=== PATIENT | male | born 1960 | race Caucasian/White ===

== ENCOUNTER 2018-06-14 18:04 | Inpatient (IN) | payer OTHER ==
[2018-06-14] MEDS ORDERED: SODIUM CHLORIDE 0.9% 1,000 ML IV STA ×2 (20:15→22:18)
[2018-06-14] MEDS ORDERED: VANCOMYCIN IV PER PHARMACY 1 EACH MISC MISCELLANE PRN (20:21)
[2018-06-14] MEDS ORDERED: VANCOMYCIN 2,500 MG in SODIUM CHLORIDE 0.9% 500 ML 500 ML IVPB STA (20:32)
--- NOTE | 2018-06-14 21:02 | XR ---
EXAMINATION TYPE: XR femur RT DATE OF EXAM: 06/14/2018 COMPARISON: NONE HISTORY: Neuropathy and pain TECHNIQUE: 4 views FINDINGS: I see no fracture nor dislocation. Hip joint and knee joint are intact. There is some calci fication of the lateral meniscus of the knee. There is spurring of the acetabulum. IMPRESSION: There are some degenerative changes. No fracture seen.
--- NOTE | 2018-06-14 21:04 | ED ---
General Adult HPI - General Source: patient, RN notes reviewed, old records reviewed Mode of arrival: wheelchair Limitations: no limitations <Hector Kc - Last Filed: 06/14/18 23:09> <Brynn Robles - Last Filed: 06/15/18 00:33> - General Chief complaint: Skin/Abscess/Foreign Body Stated complaint: Infection in foot - History of Present Illness Initial comments: 50-year-old male patient past medical history of diabetes presents to ED with diabetic foot infection. Patient states that he checks his feet daily, punching. Today he noticed that he had a significant ulceration at the distal lateral aspect of his right foot. Patient states that he has pain with ambulation his right foot. Patient has been ambulatory with antalgic gait. Patient was seen by his primary care physician Dr. Leung in the office today, had ulceration debrided, had drain placed, was sent to ER for IV antibiotics and admission. Patient denies any other signs or symptoms. Patient denies fever /chills, nausea vomiting diarrhea, chest pain, shortness breath, abdominal pain. Systemic: Pt denies fatigue, myalgia, fever/chills, rash. Pt denies weakness, night sweats, weight loss. Neuro: Pt denies headache, visual disturbances, syncope or pre-syncope. HEENT: Pt denies ocular discharge or irritation, otalgia, rhinorrhea, pharyngitis or notable lymphadenopathy. Cardiopulmonary: Pt denies chest pain, SOB, heart palpitations, dyspnea on exertion. Abdominal/GI: Pt denies abdominal pain, n/v/d. : Pt denies dysuria, burning w/ urination, frequency/urgency. Denies new onset urinary or bowel incontinence. MSK: Pt denies myalgia, loss of strength or function in extremities. Neuro: Pt denies new onset weakness, paresthesias. (Hector Kc) - Related Data Home Medications Medication Instructions Recorded Confirmed Chlorthalidone 25 mg PO DAILY 06/14/18 06/14/18 Ergocalciferol (Vitamin D2) 50,000 unit PO HUGGINS 06/14/18 06/14/18 [Vitamin D2] Gabapentin 800 mg PO QID 06/14/18 06/14/18 Insulin Glargine,Hum.rec.anlog 36 unit SQ HS 06/14/18 06/14/18 [Basaglar Kwikpen U-100] Insulin Glargine,Hum.rec.anlog 40 units SQ QAM 06/14/18 06/14/18 [Basaglar Kwikpen U-100] Losartan Potassium 100 mg PO DAILY 06/14/18 06/14/18 Magnesium(Unknown Dose) 1 tab PO BID 06/14/18 06/14/18 Mesalamine [Pentasa] 1,000 mg PO QID 06/14/18 06/14/18 Pioglitazone [Actos] 45 mg PO HS 06/14/18 06/14/18 Pramipexole [Mirapex] 0.5 - 1 mg PO HS 06/14/18 06/14/18 Pyridoxine HCl (Vitamin B6) 100 mg PO DAILY 06/14/18 06/14/18 [Vitamin B-6] amLODIPine [Norvasc] 5 mg PO BID 06/14/18 06/14/18 metFORMIN HCL 1,000 mg PO BID 06/14/18 06/14/18 Allergies Allergy/AdvReac Type Severity Reaction Status Date / Time codeine Allergy Swelling Verified 06/14/18 20:19 Review of Systems ROS Other: All systems not noted in ROS Statement are negative. <Hector Kc - Last Filed: 06/14/18 23:09> ROS Other: All systems not noted in ROS Statement are negative. <Brynn Robles P - Last Filed: 06/15/18 00:33> ROS Statement: Those systems with pertinent positive or pertinent negative responses have been documented in the HPI. Past Medical History Past Medical History: Diabetes Mellitus, Hypertension Additional Past Medical History / Comment(s): neuropathy, crohns Past Surgical History: Bowel Resection, Tonsillectomy Past Psychological History: No Psychological Hx Reported Smoking Status: Former smoker Past Alcohol Use History: None Reported Past Drug Use History: None Reported <Hector Kc - Last Filed: 06/14/18 23:09> General Exam Limitations: no limitations <Hector Kc - Last Filed: 06/14/18 23:09> <Brynn Robles P - Last Filed: 06/15/18 00:33> - General Exam Comments Initial Comments: Constitutional: NAD, AOX3, Pt has pleasant affect. HEENT: NC/AT, trachea midline, neck supple, no lymphadenopathy. Posterior pharynx non erythematous, without exudates. External ears appear normal, without discharge. Mucous membranes moist. Eyes PERRLA, EOM intact. There is no scleral icterus. No pallor noted. Cardiopulmonary: RRR, no murmurs, rubs or gallops, no JVD noted. Lungs CTAB in anterior and posterior lee. No peripheral edema. Abdominal exam: Abdomen soft and non-distended. Abdomen non-tender to palpation in all 4 quadrants. Bowel sounds active in LLQ. No hepatosplenomegaly. No ecchymosis Neuro: CN II-XII grossly intact. No nuchal rigidity. MSK: Debrided ulceration with intact drain noted on lateral aspect of distal R foot. No active draining. Neurovascularly intact, posterior tibialis and dorsalis pedis pulse +2 bilaterally. Pt has pain with palpation of R posterior calf. Homans sign negative bilaterally. No pain with palpation of L posterior calf. Full active ROM in upper and lower extremities, 5/5 stregnth. (Hector Kc) Vital Signs 06/14/18 06/14/18 06/14/18 18:11 20:06 23:00 Temperature 98.4 F 98.4 F 98.9 F Pulse Rate 81 76 86 Respiratory 20 18 20 Rate Blood Pressure 165/78 171/77 175/89 O2 Sat by Pulse 96 96 98 Oximetry 06/15/18 00:12 Temperature 98.8 F Pulse Rate 18 L Respiratory 86 H Rate Blood Pressure 165/80 O2 Sat by Pulse 98 Oximetry Medical Decision Making - Lab Data Result diagrams: 06/14/18 21:30 06/14/18 21:30 <Hector Kc - Last Filed: 06/14/18 23:09> - Lab Data Result diagrams: 06/14/18 21:30 06/14/18 21:30 <Brynn Robles - Last Filed: 06/15/18 00:33> - Medical Decision Making 50-year-old male patient with past medical history of diabetes sent to ER by primary care provider for diabetic foot infection. Physical exam revealed a diabetic foot infection and the lateral aspect of his distal right foot. Patient neurovascularly intact. Patient had some right posterior calf tenderness, venous duplex was negative. CBC was non-impressive. CMP showed an elevated glucose, elevated creatinine. Patient given insulin for hyperglycemia. Patient started on vancomycin and Zosyn. Patient admitted for further evaluation and treatment. Case discussed with Dr. Robles. (Hector Kc) I personally saw and examined the patient. I reviewed and agree with the mid- level provider findings including all diagnostic interpretations and treatment plans as written. I discussed patient care with Dr. Aburto who agrees with plan for admission for IV antibiotics (Brynn Robles) - Lab Data Lab Results 06/14/18 06/14/18 06/14/18 Range/Units 21:00 21:30 21:30 WBC 10.0 (3.8-10.6) k/uL RBC 4.45 (4.30-5.90) m/uL Hgb 13.6 (13.0-17.5) gm/dL Hct 40.8 (39.0-53.0) % MCV 91.8 (80.0-100.0) fL MCH 30.5 (25.0-35.0) pg MCHC 33.2 (31.0-37.0) g/dL RDW 13.5 (11.5-15.5) % Plt Count 261 (150-450) k/uL Neutrophils % 75 % Lymphocytes % 15 % Monocytes % 6 % Eosinophils % 2 % Basophils % 0 % Neutrophils # 7.5 (1.3-7.7) k/uL Lymphocytes # 1.5 (1.0-4.8) k/uL Monocytes # 0.6 (0-1.0) k/uL Eosinophils # 0.2 (0-0.7) k/uL Basophils # 0.0 (0-0.2) k/uL Sodium 140 (137-145) mmol/L Potassium 4.6 (3.5-5.1) mmol/L Chloride 102 (98-107) mmol/L Carbon Dioxide 29 (22-30) mmol/L Anion Gap 9 mmol/L BUN 26 H (9-20) mg/dL Creatinine 1.45 H (0.66-1.25) mg/dL Est GFR (CKD-EPI)AfAm 61 (>60 ml/min/1.73 sqM) Est GFR (CKD-EPI)NonAf 53 (>60 ml/min/1.73 sqM) Glucose 435 H (74-99) mg/dL Plasma Lactic Acid Jay (0.7-2.0) mmol/L Calcium 9.4 (8.4-10.2) mg/dL Total Bilirubin 1.2 (0.2-1.3) mg/dL AST 24 (17-59) U/L ALT 43 (21-72) U/L Alkaline Phosphatase 144 H (38-126) U/L Total Protein 7.1 (6.3-8.2) g/dL Albumin 3.8 (3.5-5.0) g/dL Urine Color Light Yellow Urine Appearance Clear (Clear) Urine pH 5.5 (5.0-8.0) Ur Specific [place] 1.023 (1.001-1.035) Urine Protein Negative (Negative) Urine Glucose (UA) 4+ H (Negative) Urine Ketones Negative (Negative) Urine Blood Negative (Negative) Urine Nitrite Negative (Negative) Urine Bilirubin Negative (Negative) Urine Urobilinogen <2.0 (<2.0) mg/dL Ur Leukocyte Esterase Negative (Negative) 06/14/18 Range/Units 21:30 WBC (3.8-10.6) k/uL RBC (4.30-5.90) m/uL Hgb (13.0-17.5) gm/dL Hct (39.0-53.0) % MCV (80.0-100.0) fL MCH (25.0-35.0) pg MCHC (31.0-37.0) g/dL RDW (11.5-15.5) % Plt Count (150-450) k/uL Neutrophils % % Lymphocytes % % Monocytes % % Eosinophils % % Basophils % % Neutrophils # (1.3-7.7) k/uL Lymphocytes # (1.0-4.8) k/uL Monocytes # (0-1.0) k/uL Eosinophils # (0-0.7) k/uL Basophils # (0-0.2) k/uL Sodium (137-145) mmol/L Potassium (3.5-5.1) mmol/L Chloride (98-107) mmol/L Carbon Dioxide (22-30) mmol/L Anion Gap mmol/L BUN (9-20) mg/dL Creatinine (0.66-1.25) mg/dL Est GFR (CKD-EPI)AfAm (>60 ml/min/1.73 sqM) Est GFR (CKD-EPI)NonAf (>60 ml/min/1.73 sqM) Glucose (74-99) mg/dL Plasma Lactic Acid Jay 1.8 (0.7-2.0) mmol/L Calcium (8.4-10.2) mg/dL Total Bilirubin (0.2-1.3) mg/dL AST (17-59) U/L ALT (21-72) U/L Alkaline Phosphatase (38-126) U/L Total Protein (6.3-8.2) g/dL Albumin (3.5-5.0) g/dL Urine Color Urine Appearance (Clear) Urine pH (5.0-8.0) Ur Specific [place] (1.001-1.035) Urine Protein (Negative) Urine Glucose (UA) (Negative) Urine Ketones (Negative) Urine Blood (Negative) Urine Nitrite (Negative) Urine Bilirubin (Negative) Urine Urobilinogen (<2.0) mg/dL Ur Leukocyte Esterase (Negative) Disposition Is patient prescribed a controlled substance at d/c from ED?: No Decision Time: 23:08 <Hector Kc - Last Filed: 06/14/18 23:09> <Brynn Robles - Last Filed: 06/15/18 00:33> Clinical Impression: Diabetic foot infection Disposition: ADMITTED IP TO THIS HOSP
--- NOTE | 2018-06-14 21:05 | XR ---
EXAMINATION TYPE: XR foot complete RT DATE OF EXAM: 06/14/2018 COMPARISON: NONE HISTORY: Neuropathy and pain TECHNIQUE: 3 views FINDINGS: There is a 1.5 x 0.5 cm elongated density projected over the mid foot on the lateral view o n the plantar aspect consistent with a foreign body. There is a pin in the proximal phalanx of the se cond toe. There is probably previous surgery on the head of the proximal phalanx of the little 12. Me tatarsals are intact. There is an Achilles calcaneal spur. There is plantar calcaneal spurring. IMPRESSION: Foreign body projected in the plantar soft tissues. Degenerative hypertrophic changes. No acute bony abnormality seen.
--- NOTE | 2018-06-14 21:08 | XR ---
EXAMINATION TYPE: XR tibia fibula RT DATE OF EXAM: 06/14/2018 COMPARISON: NONE HISTORY: Neuropathy and pain TECHNIQUE: 4 views FINDINGS: There is mild subcutaneous edema around the lower leg. I see no fracture nor dislocation. A nkle mortise is anatomic. Knee joint appears intact. IMPRESSION: Subcutaneous edema. No fracture seen. No sign of osteomyelitis. Moderate plantar and Achi lles calcaneal spurring and calcification noted.
--- NOTE | 2018-06-14 21:18 | XR ---
EXAMINATION TYPE: XR chest 2V DATE OF EXAM: 06/14/2018 COMPARISON: NONE HISTORY: Diabetes and neuropathy. Chest pain TECHNIQUE: Frontal and lateral views of the chest are obtained. FINDINGS: Heart and mediastinum are normal. Lungs are clear. Diaphragm is normal. There is mild spur ring in the thoracic spine. IMPRESSION: No active cardiopulmonary disease. Normal heart.
[2018-06-14 21:55] LABS: Basophils % (A) 0 %; Eosinophils # (A) 0.2 k/uL (0-0.7); Eosinophils % (A) 2 %; HCT 40.8 % (39.0-53.0); HGB 13.6 gm/dL (13.0-17.5); Lymphocytes # (A) 1.5 k/uL (1.0-4.8); Lymphocytes % (A) 15 %; MCH 30.5 pg (25.0-35.0); MCHC 33.2 g/dL (31.0-37.0); MCV 91.8 fL (80.0-100.0); Mean Platelet Volume 7.6; Monocytes # (A) 0.6 k/uL (0-1.0); Monocytes % (A) 6 %; Neutrophils # (A) 7.5 k/uL (1.3-7.7); Neutrophils % (A) 75 %; Platelet Count 261 k/uL (150-450); RBC 4.45 m/uL (4.30-5.90); RDW 13.5 % (11.5-15.5)
[2018-06-14 22:06] LABS: Albumin 3.8 g/dL (3.5-5.0); Calcium 9.4 mg/dL (8.4-10.2); Potassium 4.6 mmol/L (3.5-5.1); Total Bilirubin 1.2 mg/dL (0.2-1.3); Total Protein 7.1 g/dL (6.3-8.2)
[2018-06-14] MEDS ORDERED: INSULIN REGULAR 100 UNIT/ML VIAL IV ONE (22:17)
[2018-06-14 22:31] LABS: Appearance,Urine Clear (Clear); Bilirubin,Urine Negative (Negative); Blood,Urine Negative (Negative); Color,Urine Light Yellow; Glucose,Urine (UA) 4+ (Negative); Ketones,Urine Negative (Negative); Leukocyte Esterase,Urine Negative (Negative); Nitrite,Urine Negative (Negative); PH, Urine 5.5 (5.0-8.0); Protein,Urine Negative (Negative); Specific Gravity,Urine 1.023 (1.001-1.035); Urobilinogen,Urine <2.0 mg/dL (<2.0)
--- NOTE | 2018-06-14 22:41 | US ---
EXAMINATION TYPE: US venous doppler duplex LE BI DATE OF EXAM: 06/14/2018 10:35 PM COMPARISON: NONE CLINICAL HISTORY: Pain. SIDE PERFORMED: TECHNIQUE: The lower extremity deep venous system is examined utilizing real time linear array sonog ash with graded compression, doppler sonography and color-flow sonography. VESSELS IMAGED: External Iliac Vein (EIV) Common Femoral Vein Deep Femoral Vein Greater Saphenous Vein * Femoral Vein Popliteal Vein Small Saphenous Vein * Proximal Calf Veins (* superficial vessels) Right Leg: Left Leg: IMPRESSION: Normal bilateral leg duplex venous sonogram. No evidence of deep venous thrombosis.
[2018-06-14] MEDS ORDERED: NALOXONE 0.4 MG/ML 1 ML VIAL IV PRN (22:52)
[2018-06-15] MEDS ORDERED: ACETAMINOPHEN TAB 325 MG TAB PO PRN (01:27)
[2018-06-15] MEDS ORDERED: NALOXONE 0.4 MG/ML 1 ML VIAL IV PRN (01:27)
[2018-06-15] MEDS: PIPERACILLIN-TAZOBACTAM 3.375 GM in SODIUM CHLORIDE 0.9% 100 ML IVPB SCH ×3 (01:28→15:15)
--- NOTE | 2018-06-15 01:37 | P.HPIM ---
History of Present Illness H&P Date: 06/15/18 Chief Complaint: Diabetic foot ulcer 58-year-old male with history of diabetes hypertension and peripheral neuropathy Patient doesn't have any sensation in his feet and he walks around using a cane. He does check his feet every day and today he noticed a swollen area over the lateral aspect of his right foot so he went to see Dr. Leung arm wound debridement in the office and recommended that he goes to the hospital for IV antibiotics patient otherwise denies any chills or fever denies any abdominal pain chest pain or trouble breathing denies any nausea or vomiting. Review of Systems Pertinent positives as noted in HPI. All other systems were reviewed and are negative Past Medical History Past Medical History: Diabetes Mellitus, Hypertension Additional Past Medical History / Comment(s): neuropathy, crohns Past Surgical History: Bowel Resection, Tonsillectomy Past Psychological History: No Psychological Hx Reported Smoking Status: Former smoker Past Alcohol Use History: None Reported Past Drug Use History: None Reported Medications and Allergies Home Medications Medication Instructions Recorded Confirmed Type Chlorthalidone 25 mg PO DAILY 06/14/18 06/14/18 History Ergocalciferol (Vitamin D2) 50,000 unit PO HUGGINS 06/14/18 06/14/18 History [Vitamin D2] Gabapentin 800 mg PO QID 06/14/18 06/14/18 History Insulin Glargine,Hum.rec.anlog 36 unit SQ HS 06/14/18 06/14/18 History [Basaglar Kwikpen U-100] Insulin Glargine,Hum.rec.anlog 40 units SQ QAM 06/14/18 06/14/18 History [Basaglar Kwikpen U-100] Losartan Potassium 100 mg PO DAILY 06/14/18 06/14/18 History Magnesium(Unknown Dose) 1 tab PO BID 06/14/18 06/14/18 History Mesalamine [Pentasa] 1,000 mg PO QID 06/14/18 06/14/18 History Pioglitazone [Actos] 45 mg PO HS 06/14/18 06/14/18 History Pramipexole [Mirapex] 0.5 - 1 mg PO HS 06/14/18 06/14/18 History Pyridoxine HCl (Vitamin B6) 100 mg PO DAILY 06/14/18 06/14/18 History [Vitamin B-6] amLODIPine [Norvasc] 5 mg PO BID 06/14/18 06/14/18 History metFORMIN HCL 1,000 mg PO BID 06/14/18 06/14/18 History Allergies Allergy/AdvReac Type Severity Reaction Status Date / Time codeine Allergy Swelling Verified 06/14/18 20:19 Physical Exam Vitals: Vital Signs Temp Pulse Pulse Resp BP BP Pulse Ox 06/15/18 01:23 98.5 F 76 18 164/79 97 06/15/18 00:12 98.8 F 18 L 86 H 165/80 98 06/14/18 23:00 98.9 F 86 20 175/89 98 06/14/18 20:06 98.4 F 76 18 171/77 96 06/14/18 18:11 98.4 F 81 20 165/78 96 Intake and Output 06/14/18 06/14/18 06/15/18 14:59 22:59 06:59 Other: Weight 131.542 kg Constitutional: No acute distress, conversant, pleasant Eyes: Anicteric sclerae, moist conjunctiva, no lid-lag Pupils equal round reactive to light ENMT: NC/AT Oropharynx clear, no erythema, exudates Neck: Supple, FROM, no masses, or JVD No carotid bruits No thyromegaly Lungs: Clear to auscultation Clear to percussion Normal respiratory effort, no accessory muscle use Cardiovascular: Heart regular in rate and rhythm, No murmurs, gallops, or rubs No peripheral edema Abdominal: Soft Nontender, no guarding, rebound or rigidity Abdomen moving with respiration Normoactive bowel sounds No hepatomegaly, No splenomegaly No palpable mass No abdominal wall hernia noted Skin: Diabetic foot ulcer seen over the lateral aspect of the right foot no significant surrounding induration no tenderness to palpation no drainage patient is status post wound debridement in the outpatient office Normal temperature, tone, texture, turgor No induration No subcutaneous nodules No rash, lesions No ulcers Extremities: No digital cyanosis No clubbing Pedal pulses intact and symmetrical Radial pulses intact and symmetrical No calf tenderness Psychiatric: Alert and oriented to person, place and time Appropriate affect fair judgment Neuro Muscles Strength 5/5 in all 4 extremities Sensation to light touch grossly present throughout Cranial nerves II-XII grossly intact Decreased sensation over bilateral lower extremities from mid thigh and below Lymphatics: no palpable cervical or supraclavicular , or inguinal lymph nodes Results CBC & Chem 7: 06/14/18 21:30 06/14/18 21:30 Labs: Abnormal Lab Results - Last 24 Hours (Table) 06/14/18 06/14/18 Range/Units 21:00 21:30 BUN 26 H (9-20) mg/dL Creatinine 1.45 H (0.66-1.25) mg/dL Glucose 435 H (74-99) mg/dL Alkaline Phosphatase 144 H (38-126) U/L Urine Glucose (UA) 4+ H (Negative) Assessment and Plan Assessment: 58-year-old male with history of diabetes and hypertension. Admitted as an inpatient with the hospital stay more than 48 hours due to diabetic foot ulcer per recommendation of formed clinic to receive IV antibiotics. Patient was also found to have acute kidney injury.unknown baseline of creatinine. Plan: Diabetic foot ulcer Status post debridement outpatient IV antibiotics for wound clinic recommendations ID consult Local wound care Pain control Check cultures Check ESR CRP X-rays reviewed no acute abnormalities no evidence suggestive of osteo this far Acute kidney injury unknown baseline of creatinine Hold diuretics Hold losartan IV fluid hydration Monitor urine output and renal function Diabetes mellitus Insulin sliding scale Hold oral hypoglycemic agent Continue with long-acting insulin Hypertension Continue amlodipine DVT prophylaxis heparin subcutaneous 3 times a day Surrogate decision-maker: CODE STATUS: Full code Discussed with: Patient, ER, RN Anticipated discharge: 48-[address]: Home A total of 60 minutes was spent on the care of this complex patient more than 50 % of the time was spent in counseling and care coordination.
[2018-06-15 02:26] VITALS: BMI 36.2
[2018-06-15 07:29] LABS: Glucose,Whole Blood 209 mg/dL (75-99)
[2018-06-15] MEDS: HEPARIN SODIUM,PORCINE 5,000 UNIT/ML 1 ML VIAL SQ SCH ×3 (07:35→22:10)
[2018-06-15] MEDS: amLODIPine 5 MG TAB PO SCH ×2 (07:36→22:10)
[2018-06-15] MEDS: GABAPENTIN 400 MG CAP PO SCH ×4 (07:36→22:09)
[2018-06-15] MEDS: INSULIN ASPART 100 UNIT/ML 1 ML 10 ML VIAL SQ SCH ×4 (07:36→22:10)
[2018-06-15] MEDS ORDERED: BALSALAZIDE DISODIUM 750 MG CAPSULE PO SCH (09:00)
[2018-06-15] MEDS: PENTASA 500 MG PO SCH ×4 (09:25→22:15)
[2018-06-15] MEDS: INSULIN DETEMIR 100 UNIT/ML 10 ML VIAL SQ SCH (09:34)
[2018-06-15] MEDS ORDERED: DIPH,PERTUS(ACELL)TETVAC-LF 0.5 ML VIAL IM ONE (09:52)
--- NOTE | 2018-06-15 09:55 | P.CONS ---
History of Present Illness - Reason for Consult Consult date: 06/15/18 Diabetic foot infection - History of Present Illness This is a 58-year-old male patient with past history significant for diabetes mellitus type 2 insulin requiring. He gives history that he follows with Dr. Leung for long-term every month regarding a left foot wound that is almost completely healed. He states that he has diabetic neuropathy and does not have any feeling in his feet. His son checks his feet every morning and his checks them every evening for him. Yesterday morning, his son noticed a large blood blister on his right foot. Patient does not recall any injury. He saw Dr. Leung yesterday and this was to bright red and a drain was placed and he was then sent to the emergency center for admission and IV antibiotics. Patient has had previous surgeries for hammertoes on this foot. He states he has fever chills and rigors the night before. Patient presented afebrile, white count of 10, creatinine 1.45. Baseline creatinine is not known. Blood sugar was 435. Patient states that his blood sugar has been running 150-200 at home and he does not know his hemoglobin A1c. C-reactive protein was 54 and sed rate 31. Urinalysis was 4+ glucose, lactic acid 1.8. Venous Doppler was negative for DVT on both legs. Foot x-ray reveals foreign body projecting in the plantar soft tissues. Degenerative hypertrophic changes. No acute bony abnormality seen. Right femur x-ray showed degenerative changes. No acute fracture. Right tib-fib x-ray shows subcutaneous edema. No fracture. No sign of osteomyelitis. Moderate plantar and Achilles calcaneal spurring and calcification noted. Chest x-ray shows no active cardio pulmonary disease. Normal heart. Hemoglobin A1c is pending. Patient states that chills have resolved. Review of Systems All systems: negative Constitutional: Denies anorexia, Denies chills, Denies fatigue, Denies fever, Denies lethargy, Denies malaise, Denies poor appetite, Denies weakness, Denies weight loss Eyes: denies blurred vision, denies pain Ears, nose, mouth and throat: Denies dental pain, Denies dysphagia, Denies headache, Denies mouth pain, Denies sore throat, Denies vertigo Cardiovascular: Reports leg edema, Denies chest pain, Denies decreased exercise tolerance, Denies dyspnea on exertion, Denies edema, Denies shortness of breath , Denies syncope Respiratory: Denies cough, Denies cough with sputum, Denies dyspnea, Denies excessive sputum, Denies hemoptysis, Denies home oxygen, Denies wheezing Gastrointestinal: Denies abdominal pain, Denies diarrhea, Denies loss of appetite, Denies melena, Denies nausea, Denies vomiting Genitourinary: Denies dysuria, Denies urinary frequency, Denies urinary hesitancy, Denies urinary retention Musculoskeletal: Denies frequent falls, Denies muscle weakness, Denies myalgias Integumentary: Reports foot/leg ulcers, Reports wounds, Denies pruritus, Denies rash Neurological: Denies aphasia, Denies change in mentation, Denies confusion, Denies numbness, Denies seizures, Denies syncope, Denies weakness Psychiatric: Denies anxiety, Denies depression Endocrine: Denies fatigue, Denies weight change Past Medical History Past Medical History: Diabetes Mellitus, Hypertension Additional Past Medical History / Comment(s): Diabetic neuropathy, crohns History of Any Multi-Drug Resistant Organisms: None Reported Past Surgical History: Bowel Resection, Tonsillectomy Past Psychological History: No Psychological Hx Reported Smoking Status: Former smoker Past Alcohol Use History: None Reported Additional Past Alcohol Use History / Comment(s): Patient was a smoker of 2 and half to 3 packs per day for 12-13 years and quit 25 years ago. He denies any marijuana, street drug or alcohol use. He currently lives at home with his and son. 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 There are 3 dogs and 2 cats in the home. 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 He has difficulty ambulating due to neuropathy. Past Drug Use History: None Reported Medications and Allergies Home Medications Medication Instructions Recorded Confirmed Type Chlorthalidone 25 mg PO DAILY 06/14/18 06/14/18 History Ergocalciferol (Vitamin D2) 50,000 unit PO HUGGINS 06/14/18 06/14/18 History [Vitamin D2] Gabapentin 800 mg PO QID 06/14/18 06/14/18 History Insulin Glargine,Hum.rec.anlog 36 unit SQ HS 06/14/18 06/14/18 History [Basaglar Kwikpen U-100] Insulin Glargine,Hum.rec.anlog 40 units SQ QAM 06/14/18 06/14/18 History [Basaglar Kwikpen U-100] Losartan Potassium 100 mg PO DAILY 06/14/18 06/14/18 History Magnesium(Unknown Dose) 1 tab PO BID 06/14/18 06/14/18 History Mesalamine [Pentasa] 1,000 mg PO QID 06/14/18 06/14/18 History Pioglitazone [Actos] 45 mg PO HS 06/14/18 06/14/18 History Pramipexole [Mirapex] 0.5 - 1 mg PO HS 06/14/18 06/14/18 History Pyridoxine HCl (Vitamin B6) 100 mg PO DAILY 06/14/18 06/14/18 History [Vitamin B-6] amLODIPine [Norvasc] 5 mg PO BID 06/14/18 06/14/18 History metFORMIN HCL 1,000 mg PO BID 06/14/18 06/14/18 History Allergies Allergy/AdvReac Type Severity Reaction Status Date / Time codeine Allergy Swelling Verified 06/14/18 20:19 Physical Exam Vitals: Vital Signs Temp Pulse Pulse Resp BP BP Pulse Ox 06/15/18 07:11 98.6 F 77 18 148/71 96 06/15/18 01:23 98.5 F 76 18 164/79 97 06/15/18 00:12 98.8 F 18 L 86 H 165/80 98 06/14/18 23:00 98.9 F 86 20 175/89 98 06/14/18 20:06 98.4 F 76 18 171/77 96 06/14/18 18:11 98.4 F 81 20 165/78 96 Intake and Output 06/14/18 06/15/18 06/15/18 22:59 06:59 14:59 Other: # Voids 1 Weight 131.542 kg 131.54 kg Gen: This is a obese 58-year-old male. He is in bed and appears to be comfortable. HEENT: Head is atraumatic, normocephalic. Pupils equal, round. Sclerae is anicteric. Conjunctiva pink. Mucous members of the mouth are moist. Dentition is in fair order for age. No thrush noted. NECK: Supple. No JVD. No lymphadenopathy. No thyromegaly. LUNGS: Clear to auscultation. No wheezes or rhonchi. No intercostal retractions. HEART: Regular rate and rhythm. No murmur. ABDOMEN: Soft. Bowel sounds are present. No masses. No tenderness. EXTREMITIES: 1+ pedal edema to the right foot. On the lateral proximal fifth metatarsal there is an open ulcer. Minimal surrounding erythema. Drain is in place. No foul odor. Scant amount of drainage. On the plantar surface of the left foot there is a healing wound. No drainage, erythema, edema. Dorsalis pedis is +2 bilaterally. NEUROLOGICAL: Patient is awake, alert and oriented x3. Cranial nerves 2 through 12 are grossly intact. Results Results: Laboratory Results WBC 10.0 k/uL (3.8-10.6) 06/14/18 21:30 RBC 4.45 m/uL (4.30-5.90) 06/14/18 21:30 Hgb 13.6 gm/dL (13.0-17.5) 06/14/18 21:30 Hct 40.8 % (39.0-53.0) 06/14/18 21:30 MCV 91.8 fL (80.0-100.0) 06/14/18 21:30 MCH 30.5 pg (25.0-35.0) 06/14/18 21: MCHC 33.2 g/dL (31.0-37.0) 06/14/18 21:30 RDW 13.5 % (11.5-15.5) 06/14/18 21:30 Plt Count 261 k/uL (150-450) 06/14/18 21:30 Neutrophils % 75 % 06/14/18 21:30 Lymphocytes % 15 % 06/14/18 21:30 Monocytes % 6 % 06/14/18 21:30 Eosinophils % 2 % 06/14/18 21:30 Basophils % 0 % 06/14/18 21:30 Neutrophils # 7.5 k/uL (1.3-7.7) 06/14/18 21:30 Lymphocytes # 1.5 k/uL (1.0-4.8) 06/14/18 21:30 Monocytes # 0.6 k/uL (0-1.0) 06/14/18 21:30 Eosinophils # 0.2 k/uL (0-0.7) 06/14/18 21:30 Basophils # 0.0 k/uL (0-0.2) 06/14/18 21:30 ESR 31 mm/hr (0-15) H 06/14/18 21:30 Sodium 140 mmol/L (137-145) 06/14/18 21:30 Potassium 4.6 mmol/L (3.5-5.1) 06/14/18 21:30 Chloride 102 mmol/L (98-107) 06/14/18 21:30 Carbon Dioxide 29 mmol/L (22-30) 06/14/18 21:30 Anion Gap 9 mmol/L 06/14/18 21:30 BUN 26 mg/dL (9-20) H 06/14/18 21:30 Creatinine 1.45 mg/dL (0.66-1.25) H 06/14/18 21:30 Est GFR (CKD-EPI)AfAm 61 (>60 ml/min/1.73 sqM) 06/14/18 21:30 Est GFR (CKD-EPI)NonAf 53 (>60 ml/min/1.73 sqM) 06/14/18 21:30 Glucose 435 mg/dL (74-99) H 06/14/18 21:30 POC Glucose (mg/dL) 209 mg/dL (75-99) H 06/15/18 07:13 POC Glu Behavior Clinician Mreary Rodriguez 06/15/18 07:13 Plasma Lactic Acid Jay 1.8 mmol/L (0.7-2.0) 06/14/18 21:30 Calcium 9.4 mg/dL (8.4-10.2) 06/14/18 21:30 Total Bilirubin 1.2 mg/dL (0.2-1.3) 06/14/18 21:30 AST 24 U/L (17-59) 06/14/18 21:30 ALT 43 U/L (21-72) 06/14/18 21:30 Alkaline Phosphatase 144 U/L (38-126) H 06/14/18 21:30 C-Reactive Protein 54.0 mg/L (<10.0) H 06/14/18 21:30 Total Protein 7.1 g/dL (6.3-8.2) 06/14/18 21:30 Albumin 3.8 g/dL (3.5-5.0) 06/14/18 21:30 Urine Color Light Yellow 06/14/18 21:00 Urine Appearance Clear (Clear) 06/14/18 21:00 Urine pH 5.5 (5.0-8.0) 06/14/18 21:00 Ur Specific [place] 1.023 (1.001-1.035) 06/14/18 21:00 Urine Protein Negative (Negative) 06/14/18 21:00 Urine Glucose (UA) 4+ (Negative) H 06/14/18 21:00 Urine Ketones Negative (Negative) 06/14/18 21:00 Urine Blood Negative (Negative) 06/14/18 21:00 Urine Nitrite Negative (Negative) 06/14/18 21:00 Urine Bilirubin Negative (Negative) 06/14/18 21:00 Urine Urobilinogen <2.0 mg/dL (<2.0) 06/14/18 21:00 Ur Leukocyte Esterase Negative (Negative) 06/14/18 21:00 CBC & Chem 7: 06/14/18 21:30 06/14/18 21:30 Labs: Abnormal Lab Results - Last 24 Hours (Table) 06/14/18 06/14/18 06/14/18 Range/Units 21:00 21:30 21:30 ESR 31 H (0-15) mm/hr BUN 26 H (9-20) mg/dL Creatinine 1.45 H (0.66-1.25) mg/dL Glucose 435 H (74-99) mg/dL POC Glucose (mg/dL) (75-99) mg/dL Alkaline Phosphatase 144 H (38-126) U/L C-Reactive Protein (<10.0) mg/L Urine Glucose (UA) 4+ H (Negative) 06/14/18 06/15/18 Range/Units 21:30 07:13 ESR (0-15) mm/hr BUN (9-20) mg/dL Creatinine (0.66-1.25) mg/dL Glucose (74-99) mg/dL POC Glucose (mg/dL) 209 H (75-99) mg/dL Alkaline Phosphatase (38-126) U/L C-Reactive Protein 54.0 H (<10.0) mg/L Urine Glucose (UA) (Negative) Assessment and Plan Plan: This is a 58-year-old male presented to the hospital with diabetic ulcer to the right foot status post I&D done at Dr. Leung's office. Patient is currently on vancomycin and Zosyn which will be continued. Patient is diabetic and will require tight glucose control. Hemoglobin A1c is pending. Local wound care will be addressed. Wound culture has been ordered and tetanus status will be updated. Continues supportive care. Further recommendations as patient progresses. The above dictated assessment and findings were discussed with Dr. Flores. The impression and plan of care have been directed as dictated. Vanessa Pichardo nurse practitioner acting as scribe for Dr. Flores.
[2018-06-15 12:25] LABS: Glucose,Whole Blood 188 mg/dL (75-99)
[2018-06-15 15:41] LABS: Hemoglobin A1C 9.1 % (4.0-6.0)
[2018-06-15 17:31] LABS: Glucose,Whole Blood 211 mg/dL (75-99)
[2018-06-15] MEDS ORDERED: INSULIN DETEMIR 100 UNIT/ML 10 ML VIAL SQ SCH (21:00)
[2018-06-15] MEDS: PRAMIPEXOLE 1 MG TAB PO SCH (22:09)
[2018-06-15] MEDS: VANCOMYCIN 2,500 MG in SODIUM CHLORIDE 0.9% 500 ML 500 ML IVPB SCH (22:26)
--- NOTE | 2018-06-15 23:39 | P.CON ---
Consult Note - . Consult date: 06/15/18 Assessment/Plan:: This is a 58-year-old male patient with past history significant for diabetes mellitus type 2 insulin requiring. He gives history that he follows with Dr. Leung for long-term every month regarding a left foot wound that is almost completely healed. He states that he has diabetic neuropathy and does not have any feeling in his feet. His son checks his feet every morning and his checks them every evening for him. Yesterday morning, his son noticed a large blood blister on his right foot. Patient does not recall any injury. He saw Dr. Leung yesterday and this was to bright red and a drain was placed and he was then sent to the emergency center for admission and IV antibiotics. Patient has had previous surgeries for hammertoes on this foot. He states he has fever chills and rigors the night before. Patient presented afebrile, white count of 10, creatinine 1.45. Baseline creatinine is not known. Blood sugar was 435. Patient states that his blood sugar has been running 150-200 at home and he does not know his hemoglobin A1c. C-reactive protein was 54 and sed rate 31. Urinalysis was 4+ glucose, lactic acid 1.8. Venous Doppler was negative for DVT on both legs. Foot x-ray reveals foreign body projecting in the plantar soft tissues. Degenerative hypertrophic changes. No acute bony abnormality seen. Right femur x-ray showed degenerative changes. No acute fracture. Right tib-fib x-ray shows subcutaneous edema. No fracture. No sign of osteomyelitis. Moderate plantar and Achilles calcaneal spurring and calcification noted. Chest x-ray shows no active cardio pulmonary disease. Normal heart. Hemoglobin A1c is pending. Patient states that chills have resolved.Please see the consult note as dictated by nurse practitioner Wanda Vanessa Pichardo. 58-year-old male presents to Hospital the sudden onset of blistering to the plantar surface of his right foot. He relates that he wear shoes or sandals at all times. He walks briefly through the house without shoes on. Never goes barefoot outside. Really does not have on some type of foot gear while he is within the home. He does put his insulin syringes into container such as an old detergent bottle for disposal to the trash. He does not recall stepping on anything. This is of importance because of the findings of the x-ray of the foreign body into the foot possibly in conjunction with the current injury and ulceration. Please note on admission there is evidence for diabetic foot ulceration, measuring approximately 3.1 x 2.1 with 2.1 cm depth, minimal drainage, full-thickness which is present on admission.currently receiving antibiotic theraat this time. Offloading is important. Local wound care with therahoney gel as been requested to be applied daily for now. We'll requested his mechanical engineering lecturer Dr. Leung comes on consult to evaluate the ulceration for debridement and removal of the foreign body if possible. Further imaging study with a bone scan is requested to evaluate the extent of the infection given the probed depth. We'll ensure that he is up-to-date with his tetanus, multivitamin will be utilized and he is instructed in importance of offloading at this time.
[2018-06-16] MEDS: PIPERACILLIN-TAZOBACTAM 3.375 GM in SODIUM CHLORIDE 0.9% 100 ML IVPB SCH ×3 (01:59→16:48)
[2018-06-16 02:16] LABS: Glucose,Whole Blood 153 mg/dL (75-99)
[2018-06-16 07:19] LABS: Glucose,Whole Blood 110 mg/dL (75-99)
[2018-06-16] MEDS: INSULIN ASPART 100 UNIT/ML 1 ML 10 ML VIAL SQ SCH ×4 (08:33→21:37)
[2018-06-16] MEDS: PENTASA 500 MG PO SCH ×4 (08:53→21:37)
[2018-06-16] MEDS: GABAPENTIN 400 MG CAP PO SCH ×4 (08:54→21:37)
[2018-06-16] MEDS: HEPARIN SODIUM,PORCINE 5,000 UNIT/ML 1 ML VIAL SQ SCH ×2 (08:54→16:48)
[2018-06-16] MEDS: MULTIVITAMINS, THERA 1 EACH TAB PO SCH (08:54)
[2018-06-16] MEDS: amLODIPine 5 MG TAB PO SCH ×2 (08:55→21:37)
--- NOTE | 2018-06-16 09:33 | P.GSHP ---
History of Present Illness H&P Date: 06/16/18 Chief Complaint: Diabetic foot abscess with ascending cellulitis right Patient is a 58-year-old white male seen in my office on Tuesday with a acute ascending cellulitis of the right foot. Apparently the patient stepped on a sharp object when penetrated tissue and entered the plantar lateral aspect of the foot. He notices foot getting red and swollen Tuesday morning and was progressively degrading over the day. He presented my office on Tuesday when we I&D the area and gave patient orders to present to the hospital for treatment of the cellulitis and abscess. In the office we packed the wound with iodoform after copiously lavaging with sterile saline. Patient is now on Zosyn and vancomycin. Patient states he's feeling somewhat better. Past Medical History Past Medical History: Diabetes Mellitus, Hypertension Additional Past Medical History / Comment(s): Diabetic neuropathy, crohns History of Any Multi-Drug Resistant Organisms: None Reported Past Surgical History: Bowel Resection, Tonsillectomy Past Psychological History: No Psychological Hx Reported Smoking Status: Former smoker Past Alcohol Use History: None Reported Additional Past Alcohol Use History / Comment(s): Patient was a smoker of 2 and half to 3 packs per day for 12-13 years and quit 25 years ago. He denies any marijuana, street drug or alcohol use. He currently lives at home with his and son. 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 There are 3 dogs and 2 cats in the home. 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 He has difficulty ambulating due to neuropathy. Past Drug Use History: None Reported Medications and Allergies Home Medications Medication Instructions Recorded Confirmed Type Chlorthalidone 25 mg PO DAILY 06/14/18 06/14/18 History Ergocalciferol (Vitamin D2) 50,000 unit PO HUGGINS 06/14/18 06/14/18 History [Vitamin D2] Gabapentin 800 mg PO QID 06/14/18 06/14/18 History Insulin Glargine,Hum.rec.anlog 36 unit SQ HS 06/14/18 06/14/18 History [Basaglar Kwikpen U-100] Insulin Glargine,Hum.rec.anlog 40 units SQ QAM 06/14/18 06/14/18 History [Basaglar Kwikpen U-100] Losartan Potassium 100 mg PO DAILY 06/14/18 06/14/18 History Magnesium(Unknown Dose) 1 tab PO BID 06/14/18 06/14/18 History Mesalamine [Pentasa] 1,000 mg PO QID 06/14/18 06/14/18 History Pioglitazone [Actos] 45 mg PO HS 06/14/18 06/14/18 History Pramipexole [Mirapex] 0.5 - 1 mg PO HS 06/14/18 06/14/18 History Pyridoxine HCl (Vitamin B6) 100 mg PO DAILY 06/14/18 06/14/18 History [Vitamin B-6] amLODIPine [Norvasc] 5 mg PO BID 06/14/18 06/14/18 History metFORMIN HCL 1,000 mg PO BID 06/14/18 06/14/18 History Allergies Allergy/AdvReac Type Severity Reaction Status Date / Time codeine Allergy Swelling Verified 06/14/18 20:19 Surgical - Exam Vital Signs Temp Pulse Resp BP Pulse Ox 98.4 F 81 20 165/78 96 06/14/18 18:11 06/14/18 18:11 06/14/18 18:11 06/14/18 18:11 06/14/18 18:11 - Cardiovascular Patient pedal pulses are diminished bilateral. There is no digital hair bilateral. There is increased temperature to the right lower extremity consistent with the acute cellulitic infection. - Integumentary Patient has a full-thickness ulceration with abscess on the plantar lateral aspect of the right foot in the area of the base of the fifth metatarsal. The packing has been removed. There is intense erythema and edema extending from this area to the ankle joint with increased temperature. There is no purulence. The extent of the narcotic tissue is localized centrally within the wound and measures approximately a centimeter by a centimeter. The wound extends dorsally a proximally 5 cm and the width of the entire wound is approximately 3 cm. There are no other acute dermatologic lesions - Neurologic Patient has loss of protective sensation up to including the lower leg lateral as well as decreased fiber Tory 2 point tactile at the medial malleolus bilateral. - Musculoskeletal All inverters everters plantar flexors dorsiflexors grossly intact and symmetrical bilateral range of motion ankle joint decreased bilateral range of motion of the remaining pedal joints are essentially normal bilateral. Review of radiographs show the retention of the iodoform packing of the right foot. This was read by the radiologist as a foreign body which is correct however this is iatrogenic. Results - Labs 06/14/18 21:30 06/14/18 21:30 Abnormal Lab Results - Last 24 Hours (Table) 06/14/18 06/15/18 06/15/18 Range/Units 21:30 12:06 17:14 POC Glucose (mg/dL) 188 H 211 H (75-99) mg/dL Hemoglobin A1c 9.1 H (4.0-6.0) % 06/15/18 06/16/18 Range/Units 20:42 07:18 POC Glucose (mg/dL) 153 H 110 H (75-99) mg/dL Hemoglobin A1c (4.0-6.0) % Microbiology - Last 24 Hours (Table) 06/15/18 13:20 Gram Stain - Preliminary Foot - Right Wound Culture - Preliminary 06/14/18 21:30 Blood Culture - Preliminary Blood No Growth after 24 hours 06/15/18 13:20 Anaerobic Culture - Preliminary Foot - Right Diabetes panel 06/14/18 Range/Units 21:30 Hemoglobin A1c 9.1 H (4.0-6.0) % Assessment and Plan Assessment: Abscess right foot with extending acute cellulitis Insulin-dependent diabetes mellitus Other systemic issues as per H&P Plan: Exam. Review of patient's chart including history and physical labs radiographs etc. Discussed with patient findings and treatment plan. We'll continue with the iodoform packing for the next day or 2 in order to alleviate the need for surgical I&D. He has after which will changed to a Silver rope Santyl or medical Honey whatever is appropriate the time. We'll continue to offload the area. Once this cellulitis is controlled patient should be of discharge and will follow at the office. She for this consult
[2018-06-16] MEDS: INSULIN DETEMIR 100 UNIT/ML 10 ML VIAL SQ SCH ×2 (09:38→22:05)
[2018-06-16 12:01] LABS: Glucose,Whole Blood 226 mg/dL (75-99)
--- NOTE | 2018-06-16 12:19 | P.PN ---
Subjective Progress Note Date: 06/16/18 Principal diagnosis: Cellulitis right lower extremity with Farias grade 2 diabetic ulcer abscess Patient seen at bedside resting comfortably. Patient voices no complaints states he thinks are some improvement Objective - Vital Signs Vital signs: Vital Signs Temp 97.7 F 06/16/18 06:28 Pulse 57 L 06/16/18 06:28 Resp 18 06/16/18 06:28 BP 161/71 06/16/18 06:28 Pulse Ox 93 L 06/16/18 06:28 Intake & Output 06/15/18 06/16/18 06/16/18 18:59 06:59 18:59 Intake Total 1440 Balance 1440 Weight 131.54 kg Intake: Oral 1440 Other: # Voids 2 1 # Bowel Movements 0 - Integumentary Integumentary Comment(s): There is no change in the erythema and edema to the right lower extremity the abscessed ulcer appears unchanged - Labs CBC & Chem 7: 06/14/18 21:30 06/14/18 21:30 Labs: Abnormal Lab Results - Last 24 Hours (Table) 06/14/18 06/15/18 06/15/18 Range/Units 21:30 12:06 17:14 POC Glucose (mg/dL) 188 H 211 H (75-99) mg/dL Hemoglobin A1c 9.1 H (4.0-6.0) % 06/15/18 06/16/18 06/16/18 Range/Units 20:42 07:18 11:59 POC Glucose (mg/dL) 153 H 110 H 226 H (75-99) mg/dL Hemoglobin A1c (4.0-6.0) % Microbiology - Last 24 Hours (Table) 06/15/18 13:20 Gram Stain - Preliminary Foot - Right Wound Culture - Preliminary Strep agalactiae - (group b) 06/14/18 21:30 Blood Culture - Preliminary Blood No Growth after 24 hours 06/15/18 13:20 Anaerobic Culture - Preliminary Foot - Right Assessment and Plan Assessment: Abscess right foot with extending acute cellulitis Insulin-dependent diabetes mellitus Other systemic issues as per H&P Plan: Exam. Today we reapplied the dressing after examination. When the patient have an Carmelo wrap applied to the lower extremity to help promote reduced edema as well as keep the foot and leg elevated. If patient continues to have little response to the IV antibiotics consider open I&D of the area in the next 24-48 hours.
[2018-06-16] MEDS: SODIUM CHLORIDE 0.9% 1,000 ML IV SCH (14:09)
--- NOTE | 2018-06-16 14:13 | P.PN ---
Subjective Progress Note Date: 06/16/18 Patient is doing fairly well today. No acute events overnight reported by nursing staff. Patient denies any pain. No fever or chills. Objective - Vital Signs Vital signs: Vital Signs Temp 97.7 F 06/16/18 06:28 Pulse 57 L 06/16/18 06:28 Resp 18 06/16/18 06:28 BP 161/71 06/16/18 06:28 Pulse Ox 93 L 06/16/18 06:28 Intake & Output 06/15/18 06/16/18 06/16/18 18:59 06:59 18:59 Intake Total 1440 Balance 1440 Weight 131.54 kg Intake: Oral 1440 Other: # Voids 2 1 # Bowel Movements 0 - Exam General: The patient is awake and alert, in no distress Eye: there is normal conjunctiva bilaterally. Cardiovascular: Normal S1-S2, no S3-S4, no murmurs. Respiratory: Lungs clear to auscultation bilaterally Gastrointestinal: Abdomen is soft, nontender Musculoskeletal: There is +1 pedal edema worse on the right. The right foot wrapped with clean/dry dressing Neurological:. Speech is normal. Skin: Skin is warm and dry - Labs CBC & Chem 7: 06/14/18 21:30 06/14/18 21:30 Labs: Abnormal Lab Results - Last 24 Hours (Table) 06/14/18 06/15/18 06/15/18 Range/Units 21:30 17:14 20:42 POC Glucose (mg/dL) 211 H 153 H (75-99) mg/dL Hemoglobin A1c 9.1 H (4.0-6.0) % 06/16/18 06/16/18 Range/Units 07:18 11:59 POC Glucose (mg/dL) 110 H 226 H (75-99) mg/dL Hemoglobin A1c (4.0-6.0) % Microbiology - Last 24 Hours (Table) 06/15/18 13:20 Gram Stain - Preliminary Foot - Right Wound Culture - Preliminary Strep agalactiae - (group b) 06/14/18 21:30 Blood Culture - Preliminary Blood No Growth after 24 hours 06/15/18 13:20 Anaerobic Culture - Preliminary Foot - Right Assessment and Plan Assessment: 1. Diabetic foot ulcer involving the right foot, status post debridement by podiatry in the office. Packing and wound care as directed by podiatry. Continue broad spectrum antibiotic. Infectious disease following. 2. Right foot swelling, secondary to cellulitis and infection. Ultrasound was negative for DVT. Continue leg elevation. 3. Type 2 diabetes mellitus, not well controlled. A1c 9.1, continue current insulin regimen and monitor blood glucose closely 4. Acute kidney injury, awaiting repeat lab work from today. We will continue gentle IV fluid hydration. 5. Essential hypertension, blood pressure on the higher side. Losartan has been on hold since admission secondary to a KI. Will resume tomorrow. 6. DVT prophylaxis with subcu heparin Today, I reviewed his medication list and lab work results. Continue current regimen. Appreciate business management consultant's recommendations. Repeat lab work in the morning.
[2018-06-16 15:03] LABS: Basophils % (A) 0 %; Eosinophils # (A) 0.1 k/uL (0-0.7); Eosinophils % (A) 2 %; HCT 37.5 % (39.0-53.0); HGB 12.2 gm/dL (13.0-17.5); Lymphocytes # (A) 1.2 k/uL (1.0-4.8); Lymphocytes % (A) 17 %; MCH 29.7 pg (25.0-35.0); MCHC 32.4 g/dL (31.0-37.0); MCV 91.8 fL (80.0-100.0); Mean Platelet Volume 7.7; Monocytes # (A) 0.4 k/uL (0-1.0); Monocytes % (A) 6 %; Neutrophils # (A) 5.2 k/uL (1.3-7.7); Neutrophils % (A) 73 %; Platelet Count 250 k/uL (150-450); RBC 4.09 m/uL (4.30-5.90); RDW 13.2 % (11.5-15.5); WBC 7.2 k/uL (3.8-10.6)
[2018-06-16 16:55] LABS: Glucose,Whole Blood 148 mg/dL (75-99)
[2018-06-16 20:30] LABS: Albumin 2.9 g/dL (3.5-5.0); Calcium 8.7 mg/dL (8.4-10.2); Potassium 4.1 mmol/L (3.5-5.1); Total Bilirubin 1.1 mg/dL (0.2-1.3); Total Protein 6.1 g/dL (6.3-8.2)
[2018-06-16 21:25] LABS: Glucose,Whole Blood 238 mg/dL (75-99)
[2018-06-16] MEDS: PRAMIPEXOLE 1 MG TAB PO SCH (21:37)
[2018-06-16] MEDS: VANCOMYCIN 2,500 MG in SODIUM CHLORIDE 0.9% 500 ML 500 ML IVPB SCH (21:38)
[2018-06-17] MEDS: HEPARIN SODIUM,PORCINE 5,000 UNIT/ML 1 ML VIAL SQ SCH ×3 (00:10→15:35)
--- NOTE | 2018-06-17 00:42 | P.PN ---
Subjective Progress Note Date: 06/16/18 This is a 58-year-old male patient with past history significant for diabetes mellitus type 2 insulin requiring. He gives history that he follows with Dr. Leung for long-term every month regarding a left foot wound that is almost completely healed. He states that he has diabetic neuropathy and does not have any feeling in his feet. His son checks his feet every morning and his checks them every evening for him. Yesterday morning, his son noticed a large blood blister on his right foot. Patient does not recall any injury. He saw Dr. Leung yesterday and this was to bright red and a drain was placed and he was then sent to the emergency center for admission and IV antibiotics. Patient has had previous surgeries for hammertoes on this foot. He states he has fever chills and rigors the night before. Patient presented afebrile, white count of 10, creatinine 1.45. Baseline creatinine is not known. Blood sugar was 435. Patient states that his blood sugar has been running 150-200 at home and he does not know his hemoglobin A1c. C-reactive protein was 54 and sed rate 31. Urinalysis was 4+ glucose, lactic acid 1.8. Venous Doppler was negative for DVT on both legs. Foot x-ray reveals foreign body projecting in the plantar soft tissues. Degenerative hypertrophic changes. No acute bony abnormality seen. Right femur x-ray showed degenerative changes. No acute fracture. Right tib-fib x-ray shows subcutaneous edema. No fracture. No sign of osteomyelitis. Moderate plantar and Achilles calcaneal spurring and calcification noted. Chest x-ray shows no active cardio pulmonary disease. Normal heart. Hemoglobin A1c is pending. Patient states that chills have resolved. 06/16/2018 patient is starting to feel somewhat better. Continues to have swelling especially the right foot and leg area. Having no difficulties with antibiotic therapy. His been seen by the bight maker and potentially will have a surgical intervention soon. Objective - Vital Signs Vital signs: Vital Signs Temp 98.9 F 06/16/18 14:45 Pulse 63 06/16/18 14:45 Resp 16 06/16/18 14:45 BP 162/71 06/16/18 14:45 Pulse Ox 96 06/16/18 14:45 Intake & Output 06/16/18 06/16/18 06/17/18 06:59 18:59 06:59 Other: # Voids 1 3 # Bowel Movements 0 - Exam Gen: This is a obese 58-year-old male. He is in bed and appears to be comfortable. HEENT: Head is atraumatic, normocephalic. Pupils equal, round. Sclerae is anicteric. Conjunctiva pink. Mucous members of the mouth are moist. Dentition is in fair order for age. No thrush noted. NECK: Supple. No JVD. No lymphadenopathy. No thyromegaly. LUNGS: Clear to auscultation. No wheezes or rhonchi. No intercostal retractions. HEART: Regular rate and rhythm. No murmur. ABDOMEN: Soft. Bowel sounds are present. No masses. No tenderness. EXTREMITIES: 1+ pedal edema to the right foot. On the lateral proximal fifth metatarsal there is an open ulcer. Minimal surrounding erythema. Drain is in place. No foul odor. Scant amount of drainage. On the plantar surface of the left foot there is a healing wound. No drainage, erythema, edema. Dorsalis pedis is +2 bilaterally. NEUROLOGICAL: Patient is awake, alert and oriented x3. Cranial nerves 2 through 12 are grossly intact. - Labs CBC & Chem 7: 06/16/18 10:11 06/16/18 10:00 Labs: Abnormal Lab Results - Last 24 Hours (Table) 06/15/18 06/16/18 06/16/18 Range/Units 20:42 07:18 10:00 RBC (4.30-5.90) m/uL Hgb (13.0-17.5) gm/dL Hct (39.0-53.0) % Carbon Dioxide 31 H (22-30) mmol/L Glucose 232 H (74-99) mg/dL POC Glucose (mg/dL) 153 H 110 H (75-99) mg/dL Total Protein 6.1 L (6.3-8.2) g/dL Albumin 2.9 L (3.5-5.0) g/dL 06/16/18 06/16/18 06/16/18 Range/Units 10:11 11:59 16:50 RBC 4.09 L (4.30-5.90) m/uL Hgb 12.2 L (13.0-17.5) gm/dL Hct 37.5 L (39.0-53.0) % Carbon Dioxide (22-30) mmol/L Glucose (74-99) mg/dL POC Glucose (mg/dL) 226 H 148 H (75-99) mg/dL Total Protein (6.3-8.2) g/dL Albumin (3.5-5.0) g/dL 06/16/18 Range/Units 21:18 RBC (4.30-5.90) m/uL Hgb (13.0-17.5) gm/dL Hct (39.0-53.0) % Carbon Dioxide (22-30) mmol/L Glucose (74-99) mg/dL POC Glucose (mg/dL) 238 H (75-99) mg/dL Total Protein (6.3-8.2) g/dL Albumin (3.5-5.0) g/dL Microbiology - Last 24 Hours (Table) 06/14/18 21:30 Blood Culture - Preliminary Blood No Growth after 48 hours 06/15/18 13:20 Gram Stain - Preliminary Foot - Right Wound Culture - Preliminary Strep agalactiae - (group b) Laboratory Results WBC 7.2 k/uL (3.8-10.6) 06/16/18 10:11 RBC 4.09 m/uL (4.30-5.90) L 06/16/18 10:11 Hgb 12.2 gm/dL (13.0-17.5) L 06/16/18 10:11 Hct 37.5 % (39.0-53.0) L 06/16/18 10:11 MCV 91.8 fL (80.0-100.0) 06/16/18 10:11 MCH 29.7 pg (25.0-35.0) 06/16/18 10:11 MCHC 32.4 g/dL (31.0-37.0) 06/16/18 10:11 RDW 13.2 % (11.5-15.5) 06/16/18 10:11 Plt Count 250 k/uL (150-450) 06/16/18 10:11 Neutrophils % 73 % 06/16/18 10:11 Lymphocytes % 17 % 06/16/18 10:11 Monocytes % 6 % 06/16/18 10:11 Eosinophils % 2 % 06/16/18 10:11 Basophils % 0 % 06/16/18 10:11 Neutrophils # 5.2 k/uL (1.3-7.7) 06/16/18 10:11 Lymphocytes # 1.2 k/uL (1.0-4.8) 06/16/18 10:11 Monocytes # 0.4 k/uL (0-1.0) 06/16/18 10:11 Eosinophils # 0.1 k/uL (0-0.7) 06/16/18 10:11 Basophils # 0.0 k/uL (0-0.2) 06/16/18 10:11 ESR 31 mm/hr (0-15) H 06/14/18 21:30 Sodium 138 mmol/L (137-145) 06/16/18 10:00 Potassium 4.1 mmol/L (3.5-5.1) 06/16/18 10:00 Chloride 103 mmol/L (98-107) 06/16/18 10:00 Carbon Dioxide 31 mmol/L (22-30) H 06/16/18 10:00 Anion Gap 4 mmol/L 06/16/18 10:00 BUN 20 mg/dL (9-20) 06/16/18 10:00 Creatinine 1.17 mg/dL (0.66-1.25) 06/16/18 10:00 Est GFR (CKD-EPI)AfAm 79 (>60 ml/min/1.73 sqM) 06/16/18 10:00 Est GFR (CKD-EPI)NonAf 68 (>60 ml/min/1.73 sqM) 06/16/18 10:00 Glucose 232 mg/dL (74-99) H 06/16/18 10:00 POC Glucose (mg/dL) 238 mg/dL (75-99) H 06/16/18 21:18 POC Glu Drugless Doctor ID Rasheeda Ulloa 06/16/18 21:[address] Glu mg/dL 214 06/14/18 21:30 Hemoglobin A1c 9.1 % (4.0-6.0) H 06/14/18 21:30 Plasma Lactic Acid Jay 1.8 mmol/L (0.7-2.0) 06/14/18 21:30 Calcium 8.7 mg/dL (8.4-10.2) 06/16/18 10:00 Total Bilirubin 1.1 mg/dL (0.2-1.3) 06/16/18 10:00 AST 20 U/L (17-59) 06/16/18 10:00 ALT 36 U/L (21-72) 06/16/18 10:00 Alkaline Phosphatase 78 U/L (38-126) 06/16/18 10:00 C-Reactive Protein 54.0 mg/L (<10.0) H 06/14/18 21:30 Total Protein 6.1 g/dL (6.3-8.2) L 06/16/18 10:00 Albumin 2.9 g/dL (3.5-5.0) L 06/16/18 10:00 Urine Color Light Yellow 06/14/18 21:00 Urine Appearance Clear (Clear) 06/14/18 21:00 Urine pH 5.5 (5.0-8.0) 06/14/18 21:00 Ur Specific Leoma 1.023 (1.001-1.035) 06/14/18 21:00 Urine Protein Negative (Negative) 06/14/18 21:00 Urine Glucose (UA) 4+ (Negative) H 06/14/18 21:00 Urine Ketones Negative (Negative) 06/14/18 21:00 Urine Blood Negative (Negative) 06/14/18 21:00 Urine Nitrite Negative (Negative) 06/14/18 21:00 Urine Bilirubin Negative (Negative) 06/14/18 21:00 Urine Urobilinogen <2.0 mg/dL (<2.0) 06/14/18 21:00 Ur Leukocyte Esterase Negative (Negative) 06/14/18 21:00 Microbiology 06/14/18 21:30 Blood Blood Culture - Preliminary No Growth after 48 hours 06/15/18 13:20 Foot - Right Gram Stain - Preliminary 06/15/18 13:20 Foot - Right Wound Culture - Preliminary Strep agalactiae - (group b) 06/15/18 13:20 Foot - Right Anaerobic Culture - Preliminary Assessment and Plan (1) Diabetic foot infection Narrative/Plan: 58-year-old male presents to Hospital the sudden onset of blistering to the plantar surface of his right foot. He relates that he wear shoes or sandals at all times. He walks briefly through the house without shoes on. Never goes barefoot outside. Really does not have on some type of foot gear while he is within the home. He does put his insulin syringes into container such as an old detergent bottle for disposal to the trash. He does not recall stepping on anything. This is of importance because of the findings of the x-ray of the foreign body into the foot possibly in conjunction with the current injury and ulceration. Please note on admission there is evidence for diabetic foot ulceration, measuring approximately 3.1 x 2.1 with 2.1 cm depth, minimal drainage, full-thickness which is present on admission.currently receiving antibiotic theraat this time. Offloading is important. Local wound care with therahoney gel as been requested to be applied daily for now. We'll requested his bight maker Dr. Leung comes on consult to evaluate the ulceration for debridement and removal of the foreign body if possible. Further imaging study with a bone scan is requested to evaluate the extent of the infection given the probed depth. We'll ensure that he is up-to-date with his tetanus, multivitamin will be utilized and he is instructed in importance of offloading at this time. 06/16/2018 patient feeling slowly better Aird still having significant swelling to the plantar surface of the foot. 7 packed by the bight maker. If not improved a surgical incision and drainage is scheduled. Continue current antibiotic therapy will cultures are in process. Pain is well-controlled due to his significant and extensive neuropathy. Current Visit: Yes Status: Acute Code(s): E11.628 - TYPE 2 DIABETES MELLITUS WITH OTHER SKIN COMPLICATIONS; L08.9 - LOCAL INFECTION OF THE SKIN AND SUBCUTANEOUS TISSUE, UNSP SNOMED Code(s): 951878349
[2018-06-17] MEDS: PIPERACILLIN-TAZOBACTAM 3.375 GM in SODIUM CHLORIDE 0.9% 100 ML IVPB SCH ×4 (01:36→23:58)
[2018-06-17 07:31] LABS: Glucose,Whole Blood 121 mg/dL (75-99)
[2018-06-17] MEDS: PENTASA 500 MG PO SCH ×4 (08:02→20:50)
[2018-06-17] MEDS: INSULIN ASPART 100 UNIT/ML 1 ML 10 ML VIAL SQ SCH ×4 (08:03→20:50)
[2018-06-17] MEDS: INSULIN DETEMIR 100 UNIT/ML 10 ML VIAL SQ SCH ×2 (08:17→20:50)
[2018-06-17] MEDS: amLODIPine 5 MG TAB PO SCH ×2 (08:17→20:50)
[2018-06-17] MEDS: GABAPENTIN 400 MG CAP PO SCH ×4 (08:17→20:50)
[2018-06-17] MEDS: MULTIVITAMINS, THERA 1 EACH TAB PO SCH (08:17)
[2018-06-17] MEDS: SODIUM CHLORIDE 0.9% 1,000 ML IV SCH (08:17)
[2018-06-17 08:35] LABS: Basophils % (A) 0 %; Eosinophils # (A) 0.1 k/uL (0-0.7); Eosinophils % (A) 1 %; HCT 38.4 % (39.0-53.0); HGB 12.9 gm/dL (13.0-17.5); Lymphocytes # (A) 1.4 k/uL (1.0-4.8); Lymphocytes % (A) 20 %; MCH 30.6 pg (25.0-35.0); MCHC 33.7 g/dL (31.0-37.0); MCV 90.9 fL (80.0-100.0); Mean Platelet Volume 7.6; Monocytes # (A) 0.4 k/uL (0-1.0); Monocytes % (A) 5 %; Neutrophils # (A) 5.1 k/uL (1.3-7.7); Neutrophils % (A) 72 %; Platelet Count 275 k/uL (150-450); RBC 4.22 m/uL (4.30-5.90); RDW 13.2 % (11.5-15.5); WBC 7.1 k/uL (3.8-10.6)
[2018-06-17 08:48] LABS: Calcium 8.6 mg/dL (8.4-10.2); Potassium 4.3 mmol/L (3.5-5.1); Total Bilirubin 0.8 mg/dL (0.2-1.3); Total Protein 6.2 g/dL (6.3-8.2)
[2018-06-17 11:54] LABS: Glucose,Whole Blood 199 mg/dL (75-99)
--- NOTE | 2018-06-17 12:14 | P.PN ---
Subjective Progress Note Date: 06/17/18 Patient is doing fairly well today. No acute events overnight reported by nursing staff. Patient denies any pain. No fever or chills. Objective - Vital Signs Vital signs: Vital Signs Temp 97.6 F 06/17/18 07:00 Pulse 59 L 06/17/18 07:00 Resp 18 06/17/18 07:00 BP 155/55 06/17/18 07:00 Pulse Ox 93 L 06/17/18 07:00 Intake & Output 06/16/18 06/17/18 06/17/18 18:59 06:59 18:59 Intake Total 750 320 Balance 750 320 Intake: Oral 750 320 Other: # Voids 3 1 - Exam General: The patient is awake and alert, in no distress Eye: there is normal conjunctiva bilaterally. Cardiovascular: Normal S1-S2, no S3-S4, no murmurs. Respiratory: Lungs clear to auscultation bilaterally Gastrointestinal: Abdomen is soft, nontender Musculoskeletal: There is +1 pedal edema worse on the right. The right foot wrapped with clean/dry dressing Neurological:. Speech is normal. Skin: Skin is warm and dry - Labs CBC & Chem 7: 06/17/18 08:04 06/17/18 08:04 Labs: Abnormal Lab Results - Last 24 Hours (Table) 06/16/18 06/16/18 06/16/18 Range/Units 10:00 10:11 16:50 RBC 4.09 L (4.30-5.90) m/uL Hgb 12.2 L (13.0-17.5) gm/dL Hct 37.5 L (39.0-53.0) % Carbon Dioxide 31 H (22-30) mmol/L Glucose 232 H (74-99) mg/dL POC Glucose (mg/dL) 148 H (75-99) mg/dL Total Protein 6.1 L (6.3-8.2) g/dL Albumin 2.9 L (3.5-5.0) g/dL 06/16/18 06/17/18 06/17/18 Range/Units 21:18 07:18 08:04 RBC 4.22 L (4.30-5.90) m/uL Hgb 12.9 L (13.0-17.5) gm/dL Hct 38.4 L (39.0-53.0) % Carbon Dioxide (22-30) mmol/L Glucose (74-99) mg/dL POC Glucose (mg/dL) 238 H 121 H (75-99) mg/dL Total Protein (6.3-8.2) g/dL Albumin (3.5-5.0) g/dL 06/17/18 06/17/18 Range/Units 08:04 11:48 RBC (4.30-5.90) m/uL Hgb (13.0-17.5) gm/dL Hct (39.0-53.0) % Carbon Dioxide (22-30) mmol/L Glucose 103 H (74-99) mg/dL POC Glucose (mg/dL) 199 H (75-99) mg/dL Total Protein 6.2 L (6.3-8.2) g/dL Albumin 3.0 L (3.5-5.0) g/dL Microbiology - Last 24 Hours (Table) 06/14/18 21:30 Blood Culture - Preliminary Blood No Growth after 48 hours 06/15/18 13:20 Gram Stain - Preliminary Foot - Right Wound Culture - Preliminary Strep agalactiae - (group b) Assessment and Plan Assessment: 1. Diabetic foot ulcer involving the right foot, status post debridement by podiatry in the office. Packing and wound care as directed by podiatry. Continue broad spectrum antibiotic. Infectious disease following. Cultures are pending 2. Right foot swelling, improving significantly. secondary to cellulitis and infection. Ultrasound was negative for DVT. Continue leg elevation. 3. Type 2 diabetes mellitus, not well controlled. A1c 9.1, continue current insulin regimen and monitor blood glucose closely 4. Acute kidney injury, awaiting repeat lab work from today. We will continue gentle IV fluid hydration. 5. Essential hypertension, blood pressure on the higher side. Losartan has been on hold since admission secondary to a KI. Will resume tomorrow. 6. DVT prophylaxis with subcu heparin Today, I reviewed his medication list and lab work results. Continue current regimen. Appreciate application security consultant's recommendations. Repeat lab work in the morning. Awaiting further recommendations from podiatry
[2018-06-17 17:27] LABS: Glucose,Whole Blood 243 mg/dL (75-99)
[2018-06-17] MEDS: VANCOMYCIN 2,500 MG in SODIUM CHLORIDE 0.9% 500 ML 500 ML IVPB SCH (20:50)
[2018-06-17] MEDS: PRAMIPEXOLE 1 MG TAB PO SCH (20:50)
[2018-06-17 21:00] LABS: Glucose,Whole Blood 189 mg/dL (75-99)
[2018-06-18] MEDS: SODIUM CHLORIDE 0.9% 1,000 ML IV SCH (06:04)
[2018-06-18 07:29] LABS: Glucose,Whole Blood 80 mg/dL (75-99)
[2018-06-18] MEDS: INSULIN ASPART 100 UNIT/ML 1 ML 10 ML VIAL SQ SCH ×4 (08:24→22:11)
[2018-06-18] MEDS: HEPARIN SODIUM,PORCINE 5,000 UNIT/ML 1 ML VIAL SQ SCH ×3 (08:24→15:29)
[2018-06-18] MEDS: amLODIPine 5 MG TAB PO SCH ×2 (08:24→22:11)
[2018-06-18] MEDS: GABAPENTIN 400 MG CAP PO SCH ×4 (08:24→22:12)
[2018-06-18] MEDS: PENTASA 500 MG PO SCH ×4 (08:25→22:12)
[2018-06-18] MEDS: INSULIN DETEMIR 100 UNIT/ML 10 ML VIAL SQ SCH ×2 (08:29→22:11)
[2018-06-18] MEDS: PIPERACILLIN-TAZOBACTAM 3.375 GM in SODIUM CHLORIDE 0.9% 100 ML IVPB SCH ×2 (08:29→15:31)
--- NOTE | 2018-06-18 09:17 | P.PN ---
Subjective Progress Note Date: 06/18/18 Principal diagnosis: Cellulitis right lower extremity with Farias grade 2 diabetic ulcer abscess Patient seen at bedside resting comfortably. Patient voices no complaints states he thinks are some improvement patient does have the Carmelo wrap applied to the lower extremity. Overall the patient states she's doing better than when he was seen on Tuesday a.m. Objective - Vital Signs Vital signs: Vital Signs Temp 97.9 F 06/18/18 07:00 Pulse 49 L 06/18/18 07:00 Resp 20 06/18/18 07:00 BP 150/66 06/18/18 07:00 Pulse Ox 95 06/18/18 07:00 Intake & Output 06/17/18 06/18/18 06/18/18 18:59 06:59 18:59 Intake Total 520 Balance 520 Intake: Oral 520 Other: # Voids 2 2 - Exam The erythema and edema has decreased significantly sense Tuesday a.m. or over the last 48 hours. Patient continues to have edema of the lower extremity however the erythema is now confined and reduced to approximately a 2 cm area surrounding the puncture wound and necrotic area that was debrided. We removed the iodoform gauze and there was no purulent discharge or cellular debris in the wound or on the drain that was visible. Pressure was applied to the wound and there was very little to no drainage. Any drainage seen was serosanguineous in nature. There is no odor and there is no increased temperature to the right lower extremity. Neurovascular status is unchanged. Due to patient's progression will discontinue the iodoform gauze at this time. We'll start applying medical Honey and toe patient is in the wound care center where more advanced tissue applications can be utilized. We will wait until this infectious disease determines proper antibiotic administration and possible discharge. At this time from a podiatric standpoint patient can be discharged with instructions to follow up in the wound care center. Thank you for this consult - Labs CBC & Chem 7: 06/17/18 08:04 06/17/18 08:04 Labs: Abnormal Lab Results - Last 24 Hours (Table) 06/17/18 06/17/18 06/17/18 Range/Units 11:48 17:12 20:28 POC Glucose (mg/dL) 199 H 243 H 189 H (75-99) mg/dL Microbiology - Last 24 Hours (Table) 06/14/18 21:30 Blood Culture - Preliminary Blood No Growth after 72 hours 06/15/18 13:20 Anaerobic Culture - Preliminary Foot - Right Assessment and Plan Assessment: Abscess right foot with extending acute cellulitis Insulin-dependent diabetes mellitus Other systemic issues as per H&P Plan: . Due to patient's progression will discontinue the iodoform gauze . We'll start applying medical Honey until the patient is admitted to the wound care center where more advanced tissue applications can be utilized. We will wait until this infectious disease determines proper antibiotic administration and possible discharge. At this time from a podiatric standpoint patient can be discharged with instructions to follow up in the wound care center. Thank you for this consult
[2018-06-18 10:09] LABS: Calcium 8.4 mg/dL (8.4-10.2); Potassium 4.4 mmol/L (3.5-5.1); Total Bilirubin 0.6 mg/dL (0.2-1.3); Total Protein 6.1 g/dL (6.3-8.2)
[2018-06-18] MEDS: MULTIVITAMINS, THERA 1 EACH TAB PO SCH (11:08)
[2018-06-18 13:18] LABS: Glucose,Whole Blood 131 mg/dL (75-99)
--- NOTE | 2018-06-18 15:05 | P.PN ---
Subjective Progress Note Date: 06/18/18 Patient is doing fairly well today. No acute events overnight reported by nursing staff. Patient denies any pain. No fever or chills. Objective - Vital Signs Vital signs: Vital Signs Temp 97.9 F 06/18/18 07:00 Pulse 49 L 06/18/18 08:00 Resp 20 06/18/18 08:00 BP 150/66 06/18/18 07:00 Pulse Ox 95 06/18/18 07:00 Intake & Output 06/17/18 06/18/18 06/18/18 18:59 06:59 18:59 Intake Total 520 Balance 520 Intake: Oral 520 Other: # Voids 2 2 2 - Exam General: The patient is awake and alert, in no distress Eye: there is normal conjunctiva bilaterally. Cardiovascular: Normal S1-S2, no S3-S4, no murmurs. Respiratory: Lungs clear to auscultation bilaterally Gastrointestinal: Abdomen is soft, nontender Musculoskeletal: There is +1 pedal edema worse on the right. The right foot wrapped with clean/dry dressing Neurological:. Speech is normal. Skin: Skin is warm and dry - Labs CBC & Chem 7: 06/17/18 08:04 06/18/18 09:37 Labs: Abnormal Lab Results - Last 24 Hours (Table) 06/17/18 06/17/18 06/18/18 Range/Units 17:12 20:28 09:37 Glucose 173 H (74-99) mg/dL POC Glucose (mg/dL) 243 H 189 H (75-99) mg/dL Total Protein 6.1 L (6.3-8.2) g/dL Albumin 3.0 L (3.5-5.0) g/dL 06/18/18 Range/Units 12:05 Glucose (74-99) mg/dL POC Glucose (mg/dL) 131 H (75-99) mg/dL Total Protein (6.3-8.2) g/dL Albumin (3.5-5.0) g/dL Microbiology - Last 24 Hours (Table) 06/15/18 13:20 Gram Stain - Final Foot - Right Wound Culture - Final Strep agalactiae - (group b) 06/14/18 21:30 Blood Culture - Preliminary Blood No Growth after 72 hours 06/15/18 13:20 Anaerobic Culture - Preliminary Foot - Right Assessment and Plan Assessment: 1. Diabetic foot ulcer involving the right foot, status post debridement by podiatry in the office. Improved significantly. Packing and wound care as directed by podiatry. Continue broad spectrum antibiotic. Infectious disease following. Cultures are pending. Awaiting final recommendations from infectious disease for antibiotic course 2. Right foot swelling, improving significantly. secondary to cellulitis and infection. Ultrasound was negative for DVT. Continue leg elevation. 3. Type 2 diabetes mellitus, not well controlled. A1c 9.1, continue current insulin regimen and monitor blood glucose closely 4. Acute kidney injury, resolved with IV fluid hydration 5. Essential hypertension, we will resume home dose of losartan and chlorthalidone. Continue amlodipine. Monitor blood pressure closely. 6. DVT prophylaxis with subcu heparin Today, I reviewed his medication list and lab work results. Continue current regimen. Appreciate universal branch consultant's recommendations. Awaiting recommendations from infectious disease whether patient will need a PICC line tomorrow or can be discharged on oral antibiotic
[2018-06-18] MEDS: LOSARTAN 50 MG TAB PO SCH (15:29)
[2018-06-18 17:29] LABS: Glucose,Whole Blood 143 mg/dL (75-99)
[2018-06-18] MEDS ORDERED: VANCOMYCIN TROUGH DUE 1 EACH MISC MISCELLANE ONE (21:00)
[2018-06-18 21:08] LABS: Glucose,Whole Blood 180 mg/dL (75-99)
[2018-06-18] MEDS: PRAMIPEXOLE 1 MG TAB PO SCH (22:12)
[2018-06-18] MEDS: VANCOMYCIN 2,500 MG in SODIUM CHLORIDE 0.9% 500 ML 500 ML IVPB SCH (22:13)
[2018-06-19] MEDS: HEPARIN SODIUM,PORCINE 5,000 UNIT/ML 1 ML VIAL SQ SCH ×3 (00:35→17:04)
[2018-06-19] MEDS: SODIUM CHLORIDE 0.9% 1,000 ML IV SCH (02:11)
[2018-06-19] MEDS: PIPERACILLIN-TAZOBACTAM 3.375 GM in SODIUM CHLORIDE 0.9% 100 ML IVPB SCH ×3 (02:11→17:04)
[2018-06-19 07:24] LABS: Glucose,Whole Blood 68 mg/dL (75-99)
[2018-06-19 07:46] LABS: Glucose,Whole Blood 90 mg/dL (75-99)
[2018-06-19] MEDS: PENTASA 500 MG PO SCH ×2 (08:29→13:08)
[2018-06-19] MEDS: LOSARTAN 50 MG TAB PO SCH (08:29)
[2018-06-19] MEDS: INSULIN DETEMIR 100 UNIT/ML 10 ML VIAL SQ SCH (08:29)
[2018-06-19] MEDS: amLODIPine 5 MG TAB PO SCH (08:29)
[2018-06-19] MEDS: GABAPENTIN 400 MG CAP PO SCH ×2 (08:29→13:08)
[2018-06-19] MEDS: INSULIN ASPART 100 UNIT/ML 1 ML 10 ML VIAL SQ SCH ×3 (08:30→17:22)
[2018-06-19] MEDS ORDERED: CHLORTHALIDONE 25 MG TAB PO SCH (09:00)
[2018-06-19 11:06] LABS: Albumin 3.1 g/dL (3.5-5.0); Calcium 8.4 mg/dL (8.4-10.2); Potassium 4.7 mmol/L (3.5-5.1); Total Bilirubin 0.6 mg/dL (0.2-1.3); Total Protein 6.2 g/dL (6.3-8.2)
[2018-06-19] MEDS: MULTIVITAMINS, THERA 1 EACH TAB PO SCH (11:31)
[2018-06-19 12:20] LABS: Glucose,Whole Blood 212 mg/dL (75-99)
[2018-06-19] MEDS ORDERED: VANCOMYCIN 2,500 MG in SODIUM CHLORIDE 0.9% 500 ML 500 ML IVPB SCH (14:00)
[2018-06-19 15:18] VITALS: BP 153/77; PULSE 64; RESP 16; TEMP 97
--- NOTE | 2018-06-19 15:46 | P.DS ---
Providers Date of admission: 06/14/18 23:08 Expected date of discharge: 06/19/18 Attending physician: Estevan Gambino MD Consults: 06/14/18 22:51 Consult Physician Stat Consulting Provider: Duoglas Flores Consult Reason/Comments: diabetic foot infection, request per PCP Do you want consulting provider notified?: Yes 06/15/18 17:07 Consult Physician Routine Consulting Provider: Zach Leung Consult Reason/Comments: foot wound Do you want consulting provider notified?: Already Contacted Primary care physician: Sammy Barth Hospital Course: Discharge Diagnosis: 1. Infected Farias grade 2 diabetic ulcer with abscess and surrounding cellulitis right lower extremity 2. Diabetes mellitus with suboptimal control-A1c 9.1 however insulin regimen not adjusted as patient had episodes of hypoglycemia during hospitalization 3. Obesity with BMI 36.2 4. Acute kidney injury 5. Essential hypertension Hospital Course: Patient is a 58-year-old male with a past medical history of diabetes mellitus type 2, chronic right lower extremity diabetic wound, and hypertension who presented to the hospital at the direction of Dr. Leung for possible infection. In the ER he underwent an extensive evaluation. His vital signs were within normal limits. He was afebrile and did not have a white blood cell count. He was found have slight acute kidney injury with elevated Bun of 26 and creatinine of 1.45 with baseline creatinine 1.17. Dr. Leung saw the patient and recommended iodoform packing dressing. Infectious disease was consulted and agreed with vancomycin and Zosyn. The wound began to heal nicely with this and use of vancomycin and Zosyn. Culture grew out strep agalactiae. Infectious disease determined he could complete a course of oral Levaquin. He was determined stable for discharge home. He will have begin home care set up and will follow-up at the wound clinic closely. His A1c was noted to be 9.1 during hospitalization, however his home insulin regimen was not adjusted as he had both hyper and hypoglycemia during hospitalization. Patient seen and examined at bedside. Denies any chest pain, shortness of breath, nausea, vomiting, diarrhea, constipation. No pain in his foot secondary to neuropathy. Excited to go home. Vital signs reviewed and stable. General: non toxic, no distress, appears at stated age Derm: Approximately 3 cm wound to dorsum of right foot with good pink granulation tissue, no drainage, no malodor,. Skin surrounding this does not demonstrate any erythema or warmth., dry Head: atraumatic, normocephalic, symmetric Eyes: EOMI, no lid lag, anicteric sclera Mouth: no lip lesion, mucus membranes moist Cardiovascular: S1S2 reg, no murmur, positive posterior tibial pulse bilateral, Lungs: CTA bilateral, no rhonchi, no rales , no accessory muscle use Abdominal: soft, nontender to palpation, no guarding, no appreciable organomegaly Ext: no gross muscle atrophy, no edema, no contractures Neuro: CN II-XI grossly intact, no focal neuro deficits Psych: Alert, oriented, appropriate affect A total of 40 minutes of time were spent preparing this complex discharge summary . Pertinent Studies: Doppler: normal bilateral leg duplex ultrasound Procedures: None Patient Condition at Discharge: Fair Plan - Discharge Summary New Discharge Prescriptions: New Levofloxacin [Levaquin] 500 mg PO DAILY #21 tab Continue amLODIPine [Norvasc] 5 mg PO BID Chlorthalidone 25 mg PO DAILY Ergocalciferol (Vitamin D2) [Vitamin D2] 50,000 unit PO HUGGINS Gabapentin 800 mg PO QID Insulin Glargine,Hum.rec.anlog [Basaglar Kwikpen U-100] 40 units SQ QAM Insulin Glargine,Hum.rec.anlog [Basaglar Kwikpen U-100] 36 unit SQ HS Losartan Potassium 100 mg PO DAILY Magnesium(Unknown Dose) 1 tab PO BID Mesalamine [Pentasa] 1,000 mg PO QID metFORMIN HCL 1,000 mg PO BID Pioglitazone [Actos] 45 mg PO HS Pramipexole [Mirapex] 0.5 - 1 mg PO HS Pyridoxine HCl (Vitamin B6) [Vitamin B-6] 100 mg PO DAILY Discharge Medication List Chlorthalidone 25 mg PO DAILY 06/14/18 [History] Ergocalciferol (Vitamin D2) [Vitamin D2] 50,000 unit PO HUGGINS 06/14/18 [History] Gabapentin 800 mg PO QID 06/14/18 [History] Insulin Glargine,Hum.rec.anlog [Basaglar Kwikpen U-100] 36 unit SQ HS 06/14/18 [ History] Insulin Glargine,Hum.rec.anlog [Basaglar Kwikpen U-100] 40 units SQ QAM [History] Losartan Potassium 100 mg PO DAILY 06/14/18 [History] Magnesium(Unknown Dose) 1 tab PO BID 06/14/18 [History] Mesalamine [Pentasa] 1,000 mg PO QID 06/14/18 [History] Pioglitazone [Actos] 45 mg PO HS 06/14/18 [History] Pramipexole [Mirapex] 0.5 - 1 mg PO HS 06/14/18 [History] Pyridoxine HCl (Vitamin B6) [Vitamin B-6] 100 mg PO DAILY 06/14/18 [History] amLODIPine [Norvasc] 5 mg PO BID 06/14/18 [History] metFORMIN HCL 1,000 mg PO BID 06/14/18 [History] Levofloxacin [Levaquin] 500 mg PO DAILY #21 tab 06/19/18 [Rx] Follow up Appointment(s)/Referral(s): [facility], [NON-STAFF] - Sammy Barth DO [Primary Care Provider] - [facility] [[facility] - 06/30/18 (with Dr Leung PLEASE CALL FOR APPOINTMENT.) Patient Instructions/Handouts: Type 2 Diabetes in Adults: New Diagnosis (DC)
[2018-06-19 17:02] LABS: Glucose,Whole Blood 178 mg/dL (75-99)
== END 2018-06-19 18:22 | disposition home health service (06) | DRG 638 ==
LOC: EC 18:04 → 4MS4W 23:08
PROVIDERS: ADMIT Internal Medicine; ATTEND Internal Medicine
PROC: 3E0234Z Introduction of Serum, Toxoid and Vaccine into Muscle, Percutaneous Approach (ICD-10-PCS; principal; 2018-06-15)
DX: E11.628 Type 2 diabetes mellitus with other skin complications (principal); L03.115 Cellulitis of right lower limb; L97.419 Non-pressure chronic ulcer of right heel and midfoot with unspecified severity; L02.611 Cutaneous abscess of right foot; K50.90 Crohn's disease, unspecified, without complications; N17.9 Acute kidney failure, unspecified; E11.42 Type 2 diabetes mellitus with diabetic polyneuropathy; E11.621 Type 2 diabetes mellitus with foot ulcer; E11.65 Type 2 diabetes mellitus with hyperglycemia; M77.30 Calcaneal spur, unspecified foot; I10 Essential (primary) hypertension; Z23 Encounter for immunization; E66.9 Obesity, unspecified; Z68.36 Body mass index [BMI] 36.0-36.9, adult; Z79.4 Long term (current) use of insulin; Z79.899 Other long term (current) drug therapy; Z88.5 Allergy status to narcotic agent; Z87.891 Personal history of nicotine dependence
CPT/HCPCS: 36415; 71046; 80053; 80202; 81003; 83036; 83605; 85025; 85652; 86140; 87040; 87070; 87075; 87205; 90715; 93970; 96365; 96366; 99285

== ENCOUNTER 2018-07-05 16:36 | Emergency (ER) | payer OTHER ==
--- NOTE | 2018-07-05 20:40 | XR ---
EXAMINATION TYPE: XR foot complete RT DATE OF EXAM: 07/05/2018 COMPARISON: NONE HISTORY: 06/14/2018 TECHNIQUE: Infection FINDINGS: There is a pin fixing an old fracture of the proximal phalanx of the second toe. There is d eformity of the proximal phalanx of the big toe consistent with an old fracture. There is old surgery at the PIP joint of the third toe. I see no acute fracture nor dislocation. Metatarsals are intact. There is a large plantar calcaneal spur. There is Achilles tendon calcification. There is soft tissue swelling in the forefoot. IMPRESSION: Previous surgery. Soft tissue swelling. No acute bony abnormality. There is clearing of t he linear foreign body at the midfoot compared to old exam.
[2018-07-05 21:18] LABS: Basophils % (A) 0 %; Eosinophils # (A) 0.2 k/uL (0-0.7); Eosinophils % (A) 2 %; HCT 41.4 % (39.0-53.0); HGB 13.5 gm/dL (13.0-17.5); Lymphocytes # (A) 1.6 k/uL (1.0-4.8); Lymphocytes % (A) 20 %; MCH 29.3 pg (25.0-35.0); MCHC 32.6 g/dL (31.0-37.0); MCV 89.8 fL (80.0-100.0); Mean Platelet Volume 6.6; Monocytes # (A) 0.4 k/uL (0-1.0); Monocytes % (A) 6 %; Neutrophils # (A) 5.5 k/uL (1.3-7.7); Neutrophils % (A) 69 %; Platelet Count 365 k/uL (150-450); RBC 4.61 m/uL (4.30-5.90); RDW 13.5 % (11.5-15.5); WBC 7.9 k/uL (3.8-10.6)
[2018-07-05 21:34] LABS: Albumin 3.9 g/dL (3.5-5.0); C Reactive Protein 5.2 mg/L (<10.0); Calcium 9.7 mg/dL (8.4-10.2); Potassium 4.9 mmol/L (3.5-5.1); Total Bilirubin 0.6 mg/dL (0.2-1.3); Total Protein 7.2 g/dL (6.3-8.2)
--- NOTE | 2018-07-05 21:47 | ED ---
Skin/Abscess/FB HPI - General Source: patient Mode of arrival: ambulatory Limitations: no limitations <Janet Hauser - Last Filed: 07/05/18 22:08> <Brynn Robles - Last Filed: 07/07/18 21:19> - General Chief complaint: Skin/Abscess/Foreign Body Stated complaint: Infected wound Time Seen by Provider: 07/05/18 20:00 - History of Present Illness Initial comments: 58yo male with DM, HTN and Chrons presenting today for cc of increased pinkness and odors of diabetic ulcer of the right foot. Pt states he had a foreign body in right foot 06/14/18. He since has had chronic wound and been followed by stand up comedian Dr. Leung. He states he is seen at the wound center 1x weekly as well as has 2x a week home wound nurse evaluations for bandage changes. pt states his changes his bandages and checks wound daily as well. He states his noticed increased pinkness surrounding would as well as an increase in ordor. They called their wound care nurse who suggested coming in for evaluation. Pt denies fever, chills, nightsweats, general malaise, increasing pain. Pt states he is on current abx of keflex 500mg QID Remainder of ROS (-), patient denies any recent shortness of breath, chest pain, back pain, abdominal pain, nausea or vomiting, dysuria or hematuria, constipation or diarrhea, headaches or visual changes, or any other complaints. Upon arrival pt is well appearing, nontoxic. Bandage in place of right foot which was removed for evaluation. (Janet Hauser) - Related Data Home Medications Medication Instructions Recorded Confirmed Chlorthalidone 25 mg PO DAILY 06/14/18 07/07/18 Ergocalciferol (Vitamin D2) 50,000 unit PO HUGGINS 06/14/18 07/07/18 [Vitamin D2] Gabapentin 800 mg PO QID 06/14/18 07/07/18 Insulin Glargine,Hum.rec.anlog 38 unit SQ HS 06/14/18 07/07/18 [Basaglar Kwikpen U-100] Insulin Glargine,Hum.rec.anlog 42 units SQ QAM 06/14/18 07/07/18 [Basaglar Kwikpen U-100] Losartan Potassium 100 mg PO DAILY 06/14/18 07/07/18 Magnesium(Unknown Dose) 1 tab PO BID 06/14/18 07/07/18 Mesalamine [Pentasa] 1,000 mg PO QID 06/14/18 07/07/18 Pioglitazone [Actos] 45 mg PO HS 06/14/18 07/07/18 Pramipexole [Mirapex] 0.5 - 1 mg PO HS 06/14/18 07/07/18 Pyridoxine HCl (Vitamin B6) 100 mg PO DAILY 06/14/18 07/07/18 [Vitamin B-6] amLODIPine [Norvasc] 10 mg PO BID 06/14/18 07/07/18 metFORMIN HCL 1,000 mg PO BID 06/14/18 07/07/18 Allergies Allergy/AdvReac Type Severity Reaction Status Date / Time codeine Allergy Swelling Verified 07/07/18 09:28 Review of Systems ROS Other: All systems not noted in ROS Statement are negative. <Janet Hauser - Last Filed: 07/05/18 22:08> ROS Other: All systems not noted in ROS Statement are negative. <Brynn Robles P - Last Filed: 07/07/18 21:19> ROS Statement: Those systems with pertinent positive or pertinent negative responses have been documented in the HPI. Past Medical History Past Medical History: Diabetes Mellitus, Hypertension Additional Past Medical History / Comment(s): Diabetic neuropathy, crohns History of Any Multi-Drug Resistant Organisms: None Reported Past Surgical History: Bowel Resection, Tonsillectomy Past Psychological History: No Psychological Hx Reported Smoking Status: Former smoker Past Alcohol Use History: None Reported Past Drug Use History: None Reported <Janet Hauser L - Last Filed: 07/05/18 22:08> General Exam Limitations: no limitations <Janet Hauser - Last Filed: 07/05/18 22:08> <Brynn Robles P - Last Filed: 07/07/18 21:19> - General Exam Comments Initial Comments: General: The patient is awake and alert, in no distress, and does not appear acutely ill. Eye: Pupils are equal, round and reactive to light, extra-ocular movements are intact. No nystagmus. There is normal conjunctiva bilaterally. No signs of icterus. Cardiovascular: There is a regular rate and rhythm. No murmur, rub or gallop is appreciated. Respiratory: Lungs are clear to auscultation, respirations are non-labored, breath sounds are equal. No wheezes, stridor, rales, or rhonchi. Musculoskeletal: Normal ROM, no tenderness. Strength 5/5. Sensation intact. Radial and DP pulses equal bilaterally 2+. Neurological: A&O x 3. CN II-XII intact, There are no obvious motor or sensory deficits. Coordination appears grossly intact. Speech is normal. Skin: Skin is warm and dry and no rashes. Ulcerating wound of the right LE at the base of the first digit near lateral MTP joint. No evidence of surrounding erythema. No significant warmth to palpation. +2 DP pulses. No evidence of necrosis or crepitus to palpation. No malodorous scent noted. Psychiatric: Cooperative, appropriate mood & affect, normal judgment. (Janet Hauser) Vital Signs 07/05/18 07/06/18 19:56 00:04 Temperature 98 F 97.6 F Pulse Rate 72 68 Respiratory 20 18 Rate Blood Pressure 179/81 167/69 O2 Sat by Pulse 95 98 Oximetry Medical Decision Making - Lab Data Result diagrams: 07/05/18 20:58 07/05/18 20:58 <Janet Hauser - Last Filed: 07/05/18 22:08> - Lab Data Result diagrams: 07/05/18 20:58 07/05/18 20:58 <Brynn Robles - Last Filed: 07/07/18 21:19> - Medical Decision Making Upon examination there appears to be a chronic ulcerating diabetic wound. There is no evidence concerning for acute infection. Very mild weakness. The wound edges consistent with healing. No evidence of surrounding soft tissue erythema. granulation tissue noted. Pt denied tenderness to palpation. No malodorous scent noted. WBC WNL. CRP WNL. XR no evidence of osteomyelitis or free air in the soft tissues. Did contact on-call fellow for stand up comedian Dr. Zach Leung, Dr. Hernández. Who states patient is stable for discharge given laboratory studies are within acceptable limits and pt afebrile appearing well. Pt remains afebrile. Wound re dressed. Pt has wounds on her appointment on Tuesday. He states he is also able to get an appointment with Dr. Serrano tomorrow in office. At this time given patient has availability of close follow-up, no overt signs concerning for an acute infection. Laboratory findings unremarkable and patient is afebrile. I think the patient is stable for discharge with close outpatient follow-up. I discussed the case with Dr. Robles who agrees with impression and plan. Patient discharged in stable condition. Pt is currently taking keflex 500mg QID, pt instructed to continue prescription as previously prescribed. (Janet Hauser) I was available for consultation in the emergency department. The history and physical exam were done by the midlevel provider. I was consulted for this patient's care. I reviewed the case with the midlevel provider and based on their presentation of the patient, I agree with the assessment, medical decision making and plan of care as documented. (Brynn Robles) - Lab Data Lab Results 07/05/18 07/05/18 Range/Units 20:58 20:58 WBC 7.9 (3.8-10.6) k/uL RBC 4.61 (4.30-5.90) m/uL Hgb 13.5 (13.0-17.5) gm/dL Hct 41.4 (39.0-53.0) % MCV 89.8 (80.0-100.0) fL MCH 29.3 (25.0-35.0) pg MCHC 32.6 (31.0-37.0) g/dL RDW 13.5 (11.5-15.5) % Plt Count 365 (150-450) k/uL Neutrophils % 69 % Lymphocytes % 20 % Monocytes % 6 % Eosinophils % 2 % Basophils % 0 % Neutrophils # 5.5 (1.3-7.7) k/uL Lymphocytes # 1.6 (1.0-4.8) k/uL Monocytes # 0.4 (0-1.0) k/uL Eosinophils # 0.2 (0-0.7) k/uL Basophils # 0.0 (0-0.2) k/uL Sodium 140 (137-145) mmol/L Potassium 4.9 (3.5-5.1) mmol/L Chloride 105 (98-107) mmol/L Carbon Dioxide 27 (22-30) mmol/L Anion Gap 8 mmol/L BUN 30 H (9-20) mg/dL Creatinine 1.30 H (0.66-1.25) mg/dL Est GFR (CKD-EPI)AfAm 70 (>60 ml/min/1.73 sqM) Est GFR (CKD-EPI)NonAf 60 (>60 ml/min/1.73 sqM) Glucose 231 H (74-99) mg/dL Calcium 9.7 (8.4-10.2) mg/dL Total Bilirubin 0.6 (0.2-1.3) mg/dL AST 28 (17-59) U/L ALT 36 (21-72) U/L Alkaline Phosphatase 138 H (38-126) U/L C-Reactive Protein 5.2 (<10.0) mg/L Total Protein 7.2 (6.3-8.2) g/dL Albumin 3.9 (3.5-5.0) g/dL Disposition Is patient prescribed a controlled substance at d/c from ED?: No Time of Disposition: 21:47 <Janet Hauser L - Last Filed: 07/05/18 22:08> <Brynn Robles P - Last Filed: 07/07/18 21:19> Clinical Impression: Chronic diabetic ulcer of right foot determined by examination Disposition: HOME SELF-CARE Condition: Good Instructions: Diabetic Foot Ulcers (ED) Additional Instructions: Please use previously prescribed antibiotic as discussed. Please follow-up with Dr. Leung tomorrow. Please attend your wound clinic appointment Tuesday. Please return to emergency room if the symptoms increase or worsen or for any other concerns, including fever/chills, general ill feeling, increased redness of area as discussed. Referrals: Sammy Barth DO [Primary Care Provider] - 1-2 days Zach Leung DPM [STAFF PHYSICIAN] - 1-2 days
[2018-07-06 00:05] VITALS: BP 167/69; PULSE 68; RESP 18; TEMP 97.6
== END 2018-07-05 22:00 | disposition home or self-care (01) ==
LOC: EC 16:36
DX: E11.621 Type 2 diabetes mellitus with foot ulcer (principal); R53.1 Weakness; E11.40 Type 2 diabetes mellitus with diabetic neuropathy, unspecified; I10 Essential (primary) hypertension; Z87.891 Personal history of nicotine dependence; Z79.4 Long term (current) use of insulin; Z79.899 Other long term (current) drug therapy; Z88.5 Allergy status to narcotic agent
CPT/HCPCS: 36415; 80053; 85025; 86140; 87040; 99283

== ENCOUNTER 2018-07-23 13:50 | Inpatient (IN) | payer OTHER ==
[2018-07-23] MEDS ORDERED: SODIUM CHLORIDE 0.9% 1,000 ML IV STA (14:25)
--- NOTE | 2018-07-23 14:31 | ED ---
General Adult HPI - General Chief complaint: Wound/Laceration Stated complaint: Foot ulcer Source: patient, RN notes reviewed, old records reviewed Mode of arrival: wheelchair Limitations: no limitations - History of Present Illness Initial comments: 58-year-old male patient past medical history of type 2 diabetes, hypertension presents to ED with diabetic foot infection of his right foot. This problem first began for patient on approximately 06/14 when he presented to ED for a diabetic foot infection. Patient was admitted at that time, was discharged with outpatient follow-up. Patient has been seeing Dr. Leung separator operator and the wound clinic regularly since discharge. Patient recently traveled to [place]. While in [place] patient noticed increased drainage in foot and redness , On 07/20 he presented to the ER in [place] where he was admitted and started on IV abx. Shared decision making was conducted with pt and medical staff at hospital in [place] and patient flew back to [place] today under premise that he would present to ED for continued treatment upon his arival. Pt complaint is diabetic foot infection. Patient denies all other complaints. Patient denies fever/chills, nausea vomiting diarrhea, chest pain, shortness of breath, abdominal pain. Systemic: Pt denies fatigue, myalgia, fever/chills. Pt denies weakness, night sweats, weight loss. Neuro: Pt denies headache, visual disturbances, syncope or pre-syncope. HEENT: Pt denies ocular discharge or irritation, otalgia, rhinorrhea, pharyngitis or notable lymphadenopathy. Cardiopulmonary: Pt denies chest pain, SOB, heart palpitations, dyspnea on exertion. Abdominal/GI: Pt denies abdominal pain, n/v/d. : Pt denies dysuria, burning w/ urination, frequency/urgency. Denies new onset urinary or bowel incontinence. MSK: Pt denies myalgia, loss of strength or function in extremities. Neuro: Pt denies new onset weakness, paresthesias. - Related Data Home Medications Medication Instructions Recorded Confirmed Chlorthalidone 25 mg PO DAILY 06/14/18 07/23/18 Ergocalciferol (Vitamin D2) 50,000 unit PO HUGGINS 06/14/18 07/23/18 [Vitamin D2] Gabapentin 800 mg PO QID 06/14/18 07/23/18 Insulin Glargine,Hum.rec.anlog 38 unit SQ HS 06/14/18 07/23/18 [Basaglar Kwikpen U-100] Insulin Glargine,Hum.rec.anlog 44 units SQ QAM 06/14/18 07/23/18 [Basaglar Kwikpen U-100] Losartan Potassium 100 mg PO DAILY 06/14/18 07/23/18 Mesalamine [Pentasa] 1,000 mg PO QID 06/14/18 07/23/18 Pioglitazone [Actos] 45 mg PO HS 06/14/18 07/23/18 Pramipexole [Mirapex] 1 mg PO HS 06/14/18 07/23/18 Pyridoxine HCl (Vitamin B6) 50 mg PO DAILY 06/14/18 07/23/18 [Vitamin B-6] amLODIPine [Norvasc] 5 mg PO HS 06/14/18 07/23/18 metFORMIN HCL 1,000 mg PO BID 06/14/18 07/23/18 Clindamycin HCl [Cleocin] 300 mg PO Q8H 07/14/18 07/23/18 Levofloxacin [Levaquin] 500 mg PO DAILY 07/23/18 07/23/18 Magnesium Oxide [Higgins] 500 mg PO BID 07/23/18 07/23/18 amLODIPine [Norvasc] 10 mg PO DAILY 07/23/18 07/23/18 Allergies Allergy/AdvReac Type Severity Reaction Status Date / Time codeine Allergy Swelling Verified 07/23/18 14:23 Review of Systems ROS Statement: Those systems with pertinent positive or pertinent negative responses have been documented in the HPI. ROS Other: All systems not noted in ROS Statement are negative. Past Medical History Past Medical History: Diabetes Mellitus, Hypertension Additional Past Medical History / Comment(s): Diabetic neuropathy, crohns History of Any Multi-Drug Resistant Organisms: None Reported Past Surgical History: Bowel Resection, Orthopedic Surgery, Tonsillectomy Past Anesthesia/Blood Transfusion Reactions: No Reported Reaction Past Psychological History: No Psychological Hx Reported Smoking Status: Former smoker Past Alcohol Use History: None Reported Past Drug Use History: None Reported - Past Family History Father Family Medical History: Musculoskeletal Disorder Mother Family Medical History: COPD, Diabetes Mellitus General Exam - General Exam Comments Initial Comments: Constitutional: NAD, AOX3, Pt has pleasant affect. HEENT: NC/AT, trachea midline, neck supple, no lymphadenopathy. Posterior pharynx non erythematous, without exudates. External ears appear normal, without discharge. Mucous membranes moist. Eyes PERRLA, EOM intact. There is no scleral icterus. No pallor noted. Cardiopulmonary: RRR, no murmurs, rubs or gallops, no JVD noted. Lungs CTAB in anterior and posterior lee. No peripheral edema. Abdominal exam: Abdomen soft and non-distended. Abdomen non-tender to palpation in all 4 quadrants. Bowel sounds active in LLQ. No hepatosplenomegaly. No ecchymosis Neuro: CN II-XII grossly intact. No nuchal rigidity. MSK: Erythematous ulceration on lateral heel of R foot, clear drainge noted, full size approximately 4x2 inches. No posterior calf tenderness bilaterally, homans sign negative bilaterally. Posterior tibialis and radial pulse +2 bilaterally. Sensation intact in upper and lower extremities. Full active ROM in upper and lower extremities, 5/5 stregnth. Limitations: no limitations Course Vital Signs 07/23/18 07/23/18 07/23/18 13:59 16:01 17:45 Temperature 97.5 F L 97.6 F 98.0 F Pulse Rate 82 68 74 Respiratory 16 18 18 Rate Blood Pressure 147/80 152/80 167/85 O2 Sat by Pulse 98 95 97 Oximetry Medical Decision Making - Medical Decision Making 58-year-old male patient past medical history of type 2 diabetes, hypertension presents to ED with diabetic foot infection of his right foot. This problem first began for patient on approximately 06/14 when he presented to ED for a diabetic foot infection. Patient was admitted at that time, was discharged with outpatient follow-up. PT traveled to [place] last week and was [facility] [place] today under premise that he would present to ED for continued treatment upon his arival. Pt did take PO levofloxacin and clindamycin today. Patient denies all other complaints. Pt VSS , afebrile. Physical exam revealed: Erythematous ulceration on lateral heel of R foot, clear drainge noted, full size approximately 4x2 inches. Laboratory investigations revealed mild leukocytosis of 12.3, Cr. of 1.35 and glucose of 352, pt is a type 2 diabetic. Plain film of foot displayed soft tissue swelling and her bowels consistent with cellulitis. No specific sign of osteomyelitis. Pt to be admitted for IV abx and futher evaluation. Pt started on vancomycin and zosyn. Cultures obtained. Case discussed and pt seen by Dr. Martínez. - Lab Data Result diagrams: 07/23/18 15:20 07/23/18 15:20 Lab Results 07/23/18 07/23/18 07/23/18 Range/Units 15:20 15:20 15:20 WBC 12.3 H (3.8-10.6) k/uL RBC 4.15 L (4.30-5.90) m/uL Hgb 12.3 L (13.0-17.5) gm/dL Hct 37.3 L (39.0-53.0) % MCV 89.8 (80.0-100.0) fL MCH 29.5 (25.0-35.0) pg MCHC 32.9 (31.0-37.0) g/dL RDW 13.4 (11.5-15.5) % Plt Count 417 (150-450) k/uL Neutrophils % 80 % Lymphocytes % 11 % Monocytes % 5 % Eosinophils % 2 % Basophils % 1 % Neutrophils # 9.9 H (1.3-7.7) k/uL Lymphocytes # 1.3 (1.0-4.8) k/uL Monocytes # 0.6 (0-1.0) k/uL Eosinophils # 0.3 (0-0.7) k/uL Basophils # 0.1 (0-0.2) k/uL Sodium 138 (137-145) mmol/L Potassium 4.7 (3.5-5.1) mmol/L Chloride 102 (98-107) mmol/L Carbon Dioxide 27 (22-30) mmol/L Anion Gap 9 mmol/L BUN 19 (9-20) mg/dL Creatinine 1.35 H (0.66-1.25) mg/dL Est GFR (CKD-EPI)AfAm 66 (>60 ml/min/1.73 sqM) Est GFR (CKD-EPI)NonAf 57 (>60 ml/min/1.73 sqM) Glucose 352 H (74-99) mg/dL Plasma Lactic Acid Jay 2.0 (0.7-2.0) mmol/L Calcium 9.1 (8.4-10.2) mg/dL Total Bilirubin 0.7 (0.2-1.3) mg/dL AST 23 (17-59) U/L ALT 37 (21-72) U/L Alkaline Phosphatase 134 H (38-126) U/L Total Protein 6.9 (6.3-8.2) g/dL Albumin 3.3 L (3.5-5.0) g/dL Disposition Clinical Impression: Diabetic foot infection Disposition: ADMITTED IP TO THIS HOSP Condition: Serious
--- NOTE | 2018-07-23 15:18 | XR ---
EXAMINATION TYPE: XR foot complete RT DATE OF EXAM: 07/23/2018 COMPARISON: July 05, 2018 HISTORY: Foot ulceration TECHNIQUE: 3 views FINDINGS: There is soft tissue swelling in the soft tissue air at the plantar aspect of the midfoot. There is a large plantar calcaneal spur. There is Achilles calcaneal spurring and tendon calcificatio n. The metatarsals are intact. There is old fracture or osteotomy of the proximal phalanx of the big toe. There is previous surgery on the second and third toes. IMPRESSION: Soft tissue swelling and air bubbles consistent with cellulitis. This appears new compare d to last foot x-ray exam. No specific sign of osteomyelitis.
[2018-07-23 15:35] LABS: Basophils # (A) 0.1 k/uL (0-0.2); Basophils % (A) 1 %; Eosinophils # (A) 0.3 k/uL (0-0.7); Eosinophils % (A) 2 %; HCT 37.3 % (39.0-53.0); HGB 12.3 gm/dL (13.0-17.5); Lymphocytes # (A) 1.3 k/uL (1.0-4.8); Lymphocytes % (A) 11 %; MCH 29.5 pg (25.0-35.0); MCHC 32.9 g/dL (31.0-37.0); MCV 89.8 fL (80.0-100.0); Mean Platelet Volume 7.5; Monocytes # (A) 0.6 k/uL (0-1.0); Monocytes % (A) 5 %; Neutrophils # (A) 9.9 k/uL (1.3-7.7); Neutrophils % (A) 80 %; Platelet Count 417 k/uL (150-450); RBC 4.15 m/uL (4.30-5.90); RDW 13.4 % (11.5-15.5); WBC 12.3 k/uL (3.8-10.6)
[2018-07-23 15:52] LABS: Albumin 3.3 g/dL (3.5-5.0); Calcium 9.1 mg/dL (8.4-10.2); Potassium 4.7 mmol/L (3.5-5.1); Total Bilirubin 0.7 mg/dL (0.2-1.3); Total Protein 6.9 g/dL (6.3-8.2)
[2018-07-23] MEDS ORDERED: VANCOMYCIN IV PER PHARMACY 1 EACH MISC MISCELLANE PRN (16:41)
[2018-07-23] MEDS ORDERED: NALOXONE 0.4 MG/ML 1 ML VIAL IV PRN (16:45)
[2018-07-23] MEDS ORDERED: IBUPROFEN 400 MG TAB PO PRN (16:45)
[2018-07-23] MEDS ORDERED: ACETAMINOPHEN TAB 325 MG TAB PO PRN (16:45)
[2018-07-23] MEDS ORDERED: PIPERACILLIN-TAZOBACTAM 3.375 GM in SODIUM CHLORIDE 0.9% 100 ML IVPB ONE (17:00)
[2018-07-23] MEDS ORDERED: VANCOMYCIN 2,500 MG in SODIUM CHLORIDE 0.9% 500 ML 500 ML IVPB ONE (17:00)
--- NOTE | 2018-07-23 17:50 | P.HPIM ---
History of Present Illness H&P Date: 07/23/18 Chief Complaint: Cellulitis 50-year-old male with PMH of diabetes mellitus, hypertension, restless leg syndrome, Crohn's disease with bilateral lower extremity neuropathy presents to the ED for right foot swelling, increased redness and infected foot ulcer. Patient initially presented to [facility] on June 15 for this foot ulcer. Since his admission, he has been seeing Dr. Leung who is a help desk technician at the wound clinic. Patient had advised Dr. Leung that he would be traveling to [place] on vacation. He was started on clindamycin and levofloxacin by mouth at that time. Patient noted purulent discharge from the ulcer and wound while he was in [place]. He also noticed increased redness and swelling of his right lower extremity, prompting him to visit the ER in [place]. He was started on IV antibiotics at that hospital and MRI of the foot was ordered. As per patient, MRI foot was negative for osteomyelitis. He was discharged from the hospital and advised to go to his local ED upon landing in [place]. Patient otherwise has no complaints. Patient denies any pain at the foot. He denies any headache, nausea, vomiting, fever, cough, chest pain, shortness of breath, palpitations, changes in urination or bowel habits. No changes in appetite or weight. In the ED, patient was noted to have a leukocytosis of 12.3. His hemoglobin was 12.3. CMP was unremarkable except for a creatinine of 1.35 and glucose of 352. Foot x-ray showed soft tissue swelling with air bubbles consistent with cellulitis. Patient is admitted for treatment of right lower extremity cellulitis, infectious diseases on consult. Review of Systems All systems: negative Past Medical History Past Medical History: Diabetes Mellitus, Hypertension Additional Past Medical History / Comment(s): Diabetic neuropathy, crohns History of Any Multi-Drug Resistant Organisms: None Reported Past Surgical History: Bowel Resection, Orthopedic Surgery, Tonsillectomy Past Anesthesia/Blood Transfusion Reactions: No Reported Reaction Past Psychological History: No Psychological Hx Reported Smoking Status: Former smoker Past Alcohol Use History: None Reported Past Drug Use History: None Reported - Past Family History Father Family Medical History: Musculoskeletal Disorder Mother Family Medical History: COPD, Diabetes Mellitus Medications and Allergies Home Medications Medication Instructions Recorded Confirmed Type Chlorthalidone 25 mg PO DAILY 06/14/18 07/23/18 History Ergocalciferol (Vitamin D2) 50,000 unit PO HUGGINS 06/14/18 07/23/18 History [Vitamin D2] Gabapentin 800 mg PO QID 06/14/18 07/23/18 History Insulin Glargine,Hum.rec.anlog 38 unit SQ HS 06/14/18 07/23/18 History [Basaglar Kwikpen U-100] Insulin Glargine,Hum.rec.anlog 44 units SQ QAM 06/14/18 07/23/18 History [Basaglar Kwikpen U-100] Losartan Potassium 100 mg PO DAILY 06/14/18 07/23/18 History Mesalamine [Pentasa] 1,000 mg PO QID 06/14/18 07/23/18 History Pioglitazone [Actos] 45 mg PO HS 06/14/18 07/23/18 History Pramipexole [Mirapex] 1 mg PO HS 06/14/18 07/23/18 History Pyridoxine HCl (Vitamin B6) 50 mg PO DAILY 06/14/18 07/23/18 History [Vitamin B-6] amLODIPine [Norvasc] 5 mg PO HS 06/14/18 07/23/18 History metFORMIN HCL 1,000 mg PO BID 06/14/18 07/23/18 History Clindamycin HCl [Cleocin] 300 mg PO Q8H 07/14/18 07/23/18 History Levofloxacin [Levaquin] 500 mg PO DAILY 07/23/18 07/23/18 History Magnesium Oxide [Higgins] 500 mg PO BID 07/23/18 07/23/18 History amLODIPine [Norvasc] 10 mg PO DAILY 07/23/18 07/23/18 History Allergies Allergy/AdvReac Type Severity Reaction Status Date / Time codeine Allergy Swelling Verified 07/23/18 14:23 Physical Exam Vitals: Vital Signs Temp Pulse Resp BP Pulse Ox 07/23/18 16:01 97.6 F 68 18 152/80 95 07/23/18 13:59 97.5 F L 82 16 147/80 98 Intake and Output 07/23/18 07/23/18 07/23/18 06:59 14:59 22:59 Other: Weight 131.542 kg General: [non toxic], [no distress], [appears at stated age] Derm: [warm], [dry] Head: [atraumatic], [normocephalic], [symmetric] Eyes: [EOMI], [no lid lag], [anicteric sclera] Mouth: [no lip lesion], [mucus membranes moist] Cardiovascular: [S1S2 reg], [no murmur] Lungs: [CTA bilateral], [no rhonchi, no rales] , [no accessory muscle use] Abdominal: [soft], [ nontender to palpation], [no guarding], [no appreciable organomegaly] Ext: [no gross muscle atrophy], [3+ edema RLE], [no contractures], [2 ulcers on the lateral aspect of the right foot. Erythema extending up to the right ankle. Purulent discharge] Neuro: [ CN II-XI grossly intact], [no focal neuro deficits] Psych: [Alert], [oriented], [appropriate affect] Results CBC & Chem 7: 07/23/18 15:20 07/23/18 15:20 Labs: Abnormal Lab Results - Last 24 Hours (Table) 07/23/18 07/23/18 Range/Units 15:20 15:20 WBC 12.3 H (3.8-10.6) k/uL RBC 4.15 L (4.30-5.90) m/uL Hgb 12.3 L (13.0-17.5) gm/dL Hct 37.3 L (39.0-53.0) % Neutrophils # 9.9 H (1.3-7.7) k/uL Creatinine 1.35 H (0.66-1.25) mg/dL Glucose 352 H (74-99) mg/dL Alkaline Phosphatase 134 H (38-126) U/L Albumin 3.3 L (3.5-5.0) g/dL Thrombosis Risk Factor Assmnt - Choose All That Apply Any of the Below Risk Factors Present?: Yes Each Factor Represents 1 point: Age 41-60 years Other Risk Factors: No Other congenital or acquired thrombophilia - If yes, enter type in comment: No Thrombosis Risk Factor Assessment Total Risk Factor Score: 1 Thrombosis Risk Factor Assessment Level: Low Risk Assessment and Plan Assessment: Assessment and Plan 1. Right lower extremity cellulitis secondary to diabetic foot ulcer 2. Diabetes mellitus 3. Acute kidney injury 4. Crohn's disease 5. Hypertension 6. Bilateral lower extremity neuropathy 7. Restless leg syndrome 8. DVT prophylaxis 1. Patient is afebrile with a mild leukocytosis of 12.3. Foot x-ray shows soft tissue swelling with air bubbles consistent with cellulitis, no specific signs of osteomyelitis. Per patient, MRI from outside hospital in [place] shows no osteomyelitis. We will start vancomycin 2500 mg IV as per levels, piperacillin and tazobactam 3.375 g IV 3 times a day. Tylenol as needed for fever or mild pain. Local wound care. Follow blood and wound culture. Follow infectious disease consult. Will attempt to obtain records from [facility]. 2. A1c 9.1 on 06/14/2018, POC glucose 352 today. Resume home medication of glargine 38 units daily at bedtime and 44 units every morning. Start insulin sliding scale. Hypoglycemic precautions. Regular Accu-Cheks. 3. Creatinine is 1.35. Likely secondary to dehydration. Gentle hydration with normal saline at 80 mL per hour. Avoid nephrotoxins. Daily BMP. 4. Stable. Continue mesalamine at 1000 milligrams by mouth 4 times a day. 5. BP 152/80. Continue amlodipine 10 mg by mouth daily, 5 mg by mouth at bedtime. Continue chlorthalidone 25 mg by mouth daily. Continue losartan 100 mg by mouth daily. Monitor vitals, adjust medications as necessary. 6. Continue gabapentin 800 mg by mouth 4 times a day. 7. Continue pramipexole 1 mg by mouth at bedtime. 8. SCD boots only. Patient is being treated for right lower extremity diabetic foot ulcer and cellulitis. IV antibiotics started. Infectious disease on consult. Patient would name his indicates that he is not able to make decisions for himself. Patient states that he prefers FULL CODE.
[2018-07-23] MEDS: GABAPENTIN 400 MG CAP PO SCH ×2 (18:29→21:33)
[2018-07-23] MEDS: SODIUM CHLORIDE 0.9% 1,000 ML IV SCH (18:30)
[2018-07-23] MEDS: INSULIN DETEMIR 100 UNIT/ML 10 ML VIAL SQ SCH (21:29)
[2018-07-23] MEDS: PRAMIPEXOLE 1 MG TAB PO SCH (21:33)
[2018-07-23] MEDS: amLODIPine 5 MG TAB PO SCH (21:33)
[2018-07-23 21:40] LABS: Glucose,Whole Blood 320 mg/dL (75-99)
[2018-07-23] MEDS: MESALAMINE 500 MG PO SCH (21:59)
[2018-07-23] MEDS ORDERED: BALSALAZIDE DISODIUM 750 MG CAPSULE PO SCH (22:00)
[2018-07-24] MEDS: PIPERACILLIN-TAZOBACTAM 3.375 GM in SODIUM CHLORIDE 0.9% 100 ML IVPB SCH ×3 (03:44→20:10)
[2018-07-24 07:54] LABS: Glucose,Whole Blood 126 mg/dL (75-99)
[2018-07-24] MEDS: INSULIN ASPART 100 UNIT/ML 1 ML 10 ML VIAL SQ SCH ×3 (07:57→17:53)
[2018-07-24] MEDS: GABAPENTIN 400 MG CAP PO SCH ×4 (08:25→20:10)
[2018-07-24] MEDS: MESALAMINE 500 MG PO SCH ×4 (08:25→20:10)
[2018-07-24] MEDS: LOSARTAN 50 MG TAB PO SCH (08:25)
[2018-07-24] MEDS: amLODIPine 10 MG TAB PO SCH (08:25)
[2018-07-24] MEDS: INSULIN DETEMIR 100 UNIT/ML 10 ML VIAL SQ SCH ×2 (08:25→21:18)
[2018-07-24] MEDS: CHLORTHALIDONE 25 MG TAB PO SCH (08:26)
[2018-07-24] MEDS: PYRIDOXINE 50 MG TAB PO SCH (08:26)
[2018-07-24] MEDS: VANCOMYCIN 2,250 MG in SODIUM CHLORIDE 0.9% 500 ML 500 ML IVPB SCH (09:08)
[2018-07-24 09:51] LABS: Basophils # (A) 0.1 k/uL (0-0.2); Basophils % (A) 1 %; Eosinophils # (A) 0.3 k/uL (0-0.7); Eosinophils % (A) 3 %; HCT 34.6 % (39.0-53.0); HGB 11.2 gm/dL (13.0-17.5); Lymphocytes # (A) 1.7 k/uL (1.0-4.8); Lymphocytes % (A) 16 %; MCH 29.2 pg (25.0-35.0); MCHC 32.4 g/dL (31.0-37.0); Mean Platelet Volume 7.3; Monocytes # (A) 0.5 k/uL (0-1.0); Monocytes % (A) 5 %; Neutrophils # (A) 7.6 k/uL (1.3-7.7); Neutrophils % (A) 73 %; Platelet Count 429 k/uL (150-450); RBC 3.84 m/uL (4.30-5.90); RDW 13.4 % (11.5-15.5); WBC 10.4 k/uL (3.8-10.6)
[2018-07-24 09:59] LABS: Calcium 8.9 mg/dL (8.4-10.2); Potassium 4.5 mmol/L (3.5-5.1)
--- NOTE | 2018-07-24 11:33 | P.CONS ---
History of Present Illness - Reason for Consult Consult date: 07/24/18 Cellulitis, foot ulcer, diabetes - History of Present Illness This is a 58-year-old male patient known to ID service as he was recently hospitalized in June 2018 for infected diabetic ulcer to the right foot with past history significant for diabetes mellitus type 2 insulin requiring. His hemoglobin A1c and Tera was 9.9. Patient has been following with Dr. Leung He gives history that he follows with Dr. Leung in July and his last one was on July 14 at which time and he was instructed to take Levaquin and clindamycin and silver rope for wound care. Patient underwent a debridement at that time. Patient states that last week he was in [place] on vacation but did minimal walking as he was using a scooter most the time. He states on he started having oozing and pus from the wound. He went to emergency center in [place] and was found have an elevated white count and underwent MRI that patient reports is no bone infection. He received IV Zosyn and vancomycin while in the ER and was discharged on Levaquin and clindamycin. Patient flew home on Tuesday evening and came into the hospital on Tuesday morning and was subsequently admitted. He was found to be afebrile, initial white count 12.3 with repeat 10.4, BUN 17 and creatinine 1.39, blood sugar 352. Lactic acid 2, alkaline phosphatase 134, albumin 3.3. Wound culture was obtained and blood cultures status received. Patient also verbalizes that he has had problems with his Crohn's since he started antibiotics. He is not on any DMARD's. He denies having any fever or chills. Appetite has been okay. No pain to his foot but patient does not have any feeling. He does not recall any injury to his foot, no new shoes and socks. Foot x-ray shows soft tissue swelling and air bubbles consistent with cellulitis. This appears new compared to last foot exam. No specific sign of osteomyelitis. We have requested that MRI report be obtained from the [facility]. Patient is currently on vancomycin and Zosyn. Previous wound cultures have been strep echo lactic had group B and anaerobic gram-positive cocci in anaerobic gram-negative bacilli. Review of Systems All systems: negative Constitutional: Denies anorexia, Denies chills, Denies fatigue, Denies fever, Denies lethargy, Denies malaise, Denies poor appetite, Denies weakness Eyes: denies blurred vision, denies pain Ears, nose, mouth and throat: Denies dental pain, Denies dysphagia, Denies headache, Denies mouth pain, Denies sore throat, Denies vertigo Cardiovascular: Reports leg edema, Denies chest pain, Denies decreased exercise tolerance, Denies dyspnea on exertion, Denies edema, Denies palpitations, Denies shortness of breath, Denies syncope Respiratory: Denies cough, Denies cough with sputum, Denies dyspnea, Denies excessive sputum, Denies hemoptysis, Denies home oxygen, Denies wheezing Gastrointestinal: Denies abdominal pain, Denies diarrhea, Denies loss of appetite, Denies melena, Denies nausea, Denies vomiting Genitourinary: Denies dysuria, Denies urinary frequency, Denies urinary hesitancy, Denies urinary retention Musculoskeletal: Denies myalgias Integumentary: Reports color changes, Reports darkening of skin, Reports wounds , Denies pruritus, Denies rash Neurological: Denies aphasia, Denies change in mentation, Denies change in speech, Denies confusion, Denies headaches, Denies numbness, Denies seizures, Denies weakness Psychiatric: Denies anxiety, Denies depression Endocrine: Denies fatigue, Denies weight change Past Medical History Past Medical History: Diabetes Mellitus, Hypertension Additional Past Medical History / Comment(s): Diabetic neuropathy, crohns History of Any Multi-Drug Resistant Organisms: None Reported Past Surgical History: Bowel Resection, Orthopedic Surgery, Tonsillectomy Past Anesthesia/Blood Transfusion Reactions: No Reported Reaction Past Psychological History: No Psychological Hx Reported Smoking Status: Former smoker Past Alcohol Use History: None Reported Additional Past Alcohol Use History / Comment(s): Patient was a smoker of 2 and half to 3 packs per day for 12-13 years and quit 25 years ago. He denies any marijuana, street drug or alcohol use. He currently lives at home with his and son. 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 There are 3 dogs and 2 cats in the home. 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 He has difficulty ambulating due to neuropathy. Past Drug Use History: None Reported - Past Family History Father Family Medical History: Musculoskeletal Disorder Mother Family Medical History: COPD, Diabetes Mellitus Medications and Allergies Home Medications Medication Instructions Recorded Confirmed Type Chlorthalidone 25 mg PO DAILY 06/14/18 07/23/18 History Ergocalciferol (Vitamin D2) 50,000 unit PO HUGGINS 06/14/18 07/23/18 History [Vitamin D2] Gabapentin 800 mg PO QID 06/14/18 07/23/18 History Insulin Glargine,Hum.rec.anlog 38 unit SQ HS 06/14/18 07/23/18 History [Basaglar Kwikpen U-100] Insulin Glargine,Hum.rec.anlog 44 units SQ QAM 06/14/18 07/23/18 History [Basaglar Kwikpen U-100] Losartan Potassium 100 mg PO DAILY 06/14/18 07/23/18 History Mesalamine [Pentasa] 1,000 mg PO QID 06/14/18 07/23/18 History Pioglitazone [Actos] 45 mg PO HS 06/14/18 07/23/18 History Pramipexole [Mirapex] 1 mg PO HS 06/14/18 07/23/18 History Pyridoxine HCl (Vitamin B6) 50 mg PO DAILY 06/14/18 07/23/18 History [Vitamin B-6] amLODIPine [Norvasc] 5 mg PO HS 06/14/18 07/23/18 History metFORMIN HCL 1,000 mg PO BID 06/14/18 07/23/18 History Clindamycin HCl [Cleocin] 300 mg PO Q8H 07/14/18 07/23/18 History Levofloxacin [Levaquin] 500 mg PO DAILY 07/23/18 07/23/18 History Magnesium Oxide [Higgins] 500 mg PO BID 07/23/18 07/23/18 History amLODIPine [Norvasc] 10 mg PO DAILY 07/23/18 07/23/18 History Allergies Allergy/AdvReac Type Severity Reaction Status Date / Time codeine Allergy Swelling Verified 07/23/18 14:23 Physical Exam Vitals: Vital Signs Temp Pulse Pulse Resp BP BP Pulse Ox 07/24/18 07:52 99.0 F 63 16 153/85 95 07/23/18 23:00 98.3 F 64 18 175/79 95 07/23/18 18:05 97.6 F 78 16 182/85 96 07/23/18 17:45 98.0 F 74 18 167/85 97 07/23/18 16:01 97.6 F 68 18 152/80 95 07/23/18 13:59 97.5 F L 82 16 147/80 98 Intake and Output 07/23/18 07/24/18 07/24/18 22:59 06:59 14:59 Intake Total 550 300 Balance 550 300 Intake: Oral 550 300 Other: # Voids 1 1 Weight 131.542 kg Gen: This is an obese 58-year-old male. He is in bed and appears to be comfortable. HEENT: Head is atraumatic, normocephalic. Pupils equal, round. Sclerae is anicteric. Conjunctiva pink. Mucous members of the mouth are moist. Dentition is in fair order for age. No thrush noted. NECK: Supple. No JVD. No lymphadenopathy. No thyromegaly. LUNGS: Clear to auscultation. No wheezes or rhonchi. No intercostal retractions. HEART: Regular rate and rhythm. No murmur. ABDOMEN: Soft. Bowel sounds are present. No masses. No tenderness. EXTREMITIES: Dressing in place to the right foot was not removed for examination. Dorsalis pedis is +2 bilaterally. NEUROLOGICAL: Patient is awake, alert and oriented x3. Cranial nerves 2 through 12 are grossly intact. Results Results: Laboratory Results WBC 10.4 k/uL (3.8-10.6) 07/24/18 09:32 RBC 3.84 m/uL (4.30-5.90) L 07/24/18 09:32 Hgb 11.2 gm/dL (13.0-17.5) L 07/24/18 09:32 Hct 34.6 % (39.0-53.0) L 07/24/18 09:32 MCV 90.0 fL (80.0-100.0) 07/24/18 09:32 MCH 29.2 pg (25.0-35.0) 07/24/18 09:32 MCHC 32.4 g/dL (31.0-37.0) 07/24/18 09:32 RDW 13.4 % (11.5-15.5) 07/24/18 09:32 Plt Count 429 k/uL (150-450) 07/24/18 09:32 Neutrophils % 73 % 07/24/18 09:32 Lymphocytes % 16 % 07/24/18 09:32 Monocytes % 5 % 07/24/18 09:32 Eosinophils % 3 % 07/24/18 09:32 Basophils % 1 % 07/24/18 09:32 Neutrophils # 7.6 k/uL (1.3-7.7) 07/24/18 09:32 Lymphocytes # 1.7 k/uL (1.0-4.8) 07/24/18 09:32 Monocytes # 0.5 k/uL (0-1.0) 07/24/18 09:32 Eosinophils # 0.3 k/uL (0-0.7) 07/24/18 09:32 Basophils # 0.1 k/uL (0-0.2) 07/24/18 09:32 Sodium 139 mmol/L (137-145) 07/24/18 09:32 Potassium 4.5 mmol/L (3.5-5.1) 07/24/18 09:32 Chloride 105 mmol/L (98-107) 07/24/18 09:32 Carbon Dioxide 26 mmol/L (22-30) 07/24/18 09:32 Anion Gap 8 mmol/L 07/24/18 09:32 BUN 17 mg/dL (9-20) 07/24/18 09:32 Creatinine 1.39 mg/dL (0.66-1.25) H 07/24/18 09:32 Est GFR (CKD-EPI)AfAm 64 (>60 ml/min/1.73 sqM) 07/24/18 09:32 Est GFR (CKD-EPI)NonAf 56 (>60 ml/min/1.73 sqM) 07/24/18 09:32 Glucose 182 mg/dL (74-99) H 07/24/18 09:32 POC Glucose (mg/dL) 126 mg/dL (75-99) H 07/24/18 07:46 POC Glu Auto Painter Helper ID Isha Vanegas 07/24/18 07:46 Plasma Lactic Acid Jay 2.0 mmol/L (0.7-2.0) 07/23/18 15:20 Calcium 8.9 mg/dL (8.4-10.2) 07/24/18 09:32 Total Bilirubin 0.7 mg/dL (0.2-1.3) 07/23/18 15:20 AST 23 U/L (17-59) 07/23/18 15:20 ALT 37 U/L (21-72) 07/23/18 15:20 Alkaline Phosphatase 134 U/L (38-126) H 07/23/18 15:20 Total Protein 6.9 g/dL (6.3-8.2) 07/23/18 15:20 Albumin 3.3 g/dL (3.5-5.0) L 07/23/18 15:20 CBC & Chem 7: 07/24/18 09:32 07/24/18 09:32 Labs: Abnormal Lab Results - Last 24 Hours (Table) 07/23/18 07/23/18 07/23/18 Range/Units 15:20 15:20 21:28 WBC 12.3 H (3.8-10.6) k/uL RBC 4.15 L (4.30-5.90) m/uL Hgb 12.3 L (13.0-17.5) gm/dL Hct 37.3 L (39.0-53.0) % Neutrophils # 9.9 H (1.3-7.7) k/uL Creatinine 1.35 H (0.66-1.25) mg/dL Glucose 352 H (74-99) mg/dL POC Glucose (mg/dL) 320 H (75-99) mg/dL Alkaline Phosphatase 134 H (38-126) U/L Albumin 3.3 L (3.5-5.0) g/dL 07/24/18 07/24/18 07/24/18 Range/Units 07:46 09:32 09:32 WBC (3.8-10.6) k/uL RBC 3.84 L (4.30-5.90) m/uL Hgb 11.2 L (13.0-17.5) gm/dL Hct 34.6 L (39.0-53.0) % Neutrophils # (1.3-7.7) k/uL Creatinine 1.39 H (0.66-1.25) mg/dL Glucose 182 H (74-99) mg/dL POC Glucose (mg/dL) 126 H (75-99) mg/dL Alkaline Phosphatase (38-126) U/L Albumin (3.5-5.0) g/dL Microbiology - Last 24 Hours (Table) 07/23/18 16:15 Gram Stain - Preliminary Foot - Right Wound Culture - Preliminary Assessment and Plan Plan: This is a 58-year-old male presented to the hospital with infected diabetic ulcer to the right foot currently under the care of Dr. Leung at the wound healing Center. Patient is on vancomycin and Zosyn which will be continued. Patient is diabetic and will require tight glucose control. Hemoglobin A1c in June was 9.9. Local wound care will be addressed. Wound culture and blood culture in progress. Tetanus status was updated in June. Continue supportive care. Further recommendations as patient progresses. The above dictated assessment and findings were discussed with Dr. Flores. The impression and plan of care have been directed as dictated. Vanessa Pichardo nurse practitioner acting as scribe for Dr. Flores.
[2018-07-24 11:47] VITALS: BMI 36.2
[2018-07-24 13:04] LABS: Glucose,Whole Blood 110 mg/dL (75-99)
[2018-07-24] MEDS: LACTOBACILLUS ACIDOPH & BULGAR 1 EACH PACKET PO SCH ×2 (13:16→20:10)
--- NOTE | 2018-07-24 13:44 | P.PN ---
Subjective Progress Note Date: 07/24/18 Principal diagnosis: Right foot wound Patient was seen and examined. No acute events overnight. Patient complains watery diarrhea, associated with his Crohn's disease due to the IV antibiotics. He denies any fever or chills. No nausea or vomiting. No chest pain, shortness of breath or palpitations. Objective - Vital Signs Vital signs: Vital Signs Temp 99.0 F 07/24/18 07:52 Pulse 63 07/24/18 07:52 Resp 16 07/24/18 07:52 BP 153/85 07/24/18 07:52 Pulse Ox 95 07/24/18 07:52 Intake & Output 07/23/18 07/24/18 07/24/18 18:59 06:59 18:59 Intake Total 550 300 Balance 550 300 Weight 131.542 kg 131.542 kg Intake: Oral 550 300 Other: # Voids 1 - Exam General: [non toxic], [no distress], [appears at stated age] Derm: [warm], [dry] Head: [atraumatic], [normocephalic], [symmetric] Eyes: [EOMI], [no lid lag], [anicteric sclera] Mouth: [no lip lesion], [mucus membranes moist] Cardiovascular: [S1S2 reg], [no murmur] Lungs: [CTA bilateral], [no rhonchi, no rales] , [no accessory muscle use] Abdominal: [soft], [ nontender to palpation], [no guarding], [no appreciable organomegaly] Ext: [no gross muscle atrophy], [3+ edema RLE], [no contractures], [2 ulcers on the lateral aspect of the right foot. Erythema extending up to the right ankle. Purulent discharge] Neuro: [ CN II-XI grossly intact], [no focal neuro deficits] Psych: [Alert], [oriented], [appropriate affect] - Labs CBC & Chem 7: 07/24/18 09:32 07/24/18 09:32 Labs: Abnormal Lab Results - Last 24 Hours (Table) 07/23/18 07/23/18 07/23/18 Range/Units 15:20 15:20 21:28 WBC 12.3 H (3.8-10.6) k/uL RBC 4.15 L (4.30-5.90) m/uL Hgb 12.3 L (13.0-17.5) gm/dL Hct 37.3 L (39.0-53.0) % Neutrophils # 9.9 H (1.3-7.7) k/uL Creatinine 1.35 H (0.66-1.25) mg/dL Glucose 352 H (74-99) mg/dL POC Glucose (mg/dL) 320 H (75-99) mg/dL Alkaline Phosphatase 134 H (38-126) U/L Albumin 3.3 L (3.5-5.0) g/dL 07/24/18 07/24/18 07/24/18 Range/Units 07:46 09:32 09:32 WBC (3.8-10.6) k/uL RBC 3.84 L (4.30-5.90) m/uL Hgb 11.2 L (13.0-17.5) gm/dL Hct 34.6 L (39.0-53.0) % Neutrophils # (1.3-7.7) k/uL Creatinine 1.39 H (0.66-1.25) mg/dL Glucose 182 H (74-99) mg/dL POC Glucose (mg/dL) 126 H (75-99) mg/dL Alkaline Phosphatase (38-126) U/L Albumin (3.5-5.0) g/dL 07/24/18 Range/Units 13:03 WBC (3.8-10.6) k/uL RBC (4.30-5.90) m/uL Hgb (13.0-17.5) gm/dL Hct (39.0-53.0) % Neutrophils # (1.3-7.7) k/uL Creatinine (0.66-1.25) mg/dL Glucose (74-99) mg/dL POC Glucose (mg/dL) 110 H (75-99) mg/dL Alkaline Phosphatase (38-126) U/L Albumin (3.5-5.0) g/dL Microbiology - Last 24 Hours (Table) 07/23/18 16:15 Gram Stain - Preliminary Foot - Right Wound Culture - Preliminary Assessment and Plan Assessment: Assessment and Plan 1. Right lower extremity cellulitis secondary to diabetic foot ulcer 2. Diarrhea 3. Diabetes mellitus 4. Acute kidney injury 5. Crohn's disease 6. Hypertension 7. Bilateral lower extremity neuropathy 8. Restless leg syndrome 9. DVT prophylaxis 1. Patient is afebrile with a mild leukocytosis of 12.3 (resolved this morning) . Foot x-ray shows soft tissue swelling with air bubbles consistent with cellulitis, no specific signs of osteomyelitis. Per patient, MRI from outside hospital in [place] shows no osteomyelitis. We will start vancomycin 2500 mg IV as per levels, piperacillin and tazobactam 3.375 g IV 3 times a day. Tylenol as needed for fever or mild pain. Local wound care. Follow blood and wound culture. Follow infectious disease consult. Will attempt to obtain records from [facility]. 2. Related to Crohn's and antibiotics received. Follow C. difficile. Start Lactobacillus 1 tab PO BID. 3. A1c 9.1 on 06/14/2018, POC glucose 110 today. Resume home medication of glargine 38 units daily at bedtime and 44 units every morning. Start insulin sliding scale. Hypoglycemic precautions. Regular Accu-Cheks. 4. Creatinine is 1.35 to 1.39. Likely secondary to dehydration, IV antibiotics. Gentle hydration with normal saline at 80 mL per hour. Avoid nephrotoxins. Daily BMP. 5. Stable. Continue mesalamine at 1000 milligrams by mouth 4 times a day. 6. BP 153/85. Continue amlodipine 10 mg by mouth daily, 5 mg by mouth at bedtime. Continue chlorthalidone 25 mg by mouth daily. Continue losartan 100 mg by mouth daily. Monitor vitals, adjust medications as necessary. 7. Continue gabapentin 800 mg by mouth 4 times a day. 8. Continue pramipexole 1 mg by mouth at bedtime. 9. SCD boots only. Patient is being treated for right lower extremity diabetic foot ulcer and cellulitis. IV antibiotics started. Infectious disease on consult. Will follow cultures. Diarrhea likely related to IV antibiotics Crohn's disease. Start Lactobacillus , follow C. diff results. Patient would name his indicates that he is not able to make decisions for himself. Patient states that he prefers FULL CODE.
[2018-07-24] MEDS: SODIUM CHLORIDE 0.9% 1,000 ML IV SCH (14:58)
[2018-07-24 17:17] LABS: Glucose,Whole Blood 194 mg/dL (75-99)
[2018-07-24] MEDS: amLODIPine 5 MG TAB PO SCH (20:10)
[2018-07-24] MEDS: PRAMIPEXOLE 1 MG TAB PO SCH (20:10)
[2018-07-24 21:10] LABS: Glucose,Whole Blood 193 mg/dL (75-99)
--- NOTE | 2018-07-24 23:28 | P.CON ---
Consult Note - . Consult date: 07/24/18 Assessment/Plan:: This is a 58-year-old male patient known to ID service as he was recently hospitalized in June 2018 for infected diabetic ulcer to the right foot with past history significant for diabetes mellitus type 2 insulin requiring. His hemoglobin A1c and Tera was 9.9. Patient has been following with Dr. Leung He gives history that he follows with Dr. Leung in July and his last one was on July 14 at which time and he was instructed to take Levaquin and clindamycin and silver rope for wound care. Patient underwent a debridement at that time. Patient states that last week he was in [place] on vacation but did minimal walking as he was using a scooter most the time. He states on he started having oozing and pus from the wound. He went to emergency center in [place] and was found have an elevated white count and underwent MRI that patient reports is no bone infection. He received IV Zosyn and vancomycin while in the ER and was discharged on Levaquin and clindamycin. Patient flew home on Tuesday evening and came into the hospital on Tuesday morning and was subsequently admitted. He was found to be afebrile, initial white count 12.3 with repeat 10.4, BUN 17 and creatinine 1.39, blood sugar 352. Lactic acid 2, alkaline phosphatase 134, albumin 3.3. Wound culture was obtained and blood cultures status received. Patient also verbalizes that he has had problems with his Crohn's since he started antibiotics. He is not on any DMARD's. He denies having any fever or chills. Appetite has been okay. No pain to his foot but patient does not have any feeling. He does not recall any injury to his foot, no new shoes and socks. Foot x-ray shows soft tissue swelling and air bubbles consistent with cellulitis. This appears new compared to last foot exam. No specific sign of osteomyelitis. We have requested that MRI report be obtained from the [facility]. Patient is currently on vancomycin and Zosyn. Previous wound cultures have been strep echo lactic had group B and anaerobic gram-positive cocci in anaerobic gram-negative bacilli.Please see the consult note is dictated by nurse practitioner Mrs. Vanessa Pichardo. Patient has had a marked worsening of the wounds and infection to his right foot. Antibiotic therapy is enhanced with vancomycin as well as Zosyn pending culture results. Surgical evaluation and debridement will be needed. Awaiting the outside MRI to characterize the depth of the underlying infection, patient recalls that there was no evidence of osteomyelitis. Certainly the report is required to have these assessments. Local wound care with a positive dressing is being requested they can be changed daily given the amount of drainage that he has. Offloading of the site. Baseline laboratories and will direct care further. For his diarrhea. She does well with the addition of probiotic with acidophilus and this is added to his regimen. I agree with evaluation, assessment and plan as dictated by nurse practitioner Mrs. Vanessa Pichardo.
[2018-07-25] MEDS: VANCOMYCIN 2,250 MG in SODIUM CHLORIDE 0.9% 500 ML 500 ML IVPB SCH ×2 (01:31→19:18)
[2018-07-25] MEDS: PIPERACILLIN-TAZOBACTAM 3.375 GM in SODIUM CHLORIDE 0.9% 100 ML IVPB SCH ×3 (04:47→20:20)
[2018-07-25 07:30] LABS: Glucose,Whole Blood 80 mg/dL (75-99)
[2018-07-25 08:19] LABS: HCT 35.6 % (39.0-53.0); HGB 11.7 gm/dL (13.0-17.5); MCH 29.4 pg (25.0-35.0); MCHC 32.9 g/dL (31.0-37.0); MCV 89.5 fL (80.0-100.0); Mean Platelet Volume 7.2; Platelet Count 473 k/uL (150-450); RBC 3.98 m/uL (4.30-5.90); RDW 13.6 % (11.5-15.5); WBC 12.9 k/uL (3.8-10.6)
[2018-07-25 08:35] LABS: Calcium 8.7 mg/dL (8.4-10.2); Potassium 4.2 mmol/L (3.5-5.1)
[2018-07-25] MEDS: INSULIN ASPART 100 UNIT/ML 1 ML 10 ML VIAL SQ SCH ×3 (09:23→19:19)
[2018-07-25 09:25] LABS: Erythrocyte Sedimentation Rate 107 mm/hr (0-15)
[2018-07-25] MEDS: PYRIDOXINE 50 MG TAB PO SCH (09:26)
[2018-07-25] MEDS: LOSARTAN 50 MG TAB PO SCH (09:26)
[2018-07-25] MEDS: CHLORTHALIDONE 25 MG TAB PO SCH (09:26)
[2018-07-25] MEDS: amLODIPine 10 MG TAB PO SCH (09:26)
[2018-07-25] MEDS: LACTOBACILLUS ACIDOPH & BULGAR 1 EACH PACKET PO SCH ×2 (09:26→20:18)
[2018-07-25] MEDS: MESALAMINE 500 MG PO SCH ×4 (09:26→20:18)
[2018-07-25] MEDS: INSULIN DETEMIR 100 UNIT/ML 10 ML VIAL SQ SCH ×2 (09:27→22:13)
[2018-07-25] MEDS: GABAPENTIN 400 MG CAP PO SCH ×4 (09:32→20:11)
[2018-07-25 09:40] LABS: C Reactive Protein 43.9 mg/L (<10.0)
--- NOTE | 2018-07-25 12:19 | P.PN ---
Subjective Progress Note Date: 07/25/18 Principal diagnosis: right wound infection Patient is a 58-year-old male past medical history of diabetes with neuropathy, Crohn's disease, hypertension, and restless leg syndrome who presented to the ER for right foot swelling, increased redness, and infected foot ulcer. He already been admitted as inpatient on 06/15/18 for this. He was discharged home on oral antibiotics. He was following with Dr. Leung in the wound clinic. He has since been completed a course of Keflex and then Levaquin and clindamycin. He then went to [place] and was admitted to the hospital there where he was placed on IV antibiotics and underwent an MRI of the foot. MRI was reviewed did not show any signs of osteomyelitis. In the ER here he was noted to have a leukocytosis with a white blood cell count 12.3, hemoglobin 12.3, creatinine 1.35, an elevated glucose of 352. X-ray of the foot showed soft tissue swelling and air bubbles consistent with cellulitis. He was admitted for further treatment. He is in place on daptomycin and Zosyn. Infectious disease was consulted and agreed with current antibiotics. Culture currently pending. Patient seen and examined at bedside. He complains of some pain in his right foot today. He continues to have diarrhea but no abdominal pain or cramping. No nausea or vomiting. No chest pain or shortness of breath. Objective - Vital Signs Vital signs: Vital Signs Temp 97.9 F 07/25/18 07:11 Pulse 64 07/25/18 07:11 Resp 18 07/25/18 07:11 BP 149/69 07/25/18 07:11 Pulse Ox 94 L 07/25/18 07:11 Intake & Output 07/24/18 07/25/18 07/25/18 18:59 06:59 18:59 Intake Total 540 300 437 Balance 540 300 437 Weight 131.542 kg 131.542 kg 131.542 kg Intake: Oral 540 300 437 Other: Voiding Method Toilet # Voids 2 1 - Exam General: non toxic, no distress, appears at stated age, obese Derm: Right foot with dime size area of redness and sharp, sloughing of multiple layers of skin, redness around right ankle warm, dry Head: atraumatic, normocephalic, symmetric Eyes: EOMI, no lid lag, anicteric sclera Mouth: no lip lesion, mucus membranes moist Cardiovascular: S1S2 reg, no murmur, positive posterior tibial pulse bilateral, Lungs: CTA bilateral, no rhonchi, no rales , no accessory muscle use Abdominal: soft, nontender to palpation, no guarding, no appreciable organomegaly Ext: no gross muscle atrophy, no edema, no contractures Neuro: CN II-XI grossly intact, no focal neuro deficits Psych: Alert, oriented, appropriate affect - Labs CBC & Chem 7: 07/25/18 08:03 07/25/18 08:03 Labs: Abnormal Lab Results - Last 24 Hours (Table) 07/24/18 07/24/18 07/24/18 Range/Units 13:03 17:12 21:07 WBC (3.8-10.6) k/uL RBC (4.30-5.90) m/uL Hgb (13.0-17.5) gm/dL Hct (39.0-53.0) % Plt Count (150-450) k/uL ESR (0-15) mm/hr Chloride (98-107) mmol/L Creatinine (0.66-1.25) mg/dL POC Glucose (mg/dL) 110 H 194 H 193 H (75-99) mg/dL C-Reactive Protein (<10.0) mg/L 07/25/18 07/25/18 Range/Units 08:03 08:03 WBC 12.9 H (3.8-10.6) k/uL RBC 3.98 L (4.30-5.90) m/uL Hgb 11.7 L (13.0-17.5) gm/dL Hct 35.6 L (39.0-53.0) % Plt Count 473 H (150-450) k/uL ESR 107 H (0-15) mm/hr Chloride 109 H (98-107) mmol/L Creatinine 1.34 H (0.66-1.25) mg/dL POC Glucose (mg/dL) (75-99) mg/dL C-Reactive Protein 43.9 H (<10.0) mg/L Microbiology - Last 24 Hours (Table) 07/23/18 17:13 Blood Culture - Preliminary Blood No Growth after 24 hours 07/23/18 16:15 Gram Stain - Preliminary Foot - Right Wound Culture - Preliminary Assessment and Plan Assessment: Infected right diabetic foot ulcer with surrounding cellulitis -ID recommendations appreciated continue with Vanco and Zosyn, await cultures- no growth at 24 hours. -Podiatry consult -Offload foot -Dressings per ID recommendations Diabetes mellitus type 2 with suboptimal control and neuropathy - hyperglycemia, improved -Continue to hold oral medications - last A1C in Jun 9.1 - Continue with levemir and SSI - neurontin Crohn's disease - mesalamine - lactobacillus HTN, controlled - Norvasc, chlorthalidone, cozaar CKD 2/3 - baseline Cr 1.2 - follow Cr, avoid additional nephrotoxic agents. Morbid obesity - BMI 36.2 - structured outpatient weight loss. DVT prophylaxis: heparin Discussed with: patient, nursing Anticipated discharge: 2-[address]: home with home health A total of 35 minutes was spent on the care of this complex patient more than 50 % of the time was spent in counseling and care coordination.
[2018-07-25 12:52] LABS: Glucose,Whole Blood 154 mg/dL (75-99)
--- NOTE | 2018-07-25 15:33 | P.GSHP ---
History of Present Illness H&P Date: 07/25/18 Chief Complaint: Infected right footwith abscess Farias grade 3 58-year-old white male admitted the hospital during t afterhaving a recurrence of infection of the right foot. She states this was fine until the end of his vacation emergency room and was admitted for IV antibiotics he traveled homend was placed in the emergency room of this hospital for marcy and IV antibiotic. Patient is being Consulted by me for treatment of the infected soft tissue. Past Medical History Past Medical History: Diabetes Mellitus, Hypertension Additional Past Medical History / Comment(s): Diabetic neuropathy, crohns History of Any Multi-Drug Resistant Organisms: None Reported Past Surgical History: Bowel Resection, Orthopedic Surgery, Tonsillectomy Past Anesthesia/Blood Transfusion Reactions: No Reported Reaction Past Psychological History: No Psychological Hx Reported Smoking Status: Former smoker Past Alcohol Use History: None Reported Additional Past Alcohol Use History / Comment(s): Patient was a smoker of 2 and half to 3 packs per day for 12-13 years and quit 25 years ago. He denies any marijuana, street drug or alcohol use. He currently lives at home with his and son. 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 There are 3 dogs and 2 cats in the home. 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 He has difficulty ambulating due to neuropathy. Past Drug Use History: None Reported - Past Family History Father Family Medical History: Musculoskeletal Disorder Mother Family Medical History: COPD, Diabetes Mellitus Medications and Allergies Home Medications Medication Instructions Recorded Confirmed Type Chlorthalidone 25 mg PO DAILY 06/14/18 07/23/18 History Ergocalciferol (Vitamin D2) 50,000 unit PO HUGGINS 06/14/18 07/23/18 History [Vitamin D2] Gabapentin 800 mg PO QID 06/14/18 07/23/18 History Insulin Glargine,Hum.rec.anlog 38 unit SQ HS 06/14/18 07/23/18 History [Basaglar Kwikpen U-100] Insulin Glargine,Hum.rec.anlog 44 units SQ QAM 06/14/18 07/23/18 History [Basaglar Kwikpen U-100] Losartan Potassium 100 mg PO DAILY 06/14/18 07/23/18 History Mesalamine [Pentasa] 1,000 mg PO QID 06/14/18 07/23/18 History Pioglitazone [Actos] 45 mg PO HS 06/14/18 07/23/18 History Pramipexole [Mirapex] 1 mg PO HS 06/14/18 07/23/18 History Pyridoxine HCl (Vitamin B6) 50 mg PO DAILY 06/14/18 07/23/18 History [Vitamin B-6] amLODIPine [Norvasc] 5 mg PO HS 06/14/18 07/23/18 History metFORMIN HCL 1,000 mg PO BID 06/14/18 07/23/18 History Clindamycin HCl [Cleocin] 300 mg PO Q8H 07/14/18 07/23/18 History Levofloxacin [Levaquin] 500 mg PO DAILY 07/23/18 07/23/18 History Magnesium Oxide [Higgins] 500 mg PO BID 07/23/18 07/23/18 History amLODIPine [Norvasc] 10 mg PO DAILY 07/23/18 07/23/18 History Allergies Allergy/AdvReac Type Severity Reaction Status Date / Time codeine Allergy Swelling Verified 07/23/18 14:23 Surgical - Exam Vital Signs Temp Pulse Resp BP Pulse Ox 97.5 F L 82 16 147/80 98 07/23/18 13:59 07/23/18 13:59 07/23/18 13:59 07/23/18 13:59 07/23/18 13:59 - Cardiovascular pedal pulses are diminishesent bilateral No digital hair extity is warm bilateral. - Integumentary Extensive necrotic tissue along the lateral aspect of the foot extending along the fifth metatarsal to the plalaterally it's from the mid calcaneus to mid aspect of the fifth met and the course ofoot. There is extensive necrotic tissue as well as the absces 2. There is no odor. There is serosanguineining from this. There is localized eryth edema of the foot to the ank - Neurologic Patient has decreased epicritic and pallestatic sensations. He is unable to appreciatepain at this point. - Musculoskeletal Range of motionle joint subtalar joint and midtarsal joint grossly normal and symmetrical bilater all inverters and everters plantar flexors grossly n Results - Labs 07/25/18 08:03 07/25/18 08:03 Abnormal Lab Results - Last 24 Hours (Table) 07/24/18 07/24/18 07/25/18 Range/Units 17:12 21:07 08:03 WBC 12.9 H (3.8-10.6) k/uL RBC 3.98 L (4.30-5.90) m/uL Hgb 11.7 L (13.0-17.5) gm/dL Hct 35.6 L (39.0-53.0) % Plt Count 473 H (150-450) k/uL ESR 107 H (0-15) mm/hr Chloride (98-107) mmol/L Creatinine (0.66-1.25) mg/dL POC Glucose (mg/dL) 194 H 193 H (75-99) mg/dL C-Reactive Protein (<10.0) mg/L 07/25/18 07/25/18 Range/Units 08:03 12:36 WBC (3.8-10.6) k/uL RBC (4.30-5.90) m/uL Hgb (13.0-17.5) gm/dL Hct (39.0-53.0) % Plt Count (150-450) k/uL ESR (0-15) mm/hr Chloride 109 H (98-107) mmol/L Creatinine 1.34 H (0.66-1.25) mg/dL POC Glucose (mg/dL) 154 H (75-99) mg/dL C-Reactive Protein 43.9 H (<10.0) mg/L Microbiology - Last 24 Hours (Table) 07/23/18 17:13 Blood Culture - Preliminary Blood No Growth after 24 hours 07/23/18 16:15 Gram Stain - Preliminary Foot - Right Wound Culture - Preliminary Diabetes panel 07/25/18 Range/Units 08:03 Sodium 142 (137-145) mmol/L Potassium 4.2 (3.5-5.1) mmol/L Chloride 109 H (98-107) mmol/L Carbon Dioxide 26 (22-30) mmol/L BUN 14 (9-20) mg/dL Creatinine 1.34 H (0.66-1.25) mg/dL Glucose 87 (74-99) mg/dL Calcium 8.7 (8.4-10.2) mg/dL Calcium panel 07/25/18 Range/Units 08:03 Calcium 8.7 (8.4-10.2) mg/dL Pituitary panel 07/25/18 Range/Units 08:03 Sodium 142 (137-145) mmol/L Potassium 4.2 (3.5-5.1) mmol/L Chloride 109 H (98-107) mmol/L Carbon Dioxide 26 (22-30) mmol/L BUN 14 (9-20) mg/dL Creatinine 1.34 H (0.66-1.25) mg/dL Glucose 87 (74-99) mg/dL Calcium 8.7 (8.4-10.2) mg/dL Adrenal panel 07/25/18 Range/Units 08:03 Sodium 142 (137-145) mmol/L Potassium 4.2 (3.5-5.1) mmol/L Chloride 109 H (98-107) mmol/L Carbon Dioxide 26 (22-30) mmol/L BUN 14 (9-20) mg/dL Creatinine 1.34 H (0.66-1.25) mg/dL Glucose 87 (74-99) mg/dL Calcium 8.7 (8.4-10.2) mg/dL Assessment and Plan Assessment: Infected tissue with abscess ulcer Farias grade 3right foot Plan: Exam. discussed with patient findings As well as treatment plan.Discussed with patient the need fordebridement and removal of the infected tissueas well as removal throuinage and opening of the abscess ulcer. Discussed with that this will help hasten and helpresolve the i Infection. Discussed with patient complications prognosis risk expectations. We'll proceed with surgery when bordered.
[2018-07-25 16:56] LABS: Glucose,Whole Blood 208 mg/dL (75-99)
[2018-07-25] MEDS ORDERED: LACTATED RINGERS 1,000 ML IV ONE (17:23)
[2018-07-25] MEDS ORDERED: VANCOMYCIN 1,000 MG in SODIUM CHLORIDE 0.9% IRRIGATIO 1,000 ML IRRIGATION ONE (18:32)
--- NOTE | 2018-07-25 18:54 | P.PCN ---
Date of Procedure: 07/25/18 Preoperative Diagnosis: Infected abscess Farias grade 3 ulceration right foot with ascending cellulitis Postoperative Diagnosis: Same Procedure(s) Performed: Excision of infected tissue with incision and drainage of abscessed ulcer right foot Anesthesia: none Surgeon: Zach Leung Estimated Blood Loss (ml): 50 Pathology: none sent Condition: stable Disposition: floor Indications for Procedure: Infection right foot Operative Findings: Consistent with clinical findings Description of Procedure: Patient was brought to the OR and remained on the gurney in the supine position during the procedure. The patient has extensive neuropathy and no anesthesia was needed. The right foot was prepped and draped in the usual aseptic manner. Attention was directed to the infected aspect of the lateral portion of the right foot along the fifth metatarsal base and its articulation with the cuboid cuneiform. Using a sterile 15 blade curette and scissors all superficial necrotic tissue was removed from the foot. After removal superficial infected tissue it was noted that there was deep necrotic tissue proximal to the base of the fifth metatarsal extending along the lateral aspect of the shaft and then extending again dorsally midshaft the mid metatarsal area. Using a 15 blade necrotic tissue was removed. A curette was then used to remove the area that was abscessed. The abscess extended along the dorsal medial shaft of the fifth metatarsal. Using a 15 blade this abscess was opened revealing more necrotic tissue within the abscessed area. All necrotic tissue was then removed with 15 blade. The wound was then copiously lavaged with 3000 mL of normal saline with 1 g of vancomycin dissolved within this. After this was thoroughly lavaged the wound was inspected and all necrotic tissue was removed. Any superficial bleeders were cauterized and the wound was then packed with 1/2 inch iodoform gauze and dressed with a mild compressive dressing using 4 x 4's and ABDs pad and Kerlix. The dry sterile dressing was then secured with an Carmelo wrap. Patient tolerated procedure well. Monitored until stable and then returned to the floor for further in-house care. No complications were encountered during the procedure.
[2018-07-25] MEDS: SODIUM CHLORIDE 0.9% 1,000 ML IV SCH (19:18)
[2018-07-25] MEDS: amLODIPine 5 MG TAB PO SCH (20:18)
[2018-07-25] MEDS: PRAMIPEXOLE 1 MG TAB PO SCH (20:18)
[2018-07-25 21:49] LABS: Glucose,Whole Blood 169 mg/dL (75-99)
--- NOTE | 2018-07-25 23:22 | P.PN ---
Subjective Progress Note Date: 07/25/18 This is a 58-year-old male patient known to ID service as he was recently hospitalized in June 2018 for infected diabetic ulcer to the right foot with past history significant for diabetes mellitus type 2 insulin requiring. His hemoglobin A1c and Tera was 9.9. Patient has been following with Dr. Leung He gives history that he follows with Dr. Leung in July and his last one was on July 14 at which time and he was instructed to take Levaquin and clindamycin and silver rope for wound care. Patient underwent a debridement at that time. Patient states that last week he was in [place] on vacation but did minimal walking as he was using a scooter most the time. He states on he started having oozing and pus from the wound. He went to emergency center in [place] and was found have an elevated white count and underwent MRI that patient reports is no bone infection. He received IV Zosyn and vancomycin while in the ER and was discharged on Levaquin and clindamycin. Patient flew home on Tuesday evening and came into the hospital on Tuesday morning and was subsequently admitted. He was found to be afebrile, initial white count 12.3 with repeat 10.4, BUN 17 and creatinine 1.39, blood sugar 352. Lactic acid 2, alkaline phosphatase 134, albumin 3.3. Wound culture was obtained and blood cultures status received. Patient also verbalizes that he has had problems with his Crohn's since he started antibiotics. He is not on any DMARD's. He denies having any fever or chills. Appetite has been okay. No pain to his foot but patient does not have any feeling. He does not recall any injury to his foot, no new shoes and socks. Foot x-ray shows soft tissue swelling and air bubbles consistent with cellulitis. This appears new compared to last foot exam. No specific sign of osteomyelitis. We have requested that MRI report be obtained from the [facility]. Patient is currently on vancomycin and Zosyn. Previous wound cultures have been strep echo lactic had group B and anaerobic gram-positive cocci in anaerobic gram-negative bacilli. 07/25/2018 the patient is feeling well today. No new acute complaints. We will go to the operating room the next few minutes for the debridement of the significant diabetic foot ulcer. He's having no pain. Denies fevers or chills. Objective - Vital Signs Vital signs: Vital Signs Temp 98.4 F 07/25/18 16:54 Pulse 82 07/25/18 16:54 Resp 18 07/25/18 16:54 BP 183/83 07/25/18 16:54 Pulse Ox 97 07/25/18 16:54 Intake & Output 07/25/18 07/25/18 07/26/18 06:59 18:59 06:59 Intake Total 300 1118.5 Output Total 50 Balance 300 1068.5 Weight 131.542 kg 131.542 kg Intake: IV 201.5 Oral 300 917 Output: Estimated Blood Loss 50 Other: Voiding Method Toilet Toilet # Voids 1 3 - Exam Gen: This is an obese 58-year-old male. He is in bed and appears to be comfortable. HEENT: Head is atraumatic, normocephalic. Pupils equal, round. Sclerae is anicteric. Conjunctiva pink. Mucous members of the mouth are moist. Dentition is in fair order for age. No thrush noted. NECK: Supple. No JVD. No lymphadenopathy. No thyromegaly. LUNGS: Clear to auscultation. No wheezes or rhonchi. No intercostal retractions. HEART: Regular rate and rhythm. No murmur. ABDOMEN: Soft. Bowel sounds are present. No masses. No tenderness. EXTREMITIES: He has not of the right foot has evidence of the extensive ulceration to the lateral aspect of the foot which will require surgical debridement today. There is still some copious drainage surrounding erythema and mild ascending erythema. NEUROLOGICAL: Patient is awake, alert and oriented x3. Cranial nerves 2 through 12 are grossly intact. - Labs CBC & Chem 7: 07/25/18 08:03 07/25/18 08:03 Labs: Abnormal Lab Results - Last 24 Hours (Table) 07/25/18 07/25/18 07/25/18 Range/Units 08:03 08:03 12:36 WBC 12.9 H (3.8-10.6) k/uL RBC 3.98 L (4.30-5.90) m/uL Hgb 11.7 L (13.0-17.5) gm/dL Hct 35.6 L (39.0-53.0) % Plt Count 473 H (150-450) k/uL ESR 107 H (0-15) mm/hr Chloride 109 H (98-107) mmol/L Creatinine 1.34 H (0.66-1.25) mg/dL POC Glucose (mg/dL) 154 H (75-99) mg/dL C-Reactive Protein 43.9 H (<10.0) mg/L 07/25/18 07/25/18 Range/Units 16:49 21:46 WBC (3.8-10.6) k/uL RBC (4.30-5.90) m/uL Hgb (13.0-17.5) gm/dL Hct (39.0-53.0) % Plt Count (150-450) k/uL ESR (0-15) mm/hr Chloride (98-107) mmol/L Creatinine (0.66-1.25) mg/dL POC Glucose (mg/dL) 208 H 169 H (75-99) mg/dL C-Reactive Protein (<10.0) mg/L Microbiology - Last 24 Hours (Table) 07/23/18 17:13 Blood Culture - Preliminary Blood No Growth after 48 hours Assessment and Plan (1) Cellulitis of right lower extremity Current Visit: Yes Status: Acute Code(s): L03.115 - CELLULITIS OF RIGHT LOWER LIMB SNOMED Code(s): 989069635 (2) Diabetic foot ulcer associated with type 2 diabetes mellitus, with fat layer exposed Narrative/Plan: Patient has had a marked worsening of the wounds and infection to his right foot. Antibiotic therapy is enhanced with vancomycin as well as Zosyn pending culture results. Surgical evaluation and debridement will be needed. Awaiting the outside MRI to characterize the depth of the underlying infection, patient recalls that there was no evidence of osteomyelitis. Certainly the report is required to have these assessments. Local wound care with a positive dressing is being requested they can be changed daily given the amount of drainage that he has. Offloading of the site. Baseline laboratories and will direct care further. For his diarrhea. She does well with the addition of probiotic with acidophilus and this is added to his regimen. 07/25/2018 patient is heading off to the operative room for debridement of his foot ulceration. Diarrhea is under better control with the start of acidophilus. The overall plans will be determined by the findings at the time of surgery. That outpatient MRI was still pending, to further evaluate the depth of the infection. The infection seems to be quite extensive and likely will be receiving outpatient course of intravenous antibiotic therapy with ongoing local wound care through the wound healing Center. Current Visit: Yes Status: Acute Code(s): E11.621 - TYPE 2 DIABETES MELLITUS WITH FOOT ULCER; L97.502 - NON-PRS CHRONIC ULCER OTH PRT UNSP FOOT W FAT LAYER EXPOSED SNOMED Code(s): 7057859075034
[2018-07-26] MEDS: PIPERACILLIN-TAZOBACTAM 3.375 GM in SODIUM CHLORIDE 0.9% 100 ML IVPB SCH ×3 (03:59→21:22)
[2018-07-26 07:37] LABS: Glucose,Whole Blood 91 mg/dL (75-99)
[2018-07-26] MEDS: INSULIN ASPART 100 UNIT/ML 1 ML 10 ML VIAL SQ SCH ×3 (07:53→17:41)
[2018-07-26] MEDS: GABAPENTIN 400 MG CAP PO SCH ×4 (07:58→21:25)
[2018-07-26] MEDS: LOSARTAN 50 MG TAB PO SCH (07:58)
[2018-07-26] MEDS: PYRIDOXINE 50 MG TAB PO SCH (07:59)
[2018-07-26] MEDS: CHLORTHALIDONE 25 MG TAB PO SCH (07:59)
[2018-07-26] MEDS: amLODIPine 10 MG TAB PO SCH (07:59)
[2018-07-26] MEDS: MESALAMINE 500 MG PO SCH ×4 (07:59→21:25)
[2018-07-26] MEDS: LACTOBACILLUS ACIDOPH & BULGAR 1 EACH PACKET PO SCH ×2 (07:59→21:24)
[2018-07-26] MEDS: INSULIN DETEMIR 100 UNIT/ML 10 ML VIAL SQ SCH (07:59)
[2018-07-26] MEDS ORDERED: VANCOMYCIN TROUGH DUE 1 EACH MISC MISCELLANE ONE (09:00)
[2018-07-26] MEDS: VANCOMYCIN 2,250 MG in SODIUM CHLORIDE 0.9% 500 ML 500 ML IVPB SCH (09:46)
[2018-07-26 10:17] LABS: HCT 33.2 % (39.0-53.0); HGB 10.5 gm/dL (13.0-17.5); Hypochromasia Slight; MCH 28.4 pg (25.0-35.0); MCHC 31.6 g/dL (31.0-37.0); MCV 90.1 fL (80.0-100.0); Mean Platelet Volume 6.4; Platelet Count 479 k/uL (150-450); RBC 3.68 m/uL (4.30-5.90); RDW 13.4 % (11.5-15.5); WBC 11.3 k/uL (3.8-10.6)
[2018-07-26 10:18] LABS: Calcium 8.8 mg/dL (8.4-10.2); Potassium 4.3 mmol/L (3.5-5.1)
[2018-07-26] MEDS ORDERED: traMADol 50 MG TAB PO PRN (10:52)
--- NOTE | 2018-07-26 12:23 | P.PN ---
Subjective Progress Note Date: 07/26/18 Principal diagnosis: right foot wound infection Patient is a 58-year-old male with a past medical history of diabetes with neuropathy, Crohn's disease, hypertension, and restless leg syndrome who presented to the ER for right foot swelling, increased redness, and infected foot ulcer. He already been admitted as inpatient on 06/15/18 for this. He was discharged home on oral antibiotics. He was following with Dr. Leung in the wound clinic. He has since been completed a course of Keflex and then Levaquin and clindamycin. He then went to [place] and was admitted to the hospital there where he was placed on IV antibiotics and underwent an MRI of the foot. MRI was reviewed did not show any signs of osteomyelitis. In the ER here he was noted to have a leukocytosis with a white blood cell count 12.3, hemoglobin 12.3, creatinine 1.35, an elevated glucose of 352. X-ray of the foot showed soft tissue swelling and air bubbles consistent with cellulitis. He was admitted for further treatment. He was placed on daptomycin and Zosyn. Infectious disease was consulted and agreed with current antibiotics. Culture currently pending. On 07/25 he underwent debridement and drainage of abscess with Dr. Leung in the OR. Patient seen and examined at bedside. Diarrhea is improving, no chest pain or shortness of breath, no nausea, no vomiting. Having some pain in left heal and foot. Objective - Vital Signs Vital signs: Vital Signs Temp 97.9 F 07/26/18 07:24 Pulse 58 L 07/26/18 07:24 Resp 20 07/26/18 07:24 BP 147/73 07/26/18 07:24 Pulse Ox 94 L 07/26/18 07:24 Intake & Output 07/25/18 07/26/18 07/26/18 18:59 06:59 18:59 Intake Total 1118.5 900 Output Total 50 Balance 1068.5 900 Weight 131.542 kg Intake: IV 201.5 Oral 917 900 Output: Estimated Blood Loss 50 Other: Voiding Method Toilet Toilet Toilet # Voids 3 2 1 # Bowel Movements 1 1 - Exam General: non toxic, no distress, appears at stated age, obese Derm: maximiliano wrap in place right foot, dry Head: atraumatic, normocephalic, symmetric Eyes: EOMI, no lid lag, anicteric sclera Mouth: no lip lesion, mucus membranes moist Cardiovascular: S1S2 reg, no murmur, positive posterior tibial pulse bilateral, Lungs: CTA bilateral, no rhonchi, no rales , no accessory muscle use Abdominal: soft, nontender to palpation, no guarding, no appreciable organomegaly Ext: no gross muscle atrophy, no edema, no contractures Neuro: CN II-XI grossly intact, no focal neuro deficits Psych: Alert, oriented, appropriate affect - Labs CBC & Chem 7: 07/26/18 09:17 07/26/18 09:17 Labs: Abnormal Lab Results - Last 24 Hours (Table) 07/25/18 07/25/18 07/25/18 Range/Units 12:36 16:49 21:46 WBC (3.8-10.6) k/uL RBC (4.30-5.90) m/uL Hgb (13.0-17.5) gm/dL Hct (39.0-53.0) % Plt Count (150-450) k/uL Creatinine (0.66-1.25) mg/dL Glucose (74-99) mg/dL POC Glucose (mg/dL) 154 H 208 H 169 H (75-99) mg/dL 07/26/18 07/26/18 Range/Units 09:17 09:17 WBC 11.3 H (3.8-10.6) k/uL RBC 3.68 L (4.30-5.90) m/uL Hgb 10.5 L (13.0-17.5) gm/dL Hct 33.2 L (39.0-53.0) % Plt Count 479 H (150-450) k/uL Creatinine 1.35 H (0.66-1.25) mg/dL Glucose 206 H (74-99) mg/dL POC Glucose (mg/dL) (75-99) mg/dL Microbiology - Last 24 Hours (Table) 07/26/18 18:45 Anaerobic Culture - Preliminary Foot - Right 07/25/18 18:45 Wound Culture - Preliminary Foot - Right 07/23/18 17:13 Blood Culture - Preliminary Blood No Growth after 48 hours Assessment and Plan Assessment: Infected right diabetic foot ulcer with abscess with surrounding cellulitis -ID recommendations appreciated continue with Vanco and Zosyn, await cultures- no growth at 24 hours. -Podiatry recs appreciated -Offload foot -ID recommendations plan is for outpatient ertapenem with midline Diabetes mellitus type 2 with suboptimal control and neuropathy - hyperglycemia, resolved - Continue to hold oral medications - last A1C in Jun 9.1 - Continue with levemir and SSI - neurontin Crohn's disease - mesalamine - lactobacillus HTN, controlled - Norvasc, chlorthalidone, cozaar CKD 2/3 - baseline Cr 1.2 - follow Cr, avoid additional nephrotoxic agents. Morbid obesity - BMI 36.2 - structured outpatient weight loss. DVT prophylaxis: heparin Discussed with: patient, nursing Anticipated discharge: 2-[address]: home with home health A total of 35 minutes was spent on the care of this complex patient more than 50 % of the time was spent in counseling and care coordination.
[2018-07-26 12:49] LABS: Glucose,Whole Blood 151 mg/dL (75-99)
[2018-07-26] MEDS ORDERED: LIDOCAINE 1% INJ 10MG/ML (20 ML MDV) SQ ONE (15:13)
[2018-07-26] MEDS: SODIUM CHLORIDE 0.9% 1,000 ML IV SCH (15:37)
--- NOTE | 2018-07-26 16:14 | IR ---
EXAMINATION TYPE: IR cvc insert >=5 years DATE OF EXAM: 07/26/2018 COMPARISON: NONE CLINICAL HISTORY: Infection Needs long-term intravenous access for antibiotics. PROCEDURE: After informed consent, the skin overlying the left basilic vein was localized with ultrasound and no natalie to be compressible and patent. An ultrasound image was obtained and submitted on the patient's c cronin. The overlying skin was prepped and draped and Lidocaine was used for local anesthesia. A skin jagjit was made with a scalpel. Access was gained to the vein under ultrasound guidance with a 21 gau ge needle and a 0.018 inch wire was advanced. Access site was dilated with Peel-Away sheath and cath eter tailored to the appropriate length and advanced such that the distal tip is at the cavoatrial ju nction. Spot image was obtained verifying placement. Catheter was fixed to the skin and a sterile d ressing was placed following hemostasis. Catheter was aspirated and flushed with saline. Patient wa s discharged in stable condition without complication. Maximal barrier technique is utilized. Ultras ound image is documented on the chart. Ultrasound used with sterile technique. Fluoro time and fluoroscopic images submitted to document procedure: 0.9 minutes fluoroscopy time, 17 8 intraoperative C-arm images. IMPRESSION: STATUS POST ULTRASOUND AND FLUOROSCOPIC GUIDED PICC LINE PLACEMENT, READY FOR USE. THIS PROCEDURE WAS PERFORMED BY THE UNDERSIGNED.
[2018-07-26 18:07] LABS: Glucose,Whole Blood 99 mg/dL (75-99)
[2018-07-26 20:51] LABS: Glucose,Whole Blood 228 mg/dL (75-99)
[2018-07-26] MEDS ORDERED: INSULIN DETEMIR 100 UNIT/ML 10 ML VIAL SQ SCH (21:00)
[2018-07-26] MEDS: amLODIPine 5 MG TAB PO SCH (21:23)
[2018-07-26] MEDS: PRAMIPEXOLE 1 MG TAB PO SCH (21:24)
[2018-07-27] MEDS: VANCOMYCIN 2,250 MG in SODIUM CHLORIDE 0.9% 500 ML 500 ML IVPB SCH (02:52)
[2018-07-27] MEDS: PIPERACILLIN-TAZOBACTAM 3.375 GM in SODIUM CHLORIDE 0.9% 100 ML IVPB SCH ×2 (05:09→12:25)
[2018-07-27 07:54] LABS: Glucose,Whole Blood 187 mg/dL (75-99)
[2018-07-27] MEDS: MESALAMINE 500 MG PO SCH ×4 (08:03→22:45)
[2018-07-27] MEDS: GABAPENTIN 400 MG CAP PO SCH ×4 (08:04→22:45)
[2018-07-27] MEDS: CHLORTHALIDONE 25 MG TAB PO SCH (08:05)
[2018-07-27] MEDS: amLODIPine 10 MG TAB PO SCH (08:05)
[2018-07-27] MEDS: PYRIDOXINE 50 MG TAB PO SCH (08:05)
[2018-07-27] MEDS: INSULIN DETEMIR 100 UNIT/ML 10 ML VIAL SQ SCH ×2 (08:05→22:45)
[2018-07-27] MEDS: LOSARTAN 50 MG TAB PO SCH (08:05)
[2018-07-27] MEDS: LACTOBACILLUS ACIDOPH & BULGAR 1 EACH PACKET PO SCH ×2 (08:05→21:50)
[2018-07-27] MEDS: INSULIN ASPART 100 UNIT/ML 1 ML 10 ML VIAL SQ SCH ×3 (08:05→17:47)
[2018-07-27 09:33] LABS: HCT 33.7 % (39.0-53.0); MCH 29.4 pg (25.0-35.0); MCHC 32.8 g/dL (31.0-37.0); MCV 89.8 fL (80.0-100.0); Mean Platelet Volume 7.2; Platelet Count 500 k/uL (150-450); RBC 3.76 m/uL (4.30-5.90); RDW 13.7 % (11.5-15.5); WBC 10.9 k/uL (3.8-10.6)
[2018-07-27 10:04] LABS: Calcium 8.8 mg/dL (8.4-10.2); Potassium 4.4 mmol/L (3.5-5.1)
--- NOTE | 2018-07-27 12:06 | P.PN ---
Subjective Progress Note Date: 07/27/18 Principal diagnosis: Right foot infection with ulcerative Farias grade 3 wound Patient is being seen at bedside status post approximately 42 hours excision of infected tissue with incision and drainage of any abscess. Nursing reports significant drainage with reinforcement of the wound. Patient voices no complaints. Objective - Vital Signs Vital signs: Vital Signs Temp 98.0 F 07/27/18 07:00 Pulse 72 07/27/18 07:00 Resp 16 07/27/18 07:00 BP 154/79 07/27/18 07:00 Pulse Ox 94 L 07/27/18 07:00 Intake & Output 07/26/18 07/27/18 07/27/18 18:59 06:59 18:59 Other: Voiding Method Toilet # Voids 1 3 # Bowel Movements 1 - Exam The wound continues to develop necrotic tissue marginally and centrally secondary to the infection with sloughing. The surrounding erythema and edema of the foot has diminished significantly since surgical intervention. Neurovascular status is intact the margins of the wound as well as the base of the wound appears to have adequate vascular flow to the majority of the area. The WBCs appeared to be lowering as well as microbiology results so gram- negative bacilli. No sensitivity results are charted - Labs CBC & Chem 7: 07/27/18 08:52 07/27/18 08:52 Labs: Abnormal Lab Results - Last 24 Hours (Table) 07/26/18 07/26/18 07/27/18 Range/Units 12:32 20:49 07:52 WBC (3.8-10.6) k/uL RBC (4.30-5.90) m/uL Hgb (13.0-17.5) gm/dL Hct (39.0-53.0) % Plt Count (150-450) k/uL Chloride (98-107) mmol/L Creatinine (0.66-1.25) mg/dL Glucose (74-99) mg/dL POC Glucose (mg/dL) 151 H 228 H 187 H (75-99) mg/dL 07/27/18 07/27/18 Range/Units 08:52 08:52 WBC 10.9 H (3.8-10.6) k/uL RBC 3.76 L (4.30-5.90) m/uL Hgb 11.0 L (13.0-17.5) gm/dL Hct 33.7 L (39.0-53.0) % Plt Count 500 H (150-450) k/uL Chloride 109 H (98-107) mmol/L Creatinine 1.36 H (0.66-1.25) mg/dL Glucose 195 H (74-99) mg/dL POC Glucose (mg/dL) (75-99) mg/dL Microbiology - Last 24 Hours (Table) 07/25/18 18:45 Gram Stain - Preliminary Foot - Right Wound Culture - Preliminary Gram Neg Bacilli Group D Enterococcus 07/23/18 16:15 Gram Stain - Preliminary Foot - Right Wound Culture - Preliminary Group D Enterococcus 07/23/18 17:13 Blood Culture - Preliminary Blood No Growth after 72 hours 07/26/18 18:45 Anaerobic Culture - Preliminary Foot - Right Assessment and Plan Assessment: Infected tissue with abscess ulcer Farias grade 3right foot Plan: Exam today we flushed the wound copiously with approximately 150 mL of sterile saline. We then applied a wet-to-dry sterile dressing to the wound. Will order Santyl ointment to be applied to this wound as soon as available. We had on bedside debridement of necrotic tissue that is developing tomorrow a.m. At this point this foot still appears to be salvageable. Did discuss with patient that the limb is at risk due to the size area and volume of tissue loss. Patient understands we'll do our best to try to salvage the foot and leg. However he may wean prior BK amputation if this wound continues to degrade
[2018-07-27 12:15] LABS: Glucose,Whole Blood 200 mg/dL (75-99)
--- NOTE | 2018-07-27 15:09 | P.PN ---
Subjective Progress Note Date: 07/27/18 (Delayed cahrting seen at 0900) Principal diagnosis: right foot wound infection Patient is a 58-year-old male with a past medical history of diabetes with neuropathy, Crohn's disease, hypertension, and restless leg syndrome who presented to the ER for right foot swelling, increased redness, and infected foot ulcer. He already been admitted as inpatient on 06/15/18 for this. He was discharged home on oral antibiotics. He was following with Dr. Leung in the wound clinic. He has since been completed a course of Keflex and then Levaquin and clindamycin. He then went to [place] and was admitted to the hospital there where he was placed on IV antibiotics and underwent an MRI of the foot. MRI was reviewed did not show any signs of osteomyelitis. In the ER here he was noted to have a leukocytosis with a white blood cell count 12.3, hemoglobin 12.3, creatinine 1.35, an elevated glucose of 352. X-ray of the foot showed soft tissue swelling and air bubbles consistent with cellulitis. He was admitted for further treatment. He was placed on daptomycin and Zosyn. Infectious disease was consulted and agreed with current antibiotics. On 07/25 he underwent debridement and drainage of abscess with Dr. Leung in the OR. He tolerated procedure well. Has been progressing nicely. PICC line placed on . Patient seen and examined at bedside. Diarrhea almost completely resolved. Pain in foot in improved. No chest pain, SOB, nausea, or ABD cramping. D/W patient community resources and need to be non weight bearing. Objective - Vital Signs Vital signs: Vital Signs Temp 98.0 F 07/27/18 07:00 Pulse 72 07/27/18 07:00 Resp 16 07/27/18 07:00 BP 154/79 07/27/18 07:00 Pulse Ox 94 L 07/27/18 07:00 Intake & Output 07/26/18 07/27/18 07/27/18 18:59 06:59 18:59 Other: Voiding Method Toilet # Voids 1 3 # Bowel Movements 1 - Exam General: non toxic, no distress, appears at stated age, obese Derm: maximiliano wrap in place right foot, dry Head: atraumatic, normocephalic, symmetric Eyes: EOMI, no lid lag, anicteric sclera Mouth: no lip lesion, mucus membranes moist Cardiovascular: S1S2 reg, no murmur, faint posterior tibial pulse left Lungs: CTA bilateral, no rhonchi, no rales , no accessory muscle use Abdominal: soft, nontender to palpation, no guarding, no appreciable organomegaly Ext: no gross muscle atrophy, no edema, no contractures Neuro: CN II-XI grossly intact, no focal neuro deficits Psych: Alert, oriented, appropriate affect - Labs CBC & Chem 7: 07/27/18 08:52 07/27/18 08:52 Labs: Abnormal Lab Results - Last 24 Hours (Table) 07/26/18 07/27/18 07/27/18 Range/Units 20:49 07:52 08:52 WBC 10.9 H (3.8-10.6) k/uL RBC 3.76 L (4.30-5.90) m/uL Hgb 11.0 L (13.0-17.5) gm/dL Hct 33.7 L (39.0-53.0) % Plt Count 500 H (150-450) k/uL Chloride (98-107) mmol/L Creatinine (0.66-1.25) mg/dL Glucose (74-99) mg/dL POC Glucose (mg/dL) 228 H 187 H (75-99) mg/dL 07/27/18 07/27/18 Range/Units 08:52 12:09 WBC (3.8-10.6) k/uL RBC (4.30-5.90) m/uL Hgb (13.0-17.5) gm/dL Hct (39.0-53.0) % Plt Count (150-450) k/uL Chloride 109 H (98-107) mmol/L Creatinine 1.36 H (0.66-1.25) mg/dL Glucose 195 H (74-99) mg/dL POC Glucose (mg/dL) 200 H (75-99) mg/dL Microbiology - Last 24 Hours (Table) 07/25/18 18:45 Gram Stain - Preliminary Foot - Right Wound Culture - Preliminary Gram Neg Bacilli Group D Enterococcus 07/23/18 16:15 Gram Stain - Preliminary Foot - Right Wound Culture - Preliminary Group D Enterococcus 07/23/18 17:13 Blood Culture - Preliminary Blood No Growth after 72 hours 07/26/18 18:45 Anaerobic Culture - Preliminary Foot - Right Assessment and Plan Assessment: Infected right diabetic foot ulcer with abscess with surrounding cellulitis -ID recommendations: Ertapenem X 42 days, PICC placed 07/26 -Podiatry recs appreciated- santyl, wet to dry may need BKA-Offload foot 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 Morbid obesity - BMI 36.2 - structured outpatient weight loss. DVT prophylaxis: heparin Discussed with: patient, david upt[place] Anticipated discharge: 1-[address]: home with home health A total of 30 minutes was spent on the care of this complex patient more than 50 % of the time was spent in counseling and care coordination.
[2018-07-27] MEDS: ERTAPENEM 1 GM in SODIUM CHLORIDE 0.9% 50 ML IVPB SCH (15:37)
[2018-07-27 17:31] LABS: Glucose,Whole Blood 217 mg/dL (75-99)
[2018-07-27] MEDS: SODIUM CHLORIDE 0.9% 1,000 ML IV SCH (17:48)
[2018-07-27 21:08] LABS: Glucose,Whole Blood 141 mg/dL (75-99)
[2018-07-27] MEDS: PRAMIPEXOLE 1 MG TAB PO SCH (21:50)
[2018-07-27] MEDS: amLODIPine 5 MG TAB PO SCH (21:50)
[2018-07-28 07:15] LABS: Glucose,Whole Blood 88 mg/dL (75-99)
[2018-07-28] MEDS: INSULIN ASPART 100 UNIT/ML 1 ML 10 ML VIAL SQ SCH ×3 (07:50→17:42)
[2018-07-28] MEDS: LOSARTAN 50 MG TAB PO SCH (07:51)
[2018-07-28] MEDS: MESALAMINE 500 MG PO SCH ×4 (07:51→23:20)
[2018-07-28] MEDS: amLODIPine 10 MG TAB PO SCH (07:51)
[2018-07-28] MEDS: ERTAPENEM 1 GM in SODIUM CHLORIDE 0.9% 50 ML IVPB SCH (07:51)
[2018-07-28] MEDS: LACTOBACILLUS ACIDOPH & BULGAR 1 EACH PACKET PO SCH ×2 (07:51→21:44)
[2018-07-28] MEDS: GABAPENTIN 400 MG CAP PO SCH ×4 (07:51→23:04)
[2018-07-28] MEDS: CHLORTHALIDONE 25 MG TAB PO SCH (07:52)
[2018-07-28] MEDS: PYRIDOXINE 50 MG TAB PO SCH (07:52)
[2018-07-28] MEDS: COLLAGENASE 250 UNIT/GM OINTMENT 30 GM TUBE TOPICAL SCH (07:54)
[2018-07-28 08:18] LABS: HCT 33.5 % (39.0-53.0); HGB 11.4 gm/dL (13.0-17.5); MCH 30.7 pg (25.0-35.0); MCHC 34.1 g/dL (31.0-37.0); Mean Platelet Volume 7.1; Platelet Count 481 k/uL (150-450); RBC 3.72 m/uL (4.30-5.90); RDW 13.9 % (11.5-15.5); WBC 11.6 k/uL (3.8-10.6)
[2018-07-28 08:39] LABS: Calcium 9.1 mg/dL (8.4-10.2); Potassium 4.4 mmol/L (3.5-5.1)
[2018-07-28] MEDS: INSULIN DETEMIR 100 UNIT/ML 10 ML VIAL SQ SCH (08:58)
[2018-07-28 08:59] LABS: Glucose,Whole Blood 175 mg/dL (75-99)
--- NOTE | 2018-07-28 10:16 | P.PN ---
Subjective Progress Note Date: 07/28/18 Principal diagnosis: Right foot infection with ulcerative Farias grade 3 wound 58-year-old white male seen at bedside for follow-up of infected abscessed ulceration of the right foot. A she continues to have no complaints no pain denies fever chills. Objective - Vital Signs Vital signs: Vital Signs Temp 97.8 F 07/28/18 05:55 Pulse 71 07/28/18 05:55 Resp 18 07/28/18 05:55 BP 158/77 07/28/18 05:55 Pulse Ox 94 L 07/28/18 05:55 Intake & Output 07/27/18 07/28/18 07/28/18 18:59 06:59 18:59 Intake Total 222 Balance 222 Weight 131.542 kg Intake: Oral 222 Other: # Voids 3 2 - Exam Patient has necrotic infected tissue marginally and centrally within the wound. Upon debridement there was found to be some undermining and tunneling within the wound in 2 areas. There was undermining and tunneling on the lateral aspect of the wound approximated 2 cm. As well as the proximal lateral area another area of tunneling approximately 2 cm. After debridement there was good vascular flow to all the tissue. - Labs CBC & Chem 7: 07/28/18 07:54 07/28/18 07:54 Labs: Abnormal Lab Results - Last 24 Hours (Table) 07/27/18 07/27/18 07/27/18 Range/Units 12:09 17:30 21:06 WBC (3.8-10.6) k/uL RBC (4.30-5.90) m/uL Hgb (13.0-17.5) gm/dL Hct (39.0-53.0) % Plt Count (150-450) k/uL Chloride (98-107) mmol/L POC Glucose (mg/dL) 200 H 217 H 141 H (75-99) mg/dL 07/28/18 07/28/18 07/28/18 Range/Units 07:54 07:54 08:56 WBC 11.6 H (3.8-10.6) k/uL RBC 3.72 L (4.30-5.90) m/uL Hgb 11.4 L (13.0-17.5) gm/dL Hct 33.5 L (39.0-53.0) % Plt Count 481 H (150-450) k/uL Chloride 110 H (98-107) mmol/L POC Glucose (mg/dL) 175 H (75-99) mg/dL Microbiology - Last 24 Hours (Table) 07/23/18 16:15 Gram Stain - Final Foot - Right Wound Culture - Final Enterococcus faecalis 07/23/18 17:13 Blood Culture - Preliminary Blood No Growth after 96 hours 07/25/18 18:45 Gram Stain - Preliminary Foot - Right Wound Culture - Preliminary Gram Neg Bacilli Group D Enterococcus Assessment and Plan Assessment: Infected tissue with abscess ulcer Farias grade 3right foot Plan: Exam. Today we did a debridement of infected tissue at bedside. Once we performed this we flushed copiously with sterile saline solution will continue with the application the Santyl and a dry sterile dressing will reevaluate in 48 hours and see if there is any additional debridement that will be needed. Again we discussed with patient the extent of tissue loss as well as the infection. Discussed with patient that the wound may be salvageable however he is at risk of loss of the lower leg. We will continue to treat patient with periodic debridement as required. Continue with the Santyl.
--- NOTE | 2018-07-28 10:20 | P.PCN ---
Date of Procedure: 07/28/18 Preoperative Diagnosis: Infected abscessed ulcer right foot Farias grade 3 Postoperative Diagnosis: Same Procedure(s) Performed: Debridement of infected tissue right foot Anesthesia: none Surgeon: Zach Leung Estimated Blood Loss (ml): 20 Pathology: none sent Condition: stable Disposition: floor Indications for Procedure: Necrotic infected tissue throughout the wound purpose of procedure is to eliminate necrotic tissue in bioburden Operative Findings: Consistent with clinical observation necrotic tissue throughout the wound with abscessed areas tunneling 21 located laterally and proximally on the plantar surface of the foot and the other abscess located laterally and centrally within the wound. Description of Procedure: Patient was seen at bedside resting comfortably. No anesthesia necessary due to the patient's neuropathy. Using a sterile curette all necrotic tissue was removed marginally and centrally down to and including the deep fascia planes. There is no observed osseous or tendinous structures. Once the wound was fully debrided of any observable necrotic tissue the wound was flushed copiously with sterile saline with approximately 500 mL. Santyl ointment with a wet to dry dressing was applied. The compressive dressing was applied over this and we'll maintain the patient on this and continue with IV antibiotics as suggested by infectious disease. Will reevaluate in 48 hours.
[2018-07-28 12:17] LABS: Glucose,Whole Blood 189 mg/dL (75-99)
--- NOTE | 2018-07-28 12:48 | P.PN ---
Subjective Progress Note Date: 07/28/18 Principal diagnosis: right foot diabetic wound infection Patient is a 58-year-old male with a past medical history of diabetes with neuropathy, Crohn's disease, hypertension, and restless leg syndrome who presented to the ER for right foot swelling, increased redness, and infected foot ulcer. He already been admitted as inpatient on 06/15/18 for this. He was discharged home on oral antibiotics. He was following with Dr. Leung in the wound clinic. He has since been completed a course of Keflex and then Levaquin and clindamycin. He then went to [place] and was admitted to the hospital there where he was placed on IV antibiotics and underwent an MRI of the foot. MRI was reviewed did not show any signs of osteomyelitis. In the ER here he was noted to have a leukocytosis with a white blood cell count 12.3, hemoglobin 12.3, creatinine 1.35, an elevated glucose of 352. X-ray of the foot showed soft tissue swelling and air bubbles consistent with cellulitis. He was admitted for further treatment. He was placed on daptomycin and Zosyn. Infectious disease was consulted and agreed with current antibiotics. On 07/25 he underwent debridement and drainage of abscess with Dr. Leung in the OR. He tolerated procedure well. Has been progressing nicely. PICC line placed on . He continued to need bedside debridement on 07/27 and 07/[address] Leung. Patient seen and examined at bedside. No chest pain, SOB, nausea, or vomiting. No diarrhea. Does not want to loose his foot. Objective - Vital Signs Vital signs: Vital Signs Temp 97.8 F 07/28/18 05:55 Pulse 71 07/28/18 05:55 Resp 18 07/28/18 05:55 BP 158/77 07/28/18 05:55 Pulse Ox 94 L 07/28/18 05:55 Intake & Output 07/27/18 07/28/18 07/28/18 18:59 06:59 18:59 Intake Total 222 Balance 222 Weight 131.542 kg Intake: Oral 222 Other: # Voids 3 2 - Exam General: non toxic, no distress, , obese Derm: maximiliano wrap in place right foot, dry Head: atraumatic, normocephalic, symmetric Eyes: EOMI, no lid lag, anicteric sclera Cardiovascular: S1S2 reg, no murmur, faint posterior tibial pulse left Lungs: CTA bilateral, no rhonchi, no rales , no accessory muscle use Abdominal: soft, nontender to palpation, no guarding, no appreciable organomegaly Ext: no gross muscle atrophy, no edema, no contractures Neuro: CN II-XI grossly intact, no focal neuro deficits Psych: Alert, oriented, appropriate affect - Labs CBC & Chem 7: 07/28/18 07:54 07/28/18 07:54 Labs: Abnormal Lab Results - Last 24 Hours (Table) 07/27/18 07/27/18 07/28/18 Range/Units 17:30 21:06 07:54 WBC 11.6 H (3.8-10.6) k/uL RBC 3.72 L (4.30-5.90) m/uL Hgb 11.4 L (13.0-17.5) gm/dL Hct 33.5 L (39.0-53.0) % Plt Count 481 H (150-450) k/uL Chloride (98-107) mmol/L POC Glucose (mg/dL) 217 H 141 H (75-99) mg/dL 07/28/18 07/28/18 07/28/18 Range/Units 07:54 08:56 12:09 WBC (3.8-10.6) k/uL RBC (4.30-5.90) m/uL Hgb (13.0-17.5) gm/dL Hct (39.0-53.0) % Plt Count (150-450) k/uL Chloride 110 H (98-107) mmol/L POC Glucose (mg/dL) 175 H 189 H (75-99) mg/dL Microbiology - Last 24 Hours (Table) 07/23/18 16:15 Gram Stain - Final Foot - Right Wound Culture - Final Enterococcus faecalis 07/23/18 17:13 Blood Culture - Preliminary Blood No Growth after 96 hours 07/25/18 18:45 Gram Stain - Preliminary Foot - Right Wound Culture - Preliminary Gram Neg Bacilli Group D Enterococcus Assessment and Plan Assessment: Infected right diabetic foot ulcer with abscess with surrounding cellulitis -ID recommendations: Ertapenem X 42 days, PICC placed 07/26 -Podiatry recs appreciated- Re assess in 48 hours, santyl, wet to dry may need BKA -Offload foot - wound cultures pending, Entercoccus Faecalis 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 Morbid obesity - BMI 36.2 - structured outpatient weight loss. DVT prophylaxis: heparin Discussed with: patient, nursing Anticipated discharge: 2-[address]: home with home health A total of 30 minutes was spent on the care of this complex patient more than 50 % of the time was spent in counseling and care coordination.
[2018-07-28] MEDS: HEPARIN SODIUM,PORCINE 5,000 UNIT/ML 1 ML VIAL SQ SCH (15:09)
[2018-07-28] MEDS: SODIUM CHLORIDE 0.9% 1,000 ML IV SCH (15:10)
[2018-07-28 17:29] LABS: Glucose,Whole Blood 128 mg/dL (75-99)
[2018-07-28 20:43] LABS: Glucose,Whole Blood 161 mg/dL (75-99)
[2018-07-28] MEDS: amLODIPine 5 MG TAB PO SCH (21:44)
[2018-07-28] MEDS: PRAMIPEXOLE 1 MG TAB PO SCH (21:44)
--- NOTE | 2018-07-28 22:32 | P.PN ---
Subjective Progress Note Date: 07/27/18 This is a 58-year-old male patient known to ID service as he was recently hospitalized in June 2018 for infected diabetic ulcer to the right foot with past history significant for diabetes mellitus type 2 insulin requiring. His hemoglobin A1c and Tera was 9.9. Patient has been following with Dr. Leung He gives history that he follows with Dr. Leung in July and his last one was on July 14 at which time and he was instructed to take Levaquin and clindamycin and silver rope for wound care. Patient underwent a debridement at that time. Patient states that last week he was in [place] on vacation but did minimal walking as he was using a scooter most the time. He states on he started having oozing and pus from the wound. He went to emergency center in [place] and was found have an elevated white count and underwent MRI that patient reports is no bone infection. He received IV Zosyn and vancomycin while in the ER and was discharged on Levaquin and clindamycin. Patient flew home on Tuesday evening and came into the hospital on Tuesday morning and was subsequently admitted. He was found to be afebrile, initial white count 12.3 with repeat 10.4, BUN 17 and creatinine 1.39, blood sugar 352. Lactic acid 2, alkaline phosphatase 134, albumin 3.3. Wound culture was obtained and blood cultures status received. Patient also verbalizes that he has had problems with his Crohn's since he started antibiotics. He is not on any DMARD's. He denies having any fever or chills. Appetite has been okay. No pain to his foot but patient does not have any feeling. He does not recall any injury to his foot, no new shoes and socks. Foot x-ray shows soft tissue swelling and air bubbles consistent with cellulitis. This appears new compared to last foot exam. No specific sign of osteomyelitis. We have requested that MRI report be obtained from the [facility]. Patient is currently on vancomycin and Zosyn. Previous wound cultures have been strep echo lactic had group B and anaerobic gram-positive cocci in anaerobic gram-negative bacilli. 07/25/2018 the patient is feeling well today. No new acute complaints. We will go to the operating room the next few minutes for the debridement of the significant diabetic foot ulcer. He's having no pain. Denies fevers or chills. 07/27/2018 there is further improvement IV accessplaced this patient is being readie his outpatient intravenous antibiotic therapy Wound care will include wound VAC Objective - Vital Signs Vital signs: Vital Signs Temp 98.5 F 07/28/18 15:00 Pulse 60 07/28/18 17:30 Resp 16 07/28/18 17:30 BP 175/74 07/28/18 21:20 Pulse Ox 94 L 07/28/18 15:00 Intake & Output 07/28/18 07/28/18 07/29/18 06:59 18:59 06:59 Intake Total 222 Balance 222 Intake: Oral 222 Other: Voiding Method Toilet # Voids 2 4 - Exam Gen: This is an obese 58-year-old male. He is in bed and appears to be comfortable. HEENT: Head is atraumatic, normocephalic. Pupils equal, round. Sclerae is anicteric. Conjunctiva pink. Mucous members of the mouth are moist. Dentition is in fair order for age. No thrush noted. NECK: Supple. No JVD. No lymphadenopathy. No thyromegaly. LUNGS: Clear to auscultation. No wheezes or rhonchi. No intercostal retractions. HEART: Regular rate and rhythm. No murmur. ABDOMEN: Soft. Bowel sounds are present. No masses. No tenderness. EXTREMITIES: He has not of the right foot has evidence of the extensive ulceration to the lateral aspect of the foot which was surgically debrided There is still some copious drainage surrounding erythema and mild ascending erythema. NEUROLOGICAL: Patient is awake, alert and oriented x3. - Labs CBC & Chem 7: 07/28/18 07:54 07/28/18 07:54 Labs: Abnormal Lab Results - Last 24 Hours (Table) 07/28/18 07/28/18 07/28/18 Range/Units 07:54 07:54 08:56 WBC 11.6 H (3.8-10.6) k/uL RBC 3.72 L (4.30-5.90) m/uL Hgb 11.4 L (13.0-17.5) gm/dL Hct 33.5 L (39.0-53.0) % Plt Count 481 H (150-450) k/uL Chloride 110 H (98-107) mmol/L POC Glucose (mg/dL) 175 H (75-99) mg/dL 07/28/18 07/28/18 07/28/18 Range/Units 12:09 17:26 20:30 WBC (3.8-10.6) k/uL RBC (4.30-5.90) m/uL Hgb (13.0-17.5) gm/dL Hct (39.0-53.0) % Plt Count (150-450) k/uL Chloride (98-107) mmol/L POC Glucose (mg/dL) 189 H 128 H 161 H (75-99) mg/dL Microbiology - Last 24 Hours (Table) 07/23/18 17:13 Blood Culture - Preliminary Blood No Growth after 120 hours 07/25/18 18:45 Gram Stain - Final Foot - Right Wound Culture - Final Klebsiella pneumoniae Enterococcus faecalis 07/26/18 18:45 Anaerobic Culture - Preliminary Foot - Right 07/23/18 16:15 Gram Stain - Final Foot - Right Wound Culture - Final Enterococcus faecalis Microbiology 07/23/18 17:13 Blood Blood Culture - Preliminary No Growth after 120 hours 07/25/18 18:45 Foot - Right Gram Stain - Final 07/25/18 18:45 Foot - Right Wound Culture - Final Klebsiella pneumoniae Enterococcus faecalis 07/26/18 18:45 Foot - Right Anaerobic Culture - Preliminary 07/23/18 16:15 Foot - Right Gram Stain - Final 07/23/18 16:15 Foot - Right Wound Culture - Final Enterococcus faecalis Assessment and Plan (1) Cellulitis of right lower extremity Current Visit: Yes Status: Acute Code(s): L03.115 - CELLULITIS OF RIGHT LOWER LIMB SNOMED Code(s): 259355075 (2) Diabetic foot ulcer associated with type 2 diabetes mellitus, with fat layer exposed Narrative/Plan: Patient has had a marked worsening of the wounds and infection to his right foot. Antibiotic therapy is enhanced with vancomycin as well as Zosyn pending culture results. Surgical evaluation and debridement will be needed. Awaiting the outside MRI to characterize the depth of the underlying infection, patient recalls that there was no evidence of osteomyelitis. Certainly the report is required to have these assessments. Local wound care with a positive dressing is being requested they can be changed daily given the amount of drainage that he has. Offloading of the site. Baseline laboratories and will direct care further. For his diarrhea. She does well with the addition of probiotic with acidophilus and this is added to his regimen. 07/25/2018 patient is heading off to the operative room for debridement of his foot ulceration. Diarrhea is under better control with the start of acidophilus. The overall plans will be determined by the findings at the time of surgery. That outpatient MRI was still pending, to further evaluate the depth of the infection. The infection seems to be quite extensive and likely will be receiving outpatient course of intravenous antibiotic therapy with ongoing local wound care through the wound healing Center. 2018 the patient is doing relatively well status post the surgery. So has a good amount of drainage. We'll apply for the negative pressure therapy. Intravenous access the PICC line. He will continue outpatient intravenous antibiotic therapy with Invanz. Current Visit: Yes Status: Acute Code(s): E11.621 - TYPE 2 DIABETES MELLITUS WITH FOOT ULCER; L97.502 - NON-PRS CHRONIC ULCER OTH PRT UNSP FOOT W FAT LAYER EXPOSED SNOMED Code(s): 6935091771567
[2018-07-29] MEDS: HEPARIN SODIUM,PORCINE 5,000 UNIT/ML 1 ML VIAL SQ SCH ×4 (00:18→22:50)
[2018-07-29] MEDS: INSULIN DETEMIR 100 UNIT/ML 10 ML VIAL SQ SCH ×3 (00:18→22:48)
[2018-07-29 07:48] LABS: Glucose,Whole Blood 82 mg/dL (75-99)
[2018-07-29] MEDS: INSULIN ASPART 100 UNIT/ML 1 ML 10 ML VIAL SQ SCH ×3 (08:08→21:36)
[2018-07-29] MEDS: LACTOBACILLUS ACIDOPH & BULGAR 1 EACH PACKET PO SCH ×2 (08:54→21:29)
[2018-07-29] MEDS: COLLAGENASE 250 UNIT/GM OINTMENT 30 GM TUBE TOPICAL SCH (08:55)
[2018-07-29] MEDS: LOSARTAN 50 MG TAB PO SCH (08:55)
[2018-07-29] MEDS: amLODIPine 10 MG TAB PO SCH (08:55)
[2018-07-29] MEDS: MESALAMINE 500 MG PO SCH ×4 (08:56→21:40)
[2018-07-29] MEDS: PYRIDOXINE 50 MG TAB PO SCH (08:57)
[2018-07-29] MEDS: CHLORTHALIDONE 25 MG TAB PO SCH (08:57)
[2018-07-29] MEDS: ERTAPENEM 1 GM in SODIUM CHLORIDE 0.9% 50 ML IVPB SCH (09:03)
[2018-07-29] MEDS: GABAPENTIN 400 MG CAP PO SCH ×4 (09:03→21:36)
[2018-07-29 09:09] LABS: Glucose,Whole Blood 174 mg/dL (75-99)
--- NOTE | 2018-07-29 11:55 | P.PN ---
Subjective Progress Note Date: 07/29/18 Principal diagnosis: right foot diabetic wound infection Patient is a 58-year-old male with a past medical history of diabetes with neuropathy, Crohn's disease, hypertension, and restless leg syndrome who presented to the ER for right foot swelling, increased redness, and infected foot ulcer. He already been admitted as inpatient on 06/15/18 for this. He was discharged home on oral antibiotics. He was following with Dr. Leung in the wound clinic. He has since been completed a course of Keflex and then Levaquin and clindamycin. He then went to [place] and was admitted to the hospital there where he was placed on IV antibiotics and underwent an MRI of the foot. MRI was reviewed did not show any signs of osteomyelitis. In the ER here he was noted to have a leukocytosis with a white blood cell count 12.3, hemoglobin 12.3, creatinine 1.35, an elevated glucose of 352. X-ray of the foot showed soft tissue swelling and air bubbles consistent with cellulitis. He was admitted for further treatment. He was placed on daptomycin and Zosyn. Infectious disease was consulted and agreed with current antibiotics. On 07/25 he underwent debridement and drainage of abscess with Dr. Leung in the OR. He tolerated procedure well. Has been progressing nicely. PICC line placed on . He continued to need bedside debridement on 07/27 and 07/[address] Leung. Wound culture came back with ESBL klebsiella and enterococcus both of which are sensitive to ertapenem. Patient seen and examined at bedside. Doing okay, tired as he did not sleep. No chest pain, no shortness of breath, no nausea, no vomiting, diarrhea getting better everyday. Objective - Vital Signs Vital signs: Vital Signs Temp 98.6 F 07/29/18 05:55 Pulse 58 L 07/29/18 05:55 Resp 18 07/29/18 05:55 BP 163/62 07/29/18 05:55 Pulse Ox 94 L 07/29/18 05:55 Intake & Output 07/28/18 07/29/18 07/29/18 18:59 06:59 18:59 Intake Total 900 Balance 900 Intake: Oral 900 Other: Voiding Method Toilet Toilet # Voids 4 2 # Bowel Movements 0 - Exam General: non toxic, no distress, , obese Derm: maximiliano wrap in place right foot, dry Head: atraumatic, normocephalic, symmetric Eyes: EOMI, no lid lag, anicteric sclera Cardiovascular: S1S2 reg, no murmur, faint posterior tibial pulse left Lungs: CTA bilateral, no rhonchi, no rales , no accessory muscle use Abdominal: soft, nontender to palpation, no guarding, no appreciable organomegaly Ext: no gross muscle atrophy, no edema, no contractures Neuro: CN II-XI grossly intact, no focal neuro deficits Psych: Alert, oriented, appropriate affect - Labs CBC & Chem 7: 07/28/18 07:54 07/28/18 07:54 Labs: Abnormal Lab Results - Last 24 Hours (Table) 07/28/18 07/28/18 07/28/18 Range/Units 12:09 17:26 20:30 POC Glucose (mg/dL) 189 H 128 H 161 H (75-99) mg/dL 07/29/18 Range/Units 09:03 POC Glucose (mg/dL) 174 H (75-99) mg/dL Microbiology - Last 24 Hours (Table) 07/23/18 17:13 Blood Culture - Preliminary Blood No Growth after 120 hours 07/25/18 18:45 Gram Stain - Final Foot - Right Wound Culture - Final Klebsiella pneumoniae Enterococcus faecalis 07/26/18 18:45 Anaerobic Culture - Preliminary Foot - Right Assessment and Plan Assessment: Infected right diabetic foot ulcer with abscess with surrounding cellulitis -ID recommendations: Ertapenem X 42 days, PICC placed 07/26 -Podiatry recs appreciated- Re assess tomorrow, santyl, wet to dry may need BKA -Offload foot - wound cultures pending, Entercoccus Faecalis and Klebsiella. 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 Morbid obesity - BMI 36.2 - structured outpatient weight loss. DVT prophylaxis: heparin Discussed with: patient, nursing Anticipated discharge: undetermined patient still needing frequent debridement Anticipated discharge place: home with home health A total of 30 minutes was spent on the care of this complex patient more than 50 % of the time was spent in counseling and care coordination.
[2018-07-29] MEDS ORDERED: CHLORTHALIDONE 25 MG TAB PO ONE (12:15)
[2018-07-29 12:18] LABS: Glucose,Whole Blood 170 mg/dL (75-99)
[2018-07-29 18:47] LABS: Glucose,Whole Blood 132 mg/dL (75-99)
[2018-07-29 21:19] LABS: Glucose,Whole Blood 161 mg/dL (75-99)
[2018-07-29] MEDS: PRAMIPEXOLE 1 MG TAB PO SCH (21:28)
[2018-07-29] MEDS: amLODIPine 5 MG TAB PO SCH (21:28)
[2018-07-29] MEDS: SODIUM CHLORIDE 0.9% 1,000 ML IV SCH (21:37)
[2018-07-30 07:41] LABS: Glucose,Whole Blood 83 mg/dL (75-99)
[2018-07-30] MEDS: INSULIN ASPART 100 UNIT/ML 1 ML 10 ML VIAL SQ SCH ×3 (08:03→17:53)
[2018-07-30] MEDS: ERTAPENEM 1 GM in SODIUM CHLORIDE 0.9% 50 ML IVPB SCH (08:29)
[2018-07-30 08:30] LABS: HCT 34.3 % (39.0-53.0); MCH 29.2 pg (25.0-35.0); MCHC 32.2 g/dL (31.0-37.0); MCV 90.7 fL (80.0-100.0); Platelet Count 487 k/uL (150-450); RBC 3.78 m/uL (4.30-5.90); RDW 13.9 % (11.5-15.5); WBC 10.3 k/uL (3.8-10.6)
[2018-07-30] MEDS: PYRIDOXINE 50 MG TAB PO SCH (08:31)
[2018-07-30] MEDS: MESALAMINE 500 MG PO SCH ×4 (08:31→21:37)
[2018-07-30] MEDS: CHLORTHALIDONE 25 MG TAB PO SCH (08:32)
[2018-07-30] MEDS: GABAPENTIN 400 MG CAP PO SCH ×4 (08:32→21:37)
[2018-07-30] MEDS: LACTOBACILLUS ACIDOPH & BULGAR 1 EACH PACKET PO SCH ×2 (08:32→21:37)
[2018-07-30] MEDS: amLODIPine 10 MG TAB PO SCH (08:33)
[2018-07-30] MEDS: LOSARTAN 50 MG TAB PO SCH (08:33)
[2018-07-30] MEDS: HEPARIN SODIUM,PORCINE 5,000 UNIT/ML 1 ML VIAL SQ SCH ×2 (08:34→15:25)
[2018-07-30] MEDS: COLLAGENASE 250 UNIT/GM OINTMENT 30 GM TUBE TOPICAL SCH (08:35)
[2018-07-30 08:37] LABS: Glucose,Whole Blood 109 mg/dL (75-99)
[2018-07-30 08:41] LABS: Calcium 8.9 mg/dL (8.4-10.2); Potassium 4.1 mmol/L (3.5-5.1)
--- NOTE | 2018-07-30 10:58 | P.PCN ---
Date of Procedure: 07/14/18 Preoperative Diagnosis: Infected Farias grade 3 ulceration right foot with abscess Postoperative Diagnosis: Same Procedure(s) Performed: Debridement extensive of infected tissue superficial and deep Anesthesia: none Estimated Blood Loss (ml): 20 Pathology: none sent Condition: stable Disposition: no change Indications for Procedure: Infected tissue right foot Operative Findings: Consistent with clinical findings Description of Procedure: Patient was seen at bedside where a bedside debridement was performed using sterile techniques. Patient consent was signed and we proceeded with the debridement. Using a sterile curette necrotic infected tissue was removed marginally and centrally throughout the wound. Well providing this debridement a tunnel was found in the proximal portion of the wound tracking laterally approximately 2-3 cm. This was extensively debrided. A no other tunneling was noted on the lateral distal aspect of the wound which was also tunneling approximately 3 cm. Lastly there was a third toe found in the dorsal distal aspect of the wound over the fifth metatarsal which totaled approximately 1-2 cm. All these tunnels were extensively debrided using a sterile curette. The base and margins of the wound were also debrided aggressively removing all loose necrotic tissue throughout the wound. Once he wound was debrided there was noted to be avascular areas centrally on the dorsal margins of the wound. Using a sterile 15 blade this necrotic area was removed completely down to good bleeding tissue. The wound was inspected and all nonviable tissue was removed. The wound was then flushed as well as all tunnels using 300 mL of sterile saline. Wound was then packed with a Santyl collagenase dry sterile dressing. The patient tolerated procedure well.
--- NOTE | 2018-07-30 11:03 | P.PN ---
Subjective Progress Note Date: 07/30/18 Principal diagnosis: Right foot infection with ulcerative Farias grade 3 wound 58-year-old white male seen at bedside for follow-up of infected abscessed ulceration of the right foot. continues to have no complaints no pain denies fever chills. Objective - Vital Signs Vital signs: Vital Signs Temp 98.1 F 07/30/18 07:00 Pulse 61 07/30/18 07:00 Resp 20 07/30/18 07:00 BP 138/70 07/30/18 07:00 Pulse Ox 93 L 07/30/18 07:00 Intake & Output 07/29/18 07/30/18 07/30/18 18:59 06:59 18:59 Intake Total 1000 Balance 1000 Intake: Oral 1000 Other: Voiding Method Toilet # Voids 1 # Bowel Movements 0 - Exam Review of labs show patient has return to normal baseline of wbc's. Patient has a polymorphic infection Klebsiella as well as enteric coccus with return of necrotic tissue throughout the wound. The necrotic burden has decreased from previous debridements. Neurovascular status to the foot unchanged. - Labs CBC & Chem 7: 07/30/18 08:13 07/30/18 08:13 Labs: Abnormal Lab Results - Last 24 Hours (Table) 07/29/18 07/29/18 07/29/18 Range/Units 11:57 17:36 20:37 RBC (4.30-5.90) m/uL Hgb (13.0-17.5) gm/dL Hct (39.0-53.0) % Plt Count (150-450) k/uL Chloride (98-107) mmol/L Glucose (74-99) mg/dL POC Glucose (mg/dL) 170 H 132 H 161 H (75-99) mg/dL 07/30/18 07/30/18 07/30/18 Range/Units 08:13 08:13 08:16 RBC 3.78 L (4.30-5.90) m/uL Hgb 11.0 L (13.0-17.5) gm/dL Hct 34.3 L (39.0-53.0) % Plt Count 487 H (150-450) k/uL Chloride 109 H (98-107) mmol/L Glucose 108 H (74-99) mg/dL POC Glucose (mg/dL) 109 H (75-99) mg/dL Microbiology - Last 24 Hours (Table) 07/26/18 18:45 Anaerobic Culture - Final Foot - Right 07/23/18 17:13 Blood Culture - Final Blood No Growth after 144 hours Assessment and Plan Assessment: Infected tissue with abscess ulcer Farias grade 3right foot Enterococcal and Klebsiella polymorphic infection of the right foot Plan: Exam. Review of labs as well as microbiology. Today we debrided the wound of any necrotic tissue that has developed in the last 48 hours. Once debridement was completed it was noted to the wound to have no necrotic tissue observable with good vascular flow to all areas of the wound. We will continue with the Santyl dry sterile dressing ointment dressing. Patient should continue to progress in these debridements should hopefully become less periodic. Plan on observing the next 48 hours to determine if this necrotic process has slowed. If so patient should be able to have this debridement on an outpatient basis.
[2018-07-30 11:46] LABS: Glucose,Whole Blood 177 mg/dL (75-99)
[2018-07-30] MEDS: INSULIN DETEMIR 100 UNIT/ML 10 ML VIAL SQ SCH ×2 (12:09→21:37)
--- NOTE | 2018-07-30 12:34 | P.PN ---
Subjective Progress Note Date: 07/30/18 Principal diagnosis: right foot diabetic wound infection Patient is a 58-year-old male with a past medical history of diabetes with neuropathy, Crohn's disease, hypertension, and restless leg syndrome who presented to the ER for right foot swelling, increased redness, and infected foot ulcer. He already been admitted as inpatient on 06/15/18 for this. He was discharged home on oral antibiotics. He was following with Dr. Leung in the wound clinic. He has since been completed a course of Keflex and then Levaquin and clindamycin. He then went to [place] and was admitted to the hospital there where he was placed on IV antibiotics and underwent an MRI of the foot. MRI was reviewed did not show any signs of osteomyelitis. In the ER here he was noted to have a leukocytosis with a white blood cell count 12.3, hemoglobin 12.3, creatinine 1.35, an elevated glucose of 352. X-ray of the foot showed soft tissue swelling and air bubbles consistent with cellulitis. He was admitted for further treatment. He was placed on daptomycin and Zosyn. Infectious disease was consulted and agreed with current antibiotics. On 07/25 he underwent debridement and drainage of abscess with Dr. Leung in the OR. He tolerated procedure well. Has been progressing nicely. PICC line placed on . He continued to need bedside debridement on 07/27 and 07/[address] Leung. Wound culture came back with ESBL klebsiella and enterococcus both of which are sensitive to ertapenem. Had debridement again on 07/30. Patient seen and examined at bedside. Foot is having some pain today after debridement. No chest pain, SOB, nausea, diarrhea is still manageable. Objective - Vital Signs Vital signs: Vital Signs Temp 98.1 F 07/30/18 07:00 Pulse 61 07/30/18 07:00 Resp 20 07/30/18 07:00 BP 138/70 07/30/18 07:00 Pulse Ox 93 L 07/30/18 07:00 Intake & Output 07/29/18 07/30/18 07/30/18 18:59 06:59 18:59 Intake Total 1000 Balance 1000 Intake: Oral 1000 Other: Voiding Method Toilet # Voids 1 2 # Bowel Movements 0 - Exam General: non toxic, no distress, , obese Derm: maximiliano wrap in place right foot with soak through, dry Head: atraumatic, normocephalic, symmetric Eyes: EOMI, no lid lag, anicteric sclera Cardiovascular: S1S2 reg, no murmur, faint posterior tibial pulse left Lungs: CTA bilateral, no rhonchi, no rales , no accessory muscle use Abdominal: soft, nontender to palpation, no guarding, no appreciable organomegaly Ext: no gross muscle atrophy, trace edema, no contractures Neuro: CN II-XI grossly intact, no focal neuro deficits Psych: Alert, oriented, appropriate affect - Labs CBC & Chem 7: 07/30/18 08:13 07/30/18 08:13 Labs: Abnormal Lab Results - Last 24 Hours (Table) 07/29/18 07/29/18 07/29/18 Range/Units 11:57 17:36 20:37 RBC (4.30-5.90) m/uL Hgb (13.0-17.5) gm/dL Hct (39.0-53.0) % Plt Count (150-450) k/uL Chloride (98-107) mmol/L Glucose (74-99) mg/dL POC Glucose (mg/dL) 170 H 132 H 161 H (75-99) mg/dL 07/30/18 07/30/18 07/30/18 Range/Units 08:13 08:13 08:16 RBC 3.78 L (4.30-5.90) m/uL Hgb 11.0 L (13.0-17.5) gm/dL Hct 34.3 L (39.0-53.0) % Plt Count 487 H (150-450) k/uL Chloride 109 H (98-107) mmol/L Glucose 108 H (74-99) mg/dL POC Glucose (mg/dL) 109 H (75-99) mg/dL 07/30/18 Range/Units 11:44 RBC (4.30-5.90) m/uL Hgb (13.0-17.5) gm/dL Hct (39.0-53.0) % Plt Count (150-450) k/uL Chloride (98-107) mmol/L Glucose (74-99) mg/dL POC Glucose (mg/dL) 177 H (75-99) mg/dL Microbiology - Last 24 Hours (Table) 07/26/18 18:45 Anaerobic Culture - Final Foot - Right 07/23/18 17:13 Blood Culture - Final Blood No Growth after 144 hours Assessment and Plan Assessment: Infected right diabetic foot ulcer with abscess with surrounding cellulitis -ID recommendations: Ertapenem X 42 days, PICC placed 07/26 -Podiatry recs appreciated- Will reassess 08/01 if improved can likely be discharge with follow-up in the wound care center on Tuesday. Will need to be strict no weight bearing. -Offload foot - Entercoccus Faecalis and Klebsiella. Diabetes mellitus type 2 with suboptimal control and neuropathy - hyperglycemia, resolved - Continue to hold oral medications - last A1C in Jun 11.1, sugars have been improving at home 160s - Continue with levemir and SSI, will resume home basalglar, given info on admalog for PCP - diabetic education classes - neurontin Crohn's disease - mesalamine - lactobacillus HTN, controlled - Norvasc, chlorthalidone, cozaar CKD 2/3 - baseline Cr 1.2 - follow Cr, avoid additional nephrotoxic agents. Morbid obesity - BMI 36.2 - structured outpatient weight loss. DVT prophylaxis: heparin Discussed with: patient, nursing Anticipated discharge: Likely 08/[address] Leung Anticipated discharge place: home with home health A total of 30 minutes was spent on the care of this complex patient more than 50 % of the time was spent in counseling and care coordination.
[2018-07-30] MEDS: SODIUM CHLORIDE 0.9% 1,000 ML IV SCH (16:55)
[2018-07-30 17:53] LABS: Glucose,Whole Blood 130 mg/dL (75-99)
[2018-07-30 20:36] LABS: Glucose,Whole Blood 162 mg/dL (75-99)
[2018-07-30] MEDS: amLODIPine 5 MG TAB PO SCH (21:36)
[2018-07-30] MEDS: PRAMIPEXOLE 1 MG TAB PO SCH (21:37)
[2018-07-31] MEDS: HEPARIN SODIUM,PORCINE 5,000 UNIT/ML 1 ML VIAL SQ SCH ×3 (01:39→18:01)
[2018-07-31 07:40] LABS: Glucose,Whole Blood 80 mg/dL (75-99)
[2018-07-31] MEDS: amLODIPine 10 MG TAB PO SCH (08:19)
[2018-07-31] MEDS: LACTOBACILLUS ACIDOPH & BULGAR 1 EACH PACKET PO SCH ×2 (08:19→22:10)
[2018-07-31] MEDS: INSULIN ASPART 100 UNIT/ML 1 ML 10 ML VIAL SQ SCH ×3 (08:19→18:04)
[2018-07-31] MEDS: LOSARTAN 50 MG TAB PO SCH (08:19)
[2018-07-31] MEDS: GABAPENTIN 400 MG CAP PO SCH ×4 (08:19→22:09)
[2018-07-31] MEDS: CHLORTHALIDONE 25 MG TAB PO SCH (08:20)
[2018-07-31] MEDS: ERTAPENEM 1 GM in SODIUM CHLORIDE 0.9% 50 ML IVPB SCH (08:20)
[2018-07-31] MEDS: MESALAMINE 500 MG PO SCH ×4 (08:20→22:12)
[2018-07-31] MEDS: PYRIDOXINE 50 MG TAB PO SCH (08:21)
[2018-07-31 09:21] LABS: HCT 32.3 % (39.0-53.0); HGB 10.6 gm/dL (13.0-17.5); MCH 29.5 pg (25.0-35.0); MCHC 32.8 g/dL (31.0-37.0); MCV 90.1 fL (80.0-100.0); Platelet Count 480 k/uL (150-450); RBC 3.58 m/uL (4.30-5.90); RDW 14.1 % (11.5-15.5); WBC 11.6 k/uL (3.8-10.6)
[2018-07-31 09:44] LABS: Calcium 9.1 mg/dL (8.4-10.2); Potassium 4.1 mmol/L (3.5-5.1)
[2018-07-31] MEDS: INSULIN DETEMIR 100 UNIT/ML 10 ML VIAL SQ SCH ×2 (10:11→22:10)
[2018-07-31 12:20] LABS: Glucose,Whole Blood 142 mg/dL (75-99)
--- NOTE | 2018-07-31 13:55 | P.PN ---
Subjective Progress Note Date: 07/31/18 Principal diagnosis: Right foot infection Patient seen and examined. No acute events overnight. Patient complains of mild pain in the right foot. He denies any fever or chills. He denies chest pain, shortness of breath or palpitations. Objective - Vital Signs Vital signs: Vital Signs Temp 98.2 F 07/31/18 06:13 Pulse 60 07/31/18 06:13 Resp 18 07/31/18 06:13 BP 122/62 07/31/18 06:13 Pulse Ox 94 L 07/31/18 06:13 Intake & Output 07/30/18 07/31/18 07/31/18 18:59 06:59 18:59 Intake Total 320 50 Balance 320 50 Intake: Intake, IV Titration 50 Amount Ertapenem 1 gm In Sodium 50 Chloride 0.9% 50 ml @ 100 mls/hr IVPB DAILY [facility] Rx #:[id number] Lactated Ringers 1,000 ml 0 @ 0 mls/hr IV .STK-MED ONE Rx#:[id number] Oral 320 Other: # Voids 2 2 - Exam General: [non toxic], [no distress], [appears at stated age] Derm: [warm], [dry] Head: [atraumatic], [normocephalic], [symmetric] Eyes: [EOMI], [no lid lag], [anicteric sclera] Mouth: [no lip lesion], [mucus membranes moist] Cardiovascular: [S1S2 reg], [no murmur] Lungs: [CTA bilateral], [no rhonchi, no rales] , [no accessory muscle use] Abdominal: [soft], [ nontender to palpation], [no guarding], [no appreciable organomegaly] Ext: [no gross muscle atrophy], [right foot Carmelo wrapped. Dressing clean dry and intact without strike through] Neuro: [ CN II-XI grossly intact], [no focal neuro deficits] Psych: [Alert], [oriented], [appropriate affect] - Labs CBC & Chem 7: 07/31/18 08:23 07/31/18 08:23 Labs: Abnormal Lab Results - Last 24 Hours (Table) 07/30/18 07/30/18 07/31/18 Range/Units 17:33 20:34 08:23 WBC 11.6 H (3.8-10.6) k/uL RBC 3.58 L (4.30-5.90) m/uL Hgb 10.6 L (13.0-17.5) gm/dL Hct 32.3 L (39.0-53.0) % Plt Count 480 H (150-450) k/uL Creatinine (0.66-1.25) mg/dL Glucose (74-99) mg/dL POC Glucose (mg/dL) 130 H 162 H (75-99) mg/dL 07/31/18 07/31/18 Range/Units 08:23 12:02 WBC (3.8-10.6) k/uL RBC (4.30-5.90) m/uL Hgb (13.0-17.5) gm/dL Hct (39.0-53.0) % Plt Count (150-450) k/uL Creatinine 1.36 H (0.66-1.25) mg/dL Glucose 166 H (74-99) mg/dL POC Glucose (mg/dL) 142 H (75-99) mg/dL Microbiology - Last 24 Hours (Table) 07/26/18 18:45 Anaerobic Culture - Final Foot - Right Assessment and Plan Assessment: Assessment and Plan 1. Right lower extremity cellulitis secondary to diabetic foot ulcer 2. Diabetes mellitus 3. Acute kidney injury 4. Crohn's disease 5. Hypertension 6. Bilateral lower extremity neuropathy 7. Restless leg syndrome 8. DVT prophylaxis 1. Patient has been seen by infectious disease. They recommended ertapenem for 42 days, PICC line was placed 07/26/2018. Podiatry seeing the patient. Patient to be evaluated tomorrow on 08/01/2018 and can possibly be discharged with close follow-up with wound care. Wound cultures grown out Klebsiella and enterococcus. Tylenol for fever or mild pain. 2. A1c 9.1 on 06/14/2018, POC glucose 142 today. Resume home medication of glargine 38 units daily at bedtime and 44 units every morning. Start insulin sliding scale. Hypoglycemic precautions. Regular Accu-Cheks. 3. Creatinine is 1.36. Likely secondary to dehydration, IV antibiotics. Gentle hydration with normal saline at 80 mL per hour. Avoid nephrotoxins. Daily BMP. 4. Stable. Continue mesalamine at 1000 milligrams by mouth 4 times a day. 5. BP 122/62. Continue amlodipine 10 mg by mouth daily, 5 mg by mouth at bedtime. Continue chlorthalidone 25 mg by mouth daily. Continue losartan 100 mg by mouth daily. Monitor vitals, adjust medications as necessary. 6. Continue gabapentin 800 mg by mouth 4 times a day. 7. Continue pramipexole 1 mg by mouth at bedtime. 8. SCD boots only. Patient is being treated for right lower extremity diabetic foot ulcer and cellulitis. Cultures are sensitive to ertapenem and PICC line has been placed. He will be evaluated by podiatry tomorrow and hopefully discharged. He will require IV ertapenem per 42 days. This is being set up through home health. Infectious diseases and podiatry on board. Patient would name his indicates that he is not able to make decisions for himself. Patient states that he prefers FULL [facility].
[2018-07-31 17:01] LABS: Glucose,Whole Blood 159 mg/dL (75-99)
[2018-07-31] MEDS: SODIUM CHLORIDE 0.9% 1,000 ML IV SCH (18:05)
[2018-07-31] MEDS: COLLAGENASE 250 UNIT/GM OINTMENT 30 GM TUBE TOPICAL SCH (18:05)
[2018-07-31 21:08] LABS: Glucose,Whole Blood 207 mg/dL (75-99)
[2018-07-31] MEDS: amLODIPine 5 MG TAB PO SCH (22:10)
[2018-07-31] MEDS: PRAMIPEXOLE 1 MG TAB PO SCH (22:10)
[2018-08-01] MEDS: HEPARIN SODIUM,PORCINE 5,000 UNIT/ML 1 ML VIAL SQ SCH ×2 (00:01→08:17)
[2018-08-01 07:12] LABS: Glucose,Whole Blood 106 mg/dL (75-99)
[2018-08-01] MEDS: ERTAPENEM 1 GM in SODIUM CHLORIDE 0.9% 50 ML IVPB SCH (08:01)
[2018-08-01] MEDS: MESALAMINE 500 MG PO SCH ×2 (08:01→12:31)
[2018-08-01] MEDS: amLODIPine 10 MG TAB PO SCH (08:01)
[2018-08-01] MEDS: LOSARTAN 50 MG TAB PO SCH (08:01)
[2018-08-01] MEDS: LACTOBACILLUS ACIDOPH & BULGAR 1 EACH PACKET PO SCH (08:01)
[2018-08-01] MEDS: INSULIN DETEMIR 100 UNIT/ML 10 ML VIAL SQ SCH (08:02)
[2018-08-01] MEDS: CHLORTHALIDONE 25 MG TAB PO SCH (08:02)
[2018-08-01] MEDS: INSULIN ASPART 100 UNIT/ML 1 ML 10 ML VIAL SQ SCH ×2 (08:02→13:05)
[2018-08-01] MEDS: GABAPENTIN 400 MG CAP PO SCH ×2 (08:16→12:30)
[2018-08-01 08:18] VITALS: RESP 16
--- NOTE | 2018-08-01 09:55 | P.PN ---
Subjective Progress Note Date: 08/01/18 Principal diagnosis: Right foot infection with ulcerative Farias grade 3 wound 58-year-old white male seen at bedside for follow-up of infected abscessed ulceration of the right foot. continues to have no complaints no pain denies fever chills. Objective - Vital Signs Vital signs: Vital Signs Temp 98.1 F 08/01/18 07:12 Pulse 60 08/01/18 07:12 Resp 16 08/01/18 07:12 BP 117/67 08/01/18 07:12 Pulse Ox 95 08/01/18 07:12 Intake & Output 07/31/18 08/01/18 08/01/18 18:59 06:59 18:59 Intake Total 50 Balance 50 Intake: Intake, IV Titration 50 Amount Ertapenem 1 gm In Sodium 50 Chloride 0.9% 50 ml @ 100 mls/hr IVPB DAILY [facility] Rx #:[id number] Lactated Ringers 1,000 ml 0 @ 0 mls/hr IV .STK-MED ONE Rx#:[id number] Other: # Voids 2 - Exam There is decreased necrotic tissue within the wall of the right foot. Tenderness to be diminishing erythema edema no odor no increased temperature. There is necrotic tissues marginally and centrally review of labs show stable WBCs - Labs CBC & Chem 7: 07/31/18 08:23 07/31/18 08:23 Labs: Abnormal Lab Results - Last 24 Hours (Table) 07/31/18 07/31/18 07/31/18 Range/Units 12:02 16:47 21:06 POC Glucose (mg/dL) 142 H 159 H 207 H (75-99) mg/dL 08/01/18 Range/Units 07:10 POC Glucose (mg/dL) 106 H (75-99) mg/dL Assessment and Plan Assessment: Infected tissue with abscess ulcer Farias grade 3right foot Enterococcal and Klebsiella polymorphic infection of the right foot Plan: Exam. Today after clinical evaluation we debrided the wound of all superficial and deep necrotic infected tissue using a sterile curette was see procedure note. We'll maintain the patient on the Santyl ointment as well as dry sterile dressing and IV antibiotics. Patient can go home would like to keep the patient nonweightbearing on this foot with his neuropathy best to be on the rollabout or wheelchair. Patient is to reappoint in the wound care center this [facility] for reevaluation.
--- NOTE | 2018-08-01 09:59 | P.PCN ---
Date of Procedure: 08/01/18 Preoperative Diagnosis: Subjective tissue right foot Postoperative Diagnosis: Same Procedure(s) Performed: Debridement extensive infected tissue right foot Anesthesia: none Surgeon: Zach Leung Estimated Blood Loss (ml): 20 Pathology: none sent Condition: stable Disposition: floor Indications for Procedure: Affected digit right foot Operative Findings: Consistent with clinical findings Description of Procedure: Today we we debrided the wound using sterile curette of all necrotic tissue marginally and centrally removing infected tissue once this was debrided we flushed the wound copiously with 300 mL of sterile saline solution reapplied Santyl dry sterile dressing patient tolerated procedure well
[2018-08-01 11:50] LABS: Glucose,Whole Blood 163 mg/dL (75-99)
--- NOTE | 2018-08-01 11:59 | P.DS ---
Providers Date of admission: 07/23/18 16:31 Expected date of discharge: 08/01/18 Attending physician: So Light MD Consults: 07/23/18 17:28 Consult Physician Urgent Consulting Provider: Douglas Flores Consult Reason/Comments: Cellulitis and foot ulcer in DM Do you want consulting provider notified?: Yes 07/25/18 07:41 Consult Physician Routine Consulting Provider: Zach Leung Consult Reason/Comments: infected diabetic ulcer, follows with you Do you want consulting provider notified?: Yes Primary care physician: Sammy Barth - Discharge Diagnosis(es) (1) Crohns disease Current Visit: Yes Status: Acute (2) Hypertension Current Visit: Yes Status: Acute (3) RLS (restless legs syndrome) Current Visit: Yes Status: Acute (4) Acute kidney injury Current Visit: Yes Status: Acute (5) Cellulitis of right lower extremity Current Visit: Yes Status: Acute (6) Diabetes mellitus Current Visit: Yes Status: Acute (7) Diabetic foot ulcer associated with type 2 diabetes mellitus, with fat layer exposed Current Visit: Yes Status: Acute Hospital Course: 50-year-old male with PMH of diabetes mellitus, hypertension, restless leg syndrome, Crohn's disease with bilateral lower extremity neuropathy presents to the ED for right foot swelling, increased redness and infected foot ulcer. Patient initially presented to [facility] on June 15 for this foot ulcer. Since his admission, he has been seeing Dr. Leung who is a machine installer at the wound clinic. Patient had advised Dr. Leung that he would be traveling to [place] on vacation. He was started on clindamycin and levofloxacin by mouth at that time. Patient noted purulent discharge from the ulcer and wound while he was in [place]. He also noticed increased redness and swelling of his right lower extremity, prompting him to visit the ER in [place]. He was started on IV antibiotics at that hospital and MRI of the foot was ordered. As per patient, MRI foot was negative for osteomyelitis. He was discharged from the hospital and advised to go to his local ED upon landing in [place]. Patient otherwise has no complaints. Patient denies any pain at the foot. He denies any headache, nausea, vomiting, fever, cough, chest pain, shortness of breath, palpitations, changes in urination or bowel habits. No changes in appetite or weight. In the ED, patient was noted to have a leukocytosis of 12.3. His hemoglobin was 12.3. CMP was unremarkable except for a creatinine of 1.35 and glucose of 352. Foot x-ray showed soft tissue swelling with air bubbles consistent with cellulitis. Patient is admitted for treatment of right lower extremity cellulitis, infectious diseases on consult. Patient underwent multiple rounds of debridement with his machine installer Dr. Leung. He underwent debridement on July 25, July 28, July 30 and August 01. PICC line was placed on 07/26/2018. Brushes disease was consulted and recommended 42 days of ertapenem. Wound cultures were performed which grew Klebsiella and enterococcus. Patient was cleared for discharge by Dr. Leung. Otherwise, so medications were resumed for diabetes mellitus, Crohn's disease, hypertension, bilateral lower extremity neuropathy and restless leg syndrome. Patient was seen examined prior to discharge. No acute events overnight. Patient is to place this morning. General: [non toxic], [no distress], [appears at stated age] Derm: [warm], [dry] Head: [atraumatic], [normocephalic], [symmetric] Eyes: [EOMI], [no lid lag], [anicteric sclera] Mouth: [no lip lesion], [mucus membranes moist] Cardiovascular: [S1S2 reg], [no murmur] Lungs: [CTA bilateral], [no rhonchi, no rales] , [no accessory muscle use] Abdominal: [soft], [ nontender to palpation], [no guarding], [no appreciable organomegaly] Ext: [no gross muscle atrophy], [right foot Carmelo wrapped. Dressing clean dry and intact without strike through] Neuro: [ CN II-XI grossly intact], [no focal neuro deficits] Psych: [Alert], [oriented], [appropriate affect] Assessment and Plan 1. Right lower extremity cellulitis secondary to diabetic foot ulcer 2. Diabetes mellitus 3. Acute kidney injury 4. Crohn's disease 5. Hypertension 6. Bilateral lower extremity neuropathy 7. Restless leg syndrome 8. DVT prophylaxis 1. Patient has been seen by infectious disease. They recommended ertapenem for 42 days, PICC line was placed 07/26/2018. Podiatry seeing the patient. Patient to be evaluated tomorrow on 08/01/2018 and can possibly be discharged with close follow-up with wound care. Wound cultures grown out Klebsiella and enterococcus. Tylenol for fever or mild pain. 2. A1c 9.1 on 06/14/2018, POC glucose 163 today. Resume home medication of glargine 38 units daily at bedtime and 44 units every morning. Start insulin sliding scale. Hypoglycemic precautions. Regular Accu-Cheks. 3. Creatinine is 1.36. Likely secondary to dehydration, IV antibiotics. Gentle hydration with normal saline at 80 mL per hour. Avoid nephrotoxins. Daily BMP. 4. Stable. Continue mesalamine at 1000 milligrams by mouth 4 times a day. 5. BP 137/71. Continue amlodipine 10 mg by mouth daily, 5 mg by mouth at bedtime. Continue chlorthalidone 25 mg by mouth daily. Continue losartan 100 mg by mouth daily. Monitor vitals, adjust medications as necessary. 6. Continue gabapentin 800 mg by mouth 4 times a day. 7. Continue pramipexole 1 mg by mouth at bedtime. 8. SCD boots only. Patient is being treated for right lower extremity diabetic foot ulcer and cellulitis. Cultures are sensitive to ertapenem and PICC line has been placed. He will be evaluated by podiatry tomorrow and hopefully discharged. He will require IV ertapenem per 42 days. This is being set up through home health. Infectious diseases and podiatry on board. Pertinent Studies: Doppler Fracture Procedures: PICC line Patient Condition at Discharge: Stable Plan - Discharge Summary Discharge Rx Participant: No New Discharge Prescriptions: New Ertapenem [INVanz] 1 gm IM DAILY #42 vial Collagenase [Santyl] 1 applic TOPICAL DAILY applic Ertapenem [INVanz] 1 gm IVPB DAILY vial Lactobacillus Acidoph & Bulgar [Lactinex] 1 each PO BID packet Continue amLODIPine [Norvasc] 5 mg PO HS Chlorthalidone 25 mg PO DAILY Ergocalciferol (Vitamin D2) [Vitamin D2] 50,000 unit PO HUGGINS Gabapentin 800 mg PO QID Insulin Glargine,Hum.rec.anlog [Basaglar Kwikpen U-100] 44 units SQ QAM Insulin Glargine,Hum.rec.anlog [Basaglar Kwikpen U-100] 38 unit SQ HS Losartan Potassium 100 mg PO DAILY Mesalamine [Pentasa] 1,000 mg PO QID metFORMIN HCL 1,000 mg PO BID Pioglitazone [Actos] 45 mg PO HS Pramipexole [Mirapex] 1 mg PO HS Pyridoxine HCl (Vitamin B6) [Vitamin B-6] 50 mg PO DAILY Magnesium Oxide [Higgins] 500 mg PO BID amLODIPine [Norvasc] 10 mg PO DAILY Discontinued Clindamycin HCl [Cleocin] 300 mg PO Q8H Levofloxacin [Levaquin] 500 mg PO DAILY Discharge Medication List Chlorthalidone 25 mg PO DAILY 06/14/18 [History] Ergocalciferol (Vitamin D2) [Vitamin D2] 50,000 unit PO HUGGINS 06/14/18 [History] Gabapentin 800 mg PO QID 06/14/18 [History] Insulin Glargine,Hum.rec.anlog [Basaglar Kwikpen U-100] 38 unit SQ HS 06/14/18 [ History] Insulin Glargine,Hum.rec.anlog [Basaglar Kwikpen U-100] 44 units SQ QAM [History] Losartan Potassium 100 mg PO DAILY 06/14/18 [History] Mesalamine [Pentasa] 1,000 mg PO QID 06/14/18 [History] Pioglitazone [Actos] 45 mg PO HS 06/14/18 [History] Pramipexole [Mirapex] 1 mg PO HS 06/14/18 [History] Pyridoxine HCl (Vitamin B6) [Vitamin B-6] 50 mg PO DAILY 06/14/18 [History] amLODIPine [Norvasc] 5 mg PO HS 06/14/18 [History] metFORMIN HCL 1,000 mg PO BID 06/14/18 [History] Magnesium Oxide [Higgins] 500 mg PO BID 07/23/18 [History] amLODIPine [Norvasc] 10 mg PO DAILY 07/23/18 [History] Ertapenem [INVanz] 1 gm IM DAILY #42 vial 07/26/18 [Rx] Collagenase [Santyl] 1 applic TOPICAL DAILY applic 08/01/18 [Rx] Ertapenem [INVanz] 1 gm IVPB DAILY vial 08/01/18 [Rx] Lactobacillus Acidoph & Bulgar [Lactinex] 1 each PO BID packet 08/01/18 [Rx] Follow up Appointment(s)/Referral(s): [facility], [NON-STAFF] - Sammy Barth DO [Primary Care Provider] - 1-2 days [facility] [[facility]-STAFF] - 1 Week (please make appt for Aug 04.) Ambulatory/Diagnostic Orders: Miscellaneous Lab Order [LAB.AMB] Location: None Selected Basic Metabolic Panel [LAB.AMB] Location: None Selected Complete Blood Count w/diff [LAB.AMB] Location: None Selected Activity/Diet/Wound Care/Special Instructions: CBC in 1 week Dx: Leukocytosis BMP in 1 week Dx: Elevated Creatinine Discharge Disposition: HOME SELF-CARE
[2018-08-01] MEDS: PYRIDOXINE 50 MG TAB PO SCH (12:30)
[2018-08-01] MEDS: COLLAGENASE 250 UNIT/GM OINTMENT 30 GM TUBE TOPICAL SCH (12:30)
[2018-08-01 15:47] VITALS: BP 124/68; PULSE 63; TEMP 98.3
--- NOTE | 2018-08-02 09:23 | P.ARTDOP ---
Arterial Doppler LOWER EXTREMITY ARTERIAL DOPPLER: DATE OF SERVICE: 07/25/2018 Reason for study: Left foot ulcer. Doppler waveforms: Multiphasic bilaterally throughout. Pulse volume recording: []. Pressure gradients: None. Ankle-brachial indices: Greater than 1 bilaterally. Toe pressures: [] on the right, [] on the left Impression: Normal limited study.
== END 2018-08-01 15:35 | disposition home health service (06) | DRG 623 ==
LOC: EC 13:50 → 4MS4W 16:31
PROVIDERS: ADMIT Family Medicine; ATTEND Family Medicine
PROC: 0JBQ0ZZ Excision of Right Foot Subcutaneous Tissue and Fascia, Open Approach (ICD-10-PCS; 2018-07-25)
PROC: 0J9Q0ZZ Drainage of Right Foot Subcutaneous Tissue and Fascia, Open Approach (ICD-10-PCS; principal; 2018-07-25 14:20)
PROC: 02HV33Z Insertion of Infusion Device into Superior Vena Cava, Percutaneous Approach (ICD-10-PCS; 2018-07-26)
DX: E11.621 Type 2 diabetes mellitus with foot ulcer (principal); K50.90 Crohn's disease, unspecified, without complications; L03.115 Cellulitis of right lower limb; L02.611 Cutaneous abscess of right foot; E11.622 Type 2 diabetes mellitus with other skin ulcer; E11.628 Type 2 diabetes mellitus with other skin complications; E11.22 Type 2 diabetes mellitus with diabetic chronic kidney disease; Z79.4 Long term (current) use of insulin; E11.65 Type 2 diabetes mellitus with hyperglycemia; E86.0 Dehydration; G25.81 Restless legs syndrome; E11.41 Type 2 diabetes mellitus with diabetic mononeuropathy; I12.9 Hypertensive chronic kidney disease with stage 1 through stage 4 chronic kidney disease, or unspecified chronic kidney disease; B96.1 Klebsiella pneumoniae [K. pneumoniae] as the cause of diseases classified elsewhere; B95.2 Enterococcus as the cause of diseases classified elsewhere; L97.519 Non-pressure chronic ulcer of other part of right foot with unspecified severity; N17.9 Acute kidney failure, unspecified; N18.3 Chronic kidney disease, stage 3 (moderate); Z68.36 Body mass index [BMI] 36.0-36.9, adult; E66.01 Morbid (severe) obesity due to excess calories; Z79.899 Other long term (current) drug therapy; Z82.5 Family history of asthma and other chronic lower respiratory diseases; Z83.3 Family history of diabetes mellitus; Z87.891 Personal history of nicotine dependence; Z82.69 Family history of other diseases of the musculoskeletal system and connective tissue; Z88.5 Allergy status to narcotic agent; Z90.49 Acquired absence of other specified parts of digestive tract; Z79.2 Long term (current) use of antibiotics
CPT/HCPCS: 36415; 36573; 80048; 80053; 80202; 83605; 84134; 85025; 85027; 85652; 86140; 87040; 87070; 87075; 87077; 87186; 87205; 87324; 93922; 96360; 99285

== ENCOUNTER → 2018-08-25 | Outpatient (CLI) | payer OTHER ==
--- NOTE | 2018-08-25 12:26 | XR ---
EXAMINATION TYPE: XR foot limited RT DATE OF EXAM: 08/25/2018 COMPARISON: 07/23/2018 HISTORY: Diabetes hypoglycemia, bottom foot TECHNIQUE: Three-view right foot FINDINGS: Plantar calcaneal heel spur is present. Achilles tendon calcification is noted. There is soft tissue swelling over the distal foot. There is a pin through the middle and proximal ph alanx second digit. Some changes are in the proximal phalanx of the third and fifth digits. Suspicious cortical erosions to suggest osteomyelitis or not identified. 3 phase bone scan could be p erformed if additional clinical suspicion. There may be a periarticular erosion of the medial proxima l phalanx fifth digit COMPARISON: The previous soft tissue wound lateral foot appears largely resolved. Soft tissue swellin g over the distal foot may be increasing over the interval. IMPRESSION: 1. No definite osseous erosion suggest osteomyelitis. 2. Overlying soft tissue swelling.
== END | disposition home or self-care (01) ==
LOC: RADXRMAIN 11:51
PROVIDERS: ATTEND Podiatrist
DX: M79.89 Other specified soft tissue disorders (principal)

== ENCOUNTER 2018-09-06 13:54 | Emergency (ER) | payer OTHER ==
[2018-09-06 14:10] VITALS: BP 165/73; PULSE 65; RESP 18; TEMP 98.2
--- NOTE | 2018-09-06 15:56 | ED ---
Recheck HPI - General Chief Complaint: Recheck/Abnormal Lab/Rx Stated Complaint: Picc line leaking Time Seen by Provider: 09/06/18 14:27 Source: patient Mode of arrival: wheelchair Limitations: no limitations - History of Present Illness Initial Comments: 58-year-old male with recurrent MRSA infection with PICC line placement of LUE, placed by Dr. Leary presenting today for PICC line leaking. Patient states he noticed today that the line was leaking, he states it flushed but there is a small amount of residual fluid coming form under the tape. Patient denies any soft tissue swelling of the arm or erythema. Patient denies any fever or chills night sweats. Patient states he is currently on an antibiotic regimen for an MRSA infection of the foot. Patient states this has been improving and there is a wound VAC in place. Remaining ROS (-), patient denies any recent shortness of breath, chest pain, back pain, abdominal pain, nausea or vomiting, numbness or tingling, dysuria or hematuria, constipation or diarrhea, headaches or visual changes, or any other complaints. Upon arrival patient appears well, non toxic with no additional complaints. - Related Data Home Medications Medication Instructions Recorded Confirmed Chlorthalidone 25 mg PO DAILY 06/14/18 09/07/18 Ergocalciferol (Vitamin D2) 50,000 unit PO HUGGINS 06/14/18 09/07/18 [Vitamin D2] Gabapentin 800 mg PO QID 06/14/18 09/07/18 Insulin Glargine,Hum.rec.anlog 38 unit SQ HS 06/14/18 09/07/18 [Basaglar Kwikpen U-100] Insulin Glargine,Hum.rec.anlog 44 units SQ QAM 06/14/18 09/07/18 [Basaglar Kwikpen U-100] Losartan Potassium 100 mg PO DAILY 06/14/18 09/07/18 Mesalamine [Pentasa] 1,000 mg PO QID 06/14/18 09/07/18 Pioglitazone [Actos] 45 mg PO HS 06/14/18 09/07/18 Pramipexole [Mirapex] 1 mg PO HS 06/14/18 09/07/18 Pyridoxine HCl (Vitamin B6) 100 mg PO DAILY 06/14/18 09/07/18 [Vitamin B-6] metFORMIN HCL 1,000 mg PO BID 06/14/18 09/07/18 Magnesium Oxide [Higgins] 500 mg PO BID 07/23/18 09/07/18 amLODIPine [Norvasc] 10 mg PO BID 07/23/18 09/07/18 Previous Rx's Medication Instructions Recorded Ertapenem [INVanz] 1 gm IVPB DAILY vial 08/01/18 Allergies Allergy/AdvReac Type Severity Reaction Status Date / Time codeine Allergy Swelling Verified 09/07/18 09:14 Review of Systems ROS Statement: Those systems with pertinent positive or pertinent negative responses have been documented in the HPI. ROS Other: All systems not noted in ROS Statement are negative. Past Medical History Past Medical History: Diabetes Mellitus, Hypertension Additional Past Medical History / Comment(s): Diabetic neuropathy, crohns History of Any Multi-Drug Resistant Organisms: None Reported, ESBL Date of last positivie culture/infection: 07/25/18 MDRO Source:: ESBL FOOT Past Surgical History: Bowel Resection, Orthopedic Surgery, Tonsillectomy Past Anesthesia/Blood Transfusion Reactions: No Reported Reaction Past Psychological History: No Psychological Hx Reported Smoking Status: Former smoker Past Alcohol Use History: None Reported Past Drug Use History: None Reported - Past Family History Father Family Medical History: Musculoskeletal Disorder Mother Family Medical History: COPD, Diabetes Mellitus General Exam - General Exam Comments Initial Comments: General: The patient is awake and alert, in no distress, and does not appear acutely ill. Eye: Pupils are equal, round and reactive to light, extra-ocular movements are intact. No nystagmus. There is normal conjunctiva bilaterally. No signs of i cterus. Ears, nose, mouth and throat: There are moist mucous membranes and no oral lesions. Neck: The neck is supple, there is no tenderness or JVD. Cardiovascular: There is a regular rate and rhythm. No murmur, rub or gallop is appreciated. Respiratory: Lungs are clear to auscultation, respirations are non-labored, breath sounds are equal. No wheezes, stridor, rales, or rhonchi. Gastrointestinal: Soft, non-distended, non-tender abdomen without masses or organomegaly noted. There is no rebound or guarding present. No CVA tenderness. Bowel sounds are unremarkable. Musculoskeletal: Normal ROM, no tenderness. Strength 5/5. Sensation intact. Pulses equal bilaterally 2+. Neurological: A&O x 3. CN II-XII intact, There are no obvious motor or sensory deficits. Coordination appears grossly intact. Speech is normal. Skin: Skin is warm and dry and no rashes or lesions are noted. PICC line in place with no surrounding erythema of the left UE, just medial to the AC area, slightly distal. No obvious leaking/fluid. Psychiatric: Cooperative, appropriate mood & affect, normal judgment. Limitations: no limitations Course Vital Signs 09/06/18 14:07 Temperature 98.2 F Pulse Rate 65 Respiratory 18 Rate Blood Pressure 165/73 O2 Sat by Pulse 95 Oximetry - Reevaluation(s) Reevaluation #1: Throughout the course of the visit nurse contacted interventional radiologist Dr. Leary discussed the patient's case. He recommended flushing, and seeing if there is flash. Nurse attempted, stated both flash and flush. She did not know sent any leakage. She performed a 3-4 times. She states in the fourth time she did note mild leakage. She then contacted Dr. Leary again, discussing findings. Who recommended outpatient f/u with new placement of live with CVL on Tuesday. Medical Decision Making - Medical Decision Making 58-year-old male presenting for PICC line leaking. Small leak noted after flushing 4 different times. Stiffness of flexion function of tube however there does appear to be a small leak. This finding was discussed with interventional radiologist replace PICC line, he recommended discharge with repeat placement on Tuesday. I discussed this with patient who is agreeable to plan and discharged. Patient was evaluated and person by attending provider Dr. Evangelista who agrees there is no signs of infectious process at this time, we will follow recommendations given by her menstrual radiologist. . Patient was instructed to immediate return for any signs of erythema, fever or chills night sweats, swelling near the site of PICC line or inability to flush line. She went over to parameters denied questions discharged appearing well. Disposition Clinical Impression: PIC line (peripherally inserted central catheter) flush, Status post PICC central line placement Narrative: PICC line dysfunction Disposition: HOME SELF-CARE Condition: Good Instructions (If sedation given, give patient instructions): Peripherally Inserted Central Catheters and Midline Catheters (DC) Additional Instructions: Please use previously prescribed medication as discussed. Please follow-up with Dr. García, and CVL team on Tuesday as scheduled and discussed. Please return to emergency room if the symptoms increase or worsen or for any other concerns, including warmth or redness of site, swelling of skin, inability to flush. Is patient prescribed a controlled substance at d/c from ED?: No Referrals: Sammy Barth DO [Primary Care Provider] - 1-2 days Time of Disposition: 15:56
== END 2018-09-06 16:00 | disposition home or self-care (01) ==
LOC: EC 13:54
DX: Z45.2 Encounter for adjustment and management of vascular access device (principal); T82.534A Leakage of infusion catheter, initial encounter; E11.40 Type 2 diabetes mellitus with diabetic neuropathy, unspecified; I10 Essential (primary) hypertension; Z79.4 Long term (current) use of insulin; Z79.899 Other long term (current) drug therapy; Z88.5 Allergy status to narcotic agent
CPT/HCPCS: 99282

== ENCOUNTER 2018-09-08 12:00 | Day surgery (SDC) | payer OTHER ==
[2018-09-07 09:18] VITALS: BMI 36.8
[2018-09-08 12:18] VITALS: PULSE 69; RESP 16; TEMP 97.9
[2018-09-08] MEDS ORDERED: INSULIN ASPART (NovoLOG) 100 UNIT/ML VIAL SQ ONE (12:22)
[2018-09-08] MEDS ORDERED: LIDOCAINE 1% INJ 10MG/ML (20 ML MDV) ONE (12:39)
[2018-09-08] MEDS ORDERED: LIDOCAINE 1% INJ 10MG/ML (20 ML MDV) SQ ONE (13:01)
--- NOTE | 2018-09-08 13:45 | IR ---
PICC line exchange HISTORY: Malfunctioning PICC line, PICC line weeks Indwelling PICC line was prepped. Lidocaine was used for local anesthesia. Evaluation performed under fluoroscopy. Catheter was withdrawn slightly under fluoroscopy and subsequently cut. Catheter was ca nnulated with a 0.018 inch wire. Catheter was removed over the wire and subsequently a 4.5 Serbian pee l-away sheath advanced. Catheter was tailored to length and advanced centrally such that the tip is a t the cavoatrial junction. Spot image obtained verifying placement. Catheter was fixed to the skin. Hemostasis achieved. No immediate application. Patient remained in stable condition. 1.3 minutes fluoroscopy time, 79 intraoperative images document the procedure. IMPRESSION: Status post PICC line exchange. This procedure performed by the undersigned.
[2018-09-08 14:47] VITALS: BP 149/78
[2018-09-12 07:31] LABS: Glucose,Whole Blood 304 mg/dL (75-99)
== END 2018-09-08 14:00 | disposition home or self-care (01) ==
LOC: CATHCVL 12:00
PROVIDERS: ATTEND Radiology Diagnostic Radiology
DX: T82.514A Breakdown (mechanical) of infusion catheter, initial encounter (principal); Y83.8 Other surgical procedures as the cause of abnormal reaction of the patient, or of later complication, without mention of misadventure at the time of the procedure; E11.621 Type 2 diabetes mellitus with foot ulcer; E11.40 Type 2 diabetes mellitus with diabetic neuropathy, unspecified; L97.502 Non-pressure chronic ulcer of other part of unspecified foot with fat layer exposed; L97.516 Non-pressure chronic ulcer of other part of right foot with bone involvement without evidence of necrosis; I10 Essential (primary) hypertension; Z87.891 Personal history of nicotine dependence; Z83.6 Family history of other diseases of the respiratory system; Z83.3 Family history of diabetes mellitus; Z79.4 Long term (current) use of insulin; Z79.899 Other long term (current) drug therapy; Z88.5 Allergy status to narcotic agent
CPT/HCPCS: 36573; C1751; C1769; J2001

== ENCOUNTER → 2018-12-15 | Outpatient (CLI) | payer MEDICARE, OTHER ==
--- NOTE | 2018-12-15 11:36 | XR ---
EXAMINATION TYPE: XR foot complete RT DATE OF EXAM: 12/15/2018 CLINICAL HISTORY: Plantar surface nonhealing wound of the right foot TECHNIQUE: Frontal, lateral, and oblique images of the right foot are obtained. COMPARISON: None FINDINGS: There is no acute fracture/dislocation evident in the right foot. Osseous deformity is see n of the first proximal phalanx with joint space narrowing of the first metatarsal phalangeal joint a nd interphalangeal joint and large protuberant marginal osteophytes. Surgical pinning of the second p roximal and mid phalanx are seen with osteotomy of the proximal third phalanx and elongated fused fou rth middle and proximal phalanges. There is also fusion of the distal and middle phalanges of the fif th digit. Chronic erosions are seen of the distal and proximal aspect of the fifth proximal phalanx u nchanged from the prior of 08/25/2018. There is generalized soft tissue swelling and mild osseous kandi neralization. Healed fracture deformity of the base of the fifth metatarsal or osteophyte is noted. There is soft tissue swelling of the plantar surface of the hindfoot overlying the calcaneus without subcutaneous emphysema or radiopaque foreign body. Small Achilles and plantar heel spurs are present. Degenerative changes of the midfoot are seen as dorsal osteophytic spurring. Soft tissue swelling is seen over the midfoot. IMPRESSION: 1. No acute fracture or dislocation in the right foot. 2. Soft tissue swelling of the plantar hindfoot overlying the calcaneus without subcutaneous emphysem a, radiopaque foreign body or osseous erosion. No current sequela of osteomyelitis of the calcaneus. 3. Chronic erosions of the fifth digit as seen on the prior of 08/25/2018 made to sequela of chronic o steomyelitis. These have not progressed. 4. Postsurgical changes of the forefoot as described above.
== END | disposition home or self-care (01) ==
LOC: RADXRMAIN 10:49
PROVIDERS: ATTEND Podiatrist
DX: M79.89 Other specified soft tissue disorders (principal); R93.89 Abnormal findings on diagnostic imaging of other specified body structures; E11.621 Type 2 diabetes mellitus with foot ulcer; L97.519 Non-pressure chronic ulcer of other part of right foot with unspecified severity

== ENCOUNTER 2019-06-27 13:54 | Inpatient (IN) | payer MEDICARE ==
[2019-06-27] MEDS ORDERED: FUROSEMIDE 10 MG/ML 4 ML VIAL IV STA (14:23)
--- NOTE | 2019-06-27 15:07 | XR ---
EXAMINATION TYPE: XR chest 2V DATE OF EXAM: 06/27/2019 COMPARISON: 06/14/2018 HISTORY: 59-year-old male shortness of breath, difficulty breathing TECHNIQUE: PA and lateral views FINDINGS: Heart upper limits of normal in size. Peribronchial cuffing and interstitial prominence similar to sl ightly increased. No nicole consolidation or pleural effusion. IMPRESSION: Interstitial changes could reflect bronchitis or asthma. Mild pulmonary vascular congestion is also a possibility. No focal infiltrate.
--- NOTE | 2019-06-27 15:11 | ED ---
SOB HPI - General Chief Complaint: Shortness of Breath Stated Complaint: CHF Time Seen by Provider: 06/27/19 14:11 Source: patient, family, RN notes reviewed, old records reviewed Mode of arrival: wheelchair Limitations: no limitations - History of Present Illness Initial Comments: This is a 58-year-old male with a history of heart disease as well as congestive heart failure and diabetes who presents with complaints of shortness of breath. He states shortness of breath going on for just under a week he has gained most 15 pounds in a period time he has been on higher doses of Lasix without improvement. He complains of exertional dyspnea and shortness of breath at rest he had one episode of fever and chills last night he does have a slight cough but it is not productive. Is dry in nature. No overt chest pain. He does have a history of heart failure stated he had a diabetic wound in the right foot is currently being treated he also states he did have stent placement this past April. At that time he he presented with only shortness of breath. He also does mention at this time that he has increased peripheral edema. MD Complaint: shortness of breath - Related Data Home Medications Medication Instructions Recorded Confirmed Chlorthalidone 25 mg PO DAILY 06/14/18 10/02/18 Ergocalciferol (Vitamin D2) 50,000 unit PO HUGGINS 06/14/18 10/02/18 [Vitamin D2] Gabapentin 800 mg PO QID 06/14/18 10/02/18 Insulin Glargine,Hum.rec.anlog 38 unit SQ HS 06/14/18 10/02/18 [Basaglar Kwikpen U-100] Insulin Glargine,Hum.rec.anlog 44 units SQ QAM 06/14/18 10/02/18 [Basaglar Kwikpen U-100] Losartan Potassium 100 mg PO DAILY 06/14/18 10/02/18 Mesalamine [Pentasa] 1,000 mg PO QID 06/14/18 10/02/18 Pioglitazone [Actos] 45 mg PO HS 06/14/18 10/02/18 Pramipexole [Mirapex] 1 mg PO HS 06/14/18 10/02/18 Pyridoxine HCl (Vitamin B6) 100 mg PO DAILY 06/14/18 10/02/18 [Vitamin B-6] metFORMIN HCL 1,000 mg PO BID 06/14/18 10/02/18 Magnesium Oxide [Higgins] 500 mg PO BID 07/23/18 10/02/18 amLODIPine [Norvasc] 10 mg PO BID 07/23/18 10/02/18 Previous Rx's Medication Instructions Recorded Ertapenem [INVanz] 1 gm IVPB DAILY vial 08/01/18 Allergies Allergy/AdvReac Type Severity Reaction Status Date / Time codeine Allergy Swelling Verified 10/02/18 10:17 Review of Systems ROS Statement: Those systems with pertinent positive or pertinent negative responses have been documented in the HPI. ROS Other: All systems not noted in ROS Statement are negative. Past Medical History Past Medical History: Chest Pain / Angina, Hyperlipidemia, Hypertension Additional Past Medical History / Comment(s): Diabetic neuropathy, crohns, rt foot wound History of Any Multi-Drug Resistant Organisms: None Reported, ESBL Date of last positivie culture/infection: 07/25/18 MDRO Source:: ESBL FOOT Past Surgical History: Bowel Resection, Heart Catheterization With Stent, Orthopedic Surgery, Tonsillectomy Past Anesthesia/Blood Transfusion Reactions: No Reported Reaction Past Psychological History: No Psychological Hx Reported Smoking Status: Former smoker Past Alcohol Use History: None Reported Past Drug Use History: None Reported - Past Family History Father Family Medical History: Musculoskeletal Disorder Mother Family Medical History: COPD, Diabetes Mellitus General Exam - General Exam Comments Initial Comments: This is a well-developed well-nourished awake alert oriented 3 male Limitations: no limitations General appearance: alert, anxious Head exam: Present: atraumatic, normocephalic, normal inspection Eye exam: Present: normal appearance, PERRL, EOMI. Absent: scleral icterus, conjunctival injection, periorbital swelling ENT exam: Present: normal exam, mucous membranes moist Neck exam: Present: normal inspection, full ROM, other. Absent: tenderness, meningismus, lymphadenopathy Respiratory exam: Present: decreased breath sounds. Absent: respiratory distress, wheezes, rales, rhonchi, stridor Cardiovascular Exam: Present: regular rate, normal rhythm, normal heart sounds. Absent: systolic murmur, diastolic murmur, rubs, gallop, clicks GI/Abdominal exam: Present: soft, normal bowel sounds. Absent: distended, tenderness, guarding, rebound, rigid Extremities exam: Present: normal inspection, full ROM, normal capillary refill, pedal edema (There is a or 3 boot on the right foot.). Absent: tenderness, joint swelling, calf tenderness Back exam: Present: normal inspection Neurological exam: Present: alert, oriented X3, CN II-XII intact Psychiatric exam: Present: normal affect, normal mood Skin exam: Present: warm, dry, intact, normal color. Absent: rash Course Vital Signs 06/27/19 06/27/19 06/27/19 14:05 14:34 15:31 Temperature 98.7 F Pulse Rate 69 67 67 Respiratory 18 18 18 Rate Blood Pressure 161/72 169/86 O2 Sat by Pulse 92 L 93 L Oximetry 06/27/19 06/27/19 15:41 16:52 Temperature 98.6 F Pulse Rate 69 75 Respiratory 18 18 Rate Blood Pressure 170/81 O2 Sat by Pulse 93 L Oximetry Medical Decision Making - Medical Decision Making Patient indicated some relief after the initial nebulizer treatment. I did discuss case with him and his as well as with Dr. Gray. Patient be admitted for inpatient treatment and further evaluation - Lab Data Result diagrams: 06/27/19 14:29 06/27/19 14:29 Lab Results 06/27/19 06/27/19 06/27/19 Range/Units 14:29 14:29 14:29 WBC 6.8 (3.8-10.6) k/uL RBC 3.99 L (4.30-5.90) m/uL Hgb 11.8 L (13.0-17.5) gm/dL Hct 37.1 L (39.0-53.0) % MCV 93.0 (80.0-100.0) fL MCH 29.6 (25.0-35.0) pg MCHC 31.8 (31.0-37.0) g/dL RDW 15.6 H (11.5-15.5) % Plt Count 216 (150-450) k/uL Neutrophils % 81 % Lymphocytes % 8 % Monocytes % 7 % Eosinophils % 1 % Basophils % 1 % Neutrophils # 5.5 (1.3-7.7) k/uL Lymphocytes # 0.6 L (1.0-4.8) k/uL Monocytes # 0.5 (0-1.0) k/uL Eosinophils # 0.1 (0-0.7) k/uL Basophils # 0.1 (0-0.2) k/uL PT (9.0-12.0) sec INR (<1.2) APTT (22.0-30.0) sec Sodium 140 (137-145) mmol/L Potassium 5.1 (3.5-5.1) mmol/L Chloride 105 (98-107) mmol/L Carbon Dioxide 29 (22-30) mmol/L Anion Gap 6 mmol/L BUN 28 H (9-20) mg/dL Creatinine 1.42 H (0.66-1.25) mg/dL Est GFR (CKD-EPI)AfAm 62 (>60 ml/min/1.73 sqM) Est GFR (CKD-EPI)NonAf 54 (>60 ml/min/1.73 sqM) Glucose 149 H (74-99) mg/dL Calcium 9.1 (8.4-10.2) mg/dL Magnesium 2.0 (1.6-2.3) mg/dL Total Bilirubin 0.9 (0.2-1.3) mg/dL AST 31 (17-59) U/L ALT 26 (4-49) U/L Alkaline Phosphatase 112 (38-126) U/L Creatine Kinase 252 H (55-170) U/L Troponin I (0.000-0.034) ng/mL NT-Pro-B Natriuret Pep 646 pg/mL Total Protein 6.5 (6.3-8.2) g/dL Albumin 3.6 (3.5-5.0) g/dL 06/27/19 06/27/19 Range/Units 14:29 14:29 WBC (3.8-10.6) k/uL RBC (4.30-5.90) m/uL Hgb (13.0-17.5) gm/dL Hct (39.0-53.0) % MCV (80.0-100.0) fL MCH (25.0-35.0) pg MCHC (31.0-37.0) g/dL RDW (11.5-15.5) % Plt Count (150-450) k/uL Neutrophils % % Lymphocytes % % Monocytes % % Eosinophils % % Basophils % % Neutrophils # (1.3-7.7) k/uL Lymphocytes # (1.0-4.8) k/uL Monocytes # (0-1.0) k/uL Eosinophils # (0-0.7) k/uL Basophils # (0-0.2) k/uL PT 10.7 (9.0-12.0) sec INR 1.0 (<1.2) APTT 22.4 (22.0-30.0) sec Sodium (137-145) mmol/L Potassium (3.5-5.1) mmol/L Chloride (98-107) mmol/L Carbon Dioxide (22-30) mmol/L Anion Gap mmol/L BUN (9-20) mg/dL Creatinine (0.66-1.25) mg/dL Est GFR (CKD-EPI)AfAm (>60 ml/min/1.73 sqM) Est GFR (CKD-EPI)NonAf (>60 ml/min/1.73 sqM) Glucose (74-99) mg/dL Calcium (8.4-10.2) mg/dL Magnesium (1.6-2.3) mg/dL Total Bilirubin (0.2-1.3) mg/dL AST (17-59) U/L ALT (4-49) U/L Alkaline Phosphatase (38-126) U/L Creatine Kinase (55-170) U/L Troponin I <0.012 (0.000-0.034) ng/mL NT-Pro-B Natriuret Pep pg/mL Total Protein (6.3-8.2) g/dL Albumin (3.5-5.0) g/dL - EKG Data -: EKG Interpreted by Me EKG shows normal: sinus rhythm (Sinus rhythm with a right bundle-branch block as well as nonspecific inferior changes rate was 67. Interval 166 QRS 154 QT since QTC of 442/467) - Radiology Data Radiology results: report reviewed (I did review the imaging and report some evidence of increased vascular congestion), image reviewed Disposition Clinical Impression: Congestive heart failure, Bronchospasm, acute, Renal insufficiency syndrome Disposition: ADMITTED IP TO THIS [facility] Condition: Fair Referrals: Sammy Barth DO [Primary Care Provider] - 1-2 days
[2019-06-27 15:16] LABS: Basophils # (A) 0.1 k/uL (0-0.2); Basophils % (A) 1 %; Eosinophils # (A) 0.1 k/uL (0-0.7); Eosinophils % (A) 1 %; HCT 37.1 % (39.0-53.0); HGB 11.8 gm/dL (13.0-17.5); Lymphocytes # (A) 0.6 k/uL (1.0-4.8); Lymphocytes % (A) 8 %; MCH 29.6 pg (25.0-35.0); MCHC 31.8 g/dL (31.0-37.0); Monocytes # (A) 0.5 k/uL (0-1.0); Monocytes % (A) 7 %; Neutrophils # (A) 5.5 k/uL (1.3-7.7); Neutrophils % (A) 81 %; Platelet Count 216 k/uL (150-450); RBC 3.99 m/uL (4.30-5.90); RDW 15.6 % (11.5-15.5); WBC 6.8 k/uL (3.8-10.6)
[2019-06-27] MEDS ORDERED: IPRATROPIUM-ALBUTEROL 3 ML NEB INHALATION STA (15:21)
[2019-06-27 15:29] LABS: Albumin 3.6 g/dL (3.5-5.0); Calcium 9.1 mg/dL (8.4-10.2); Potassium 5.1 mmol/L (3.5-5.1); Total Bilirubin 0.9 mg/dL (0.2-1.3); Total Protein 6.5 g/dL (6.3-8.2)
[2019-06-27 15:31] LABS: Partial Thromboplastin Time 22.4 sec (22.0-30.0); Prothrombin Time 10.7 sec (9.0-12.0)
--- NOTE | 2019-06-27 17:07 | ED ---
Medical Decision Making - Lab Data Result diagrams: 06/27/19 14:29 06/27/19 14:29 Lab Results 06/27/19 06/27/19 06/27/19 Range/Units 14:29 14:29 14:29 WBC 6.8 (3.8-10.6) k/uL RBC 3.99 L (4.30-5.90) m/uL Hgb 11.8 L (13.0-17.5) gm/dL Hct 37.1 L (39.0-53.0) % MCV 93.0 (80.0-100.0) fL MCH 29.6 (25.0-35.0) pg MCHC 31.8 (31.0-37.0) g/dL RDW 15.6 H (11.5-15.5) % Plt Count 216 (150-450) k/uL Neutrophils % 81 % Lymphocytes % 8 % Monocytes % 7 % Eosinophils % 1 % Basophils % 1 % Neutrophils # 5.5 (1.3-7.7) k/uL Lymphocytes # 0.6 L (1.0-4.8) k/uL Monocytes # 0.5 (0-1.0) k/uL Eosinophils # 0.1 (0-0.7) k/uL Basophils # 0.1 (0-0.2) k/uL PT (9.0-12.0) sec INR (<1.2) APTT (22.0-30.0) sec Sodium 140 (137-145) mmol/L Potassium 5.1 (3.5-5.1) mmol/L Chloride 105 (98-107) mmol/L Carbon Dioxide 29 (22-30) mmol/L Anion Gap 6 mmol/L BUN 28 H (9-20) mg/dL Creatinine 1.42 H (0.66-1.25) mg/dL Est GFR (CKD-EPI)AfAm 62 (>60 ml/min/1.73 sqM) Est GFR (CKD-EPI)NonAf 54 (>60 ml/min/1.73 sqM) Glucose 149 H (74-99) mg/dL Calcium 9.1 (8.4-10.2) mg/dL Magnesium 2.0 (1.6-2.3) mg/dL Total Bilirubin 0.9 (0.2-1.3) mg/dL AST 31 (17-59) U/L ALT 26 (4-49) U/L Alkaline Phosphatase 112 (38-126) U/L Creatine Kinase 252 H (55-170) U/L Troponin I (0.000-0.034) ng/mL NT-Pro-B Natriuret Pep 646 pg/mL Total Protein 6.5 (6.3-8.2) g/dL Albumin 3.6 (3.5-5.0) g/dL 06/27/19 06/27/19 Range/Units 14:29 14:29 WBC (3.8-10.6) k/uL RBC (4.30-5.90) m/uL Hgb (13.0-17.5) gm/dL Hct (39.0-53.0) % MCV (80.0-100.0) fL MCH (25.0-35.0) pg MCHC (31.0-37.0) g/dL RDW (11.5-15.5) % Plt Count (150-450) k/uL Neutrophils % % Lymphocytes % % Monocytes % % Eosinophils % % Basophils % % Neutrophils # (1.3-7.7) k/uL Lymphocytes # (1.0-4.8) k/uL Monocytes # (0-1.0) k/uL Eosinophils # (0-0.7) k/uL Basophils # (0-0.2) k/uL PT 10.7 (9.0-12.0) sec INR 1.0 (<1.2) APTT 22.4 (22.0-30.0) sec Sodium (137-145) mmol/L Potassium (3.5-5.1) mmol/L Chloride (98-107) mmol/L Carbon Dioxide (22-30) mmol/L Anion Gap mmol/L BUN (9-20) mg/dL Creatinine (0.66-1.25) mg/dL Est GFR (CKD-EPI)AfAm (>60 ml/min/1.73 sqM) Est GFR (CKD-EPI)NonAf (>60 ml/min/1.73 sqM) Glucose (74-99) mg/dL Calcium (8.4-10.2) mg/dL Magnesium (1.6-2.3) mg/dL Total Bilirubin (0.2-1.3) mg/dL AST (17-59) U/L ALT (4-49) U/L Alkaline Phosphatase (38-126) U/L Creatine Kinase (55-170) U/L Troponin I <0.012 (0.000-0.034) ng/mL NT-Pro-B Natriuret Pep pg/mL Total Protein (6.3-8.2) g/dL Albumin (3.5-5.0) g/dL Disposition Clinical Impression: Congestive heart failure, Bronchospasm, acute, Renal insufficiency syndrome, Edema Disposition: ADMITTED IP TO THIS HOSP Condition: Fair Referrals: Sammy Barth DO [Primary Care Provider] - 1-2 days
[2019-06-27] MEDS: INSULIN ASPART (NovoLOG) 100 UNIT/ML VIAL SQ SCH ×2 (19:04→21:03)
[2019-06-27] MEDS: CARVEDILOL 12.5 MG TAB PO SCH (19:12)
[2019-06-27] MEDS: GABAPENTIN 400 MG CAP PO SCH ×2 (19:12→23:36)
[2019-06-27] MEDS: hydrALAZINE HCL 10 MG TAB PO SCH (19:12)
[2019-06-27] MEDS: metFORMIN 500 MG TAB PO SCH (19:15)
[2019-06-27] MEDS: IPRATROPIUM-ALBUTEROL 3 ML NEB INHALATION SCH (19:44)
[2019-06-27 20:49] LABS: Glucose,Whole Blood 222 mg/dL (75-99)
[2019-06-27] MEDS ORDERED: amLODIPine 10 MG TAB PO SCH (21:00)
[2019-06-27] MEDS ORDERED: PIOGLITAZONE 45 MG TAB PO SCH (21:00)
[2019-06-27] MEDS: MAGNESIUM OXIDE 400 MG TAB PO SCH (21:03)
[2019-06-27] MEDS: INSULIN DETEMIR (LEVEMIR) 100 UNIT/ML SYR SQ SCH (21:03)
[2019-06-27] MEDS: BALSALAZIDE DISODIUM 750 MG CAPSULE PO SCH (21:03)
[2019-06-27] MEDS: PRAMIPEXOLE 1 MG TAB PO SCH (21:03)
[2019-06-27] MEDS: FUROSEMIDE 10 MG/ML 4 ML VIAL IV SCH (21:03)
[2019-06-28] MEDS: hydrALAZINE HCL 10 MG TAB PO SCH (04:15)
[2019-06-28] MEDS: IPRATROPIUM-ALBUTEROL 3 ML NEB INHALATION SCH ×4 (04:47→19:13)
[2019-06-28 06:04] LABS: Glucose,Whole Blood 94 mg/dL (75-99)
[2019-06-28] MEDS: INSULIN ASPART (NovoLOG) 100 UNIT/ML VIAL SQ SCH ×4 (06:36→21:16)
[2019-06-28] MEDS: metFORMIN 500 MG TAB PO SCH (06:41)
[2019-06-28] MEDS: FUROSEMIDE 10 MG/ML 4 ML VIAL IV SCH (06:41)
[2019-06-28] MEDS: CARVEDILOL 12.5 MG TAB PO SCH ×2 (06:41→16:40)
[2019-06-28] MEDS ORDERED: ASPIRIN 325 MG TAB PO SCH (09:00)
[2019-06-28] MEDS ORDERED: CHLORTHALIDONE 25 MG TAB PO SCH (09:00)
[2019-06-28] MEDS: GABAPENTIN 400 MG CAP PO SCH (09:16)
[2019-06-28] MEDS: BALSALAZIDE DISODIUM 750 MG CAPSULE PO SCH ×2 (09:17→16:39)
[2019-06-28] MEDS: INSULIN DETEMIR (LEVEMIR) 100 UNIT/ML SYR SQ SCH ×2 (09:17→21:16)
[2019-06-28] MEDS: MAGNESIUM OXIDE 400 MG TAB PO SCH ×2 (09:17→20:50)
[2019-06-28] MEDS: CLOPIDOGREL 75 MG TAB PO SCH (09:17)
[2019-06-28] MEDS: LOSARTAN 50 MG TAB PO SCH (09:17)
[2019-06-28] MEDS: PYRIDOXINE 50 MG TAB PO SCH (09:18)
[2019-06-28] MEDS: ASPIRIN 81 MG PO SCH (09:18)
--- NOTE | 2019-06-28 11:42 | P.HPIM ---
History of Present Illness 59-year-old male with the known history of carotid artery disease no history of congestive heart failure came in with compensative shortness of breath.. Patient at used to smoke in the past quite a bit patient is obese may have sle ep apnea. Patient was wheezing coughing unable to bring up anything patient is started to bring up stuff after breathing treatments. Patient is admitted for CHF exacerbation although patient doesn't have any significant JVD and exam patient's BNP is not elevated. Patient does have bilateral pedal edema which is probably chronic venous insufficiency patient has a ulcer in the right leg which is completely healed. Patient has a diabetic wound. Patient was started on steroids but the patient blood sugars are expected to go because of this. Patient orthopnea is questionable and the patient denied any proximal nocturnal dyspnea Review of Systems REVIEW OF SYSTEMS: CONSTITUTIONAL: No fever, no malaise, no fatigue. HEENT: No recent visual problems or hearing problems. Denied any sore throat. CARDIOVASCULAR: No chest pain, no palpitations, no syncope. PULMONARY: no hemoptysis. GASTROINTESTINAL: No diarrhea, no nausea, no vomiting, no abdominal pain. NEUROLOGICAL: No headaches, no weakness, no numbness. HEMATOLOGICAL: Denies any bleeding or petechiae. GENITOURINARY: Denies any burning micturition, frequency, or urgency. MUSCULOSKELETAL/RHEUMATOLOGICAL: Denies any joint pain, swelling, or any muscle pain. ENDOCRINE: Denies any polyuria or polydipsia. The rest of the 14-point review of systems is negative. Past Medical History Past Medical History: Chest Pain / Angina, Diabetes Mellitus, Hyperlipidemia, Hypertension Additional Past Medical History / Comment(s): Diabetic neuropathy in legs and arms, crohns, rt foot wound History of Any Multi-Drug Resistant Organisms: None Reported, ESBL, MRSA Date of last positivie culture/infection: 07/25/18 MDRO Source:: ESBL & MRSA in Right FOOT Past Surgical History: Bowel Resection, Heart Catheterization With Stent, Orthopedic Surgery, Tonsillectomy Additional Past Surgical History / Comment(s): bowel resection in 1994 &1999, heart cath with stent at [place] April 14 2019. Past Anesthesia/Blood Transfusion Reactions: No Reported Reaction Date of Last Stent Placement:: april 2019 Past Psychological History: No Psychological Hx Reported Additional Psychological History / Comment(s): Patient was a smoker of 2 and half to 3 packs per day for 12-13 years and quit 25 years ago. He denies any ma rijuana, street drug or alcohol use. He currently lives at home with his and son. 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 There are 3 dogs and 2 cats in the home. 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 He has difficulty ambulating due to neuropathy. Smoking Status: Former smoker Past Alcohol Use History: None Reported Additional Past Alcohol Use History / Comment(s): Patient was a smoker of 2 and half to 3 packs per day for 12-13 years and quit 25 years ago. He denies any marijuana, street drug or alcohol use. He currently lives at home with his and son. He worked in the past in [employer] store and retired. He is currently on disability. There are 3 dogs and 2 cats in the home. 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 He has difficulty ambulating due to neuropathy. Past Drug Use History: None Reported - Past Family History Father Family Medical History: Musculoskeletal Disorder Mother Family Medical History: COPD, Diabetes Mellitus Medications and Allergies Home Medications Medication Instructions Recorded Confirmed Type Ergocalciferol (Vitamin D2) 50,000 unit PO HUGGINS 06/14/18 06/27/19 History [Vitamin D2] Gabapentin 800 mg PO QID 06/14/18 06/27/19 History Pramipexole [Mirapex] 1 mg PO HS 06/14/18 06/27/19 History Pyridoxine HCl (Vitamin B6) 50 mg PO DAILY 06/14/18 06/27/19 History [Vitamin B-6] metFORMIN HCL 1,000 mg PO BID 06/14/18 06/27/19 History Magnesium Oxide [Higgins] 500 mg PO BID 07/23/18 06/27/19 History Aspirin 81 mg PO DAILY 06/27/19 06/27/19 History Carvedilol [Coreg] 12.5 mg PO BID 06/27/19 06/27/19 History Clopidogrel Bisulfate [Plavix] 75 mg PO DAILY 06/27/19 06/27/19 History Furosemide [Lasix] 20 mg PO BID@1200,2100 06/27/19 06/27/19 History Furosemide [Lasix] 40 mg PO DAILY@0800 06/27/19 06/27/19 History Insulin Degludec [Tresiba 40 units SQ DAILY 06/27/19 06/27/19 History Flextouch U-100] Insulin Degludec [Tresiba 50 units SQ HS 06/27/19 06/27/19 History Flextouch U-100] Rosuvastatin Calcium [Crestor] 10 mg PO HS 06/27/19 06/27/19 History hydrALAZINE HCL [Apresoline] 20 mg PO Q8H 06/27/19 06/27/19 History sulfaSALAzine [Azulfidine] 1,000 mg PO QID 06/27/19 06/27/19 History Allergies Allergy/AdvReac Type Severity Reaction Status Date / Time codeine Allergy Anaphylaxis Verified 06/27/19 17:32 Physical Exam Vitals: Vital Signs Temp Pulse Pulse Resp BP BP Pulse Ox 06/28/19 08:55 75 06/28/19 08:39 77 89 L 06/28/19 04:00 99.6 F 70 18 135/64 92 L 06/27/19 23:46 75 19 06/27/19 23:44 99.2 F 75 19 180/82 91 L 06/27/19 20:32 99.2 F 80 20 188/86 92 L 06/27/19 20:00 80 20 06/27/19 19:57 72 06/27/19 19:46 72 90 L 06/27/19 18:49 78 20 197/68 94 L 06/27/19 18:09 75 18 182/85 92 L 06/27/19 16:52 98.6 F 75 18 170/81 93 L 06/27/19 15:41 69 18 06/27/19 15:31 67 18 06/27/19 14:34 67 18 169/86 93 L 06/27/19 14:05 98.7 F 69 18 161/72 92 L Intake and Output 06/27/19 06/28/19 06/28/19 22:59 06:59 14:59 Intake Total 10 120 Output Total 850 1800 Balance -840 -1800 120 Intake: IV 10 Invasive Line 1 10 Oral 120 Output: Urine 850 1800 Other: Voiding Method Urinal Urinal # Voids 1 Weight 153.1 kg 151.5 kg PHYSICAL EXAMINATION: GENERAL: The patient is alert and oriented x3, not in any acute distress. Well developed, well nourished. Obese HEENT: Pupils are round and equally reacting to light. EOMI. No scleral icterus. No conjunctival pallor. Normocephalic, atraumatic. No pharyngeal erythema. No thyromegaly. CARDIOVASCULAR: S1 and S2 present. No murmurs, rubs, or gallops. PULMONARY: Good air entry into bilateral lung lee does have wheezing on exam. ABDOMEN: Soft, nontender, nondistended, normoactive bowel sounds. No palpable organomegaly. MUSCULOSKELETAL: No joint swelling or deformity. EXTREMITIES: No cyanosis, clubbing, as have bilateral nonpitting pedal edema NEUROLOGICAL: Gross neurological examination did not reveal any focal deficits. SKIN: No rashes. Results CBC & Chem 7: 06/27/19 14:29 06/27/19 14:29 Labs: Abnormal Lab Results - Last 24 Hours (Table) 06/27/19 06/27/19 06/27/19 Range/Units 14:29 14:29 20:48 RBC 3.99 L (4.30-5.90) m/uL Hgb 11.8 L (13.0-17.5) gm/dL Hct 37.1 L (39.0-53.0) % RDW 15.6 H (11.5-15.5) % Lymphocytes # 0.6 L (1.0-4.8) k/uL BUN 28 H (9-20) mg/dL Creatinine 1.42 H (0.66-1.25) mg/dL Glucose 149 H (74-99) mg/dL POC Glucose (mg/dL) 222 H (75-99) mg/dL Creatine Kinase 252 H (55-170) U/L Thrombosis Risk Factor Assmnt - Choose All That Apply Any of the Below Risk Factors Present?: Yes Each Factor Represents 1 point: Age 41-60 years, Heart failure (<1month) Other Risk Factors: No Other congenital or acquired thrombophilia - If yes, enter type in comment: No Thrombosis Risk Factor Assessment Total Risk Factor Score: 2 Thrombosis Risk Factor Assessment Level: Low Risk Assessment and Plan Plan: -COPD exacerbation: Patient was started on systemic steroids inhalational treatments. Patient blood sugars are expected to go because of systemic steroids will treat with sliding scale insulin. 10 may have a competent of sleep apnea and restrictive lung disease continue with increased shortness of breath -Bilateral pedal edema and weight gain probably secondary to venous insufficiency there is no evidence of heart failure exacerbation no JVD or other evidence of pulmonary edema on the chest x-ray are elevated BNP. -Coronary artery disease patient will be resumed on his home medications for this -Renal failure: Patient appears to have chronic kidney disease stage III from diabetic nephropathy baseline creatinine. Appears to be around 1.2 because of his Lasix it may get worse tomorrow. Lasix will be held metformin will be held. Patient's angiotensin receptor judith will be held if his renal function continued to get worse. Although it's expected to get worse a bit because he received Lasix from ER. Lasix will discontinue. May have a competent of acute renal failure from excessive diuretic therapy. Chlorthalidone and Lasix will be discontinued. -Type 2 diabetes mellitus uncontrolled and elevated blood sugars and they're expected to be uncontrolled because of systemic steroids Diabetic nephropathy and neuropathy: For neuropathy patient is on gabapentin 804 times a day dose of which will be decreased due to renal dysfunction. -Obesity: Counseling regarding weight loss was provided -Restless leg syndrome for which patient is on Mirapex which will be continued -Crohn's disease for which patient is on balsalazide which will be continued. DVT prophylaxis subcu venous heparin and GI prophylaxis with Pepcid
[2019-06-28 11:56] LABS: Glucose,Whole Blood 114 mg/dL (75-99)
[2019-06-28 12:50] VITALS: BMI 41.7
[2019-06-28] MEDS: predniSONE 20 MG TAB PO SCH (15:11)
[2019-06-28] MEDS: sulfaSALAzine 500 MG TAB PO SCH ×3 (15:12→22:55)
[2019-06-28] MEDS: HEPARIN SODIUM,PORCINE 5,000 UNIT/ML 1 ML VIAL SQ SCH ×2 (16:39→22:55)
[2019-06-28] MEDS: GABAPENTIN 300 MG CAP PO SCH ×2 (16:39→22:55)
[2019-06-28 17:20] LABS: Glucose,Whole Blood 118 mg/dL (75-99)
[2019-06-28] MEDS ORDERED: ACETAMINOPHEN TAB 325 MG TAB PO PRN (19:20)
[2019-06-28] MEDS: ATORVASTATIN 20 MG TAB PO SCH (20:50)
[2019-06-28] MEDS: FAMOTIDINE 20 MG TAB PO SCH (20:50)
[2019-06-28] MEDS: PRAMIPEXOLE 1 MG TAB PO SCH (20:51)
[2019-06-28 21:12] LABS: Glucose,Whole Blood 262 mg/dL (75-99)
[2019-06-29] MEDS: IPRATROPIUM-ALBUTEROL 3 ML NEB INHALATION SCH ×4 (01:43→20:32)
[2019-06-29 07:32] LABS: Glucose,Whole Blood 75 mg/dL (75-99)
[2019-06-29 07:53] LABS: Calcium 8.5 mg/dL (8.4-10.2); Potassium 4.3 mmol/L (3.5-5.1)
[2019-06-29] MEDS: predniSONE 20 MG TAB PO SCH (08:59)
[2019-06-29] MEDS: LOSARTAN 50 MG TAB PO SCH (08:59)
[2019-06-29] MEDS: CLOPIDOGREL 75 MG TAB PO SCH (08:59)
[2019-06-29] MEDS: FAMOTIDINE 20 MG TAB PO SCH ×2 (08:59→20:16)
[2019-06-29] MEDS: ASPIRIN 81 MG PO SCH (08:59)
[2019-06-29] MEDS: GABAPENTIN 300 MG CAP PO SCH ×3 (08:59→20:15)
[2019-06-29] MEDS: CARVEDILOL 12.5 MG TAB PO SCH ×2 (08:59→17:19)
[2019-06-29] MEDS: HEPARIN SODIUM,PORCINE 5,000 UNIT/ML 1 ML VIAL SQ SCH ×2 (08:59→16:34)
[2019-06-29] MEDS: INSULIN ASPART (NovoLOG) 100 UNIT/ML VIAL SQ SCH ×4 (08:59→20:15)
[2019-06-29] MEDS: MAGNESIUM OXIDE 400 MG TAB PO SCH ×2 (08:59→20:16)
[2019-06-29] MEDS: sulfaSALAzine 500 MG TAB PO SCH ×4 (09:00→20:26)
[2019-06-29] MEDS: PYRIDOXINE 50 MG TAB PO SCH (09:00)
[2019-06-29 09:08] LABS: Glucose,Whole Blood 164 mg/dL (75-99)
[2019-06-29] MEDS: INSULIN DETEMIR (LEVEMIR) 100 UNIT/ML SYR SQ SCH ×2 (09:11→20:17)
[2019-06-29 11:40] LABS: Glucose,Whole Blood 134 mg/dL (75-99)
[2019-06-29] MEDS ORDERED: FUROSEMIDE 10 MG/ML 2 ML VIAL IV ONE (12:59)
--- NOTE | 2019-06-29 13:03 | P.DS ---
Providers Date of admission: 06/27/19 17:02 Attending physician: Brian Gray Primary care physician: Sammy [facility] Course: 59-year-old male with the known history of carotid artery disease no history of congestive heart failure came in with compensative shortness of breath.. Patient at used to smoke in the past quite a bit patient is obese may have sleep apnea. Patient was wheezing coughing unable to bring up anything patient is started to bring up stuff after breathing treatments. Patient is admitted for CHF exacerbation although patient doesn't have any significant JVD and exam patient's BNP is not elevated. Patient does have bilateral pedal edema which is probably chronic venous insufficiency patient has a ulcer in the right leg which is completely healed. Patient has a diabetic wound. Patient was started on steroids but the patient blood sugars are expected to go because of this. Patient orthopnea is questionable and the patient denied any proximal nocturnal dyspnea 06/29/2019 Patient is clinically doing well wheezing or bradycardia resolved patient mostly has mild bronchitis is mostly viral or ALLERGIC, patient may have some restrictive lung disease both of which cause his significant shortness of breath. Patient is not in heart failure patient doesn't have either diastolic or systolic dysfunction. Patient but patient does have bilateral pedal edema probably chronic venous insufficiency patient can resume his Lasix for chronic venous insufficiency with close monitoring of kidney function but the I asked him to hold his Lasix today and tomorrow as there is worsening in serum at any and can resume it from the after. Serum creatinine is 1.7 because of which I discussed metformin. 10 blood sugars may go off transiently as patient is being discharged on a short course of systemic steroids because of poorly there is a competent of COPD as well. PHYSICAL EXAMINATION: GENERAL: The patient is alert and oriented x3, not in any acute distress. Well developed, well nourished. Obese HEENT: Pupils are round and equally reacting to light. EOMI. No scleral icterus. No conjunctival pallor. Normocephalic, atraumatic. No pharyngeal erythema. No thyromegaly. CARDIOVASCULAR: S1 and S2 present. No murmurs, rubs, or gallops. PULMONARY: Good air entry into bilateral lung lee does have wheezing on exam. ABDOMEN: Soft, nontender, nondistended, normoactive bowel sounds. No palpable organomegaly. MUSCULOSKELETAL: No joint swelling or deformity. EXTREMITIES: No cyanosis, clubbing, as have bilateral nonpitting pedal edema NEUROLOGICAL: Gross neurological examination did not reveal any focal deficits. SKIN: No rashes. Please refer to my HPI from yesterday for further details of hospital physician course Assessment and Plan Plan: -COPD exacerbation: And restrictive lung disease along with ALLERGIC bronchitis shortness of breath -Bilateral pedal edema and weight gain probably secondary to venous insufficiency there is no evidence of heart failure exacerbation no JVD or other evidence of pulmonary edema on the chest x-ray are elevated BNP. -Coronary artery disease -Renal failure: Patient appears to have chronic kidney disease stage III from diabetic nephropathy baseline creatinine. There is a competent of acute renal failure secondary to diuretics Chlorthalidone and Lasix will be discontinued. -Type 2 diabetes mellitus uncontrolled and elevated blood sugars they're well controlled here in spite of systemic steroids Diabetic nephropathy and neuropathy: For neuropathy patient is on gabapentin 800 4 times a day dose of which will be decreased due to renal dysfunction. -Obesity: Counseling regarding weight loss was provided -Restless leg syndrome for which patient is on Mirapex which will be continued -Crohn's disease for which patient is on balsalazide which will be continued. Patient Condition at Discharge: Fair Plan - Discharge Summary Discharge Rx Participant: No New Discharge Prescriptions: New predniSONE 10 mg PO DAILY #10 tab Budesonide-Formot 160-4.5 Mcg [Symbicort 160-4.5 Mcg Inhaler] 2 puff INHALATION BID #1 inhaler Albuterol Inhaler [Ventolin Hfa Inhaler] 1 - 2 puff INHALATION Q6HR PRN #1 inhaler PRN Reason: Shortness Of Breath Or Wheezing Continue Ergocalciferol (Vitamin D2) [Vitamin D2] 50,000 unit PO HUGGINS Gabapentin 800 mg PO QID Pramipexole [Mirapex] 1 mg PO HS Pyridoxine HCl (Vitamin B6) [Vitamin B-6] 50 mg PO DAILY Magnesium Oxide [Higgins] 500 mg PO BID Rosuvastatin Calcium [Crestor] 10 mg PO HS Clopidogrel Bisulfate [Plavix] 75 mg PO DAILY Aspirin 81 mg PO DAILY hydrALAZINE HCL [Apresoline] 20 mg PO Q8H Carvedilol [Coreg] 12.5 mg PO BID Insulin Degludec [Tresiba Flextouch U-100] 50 units SQ HS Insulin Degludec [Tresiba Flextouch U-100] 40 units SQ DAILY sulfaSALAzine [Azulfidine] 1,000 mg PO QID Pioglitazone [Actos] 45 mg PO DAILY Furosemide [Lasix] 40 mg PO DAILY@0800 #0 Changed Furosemide [Lasix] 20 mg PO HS #0 Discontinued metFORMIN HCL 1,000 mg PO BID Discharge Medication List Ergocalciferol (Vitamin D2) [Vitamin D2] 50,000 unit PO HUGGINS 06/14/18 [History] Gabapentin 800 mg PO QID 06/14/18 [History] Pramipexole [Mirapex] 1 mg PO HS 06/14/18 [History] Pyridoxine HCl (Vitamin B6) [Vitamin B-6] 50 mg PO DAILY 06/14/18 [History] Magnesium Oxide [Higgins] 500 mg PO BID 07/23/18 [History] Aspirin 81 mg PO DAILY 06/27/19 [History] Carvedilol [Coreg] 12.5 mg PO BID 06/27/19 [History] Clopidogrel Bisulfate [Plavix] 75 mg PO DAILY 06/27/19 [History] Insulin Degludec [Tresiba Flextouch U-100] 40 units SQ DAILY 06/27/19 [History] Insulin Degludec [Tresiba Flextouch U-100] 50 units SQ HS 06/27/19 [History] Rosuvastatin Calcium [Crestor] 10 mg PO HS 06/27/19 [History] hydrALAZINE HCL [Apresoline] 20 mg PO Q8H 06/27/19 [History] sulfaSALAzine [Azulfidine] 1,000 mg PO QID 06/27/19 [History] Pioglitazone [Actos] 45 mg PO DAILY 06/28/19 [History] Albuterol Inhaler [Ventolin Hfa Inhaler] 1 - 2 puff INHALATION Q6HR PRN #1 inhaler 06/29/19 [Rx] Budesonide-Formot 160-4.5 Mcg [Symbicort 160-4.5 Mcg Inhaler] 2 puff INHALATION BID #1 inhaler 06/29/19 [Rx] Furosemide [Lasix] 20 mg PO HS #0 06/29/19 [Rx] Furosemide [Lasix] 40 mg PO DAILY@0800 #0 06/29/19 [Rx] predniSONE 10 mg PO DAILY #10 tab 06/29/19 [Rx] Follow up Appointment(s)/Referral(s): Sammy Barth DO [Primary Care Provider] - 3 Days Discharge Disposition: HOME SELF-CARE
[2019-06-29 16:50] LABS: Glucose,Whole Blood 184 mg/dL (75-99)
--- NOTE | 2019-06-29 19:00 | ECHOF ---
Referral Reason:r/o CHF MEASUREMENTS -------- HEIGHT: 182.9 cm WEIGHT: 151.5 kg BP: 35/64 RVIDd: 3.7 cm (< 3.3) IVSd: 1.5 cm (0.6 - 1.1) LVIDd: 4.7 cm (3.9 - 5.3) LVPWd: 1.7 cm (0.6 - 1.1) IVSs: 2.2 cm LVIDs: 3.4 cm LVPWs: 1.9 cm LA Diam: 4.6 cm (2.7 - 3.8) LAESV Index (A-L): 36.70 ml/m Ao Diam: 3.8 cm (2.0 - 3.7) AV Cusp: 2.4 cm (1.5 - 2.6) LA Diam: 4.6 cm (2.7 - 3.8) MV EXCURSION: 18.959 mm (> 18.000) MV EF SLOPE: 63 mm/s (70 - 150) EPSS: 0.8 cm MV E Mansoor: 0.76 m/s MV DecT: 236 ms MV A Mansoor: 0.94 m/s MV E/A Ratio: 0.80 RAP: 5.00 mmHg RVSP: 18.98 mmHg FINDINGS -------- Sinus rhythm. This was a technically adequate study. The left ventricular size is normal. There is mild concentric left ventricular hypertrophy. Overa ll left ventricular systolic function is low-normal with, an EF between 50 - 55 %. The right ventricle is normal in size. LA is moderately dilated 34-39 ml/m2 The right atrial size is normal. There is mild aortic valve sclerosis. There is no evidence of aortic regurgitation. Mild mitral annular calcification present. Mild mitral regurgitation is present. Mild tricuspid regurgitation present. Right ventricular systolic pressure is normal at < 35 mmHg. There is no evidence of pulmonary hypertension. Trace/mild (physiologic) pulmonic regurgitation. The aortic root size is normal. There is no pericardial effusion. CONCLUSIONS -------- 1. Sinus rhythm. 2. This was a technically adequate study. 3. The left ventricular size is normal. 4. Overall left ventricular systolic function is low-normal with, an EF between 50 - 55 %. 5. LA is moderately dilated 34-39 ml/m2 6. There is mild aortic valve sclerosis. 7. Mild mitral annular calcification present. 8. Mild mitral regurgitation is present. 9. Mild tricuspid regurgitation present. 10. Right ventricular systolic pressure is normal at < 35 mmHg. 11. Trace/mild (physiologic) pulmonic regurgitation. 12. The aortic root size is normal. 13. There is no pericardial effusion. [employer] SAL[employer] REPRESENTATIVE: Aditi Yancey RDCS
[2019-06-29 19:52] LABS: Glucose,Whole Blood 314 mg/dL (75-99)
[2019-06-29] MEDS: ATORVASTATIN 20 MG TAB PO SCH (20:16)
[2019-06-29] MEDS: PRAMIPEXOLE 1 MG TAB PO SCH (20:26)
[2019-06-30] MEDS: HEPARIN SODIUM,PORCINE 5,000 UNIT/ML 1 ML VIAL SQ SCH ×3 (00:30→15:35)
[2019-06-30] MEDS: IPRATROPIUM-ALBUTEROL 3 ML NEB INHALATION SCH ×4 (02:15→19:32)
[2019-06-30 07:04] LABS: Glucose,Whole Blood 94 mg/dL (75-99)
[2019-06-30] MEDS: INSULIN ASPART (NovoLOG) 100 UNIT/ML VIAL SQ SCH ×4 (07:06→20:40)
[2019-06-30] MEDS: predniSONE 20 MG TAB PO SCH (08:17)
[2019-06-30] MEDS: LOSARTAN 50 MG TAB PO SCH (08:17)
[2019-06-30] MEDS: GABAPENTIN 300 MG CAP PO SCH ×3 (08:18→20:28)
[2019-06-30] MEDS: ASPIRIN 81 MG PO SCH (08:18)
[2019-06-30] MEDS: CARVEDILOL 12.5 MG TAB PO SCH ×2 (08:18→17:27)
[2019-06-30] MEDS: CLOPIDOGREL 75 MG TAB PO SCH (08:18)
[2019-06-30] MEDS: MAGNESIUM OXIDE 400 MG TAB PO SCH ×2 (08:18→20:28)
[2019-06-30] MEDS: sulfaSALAzine 500 MG TAB PO SCH ×4 (08:18→20:28)
[2019-06-30] MEDS: FAMOTIDINE 20 MG TAB PO SCH ×2 (08:18→20:28)
[2019-06-30] MEDS: PYRIDOXINE 50 MG TAB PO SCH (08:19)
[2019-06-30] MEDS: INSULIN DETEMIR (LEVEMIR) 100 UNIT/ML SYR SQ SCH (09:46)
[2019-06-30 11:42] LABS: Glucose,Whole Blood 123 mg/dL (75-99)
[2019-06-30] MEDS ORDERED: PIOGLITAZONE 45 MG TAB PO SCH (12:15)
[2019-06-30] MEDS ORDERED: FUROSEMIDE 10 MG/ML 4 ML VIAL IV STA (12:20)
--- NOTE | 2019-06-30 12:44 | XR ---
EXAMINATION TYPE: XR chest 1V portable DATE OF EXAM: 06/30/2019 CLINICAL HISTORY: Difficulty breathing progress study. TECHNIQUE: Single AP portable upright view of the chest is obtained. COMPARISON: Chest x-ray from June 27, 2019 FINDINGS: Some chronic parenchymal change remains present without new focal airspace opacity, pleura l effusion, or pneumothorax seen bilaterally. Cardiomegaly is present. Osseous structures are intact. IMPRESSION: Chronic parenchymal changes and cardiomegaly without new suspicious acute pulmonary proce ss.
--- NOTE | 2019-06-30 13:20 | P.CRDCN ---
History of Present Illness Consult date: 06/30/19 Reason for Consult (text): Shortness of breath/edema/chest pain Consult reason: sycope Chief complaint: shortness of breath/edema/chest pain History of present illness: HISTORY OF PRESENT ILLNESS AND PLAN: This is a 59-year-old gentleman with history of morbid obesity, smoking 3PPD x 15 years, RIGHT foot DM stasis ulcer with MRSA / ESBL, COPD, DM 2, hyperlipidemia, hypertension, CAD s/p PCI on 04/14/2019 and most recently for COPD exacerbation with shortness of breath / lower extremity edema. Patient has recent complaints of shortness of breath with chest tightness this am. States he was just lying in bed when chest tightness occurred. Patient states he also recently had PCI placement at [facility]. Not sure of the exact location of the stent but has been compliant with ASA 81 mg daily and Plavix 75 mg daily at home. Most recent echo shows mildly reduced LV function at 50-55%. Troponin negative on admission 2. STAT troponin to be drawn now. Patient normally takes 40mg/20mg of Lasix at home. Oral Lasix was not continued this admission due to acute kidney injury. Patient currently given 40 Lasix IV stat. EKG shows right bundle branch block, no acute cardiology process. Patient currently receiving a breathing treatment in no acute distress. States chest tightness and wheezing continues. Patient also states he has been gaining weight at home, 15 pounds most recently. Patient also follows with wound clinic for diabetic ulcer on the right foot infected with ESBL/MRSA. Patient does have history of smoking as well 3 packs per day 15 years. No current smoking. with children. SIGNIFICANT PAST MEDICAL HISTORY: morbid obesity, smoking 3PPD x 15 years, RIGHT foot DM statis ulcer with MRSA/ESBL, COPD, DM 2, hyperlipidemia, hypertension, CAD s/p PCI on 04/14/2019 and COPD PAST SURGICAL HISTORY: See list. EKG = SR, RBBB. 67. Troponins negative x 2 at admission. Current STAT troponin negative. SIGNIFICANT LABORATORY VALUES: BUN 38 CR 1.74. Glucose 123. Chest x-ray 06/30/19 = Chronic parenchymal changes and cardiomegaly without new suspicious acute pulmonary process. Most recent echo = EF 50-55%, low normal LV systolic function. LA is moderately dilated. Mild MR. Mild TR. Most recent cardiac cath = 04/14/2019, will obtain records from [facility]. REVIEW OF SYSTEMS: CONSTITUTIONAL: Denies fever. Denies chills. EYES: Denies blurred vision. Denies blurred vision or vision changes. Denies eye pain. EARS, NOSE, MOUTH & THROAT: Denies headache. Denies sore throat. Denies ear pain Denies hemoptysis. CARDIOVASCULAR: Complains of chest pain/chest tightness. Complains of shortness of breath. Denies orthopnea. Denies PND. Denies palpitations. RESPIRATORY: Complains of cough. Complains of shortness of breath. GASTROINTESTINAL: Denies abdominal pain or distention. Denies diarrhea. Denies constipation. Denies nausea. Denies vomiting. MUSCULOSKELETAL: Denies myalgias. INTEGUMENTARY: Denies pruitis. Denies rash. ENDOCRINE: Denies fatigue. Complains of weight change. Denies polydipsia. Denies polyurina Denies heat/cold intolerance. GENITOURINARY: Denies burning, hematuria or urgency with micturation. HEMATOLOGIC: Denies history of anemia. Denies bleeding. NEUROLOGIC: Denies numbness. Denies tingling. Denies weakness. PSYCHIATRIC: Denies anxiety. Denies depression. PHYSICAL EXAM: VITAL SIGNS: 130/75, heart rate 54. Afebrile. 96% on 2 L NC. GENERAL: Morbidly obese, in no acute distress. HEENT: Head is atraumatic, normocephalic. Pupils are equal, round. Extra ocular movements intact. Mucous membranes moist. Neck supple. No JVD. No carotid bruit. No thyromegaly. LUNGS: Bilateral diminished/wheeze to auscultation. Positive wheeze. No rales or rhonchi. No chest wall tenderness on palpation or with deep breathing. HEART: Regular rate and rhythm, no rubs or gallops. S1 and S2 heard. No murmur. ABDOMEN: Abdominal exam, WNL. Bowel sounds x4 quads. Soft, non-tender, without masses, organomegaly, or abdominal aorta enlargement. EXTREMITIES/VASCULAR: Extremities have easily palpable radial, femoral, dorsalis pedis and posterior tibial pulses. No cyanosis, calf tenderness. 3-4 BLE edema. RIGHT foot wrapped for stasis ulcer. NEUROLOGIC: Patient is awake, alert and oriented x3. No focal neurologic abnormalities. FINAL IMPRESSION: 1. Fluid overload 2. CAD s/p PCI - stable 3. CDK 4. Hypertension 5. Hyperlipdemia PLAN: No acute cardiology process. START Lasix 40 mg IV every 8 hours. PRN albuterol breathing treatment STAT. Check D-Dimer. Consider Nephrology consult. Continue same all other medical/medication regime. Continue ASA/Plavix for anticoagulation. Heart healthy/low salt diet. Call with elevated D-Dimer. Nurse Practitioner note has been reviewed by the Physician. Signing provider agrees with the documented findings, assessment and plan of care. Past Medical History Past Medical History: Coronary Artery Disease (CAD), Chest Pain / Angina, COPD, Diabetes Mellitus, Hyperlipidemia, Hypertension Additional Past Medical History / Comment(s): Diabetic neuropathy in legs and arms, crohns, rt foot wound History of Any Multi-Drug Resistant Organisms: None Reported, ESBL, MRSA Date of last positivie culture/infection: 07/25/18 MDRO Source:: ESBL & MRSA in Right FOOT Past Surgical History: Bowel Resection, Heart Catheterization With Stent, Orthopedic Surgery, Tonsillectomy Additional Past Surgical History / Comment(s): bowel resection in 1994 &1999, heart cath with stent at [facility] April 14 2019. Past Anesthesia/Blood Transfusion Reactions: No Reported Reaction Date of Last Stent Placement:: april 2019 Past Psychological History: No Psychological Hx Reported Additional Psychological History / Comment(s): Patient was a smoker of 2 and half to 3 packs per day for 12-13 years and quit 25 years ago. He denies any marijuana, street drug or alcohol use. He currently lives at home with his and son. 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 He is currently on disability. There are 3 dogs and 2 cats in the home. 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 He has difficulty ambulating due to neuropathy. Smoking Status: Former smoker Past Alcohol Use History: None Reported Additional Past Alcohol Use History / Comment(s): Patient was a smoker of 2 and half to 3 packs per day for 12-13 years and quit 25 years ago. He denies any marijuana, street drug or alcohol use. He currently lives at home with his and son. 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 There are 3 dogs and 2 cats in the home. 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 He has difficulty ambulating due to neuropathy. Past Drug Use History: None Reported - Past Family History Father Family Medical History: Musculoskeletal Disorder Mother Family Medical History: COPD, Diabetes Mellitus Medications and Allergies Home Medications Medication Instructions Recorded Confirmed Type Ergocalciferol (Vitamin D2) 50,000 unit PO HUGGINS 06/14/18 06/27/19 History [Vitamin D2] Pramipexole [Mirapex] 1 mg PO HS 06/14/18 06/27/19 History Pyridoxine HCl (Vitamin B6) 50 mg PO DAILY 06/14/18 06/27/19 History [Vitamin B-6] Magnesium Oxide [Higgins] 500 mg PO BID 07/23/18 06/27/19 History Aspirin 81 mg PO DAILY 06/27/19 06/27/19 History Carvedilol [Coreg] 12.5 mg PO BID 06/27/19 06/27/19 History Clopidogrel Bisulfate [Plavix] 75 mg PO DAILY 06/27/19 06/27/19 History Insulin Degludec [Tresiba 40 units SQ DAILY 06/27/19 06/27/19 History Flextouch U-100] Insulin Degludec [Tresiba 50 units SQ HS 06/27/19 06/27/19 History Flextouch U-100] Rosuvastatin Calcium [Crestor] 10 mg PO HS 06/27/19 06/27/19 History hydrALAZINE HCL [Apresoline] 20 mg PO Q8H 06/27/19 06/27/19 History sulfaSALAzine [Azulfidine] 1,000 mg PO QID 06/27/19 06/27/19 History Pioglitazone [Actos] 45 mg PO DAILY 06/28/19 06/28/19 History Albuterol Inhaler [Ventolin Hfa 1 - 2 puff INHALATION Q6HR PRN #1 06/29/19 Rx Inhaler] inhaler Budesonide-Formot 160-4.5 Mcg 2 puff INHALATION BID #1 inhaler 06/29/19 Rx [Symbicort 160-4.5 Mcg Inhaler] Furosemide [Lasix] 20 mg PO HS #0 06/29/19 06/27/19 Rx Furosemide [Lasix] 40 mg PO DAILY@0800 #0 06/29/19 06/27/19 Rx Gabapentin [Neurontin] 600 mg PO TID #90 cap 06/29/19 Rx predniSONE 10 mg PO DAILY #10 tab 06/29/19 Rx Allergies Allergy/AdvReac Type Severity Reaction Status Date / Time codeine Allergy Anaphylaxis Verified 06/27/19 17:32 Physical Exam Vitals: Vital Signs Temp Pulse Pulse Resp BP Pulse Ox 06/30/19 12:45 62 06/30/19 12:34 68 06/30/19 11:00 97.9 F 54 L 12 130/75 96 06/30/19 08:00 67 12 06/30/19 07:54 66 06/30/19 07:45 66 06/30/19 07:00 97.7 F 67 12 114/65 96 06/30/19 02:26 64 06/30/19 02:16 62 06/30/19 00:11 97.8 F 56 L 15 133/73 91 L 06/29/19 23:38 16 06/29/19 20:43 64 06/29/19 20:34 60 06/29/19 20:19 98.2 F 60 16 150/70 90 L 06/29/19 19:00 16 06/29/19 15:40 58 L 18 06/29/19 14:57 98.3 F 58 L 18 131/71 90 L Intake and Output 06/29/19 06/30/19 06/30/19 22:59 06:59 14:59 Intake Total 222 200 Balance 222 200 Intake: Oral 222 200 Other: Voiding Method Toilet Toilet Toilet # Voids 1 1 Results 06/27/19 14:29 06/29/19 07:18 Current Medications Generic Name Dose Route Start Last Admin Trade Name Freq PRN Reason Stop Dose Admin Acetaminophen 650 mg 06/28/19 19:20 Tylenol Tab PO Q6HR PRN Fever and/ or Pain Albuterol/Ipratropium 3 ml 06/27/19 20:00 06/30/19 12:31 Duoneb 0.5 Mg-3 Mg/3 Ml Soln INHALATION 3 ml RT-Q6H ABDELRAHMAN Administration Aspirin 81 mg 06/28/19 09:00 06/30/19 08:18 Aspirin PO 81 mg DAILY ABDELRAHMAN Administration Atorvastatin Calcium 20 mg 06/28/19 21:00 06/29/19 20:16 Lipitor PO 20 mg HS [facility] Administration Carvedilol 12.5 mg 06/27/19 19:30 06/30/19 08:18 Coreg PO 12.5 mg BID-W/MEALS ABDELRAHMAN Administration Clopidogrel Bisulfate 75 mg 06/28/19 09:00 06/30/19 08:18 Plavix PO 75 mg DAILY [facility] Administration Ergocalciferol 50,000 unit 07/01/19 12:00 Vitamin D2 PO HUGGINS [facility] Famotidine 20 mg 06/28/19 21:00 06/30/19 08:18 Pepcid PO 20 mg BID ABDELRAHMAN Administration Gabapentin 600 mg 06/28/19 16:00 06/30/19 08:18 Neurontin PO 600 mg TID [facility] Administration Heparin Sodium (Porcine) 5,000 unit 06/28/19 16:00 06/30/19 08:16 Heparin SQ 5,000 unit Q8HR [facility] Administration Insulin Aspart 0 unit 06/27/19 17:30 06/30/19 11:43 Novolog SQ Not Given [facility] Protocol Insulin Detemir 44 unit 06/28/19 09:00 06/30/19 09:46 Levemir SQ 44 unit QAM [facility] Administration Insulin Detemir 38 unit 06/27/19 21:00 06/29/19 20:17 Levemir SQ 38 unit HS [facility] Administration Losartan Potassium 100 mg 06/28/19 09:00 06/30/19 08:17 Cozaar PO 100 mg DAILY [facility] Administration Magnesium Oxide 400 mg 06/27/19 21:00 06/30/19 08:18 Mag-Ox PO 400 mg BID [facility] Administration Non-Formulary Medication 50 units 06/30/19 21:00 Insulin Degludec [Tresiba Flextouch U-100] SQ HS [facility] Non-Formulary Medication 40 units 06/30/19 12:15 Insulin Degludec [Tresiba Flextouch U-100] SQ DAILY [facility] Pramipexole Dihydrochloride 1 mg 06/27/19 21:00 06/29/19 20:26 Mirapex PO 1 mg HS [facility] Administration Prednisone 40 mg 06/28/19 10:30 06/30/19 08:17 PO 40 mg DAILY [facility] Administration Pyridoxine HCl 100 mg 06/28/19 09:00 06/30/19 08:19 Vitamin B-6 PO 100 mg DAILY ABDELRAHMAN Administration Sulfasalazine 1,000 mg 06/28/19 13:00 06/30/19 12:27 Azulfidine PO 10/05/19 13:01 1,000 mg QID ABDELRAHMAN Administration Intake and Output 06/29/19 06/30/19 06/30/19 22:59 06:59 14:59 Intake Total 222 200 Balance 222 200 Intake: Oral 222 200 Other: Voiding Method Toilet Toilet Toilet # Voids 1 1 06/27/19 14:29 06/29/19 07:18 - EKG Interpretation EKG shows: sinus rhythm
[2019-06-30] MEDS ORDERED: SODIUM CHLORIDE 0.9% 1,000 ML in EMPTY BAG 1 BAG IV ONE (13:54)
[2019-06-30] MEDS: SODIUM CHLORIDE 0.9% 1,000 ML IV SCH (15:34)
[2019-06-30] MEDS ORDERED: FUROSEMIDE 10 MG/ML 4 ML VIAL IV SCH (16:00)
--- NOTE | 2019-06-30 16:36 | P.CNPUL ---
History of Present Illness Consult date: 06/30/19 Reason for consult: dyspnea Chief complaint: Shortness of breath and fluid retention with leg swelling History of present illness: This is a 59-year-old white male, remote smoking history, patient quit smoking over 20 years ago. No documented history of COPD. Patient smoked heavily for about 15 years. He is also known to have history of morbid obesity. Type 2 diabetes, hypertension, known history of coronary artery disease and previous stent done by Dr. Chappell on 04/14/2019. Patient was admitted mostly with in creased shortness of breath, recurrent episodes of heaviness in the chest, tightness in the chest, patient has been compliant with his aspirin and Plavix since the stent was placed. He had normal echocardiogram no evidence of LV dysfunction. Patient has also been complaining of significant swelling in his lower extremities which is chronic, and he is normally maintained on Lasix on a regular basis 40 mg in a.m. and 20 mg in p.m. On admission the patient had an EKG that showed a right bundle branch block. Patient also received the bronchodilators. And intermittently has been complaining of shortness of breath. D-dimer was normal. Patient had an episode earlier today of shortness of breath, given Lasix and he was also given an updraft treatment, significant improvement was noted within a few hours. Considering his recurrent episodes of shortness of breath, I was asked to see him on consultation. Review of Systems Constitutional: No fever no chills no weight loss. Eyes: Denies diplopia or blurred vision. Ears, nose, mouth and throat: Denies earache sore throat or nasal congestion. Cardiovascular: As noted in HPI Respiratory: As noted in HPI, recurrent episodes of shortness of breath and congestion Gastrointestinal: Denies nausea vomiting abdominal pain melena or hematemesis. Genitourinary: Denies hematuria or dysuria. Musculoskeletal: Denies myalgias, recurrent episodes of swelling in lower extremities maintained on Lasix. Integumentary: Denies pruritus, Denies rash Neurological: Denies any headache blurred vision dizziness or syncope. Psychiatric: Denies any symptoms of anxiety or depression Endocrine: Denies any heat or cold intolerance. Past Medical History Past Medical History: Coronary Artery Disease (CAD), Chest Pain / Angina, COPD, Diabetes Mellitus, Hyperlipidemia, Hypertension Additional Past Medical History / Comment(s): Diabetic neuropathy in legs and arms, crohns, rt foot wound History of Any Multi-Drug Resistant Organisms: None Reported, ESBL, MRSA Date of last positivie culture/infection: 07/25/18 MDRO Source:: ESBL & MRSA in Right FOOT Past Surgical History: Bowel Resection, Heart Catheterization With Stent, Orthopedic Surgery, Tonsillectomy Additional Past Surgical History / Comment(s): bowel resection in 1994 &1999, heart cath with stent at [place] April 14 2019. Past Anesthesia/Blood Transfusion Reactions: No Reported Reaction Date of Last Stent Placement:: april 2019 Past Psychological History: No Psychological Hx Reported Additional Psychological History / Comment(s): Patient was a smoker of 2 and half to 3 packs per day for 12-13 years and quit 25 years ago. He denies any marijuana, street drug or alcohol use. He currently lives at home with his and son. He worked in the past in [employer] and retired. He is currently on disability. There are 3 dogs and 2 cats in the home. 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 He has difficulty ambulating due to neuropathy. Smoking Status: Former smoker Past Alcohol Use History: None Reported Additional Past Alcohol Use History / Comment(s): Patient was a smoker of 2 and half to 3 packs per day for 12-13 years and quit 25 years ago. He denies any ma rijuana, street drug or alcohol use. He currently lives at home with his and son. 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 He is currently on disability. There are 3 dogs and 2 cats in the home. 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 He has difficulty ambulating due to neuropathy. Past Drug Use History: None Reported - Past Family History Father Family Medical History: Musculoskeletal Disorder Mother Family Medical History: COPD, Diabetes Mellitus Medications and Allergies Home Medications Medication Instructions Recorded Confirmed Type Ergocalciferol (Vitamin D2) 50,000 unit PO HUGGINS 06/14/18 06/27/19 History [Vitamin D2] Pramipexole [Mirapex] 1 mg PO HS 06/14/18 06/27/19 History Pyridoxine HCl (Vitamin B6) 50 mg PO DAILY 06/14/18 06/27/19 History [Vitamin B-6] Magnesium Oxide [Higgins] 500 mg PO BID 07/23/18 06/27/19 History Aspirin 81 mg PO DAILY 06/27/19 06/27/19 History Carvedilol [Coreg] 12.5 mg PO BID 06/27/19 06/27/19 History Clopidogrel Bisulfate [Plavix] 75 mg PO DAILY 06/27/19 06/27/19 History Insulin Degludec [Tresiba 40 units SQ DAILY 06/27/19 06/27/19 History Flextouch U-100] Insulin Degludec [Tresiba 50 units SQ HS 06/27/19 06/27/19 History Flextouch U-100] Rosuvastatin Calcium [Crestor] 10 mg PO HS 06/27/19 06/27/19 History hydrALAZINE HCL [Apresoline] 20 mg PO Q8H 06/27/19 06/27/19 History sulfaSALAzine [Azulfidine] 1,000 mg PO QID 06/27/19 06/27/19 History Pioglitazone [Actos] 45 mg PO DAILY 06/28/19 06/28/19 History Albuterol Inhaler [Ventolin Hfa 1 - 2 puff INHALATION Q6HR PRN #1 06/29/19 Rx Inhaler] inhaler Budesonide-Formot 160-4.5 Mcg 2 puff INHALATION BID #1 inhaler 06/29/19 Rx [Symbicort 160-4.5 Mcg Inhaler] Furosemide [Lasix] 20 mg PO HS #0 06/29/19 06/27/19 Rx Furosemide [Lasix] 40 mg PO DAILY@0800 #0 06/29/19 06/27/19 Rx Gabapentin [Neurontin] 600 mg PO TID #90 cap 06/29/19 Rx predniSONE 10 mg PO DAILY #10 tab 06/29/19 Rx Allergies Allergy/AdvReac Type Severity Reaction Status Date / Time codeine Allergy Anaphylaxis Verified 06/27/19 17:32 Physical Exam Vitals: Vital Signs Temp Pulse Pulse Resp BP Pulse Ox 06/30/19 15:46 98.6 F 59 L 18 151/79 94 L 06/30/19 12:45 62 06/30/19 12:34 68 06/30/19 11:00 97.9 F 54 L 12 130/75 96 06/30/19 08:00 67 12 06/30/19 07:54 66 06/30/19 07:45 66 06/30/19 07:00 97.7 F 67 12 114/65 96 06/30/19 02:26 64 06/30/19 02:16 62 06/30/19 00:11 97.8 F 56 L 15 133/73 91 L 06/29/19 23:38 16 06/29/19 20:43 64 06/29/19 20:34 60 06/29/19 20:19 98.2 F 60 16 150/70 90 L 06/29/19 19:00 16 Intake and Output 06/30/19 06/30/19 06/30/19 06:59 14:59 22:59 Intake Total 200 Balance 200 Intake: Oral 200 Other: Voiding Method Toilet Toilet # Voids 1 3 Physical Exam: Revealed a 59-year-old white male, obese, in no distress, on few liters nasal cannula. Head: Atraumatic normocephalic. HEENT:[Neck is supple.] [No neck masses.] [No thyromegaly.] [No JVD.] Short obese neck, Mallampati class IV. Chest: [Diminished breath sounds at the bases no crackles nor rhonchi no wheezes.] Cardiac Exam: [Normal S1 and S2, no S3 gallop, no murmur.] Abdomen: [Obese, Soft, nontender, no megaly, no rebound, no guarding, normal bowel sounds.] Extremities: [No clubbing, 2+ bipedal edema, no cyanosis.] Neurological Exam: [No focal neurologic deficit.] Alert oriented 3 Psychiatric: Normal mood affect and normal mental status examination. Skin: No rashes. Lymphatics: No lymphadenopathy. Results - Laboratory Findings CBC and BMP: 06/27/19 14:29 06/29/19 07:18 PT/INR, D-dimer PT 10.7 sec (9.0-12.0) 06/27/19 14:29 INR 1.0 (<1.2) 06/27/19 14:29 D-Dimer 0.50 mg/L FEU (<0.60) 06/30/19 13:52 Abnormal lab findings: Abnormal Labs 06/27/19 06/27/19 06/27/19 14:29 14:29 20:48 RBC 3.99 L Hgb 11.8 L Hct 37.1 L RDW 15.6 H Lymphocytes # 0.6 L Carbon Dioxide BUN 28 H Creatinine 1.42 H Glucose 149 H POC Glucose (mg/dL) 222 H Creatine Kinase 252 H 06/28/19 06/28/19 06/28/19 11:53 17:01 21:11 RBC Hgb Hct RDW Lymphocytes # Carbon Dioxide BUN Creatinine Glucose POC Glucose (mg/dL) 114 H 118 H 262 H Creatine Kinase 06/29/19 06/29/19 06/29/19 07:18 09:07 11:36 RBC Hgb Hct RDW Lymphocytes # Carbon Dioxide 33 H BUN 38 H Creatinine 1.74 H Glucose POC Glucose (mg/dL) 164 H 134 H Creatine Kinase 06/29/19 06/29/19 06/30/19 16:49 19:49 11:41 RBC Hgb Hct RDW Lymphocytes # Carbon Dioxide BUN Creatinine Glucose POC Glucose (mg/dL) 184 H 314 H 123 H Creatine Kinase - Diagnostic Findings Chest x-ray: image reviewed (Chest x-ray showed no evidence of acute process, chronic parenchymal changes noted otherwise no evidence of pneumonia and no evidence of CHF and no evidence of interstitial lung disease.) Assessment and Plan Assessment: Impression: Chronic Shortness of breath, multifactorial, I believe it is secondary to diastolic congestive heart failure, some component of chronic obstructive lung disease and morbid obesity/deconditioning. Coronary artery disease status post PCI, had a relatively normal echocardiogram, no evidence of LV dysfunction Benign essential hypertension Dyslipidemia Type 2 diabetes with diabetic neuropathy History of bowel resection and cardiac catheterization with stent placement. Recommendation: Continue diuretics, Continue bronchodilators, Should have outpatient follow-up in our office for full PFT, and further evaluation of his pulmonary status. In the meantime continue bronchodilators. We'll continue to follow-up Time with Patient: Greater than 30
[2019-06-30 17:06] LABS: Glucose,Whole Blood 263 mg/dL (75-99)
[2019-06-30] MEDS: ATORVASTATIN 20 MG TAB PO SCH (20:28)
[2019-06-30] MEDS: PRAMIPEXOLE 1 MG TAB PO SCH (20:28)
[2019-06-30] MEDS: FUROSEMIDE 10 MG/ML 4 ML VIAL IV SCH (20:29)
[2019-06-30 20:30] LABS: Glucose,Whole Blood 247 mg/dL (75-99)
[2019-06-30] MEDS ORDERED: INSULIN DETEMIR (LEVEMIR) 100 UNIT/ML SYR SQ SCH (21:00)
--- NOTE | 2019-06-30 21:05 | PN ---
PROGRESS NOTE DATE OF SERVICE: 06/30/2019. This 59-year-old gentleman was admitted with shortness of breath, possible congestive heart failure, acute exacerbation, COPD exacerbation. The patient also complains of some chest discomfort. Cardiology workup is in progress also. The most recent chest x- ray which was reviewed personally by me showed some increased bronchovascular markings. The patient's BNP 646. A 2D echo with Doppler showed ejection fraction about 50-55 percent, about which is low-normal and minimal valvular abnormalities also. PAST MEDICAL HISTORY: Reviewed. REVIEW OF SYSTEMS: Cardiovascular system: No angina or palpitations. RESPIRATORY: As mentioned earlier. GASTROINTESTINAL: As mentioned earlier. : No dysuria. NERVOUS SYSTEM: No numbness or weakness. CURRENT MEDICATIONS: Current medications are reviewed and include: 1. Tylenol 650 q.6h p.r.n. 2. DuoNeb q.i.d. and p.r.n. 3. Aspirin 81 mg. 4. Lipitor 20 mg. 5. Coreg 12.5. 6. Plavix. 7. Vitamin D3. 8. Pepcid. 9. Lasix 40 IV q.i.d. 10.Neurontin. 11.Heparin. 12.NovoLog. 13.Levemir. 14.Cozaar. 15.Magnesium oxide. 16.Mirapex. 17.Prednisone. 18.Sulfasalazine. 19.Doses reviewed. PHYSICAL EXAM: Patient is alert and oriented times three. Pulse 59, blood pressure 151/79, respiration 18, temperature 98.2, pulse ox 94% on 1 L. HEENT: Conjunctivae normal. Neck is no jugular venous distention. Cardiovascular: S1, S2 muffled. Ejection systolic murmur. Respirations: Breath sounds diminished in the bases. A few scattered rhonchi and crackles in the bases. ABDOMEN: Soft, obese, nontender. LEGS: Bilateral leg edema. NERVOUS SYSTEM: No focal deficits. LABS: At this time, WBC 6.2, hemoglobin 11.8, creatinine is 1.74. Glucose 263. ASSESSMENT: 1. Shortness of breath multifactorial possibly congestive heart failure acute exacerbation with acute on chronic systolic dysfunction, ejection fraction is 50-55 percent. 2. Asthma/chronic obstructive pulmonary disease acute exacerbation. 3. Bilateral pedal edema. 4. Obesity with body mass index of 41.7. 5. History of coronary artery disease. 6. History of chronic obstructive pulmonary disease. 7. Diabetes mellitus type 2. 8. Hypertension. 9. Hyperlipidemia. 10.History of diabetic peripheral neuropathy. 11.History ESBL and MRSA. 12.History of coronary artery disease/ stent. 13.History of bowel resection. 14.History of cardiac catheterization. 15.History of nicotine dependence. RECOMMENDATIONS AND DISCUSSION: In this 59-year-old gentleman who presented with multiple complex medical issues, we will monitor the patient closely, continue the current medications, management and symptomatic treatment. I recommend IV diuresis. Monitor fluid/electrolyte balance closely and fluid restriction 1200 mL per 24 hours. Also recommend continue with bronchodilators. Closely follow with pulmonology and Cardiology. Otherwise the patient is on IV steroids also. Guarded prognosis because of multiple complex medical issues. Further recommendations to follow. See orders for details. We will maintain daily weight. MMODL / GEENAN: [id number] /
[2019-07-01] MEDS: HEPARIN SODIUM,PORCINE 5,000 UNIT/ML 1 ML VIAL SQ SCH ×3 (00:17→15:54)
[2019-07-01 02:36] LABS: Glucose,Whole Blood 64 mg/dL (75-99)
[2019-07-01 02:55] LABS: Glucose,Whole Blood 71 mg/dL (75-99)
[2019-07-01 03:12] LABS: Glucose,Whole Blood 117 mg/dL (75-99)
[2019-07-01] MEDS: IPRATROPIUM-ALBUTEROL 3 ML NEB INHALATION SCH ×4 (03:31→20:10)
[2019-07-01] MEDS: FUROSEMIDE 10 MG/ML 4 ML VIAL IV SCH ×2 (04:24→20:00)
[2019-07-01 06:59] LABS: Glucose,Whole Blood 116 mg/dL (75-99)
[2019-07-01 07:46] LABS: HCT 34.7 % (39.0-53.0); HGB 11.6 gm/dL (13.0-17.5); MCH 31.2 pg (25.0-35.0); MCHC 33.4 g/dL (31.0-37.0); MCV 93.5 fL (80.0-100.0); Mean Platelet Volume 7.6; Platelet Count 244 k/uL (150-450); RBC 3.71 m/uL (4.30-5.90); RDW 15.1 % (11.5-15.5); WBC 5.2 k/uL (3.8-10.6)
[2019-07-01] MEDS: INSULIN DETEMIR (LEVEMIR) 100 UNIT/ML SYR SQ SCH ×2 (07:48→20:01)
[2019-07-01] MEDS: LOSARTAN 50 MG TAB PO SCH (07:49)
[2019-07-01] MEDS: CLOPIDOGREL 75 MG TAB PO SCH (07:49)
[2019-07-01] MEDS: GABAPENTIN 300 MG CAP PO SCH ×3 (07:49→20:00)
[2019-07-01] MEDS: CARVEDILOL 12.5 MG TAB PO SCH ×2 (07:49→17:42)
[2019-07-01] MEDS: predniSONE 20 MG TAB PO SCH (07:49)
[2019-07-01] MEDS: INSULIN ASPART (NovoLOG) 100 UNIT/ML VIAL SQ SCH ×4 (07:50→21:35)
[2019-07-01] MEDS: MAGNESIUM OXIDE 400 MG TAB PO SCH ×2 (07:50→20:00)
[2019-07-01] MEDS: ASPIRIN 81 MG PO SCH (07:50)
[2019-07-01] MEDS: FAMOTIDINE 20 MG TAB PO SCH ×2 (07:50→20:00)
[2019-07-01] MEDS: sulfaSALAzine 500 MG TAB PO SCH ×4 (07:50→20:00)
[2019-07-01] MEDS: PYRIDOXINE 50 MG TAB PO SCH (07:53)
[2019-07-01 08:02] LABS: Calcium 8.6 mg/dL (8.4-10.2); Potassium 4.3 mmol/L (3.5-5.1)
[2019-07-01] MEDS: guaiFENesin 600 MG TABLET.ER PO SCH ×2 (09:07→20:00)
--- NOTE | 2019-07-01 11:20 | P.NPCON ---
History of Present Illness - Reason for Consult acute renal failure, chronic renal failure - History of Present Illness Reason for consultation: Acute kidney injury on chronic kidney disease History of present illness: Patient is a 59-year-old male seen in renal consultation for acute kidney injury and chronic kidney disease. Patient has chronic kidney disease stage III with baseline creatinine in the range of 1.2-1.4. Creatinine was 1.42 on admission and peaked at 1.7 for this admission. It is stable at 1.73 today. Patient presented to the hospital with shortness of breath and worsening edema in his lower extremity is. Patient is being diuresed with IV Lasix. He is currently maintained on IV Lasix 40 mg 3 times daily. Overall his symptoms have improved. Edema is also improved. Patient's urine output is documented as 2.3 L in the last 24 hours. Oral intake is good. No vomiting or diarrhea. Patient does have history of coronary artery disease and had a stent placed in April 2019. He also has history of diabetes mellitus. He denies regular use of nonsteroidals. Denies family history of renal disease. No fever or chills. He does admit to intermittent dry cough. Vital signs are stable. General: The patient appeared well nourished and normally developed. HEENT: Head exam is unremarkable. Neck is without jugular venous distension. LUNGS: Breath sounds decreased. HEART: Rate and Rhythm are regular. First and second heart sounds normal. No murmurs, rubs or gallops. ABDOMEN: Abdominal exam reveals normal bowel sounds. Non-tender and non- distended. No evidence of peritonitis. EXTREMITITES: 1+ edema. Past Medical History Past Medical History: Coronary Artery Disease (CAD), Chest Pain / Angina, COPD, Diabetes Mellitus, Hyperlipidemia, Hypertension Additional Past Medical History / Comment(s): Diabetic neuropathy in legs and arms, crohns, rt foot wound History of Any Multi-Drug Resistant Organisms: None Reported, ESBL, MRSA Date of last positivie culture/infection: 07/25/18 MDRO Source:: ESBL & MRSA in Right FOOT Past Surgical History: Bowel Resection, Heart Catheterization With Stent, Orthopedic Surgery, Tonsillectomy Additional Past Surgical History / Comment(s): bowel resection in 1994 &1999, heart cath with stent at [place] April 14 2019. Past Anesthesia/Blood Transfusion Reactions: No Reported Reaction Date of Last Stent Placement:: april 2019 Past Psychological History: No Psychological Hx Reported Additional Psychological History / Comment(s): Patient was a smoker of 2 and half to 3 packs per day for 12-13 years and quit 25 years ago. He denies any marijuana, street drug or alcohol use. He currently lives at home with his and son. 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 There are 3 dogs and 2 cats in the home. 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 He has difficulty ambulating due to neuropathy. Smoking Status: Former smoker Past Alcohol Use History: None Reported Additional Past Alcohol Use History / Comment(s): Patient was a smoker of 2 and half to 3 packs per day for 12-13 years and quit 25 years ago. He denies any marijuana, street drug or alcohol use. He currently lives at home with his and son. He worked in the past in [employer] store and retired. He is currently on disability. There are 3 dogs and 2 cats in the home. 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 He has difficulty ambulating due to neuropathy. Past Drug Use History: None Reported - Past Family History Father Family Medical History: Musculoskeletal Disorder Mother Family Medical History: COPD, Diabetes Mellitus Medications and Allergies Home Medications Medication Instructions Recorded Confirmed Type Ergocalciferol (Vitamin D2) 50,000 unit PO HUGGINS 06/14/18 06/27/19 History [Vitamin D2] Pramipexole [Mirapex] 1 mg PO HS 06/14/18 06/27/19 History Pyridoxine HCl (Vitamin B6) 50 mg PO DAILY 06/14/18 06/27/19 History [Vitamin B-6] Magnesium Oxide [Higgins] 500 mg PO BID 07/23/18 06/27/19 History Aspirin 81 mg PO DAILY 06/27/19 06/27/19 History Carvedilol [Coreg] 12.5 mg PO BID 06/27/19 06/27/19 History Clopidogrel Bisulfate [Plavix] 75 mg PO DAILY 06/27/19 06/27/19 History Insulin Degludec [Tresiba 40 units SQ DAILY 06/27/19 06/27/19 History Flextouch U-100] Insulin Degludec [Tresiba 50 units SQ HS 06/27/19 06/27/19 History Flextouch U-100] Rosuvastatin Calcium [Crestor] 10 mg PO HS 06/27/19 06/27/19 History hydrALAZINE HCL [Apresoline] 20 mg PO Q8H 06/27/19 06/27/19 History sulfaSALAzine [Azulfidine] 1,000 mg PO QID 06/27/19 06/27/19 History Pioglitazone [Actos] 45 mg PO DAILY 06/28/19 06/28/19 History Albuterol Inhaler [Ventolin Hfa 1 - 2 puff INHALATION Q6HR PRN #1 06/29/19 Rx Inhaler] inhaler Budesonide-Formot 160-4.5 Mcg 2 puff INHALATION BID #1 inhaler 06/29/19 Rx [Symbicort 160-4.5 Mcg Inhaler] Furosemide [Lasix] 20 mg PO HS #0 06/29/19 06/27/19 Rx Furosemide [Lasix] 40 mg PO DAILY@0800 #0 06/29/19 06/27/19 Rx Gabapentin [Neurontin] 600 mg PO TID #90 cap 06/29/19 Rx predniSONE 10 mg PO DAILY #10 tab 06/29/19 Rx Allergies Allergy/AdvReac Type Severity Reaction Status Date / Time codeine Allergy Anaphylaxis Verified 06/27/19 17:32 Physical Exam Vitals: Vital Signs Temp Pulse Pulse Resp BP Pulse Ox 07/01/19 08:44 72 07/01/19 08:32 72 07/01/19 08:00 67 18 07/01/19 07:00 98.1 F 67 18 140/72 92 L 07/01/19 03:39 71 07/01/19 03:31 71 07/01/19 03:07 98.1 F 60 18 123/69 90 L 06/30/19 20:13 98.4 F 61 18 150/68 90 L 06/30/19 19:49 64 06/30/19 19:33 64 18 94 L 06/30/19 15:46 98.6 F 59 L 18 151/79 94 L 06/30/19 12:45 62 06/30/19 12:34 68 Intake and Output 06/30/19 07/01/19 07/01/19 22:59 06:59 14:59 Intake Total 480 240 Output Total 1610 700 Balance -1130 -700 240 Intake: Oral 480 Tube Feeding 240 Output: Urine 1610 700 Other: Voiding Method Toilet Toilet # Voids 1 Weight 150.2 kg Results - Lab Results Most recent lab results Calcium 8.6 mg/dL (8.4-10.2) 07/01/19 07:17 Magnesium 2.0 mg/dL (1.6-2.3) 06/27/19 14:29 07/01/19 07:17 07/01/19 07:17 Assessment and Plan Plan: Assessment: 1. Acute kidney injury mostly prerenal secondary to cardiorenal syndrome. Renal function stable. Creatinine 1.73 today. 2. Chronic kidney disease stage III with baseline creatinine in the range of 1.2-1.4 secondary to nephrosclerosis. 3. Acute on chronic diastolic CHF. 4. Volume overload. Improving with diuresis. 5. Insulin-dependent diabetes mellitus. Plan: Agree with decreasing Lasix to 40 mg IV twice daily. Check urinalysis. Check renal ultrasound. Avoid nephrotoxins. Repeat electrolytes in the morning. Thank you for the consultation. I will continue to follow patient with you during his hospital stay.
[2019-07-01 11:55] LABS: Glucose,Whole Blood 169 mg/dL (75-99)
[2019-07-01] MEDS ORDERED: ERGOCALCIFEROL 50,000 UNIT CAP PO SCH (12:00)
--- NOTE | 2019-07-01 12:36 | P.PN ---
Subjective Progress Note Date: 07/01/19 Principal diagnosis: Shortness of breath, and fluid retention This is a 59-year-old white male, remote smoking history, patient quit smoking over 20 years ago. No documented history of COPD. Patient smoked heavily for about 15 years. He is also known to have history of morbid obesity. Type 2 diabetes, hypertension, known history of coronary artery disease and previous stent done by Dr. Chappell on 04/14/2019. Patient was admitted mostly with increased shortness of breath, recurrent episodes of heaviness in the chest, tightness in the chest, patient has been compliant with his aspirin and Plavix since the stent was placed. He had normal echocardiogram no evidence of LV dysfunction. Patient has also been complaining of significant swelling in his lower extremities which is chronic, and he is normally maintained on Lasix on a regular basis 40 mg in a.m. and 20 mg in p.m. On admission the patient had an EKG that showed a right bundle branch block. Patient also received the bronchodilators. And intermittently has been complaining of shortness of breath. D-dimer was normal. Patient had an episode earlier today of shortness of breath, given Lasix and he was also given an updraft treatment, significant improvement was noted within a few hours. Considering his recurrent episodes of shortness of breath, I was asked to see him on consultation. On 07/01/2019 patient seen in follow-up on medical surgical floor. he is awake and alert, no acute distress, he is currently on room air, pulse ox 92%, afebrile, hemodynamically stable. No complaints of chest pain, he states his breathing is easier, his lower extremity edema is improving, he continues to diu rese, he is in -1630 ML over last 24 hours. Lung sounds reveal a few scattered wheezes, patient remains on oral prednisone. Vital signs have been stable overnight Objective - Vital Signs Vital signs: Vital Signs Temp 98.1 F 07/01/19 07:00 Pulse 72 07/01/19 08:44 Resp 18 07/01/19 08:00 BP 140/72 07/01/19 07:00 Pulse Ox 92 L 07/01/19 07:00 Intake & Output 06/30/19 07/01/19 07/01/19 18:59 06:59 18:59 Intake Total 440 240 240 Output Total 410 1900 500 Balance 30 -1660 -260 Weight 150.2 kg Intake: Oral 440 240 Tube Feeding 240 Output: Urine 410 1900 500 Other: Voiding Method Toilet Toilet Toilet # Voids 1 - Exam GENERAL EXAM: Alert, pleasant, 59-year-old white male on room air comfortable in no apparent distress. HEAD: Normocephalic/atraumatic. EYES: Normal reaction of pupils, equal size. Conjunctiva pink, sclera white. NOSE: Clear with pink turbinates. THROAT: No erythema or exudates. NECK: No masses, no JVD, no thyroid enlargement, no adenopathy. CHEST: No chest wall deformity. Symmetrical expansion. LUNGS: Equal air entry with a few scattered wheeze, rhonchi or dullness. CVS: Regular rate and rhythm, normal S1 and S2, no gallops, no murmurs, no rubs ABDOMEN: Soft, nontender. No hepatosplenomegaly, normal bowel sounds, no guarding or rigidity. EXTREMITIES: No clubbing, no edema, no cyanosis, 2+ pulses and upper and lower extremities. MUSCULOSKELETAL: Muscle strength and tone normal. SPINE: No scoliosis or deformity SKIN: No rashes CENTRAL NERVOUS SYSTEM: Alert and oriented -3. No focal deficits, tone is normal in all 4 extremities. PSYCHIATRIC: Alert and oriented -3. Appropriate affect. Intact judgment and insight. - Labs CBC & Chem 7: 07/01/19 07:17 07/01/19 07:17 Labs: Abnormal Lab Results - Last 24 Hours (Table) 06/30/19 06/30/19 07/01/19 Range/Units 17:05 20:28 02:35 RBC (4.30-5.90) m/uL Hgb (13.0-17.5) gm/dL Hct (39.0-53.0) % Carbon Dioxide (22-30) mmol/L BUN (9-20) mg/dL Creatinine (0.66-1.25) mg/dL Glucose (74-99) mg/dL POC Glucose (mg/dL) 263 H 247 H 64 L (75-99) mg/dL 07/01/19 07/01/19 07/01/19 Range/Units 02:54 03:10 06:58 RBC (4.30-5.90) m/uL Hgb (13.0-17.5) gm/dL Hct (39.0-53.0) % Carbon Dioxide (22-30) mmol/L BUN (9-20) mg/dL Creatinine (0.66-1.25) mg/dL Glucose (74-99) mg/dL POC Glucose (mg/dL) 71 L 117 H 116 H (75-99) mg/dL 07/01/19 07/01/19 07/01/19 Range/Units 07:17 07:17 11:54 RBC 3.71 L (4.30-5.90) m/uL Hgb 11.6 L (13.0-17.5) gm/dL Hct 34.7 L (39.0-53.0) % Carbon Dioxide 34 H (22-30) mmol/L BUN 40 H (9-20) mg/dL Creatinine 1.73 H (0.66-1.25) mg/dL Glucose 116 H (74-99) mg/dL POC Glucose (mg/dL) 169 H (75-99) mg/dL Assessment and Plan Plan: Assessment: #1. Chronic shortness of breath, multifactorial, related to acute exacerbation of diastolic congestive heart failure and a component of COPD, morbid obesity/deconditioning #2. Coronary artery disease status post PCI, with no evidence of LV dysfunction #3. Benign essential hypertension #4. Dyslipidemia #5. Type 2 diabetes mellitus with diabetic neuropathy #6. History of bowel resection Plan: Continues to diurese, breathing easier, lung sounds are stable, no complaints of chest pain, cardiology is following, last bronchospastic on today's exam, he continues on oral prednisone, continue nebulized bronchodilators, we will add Mucinex, start Symbicort, we'll continue to follow I performed a history & physical examination of the patient and discussed their management with my nurse practitioner, Ale Campbell. I reviewed the nurse practitioner's note and agree with the documented findings and plan of care. Lung sounds are positive for end expiratory wheezes. The findings and the impression was discussed with the patient. I attest to the documentation by the nurse practitioner. Time with Patient: Less than 30
[2019-07-01] MEDS: SODIUM CHLORIDE 0.9% 1,000 ML IV SCH (13:21)
--- NOTE | 2019-07-01 14:58 | P.PN ---
Subjective Progress Note Date: 07/01/19 Principal diagnosis: CHF/Bronchospasm This is a 59-year-old gentleman with history of morbid obesity, smoking 3PPD x 15 years, RIGHT foot DM stasis ulcer with MRSA / ESBL, COPD, DM 2, hyperlipidemia, hypertension, CAD s/p PCI on 04/14/2019 and most recently for COPD exacerbation with shortness of breath / lower extremity edema. Patient has recent complaints of shortness of breath with chest tightness this am. States he was just lying in bed when chest tightness occurred. Patient states he also recently had PCI placement at [facility]. Not sure of the exact location of the stent but has been compliant with ASA 81 mg daily and Plavix 75 mg daily at h ome. Most recent echo shows mildly reduced LV function at 50-55%. Troponin negative on admission 2. STAT troponin to be drawn now. Patient normally takes 40mg/20mg of Lasix at home. Oral Lasix was not continued this admission due to acute kidney injury. Patient currently given 40 Lasix IV stat. EKG shows right bundle branch block, no acute cardiology process. Patient currently receiving a breathing treatment in no acute distress. States chest tightness and wheezing continues. Patient also states he has been gaining weight at home, 15 pounds most recently. Patient also follows with wound clinic for diabetic ulcer on the right foot infected with ESBL/MRSA. Patient does have history of smoking as well 3 packs per day 15 years. No current smoking. with children. SIGNIFICANT PAST MEDICAL HISTORY: morbid obesity, smoking 3PPD x 15 years, RIGHT foot DM statis ulcer with MRSA/ESBL, COPD, DM 2, hyperlipidemia, hypertension, CAD s/p PCI on 04/14/2019 and COPD PAST SURGICAL HISTORY: See list. EKG = SR, RBBB. 67. Troponins negative x 2 at admission. Current STAT troponin negative. SIGNIFICANT LABORATORY VALUES: BUN 38 CR 1.74. Glucose 123. Chest x-ray 06/30/19 = Chronic parenchymal changes and cardiomegaly without new suspicious acute pulmonary process. Most recent echo = EF 50-55%, low normal LV systolic function. LA is moderately dilated. Mild MR. Mild TR. Most recent cardiac cath = 04/14/2019, will obtain records from [facility] s/p PCI. Progress note 07/01/19 PROGRESS NOTE: PHYSICAL EXAMINATION: HEENT: Head is atraumatic, normocephalic. Pupils are equal, round. Sclerae anicteric. Conjunctivae are clear. Mucous membranes of the mouth are moist. Neck is supple. There is no jugular venous distention. No carotid bruit is heard. No thyromegaly. LUNGS: Diminished to auscultation. Scabt wheeze. No rales or rhonchi. No chest w all tenderness is noted on palpation or with deep breathing. HEART: Regular rate and rhythm without murmurs, rubs or gallops. S1 and S2 heard. ABDOMEN: Abdominal exam revealed normal bowel sounds. The abdomen was soft, non- tender, and without masses, organomegaly, or appreciable enlargement of the abdominal aorta. EXTREMITIES: Examination of the extremities revealed easily palpable radial, fem oral and pedal pulses. There was no cyanosis, clubbing or edema. No calf tenderness noted. VASCULAR: Radial and dorsalis pedis pulses palpated, no evidence of clubbing. 2- 3+ BLE, improved. RIGHT foot wrapped for stasis ulcer. NEUROLOGIC: Patient is awake, alert and oriented x3. There were no obvious focal neurologic abnormalities. LAB DATA: FINAL IMPRESSION: 1. COPD exacerbation 2. CAD status post PCI 3. CKD 4. hypertension 5. Fluid overload PLAN: Patient lower extremity edema and shortness of breath much improved this day. Weight down 3 pounds. Decrease IV Lasix to 40 mg IV every 12 hours. Repeat BMP in a.m. Monitor glucose levels closely. Continue same all other medical/medication regime. Objective - Vital Signs Vital signs: Vital Signs Temp 98.1 F 07/01/19 07:00 Pulse 76 07/01/19 13:50 Resp 18 07/01/19 08:00 BP 140/72 07/01/19 07:00 Pulse Ox 92 L 07/01/19 07:00 Intake & Output 06/30/19 07/01/19 07/01/19 18:59 06:59 18:59 Intake Total 440 240 240 Output Total 410 1900 500 Balance 30 -1660 -260 Weight 150.2 kg Intake: Oral 440 240 Tube Feeding 240 Output: Urine 410 1900 500 Other: Voiding Method Toilet Toilet Toilet # Voids 1 - Labs CBC & Chem 7: 07/01/19 07:17 07/01/19 07:17 Labs: Abnormal Lab Results - Last 24 Hours (Table) 06/30/19 06/30/19 07/01/19 Range/Units 17:05 20:28 02:35 RBC (4.30-5.90) m/uL Hgb (13.0-17.5) gm/dL Hct (39.0-53.0) % Carbon Dioxide (22-30) mmol/L BUN (9-20) mg/dL Creatinine (0.66-1.25) mg/dL Glucose (74-99) mg/dL POC Glucose (mg/dL) 263 H 247 H 64 L (75-99) mg/dL 07/01/19 07/01/19 07/01/19 Range/Units 02:54 03:10 06:58 RBC (4.30-5.90) m/uL Hgb (13.0-17.5) gm/dL Hct (39.0-53.0) % Carbon Dioxide (22-30) mmol/L BUN (9-20) mg/dL Creatinine (0.66-1.25) mg/dL Glucose (74-99) mg/dL POC Glucose (mg/dL) 71 L 117 H 116 H (75-99) mg/dL 07/01/19 07/01/19 07/01/19 Range/Units 07:17 07:17 11:54 RBC 3.71 L (4.30-5.90) m/uL Hgb 11.6 L (13.0-17.5) gm/dL Hct 34.7 L (39.0-53.0) % Carbon Dioxide 34 H (22-30) mmol/L BUN 40 H (9-20) mg/dL Creatinine 1.73 H (0.66-1.25) mg/dL Glucose 116 H (74-99) mg/dL POC Glucose (mg/dL) 169 H (75-99) mg/dL
[2019-07-01 15:54] LABS: Appearance,Urine Clear (Clear); Bilirubin,Urine Negative (Negative); Blood,Urine Negative (Negative); Color,Urine Yellow; Glucose,Urine (UA) 1+ (Negative); Ketones,Urine Negative (Negative); Leukocyte Esterase,Urine Negative (Negative); Nitrite,Urine Negative (Negative); Protein,Urine 1+ (Negative); RBC,Urine <1 /hpf (0-5); Specific Gravity,Urine 1.012 (1.001-1.035); Squamous Epithelial Cell,Urine <1 /hpf (0-4); Urobilinogen,Urine <2.0 mg/dL (<2.0); WBC,Urine <1 /hpf (0-5)
[2019-07-01 17:10] LABS: Glucose,Whole Blood 232 mg/dL (75-99)
--- NOTE | 2019-07-01 17:18 | PN ---
PROGRESS NOTE DATE OF SERVICE: 07/01/2019. This 59-year-old gentleman admitted with shortness of breath was thought to have multifactorial etiology including CHF acute exacerbation as well as asthma/COPD exacerbation. The patient is on IV diuretics. The patient has lost about 3 pounds. The patient is negative balance more than 1 L. Patient being closely monitored by Cardiology also. Otherwise, creatinine is 1.73. The baseline is 1.42. We are closely monitoring creatinine as well. PAST MEDICAL HISTORY: Reviewed. REVIEW OF SYSTEMS: Cardiovascular system: As mentioned earlier. RESPIRATORY: As mentioned earlier. GI no nausea or vomiting. : No dysuria or retention. NERVOUS SYSTEM: No numbness or weakness. CURRENT MEDICATIONS: Reviewed and include: 1. Tylenol p.r.n. 2. DuoNeb q.i.d. and p.r.n. 3. Aspirin 81 mg. 4. Lipitor 20 mg q.h.s. 5. Symbicort 160/4.5 two puffs b.i.d. 6. Coreg 12.5 mg b.i.d. 7. Plavix 75 mg b.i.d. 8. Vitamin D2. 9. Pepcid 20 mg b.i.d. 10.Lasix 40 mg IV b.i.d. changed today. 11.Neurontin 600 mg p.o. t.i.d. 12.Mucinex. 13.Heparin 5000 subcu q.8h. 14.NovoLog. 15.Levemir 40 units daily and Levemir 40 units subcu q.h.s. 16.Cozaar 100 mg. 17.Magnesium oxide 400 mg b.i.d. 18.Prednisone 40 mg. 19.Vitamin B6. 20.Sulfasalazine 1000 mg p.o. q.i.d. PHYSICAL EXAMINATION: Alert and oriented times three. Pulse 68. Blood pressure 140/78. Respirations 18. Temperature 98 degrees, pulse ox 98% on room air. HEENT is conjunctivae normal. Oral mucosa moist. NECK is jugular venous distention at the root of the neck. Cardiovascular system: S1, S2 muffled. No S3, no S4. RESPIRATORY: Breath sounds diminished in the bases. Bilateral scattered rhonchi, much improved. ABDOMEN: Soft, obese, nontender. LEGS: Minimal bilateral leg edema. NERVOUS SYSTEM: Higher functions as mentioned earlier. Moves all four extremities. No focal motor or sensory deficits. LYMPHATICS: No lymph nodes palpable in the neck, axillae or groin. SKIN: No ulcer, rash and no bleeding. JOINTS: No active deforming arthropathy. LABS: WBC 5.8, hemoglobin 11.6, creatinine 1.73. ASSESSMENT: 1. Shortness of breath multifactorial possibly congestive heart failure, acute exacerbation with acute on chronic diastolic dysfunction, ejection fraction 50-55 percent. 2. Asthma/chronic obstructive pulmonary disease acute exacerbation. 3. Bilateral pedal edema. 4. Obesity with body mass index of 41.7. 5. History of coronary artery disease. 6. History of chronic obstructive pulmonary disease. 7. Diabetes type 2. 8. Hypertension. 9. Hyperlipidemia. 10.History of diabetic peripheral neuropathy. 11.History ESBL/MRSA. 12.History of coronary artery disease stent. 13.History of bowel resection. 14.History of cardiac catheterization. 15.History of nicotine dependence. RECOMMENDATIONS AND DISCUSSION: Recommend to continue current medications, management and symptomatic treatment. The Lasix dose has been reduced to 40 mg IV b.i.d. We will monitor creatinine closely. The creatinine is elevated compared to admission. I would recommend a nephrology consultation. Otherwise continue with bronchodilators. Also continue with fluid and electrolyte balance. As mentioned earlier, the patient is proceeding to negative fluid balance. Resume the home medications. DVT prophylaxis. The prognosis guarded because of multiple complex medical issues. Discussed with the patient at length. Further recommendations to follow. MMODL / IJN: [id number] /
--- NOTE | 2019-07-01 17:38 | US ---
EXAMINATION TYPE: US kidneys/renal and bladder DATE OF EXAM: 07/01/2019 COMPARISON: NONE CLINICAL HISTORY: norman. NORMAN, exam done portable. EXAM MEASUREMENTS: Right Kidney: 10.2 x 5.3 x 4.9 cm Left Kidney: 12.5 x 6.1 x 5.1 cm Difficult and limited study due to patient body habitus Right Kidney: limited visualization, no hydronephrosis or masses seen Left Kidney: no hydronephrosis or masses seen Bladder: wnl Bilateral Jets seen: no IMPRESSION: No renal mass. No hydronephrosis.
[2019-07-01] MEDS: PRAMIPEXOLE 1 MG TAB PO SCH (20:00)
[2019-07-01] MEDS: ATORVASTATIN 20 MG TAB PO SCH (20:00)
[2019-07-01] MEDS: SYMBICORT 160-4.5 MCG INHALER INHALATION SCH (20:10)
[2019-07-01 20:42] LABS: Glucose,Whole Blood 284 mg/dL (75-99)
[2019-07-02] MEDS: HEPARIN SODIUM,PORCINE 5,000 UNIT/ML 1 ML VIAL SQ SCH ×4 (00:36→23:10)
[2019-07-02 00:40] LABS: Glucose,Whole Blood 163 mg/dL (75-99)
[2019-07-02] MEDS: IPRATROPIUM-ALBUTEROL 3 ML NEB INHALATION SCH ×4 (01:11→21:14)
[2019-07-02 06:59] LABS: Glucose,Whole Blood 55 mg/dL (75-99)
[2019-07-02 07:21] LABS: Glucose,Whole Blood 104 mg/dL (75-99)
[2019-07-02] MEDS: INSULIN DETEMIR (LEVEMIR) 100 UNIT/ML SYR SQ SCH ×2 (07:44→23:11)
[2019-07-02] MEDS: sulfaSALAzine 500 MG TAB PO SCH ×4 (07:57→21:53)
[2019-07-02] MEDS: CARVEDILOL 12.5 MG TAB PO SCH ×2 (07:58→17:25)
[2019-07-02] MEDS: LOSARTAN 50 MG TAB PO SCH (07:58)
[2019-07-02] MEDS: PYRIDOXINE 50 MG TAB PO SCH (07:58)
[2019-07-02] MEDS: GABAPENTIN 300 MG CAP PO SCH ×3 (07:58→21:48)
[2019-07-02] MEDS: ASPIRIN 81 MG PO SCH (07:58)
[2019-07-02] MEDS: CLOPIDOGREL 75 MG TAB PO SCH (07:58)
[2019-07-02] MEDS: MAGNESIUM OXIDE 400 MG TAB PO SCH ×2 (07:58→21:48)
[2019-07-02] MEDS: predniSONE 20 MG TAB PO SCH (07:58)
[2019-07-02] MEDS: INSULIN ASPART (NovoLOG) 100 UNIT/ML VIAL SQ SCH ×4 (07:59→21:49)
[2019-07-02] MEDS: FAMOTIDINE 20 MG TAB PO SCH ×2 (07:59→21:48)
[2019-07-02] MEDS: FUROSEMIDE 10 MG/ML 4 ML VIAL IV SCH ×2 (07:59→21:48)
[2019-07-02] MEDS: guaiFENesin 600 MG TABLET.ER PO SCH ×2 (08:02→21:48)
[2019-07-02 08:39] LABS: Magnesium 2.6 mg/dL (1.6-2.3); Potassium 3.9 mmol/L (3.5-5.1)
[2019-07-02] MEDS: SYMBICORT 160-4.5 MCG INHALER INHALATION SCH ×2 (09:09→21:14)
--- NOTE | 2019-07-02 10:33 | P.PN ---
Subjective Patient is seen in follow-up for acute kidney injury on chronic kidney disease. Patient has chronic kidney disease stage III with baseline creatinine in the range of 1.2-1.4. Renal function is a little better. Creatinine 1.61 today. Edema improving. Weight trending down. Maintained on IV Lasix 40 mg twice daily. No nausea or vomiting. Vital signs are stable. General: The patient appeared well nourished and normally developed. HEENT: Head exam is unremarkable. Neck is without jugular venous distension. LUNGS: Lungs are clear to auscultation and percussion. Breath sounds decreased. HEART: Rate and Rhythm are regular. First and second heart sounds normal. No murmurs, rubs or gallops. ABDOMEN: Abdominal exam reveals normal bowel sounds. Non-tender and non- distended. No evidence of peritonitis. EXTREMITITES: 1+ edema. Objective - Vital Signs Vital signs: Vital Signs Temp 97.5 F L 07/02/19 07:47 Pulse 84 07/02/19 09:21 Resp 16 07/02/19 08:15 BP 168/85 07/02/19 07:47 Pulse Ox 92 L 07/02/19 07:47 Intake & Output 07/01/19 07/02/19 07/02/19 18:59 06:59 18:59 Intake Total 240 200 Output Total 1100 400 Balance -860 -200 Weight 148 kg Intake: Oral 200 Tube Feeding 240 Output: Urine 1100 400 Other: Voiding Method Toilet Toilet Toilet Urinal Urinal - Labs CBC & Chem 7: 07/01/19 07:17 07/02/19 06:40 Labs: Abnormal Lab Results - Last 24 Hours (Table) 07/01/19 07/01/19 07/01/19 Range/Units 11:54 14:04 17:07 Carbon Dioxide (22-30) mmol/L BUN (9-20) mg/dL Creatinine (0.66-1.25) mg/dL Glucose (74-99) mg/dL POC Glucose (mg/dL) 169 H 232 H (75-99) mg/dL Magnesium (1.6-2.3) mg/dL Urine Protein 1+ H (Negative) Urine Glucose (UA) 1+ H (Negative) 07/01/19 07/02/19 07/02/19 Range/Units 20:39 00:38 06:40 Carbon Dioxide 34 H (22-30) mmol/L BUN 34 H (9-20) mg/dL Creatinine 1.61 H (0.66-1.25) mg/dL Glucose 46 L* (74-99) mg/dL POC Glucose (mg/dL) 284 H 163 H (75-99) mg/dL Magnesium 2.6 H (1.6-2.3) mg/dL Urine Protein (Negative) Urine Glucose (UA) (Negative) 07/02/19 07/02/19 Range/Units 06:57 07:19 Carbon Dioxide (22-30) mmol/L BUN (9-20) mg/dL Creatinine (0.66-1.25) mg/dL Glucose (74-99) mg/dL POC Glucose (mg/dL) 55 L 104 H (75-99) mg/dL Magnesium (1.6-2.3) mg/dL Urine Protein (Negative) Urine Glucose (UA) (Negative) Assessment and Plan Plan: Assessment: 1. Acute kidney injury mostly prerenal secondary to cardiorenal syndrome. Renal function stable. Creatinine 1.61 today. No hydronephrosis noted on kidney ultrasound. 2. Chronic kidney disease stage III with baseline creatinine in the range of 1.2-1.4 secondary to nephrosclerosis and component of diabetic kidney disease as he does have proteinuria on UA. Will further workup outpatient. 3. Acute on chronic diastolic CHF. 4. Volume overload. Improving with diuresis. 5. Insulin-dependent diabetes mellitus. Plan: Maintain Lasix 40 mg IV twice daily - can change to oral upon discharge. Avoid nephrotoxins. Repeat electrolytes in the morning.
[2019-07-02 11:13] LABS: Glucose,Whole Blood 213 mg/dL (75-99)
--- NOTE | 2019-07-02 13:02 | P.PN ---
Subjective Progress Note Date: 07/02/19 This is a pleasant 59-year-old gentleman who follows with Dr. Ornelas. has a history of morbid obesity, smoking, diabetes with right foot diabetic ulcer with MRSA/ESBL, hypertension, hyperlipidemia and CAD status post PCI in April of this year. Presented to the hospital with complaints of lower extremity edema and progressively worsening shortness of breath. His most recent echocardiogram showed low normal LV systolic function with ejection fraction of 50-55%. Troponins are negative on admission. He's been diuresing on IV Lasix. He feels his breathing is better and his edema is improving. Labs today showed some improvement in renal function with a BUN of 34 and creatinine of 1.61. His weight is down 2 kg since yesterday. Objective - Vital Signs Vital signs: Vital Signs Temp 97.5 F L 07/02/19 07:47 Pulse 84 07/02/19 09:21 Resp 16 07/02/19 08:15 BP 168/85 07/02/19 07:47 Pulse Ox 92 L 07/02/19 07:47 Intake & Output 07/01/19 07/02/19 07/02/19 18:59 06:59 18:59 Intake Total 240 200 Output Total 1100 400 Balance -860 -200 Weight 148 kg Intake: Oral 200 Tube Feeding 240 Output: Urine 1100 400 Other: Voiding Method Toilet Toilet Toilet Urinal Urinal - Exam PHYSICAL EXAMINATION: HEENT: Head is atraumatic, normocephalic. Pupils equal, round. Neck is supple. There is no elevated jugular venous pressure. HEART EXAMINATION: Heart sounds regular, S1 and S2 normal. No murmur or gallop heard. CHEST EXAMINATION: Lungs reveal diminished air entry bilaterally. No chest wall tenderness is noted on palpation or with deep breathing. ABDOMEN: Soft, nontender. Bowel sounds are heard. No organomegaly noted. EXTREMITIES:1+ peripheral pulses with evidence of +1-2 bilateral lower extremity edema and no calf tenderness noted. NEUROLOGIC patient is awake, alert and oriented x3. . - Labs CBC & Chem 7: 07/01/19 07:17 07/02/19 06:40 Labs: Abnormal Lab Results - Last 24 Hours (Table) 07/01/19 07/01/19 07/01/19 Range/Units 14:04 17:07 20:39 Carbon Dioxide (22-30) mmol/L BUN (9-20) mg/dL Creatinine (0.66-1.25) mg/dL Glucose (74-99) mg/dL POC Glucose (mg/dL) 232 H 284 H (75-99) mg/dL Magnesium (1.6-2.3) mg/dL Urine Protein 1+ H (Negative) Urine Glucose (UA) 1+ H (Negative) 07/02/19 07/02/19 07/02/19 Range/Units 00:38 06:40 06:57 Carbon Dioxide 34 H (22-30) mmol/L BUN 34 H (9-20) mg/dL Creatinine 1.61 H (0.66-1.25) mg/dL Glucose 46 L* (74-99) mg/dL POC Glucose (mg/dL) 163 H 55 L (75-99) mg/dL Magnesium 2.6 H (1.6-2.3) mg/dL Urine Protein (Negative) Urine Glucose (UA) (Negative) 07/02/19 07/02/19 Range/Units 07:19 11:11 Carbon Dioxide (22-30) mmol/L BUN (9-20) mg/dL Creatinine (0.66-1.25) mg/dL Glucose (74-99) mg/dL POC Glucose (mg/dL) 104 H 213 H (75-99) mg/dL Magnesium (1.6-2.3) mg/dL Urine Protein (Negative) Urine Glucose (UA) (Negative) Assessment and Plan Assessment: #1 acute on chronic diastolic congestive heart failure #2 COPD exacerbation #3 CAD status post PCI #4 hypertension #5 hyperlipidemia #6 diabetes mellitus type 2 with peripheral neuropathy #7 Acute kidney injury #8 chronic kidney disease Plan: From cartridge feeder perspective, continue IV Lasix. Continue to monitor renal function, electrolytes, daily weights, and intake and output. We will continue to follow the patient provide further recommendations accordingly. BACK END WEB DEVELOPER note has been reviewed, I agree with a documented findings and plan of care. Patient was seen and examined.
--- NOTE | 2019-07-02 15:19 | P.PN ---
Subjective Progress Note Date: 07/02/19 Principal diagnosis: Shortness of breath, and fluid retention This is a 59-year-old white male, remote smoking history, patient quit smoking over 20 years ago. No documented history of COPD. Patient smoked heavily for about 15 years. He is also known to have history of morbid obesity. Type 2 diabetes, hypertension, known history of coronary artery disease and previous stent done by Dr. Chappell on 04/14/2019. Patient was admitted mostly with increased shortness of breath, recurrent episodes of heaviness in the chest, tightness in the chest, patient has been compliant with his aspirin and Plavix since the stent was placed. He had normal echocardiogram no evidence of LV dysfunction. Patient has also been complaining of significant swelling in his lower extremities which is chronic, and he is normally maintained on Lasix on a regular basis 40 mg in a.m. and 20 mg in p.m. On admission the patient had an EKG that showed a right bundle branch block. Patient also received the bronchodilators. And intermittently has been complaining of shortness of breath. D-dimer was normal. Patient had an episode earlier today of shortness of breath, given Lasix and he was also given an updraft treatment, significant improvement was noted within a few hours. Considering his recurrent episodes of shortness of breath, I was asked to see him on consultation. On 07/01/2019 patient seen in follow-up on medical surgical floor. he is awake and alert, no acute distress, he is currently on room air, pulse ox 92%, afebrile, hemodynamically stable. No complaints of chest pain, he states his breathing is easier, his lower extremity edema is improving, he continues to diu rese, he is in -1630 ML over last 24 hours. Lung sounds reveal a few scattered wheezes, patient remains on oral prednisone. Vital signs have been stable overnight On 07/02/2019 patient seen in follow-up on medical surgical floor. He is awake and alert, in no acute distress, he states he is feeling better today, he sitting up in the recliner, he is breathing easier, still has quite significant lower extremity edema, although it is improving, he is maintaining negative fluid balance, and -1016 oh fluid balance over the last 24 hours, fluid volume status is improving, lung sounds revealed diminished breath sounds, and minimal scattered crackles, patient remains on oral prednisone. Remains on IV Lasix of 40 mg every 12 hours, Objective - Vital Signs Vital signs: Vital Signs Temp 97.5 F L 07/02/19 07:47 Pulse 75 07/02/19 13:17 Resp 16 07/02/19 08:15 BP 168/85 07/02/19 07:47 Pulse Ox 92 L 07/02/19 07:47 Intake & Output 07/01/19 07/02/19 07/02/19 18:59 06:59 18:59 Intake Total 240 200 Output Total 1100 400 Balance -860 -200 Weight 148 kg Intake: Oral 200 Tube Feeding 240 Output: Urine 1100 400 Other: Voiding Method Toilet Toilet Toilet Urinal Urinal # Voids 1 - Exam GENERAL EXAM: Alert, pleasant, 59-year-old white male on room air comfortable in no apparent distress. HEAD: Normocephalic/atraumatic. EYES: Normal reaction of pupils, equal size. Conjunctiva pink, sclera white. NOSE: Clear with pink turbinates. THROAT: No erythema or exudates. NECK: No masses, no JVD, no thyroid enlargement, no adenopathy. CHEST: No chest wall deformity. Symmetrical expansion. LUNGS: Equal air entry with a few scattered wheeze, rhonchi or dullness. CVS: Regular rate and rhythm, normal S1 and S2, no gallops, no murmurs, no rubs ABDOMEN: Soft, nontender. No hepatosplenomegaly, normal bowel sounds, no guarding or rigidity. EXTREMITIES: No clubbing, no edema, no cyanosis, 2+ pulses and upper and lower extremities. MUSCULOSKELETAL: Muscle strength and tone normal. SPINE: No scoliosis or deformity SKIN: No rashes CENTRAL NERVOUS SYSTEM: Alert and oriented -3. No focal deficits, tone is normal in all 4 extremities. PSYCHIATRIC: Alert and oriented -3. Appropriate affect. Intact judgment and i nsight. - Labs CBC & Chem 7: 07/01/19 07:17 07/02/19 06:40 Labs: Abnormal Lab Results - Last 24 Hours (Table) 07/01/19 07/01/19 07/01/19 Range/Units 14:04 17:07 20:39 Carbon Dioxide (22-30) mmol/L BUN (9-20) mg/dL Creatinine (0.66-1.25) mg/dL Glucose (74-99) mg/dL POC Glucose (mg/dL) 232 H 284 H (75-99) mg/dL Magnesium (1.6-2.3) mg/dL Urine Protein 1+ H (Negative) Urine Glucose (UA) 1+ H (Negative) 07/02/19 07/02/19 07/02/19 Range/Units 00:38 06:40 06:57 Carbon Dioxide 34 H (22-30) mmol/L BUN 34 H (9-20) mg/dL Creatinine 1.61 H (0.66-1.25) mg/dL Glucose 46 L* (74-99) mg/dL POC Glucose (mg/dL) 163 H 55 L (75-99) mg/dL Magnesium 2.6 H (1.6-2.3) mg/dL Urine Protein (Negative) Urine Glucose (UA) (Negative) 07/02/19 07/02/19 Range/Units 07:19 11:11 Carbon Dioxide (22-30) mmol/L BUN (9-20) mg/dL Creatinine (0.66-1.25) mg/dL Glucose (74-99) mg/dL POC Glucose (mg/dL) 104 H 213 H (75-99) mg/dL Magnesium (1.6-2.3) mg/dL Urine Protein (Negative) Urine Glucose (UA) (Negative) Assessment and Plan Plan: Assessment: #1. Chronic shortness of breath, multifactorial, related to acute exacerbation of diastolic congestive heart failure and a component of COPD, morbid obesity/deconditioning #2. Coronary artery disease status post PCI, with no evidence of LV dysfunction #3. Benign essential hypertension #4. Dyslipidemia #5. Type 2 diabetes mellitus with diabetic neuropathy #6. History of bowel resection Plan: Continue with IV diuretics, continue Symbicort, nebulized bronchodilators, and oral prednisone, less wheezy and today's exam, breathing easier, fluid volume status is improving, lower extremity edema is improving, increase activity as tolerated, another 24 hours of IV diuretics, we'll continue to follow. I performed a history & physical examination of the patient and discussed their management with my nurse practitioner, Ale Campbell. I reviewed the nurse practitioner's note and agree with the documented findings and plan of care. Lung sounds are positive for end expiratory wheezes. The findings and the impression was discussed with the patient. I attest to the documentation by the nurse practitioner. Time with Patient: Less than 30
[2019-07-02 16:35] LABS: Glucose,Whole Blood 327 mg/dL (75-99)
[2019-07-02 20:15] LABS: Glucose,Whole Blood 285 mg/dL (75-99)
[2019-07-02] MEDS ORDERED: IPRATROPIUM-ALBUTEROL 3 ML NEB INHALATION PRN (21:47)
[2019-07-02] MEDS: ATORVASTATIN 20 MG TAB PO SCH (21:48)
[2019-07-02] MEDS: PRAMIPEXOLE 1 MG TAB PO SCH (21:48)
[2019-07-02] MEDS: SODIUM CHLORIDE 0.9% 1,000 ML IV SCH (21:54)
[2019-07-02 23:09] LABS: Glucose,Whole Blood 176 mg/dL (75-99)
--- NOTE | 2019-07-03 00:32 | PN ---
PROGRESS NOTE DATE OF SERVICE: 07/02/2019 This 59-year-old gentleman who was admitted with CHF, acute exacerbations, is on diuretics. Patient is being closely monitored at this time. An abdominal and bladder ultrasound showed no renal mass or hydronephrosis. Cardiology and Pulmonology are following the patient closely. No chest pain. No palpitations. No fever. PHYSICAL EXAMINATION: Alert and oriented x3. The pulse is 58, blood pressure 162/76, respirations 16, temperature 97.9, pulse ox 98% on room air. HEENT: Conjunctivae normal. NECK: No jugular venous distention. CARDIOVASCULAR SYSTEM: S1, S2 muffled. RESPIRATORY SYSTEM: Breath sounds diminished at the bases. Bilateral scattered rhonchi and crackles. ABDOMEN: Soft, non-tender. LEGS: No edema. No swelling. NERVOUS SYSTEM: No focal deficit. LABS: 46. Otherwise, creatinine is 1.61. ASSESSMENT: 1. Shortness of breath, multifactorial, possibly congestive heart failure, acute exacerbation, with acute on chronic diastolic dysfunction, ejection fraction 50% to 55%, as well as asthma, chronic obstructive pulmonary disease, acute exacerbation. 2. Bilateral pedal edema. 3. Obesity with body mass index of 41.7. 4. History of coronary artery disease. 5. History of chronic obstructive pulmonary disease. 6. Diabetes mellitus, type 2. 7. Hypertension. 8. Hyperlipidemia. 9. History of diabetic peripheral neuropathy. 10.History of extended-spectrum beta-lactamase methicillin-resistant Staphylococcus aeruginosa. 11.History of coronary artery disease, stent. 12.History of bowel resection. 13.History of cardiac catheterization. 14.History of nicotine dependence. 15.Renal failure; possibly chronic kidney disease, stage III. RECOMMENDATIONS AND DISCUSSION: In this 59-year-old gentleman with a past medical history of medical medical problems, we will monitor the patient closely, continue the current medications, continue symptomatic treatment. We will continue with the IV diuresis and will repeat a chest x- ray in the morning and closely follow with multiple consultants. Guarded prognosis. The patient is stable. The patient might be able to be discharged in the next 24-48 hours. Otherwise, the patient is noted to hypoglycemic also. I would recommend adjusting down the dose of insulin at bedtime. Continue to monitor. Prognosis guarded because of multiple complex medical issues. Further recommendations to follow. MMODL / IJN: [id number] / ALEJANDRO
[2019-07-03 03:10] LABS: Glucose,Whole Blood 128 mg/dL (75-99)
[2019-07-03 06:52] LABS: Glucose,Whole Blood 119 mg/dL (75-99)
--- NOTE | 2019-07-03 07:29 | XR ---
EXAMINATION TYPE: XR chest 1V portable DATE OF EXAM: 07/03/2019 CLINICAL HISTORY: Difficulty breathing and CHF progress study. TECHNIQUE: Single AP portable upright view of the chest is obtained. COMPARISON: Chest x-ray from 3 days earlier FINDINGS: Persistent cardiomegaly with improving central vascular congestion. Likely stable tiny jefferson ateral pleural effusions. No new focal airspace opacity or pneumothorax. Some degenerative change jefferson ateral shoulders are noted. IMPRESSION: Improving central vascular congestion. Cardiomegaly without new suspicious focal infiltra te.
[2019-07-03 07:56] VITALS: BP 143/85; TEMP 98.3
[2019-07-03 08:32] LABS: Basophils % (A) 0 %; Eosinophils # (A) 0.1 k/uL (0-0.7); Eosinophils % (A) 1 %; HCT 38.1 % (39.0-53.0); HGB 11.9 gm/dL (13.0-17.5); Lymphocytes # (A) 2.2 k/uL (1.0-4.8); Lymphocytes % (A) 43 %; MCH 29.4 pg (25.0-35.0); MCHC 31.3 g/dL (31.0-37.0); MCV 93.8 fL (80.0-100.0); Mean Platelet Volume 7.6; Monocytes # (A) 0.4 k/uL (0-1.0); Monocytes % (A) 7 %; Neutrophils # (A) 2.3 k/uL (1.3-7.7); Neutrophils % (A) 45 %; Platelet Count 240 k/uL (150-450); RBC 4.06 m/uL (4.30-5.90); RDW 15.1 % (11.5-15.5); WBC 5.1 k/uL (3.8-10.6)
[2019-07-03 08:35] LABS: Albumin 3.5 g/dL (3.5-5.0); Calcium 8.7 mg/dL (8.4-10.2); Potassium 4.7 mmol/L (3.5-5.1); Total Bilirubin 0.7 mg/dL (0.2-1.3); Total Protein 6.4 g/dL (6.3-8.2)
[2019-07-03] MEDS: IPRATROPIUM-ALBUTEROL 3 ML NEB INHALATION SCH ×2 (08:58→12:21)
[2019-07-03] MEDS: SYMBICORT 160-4.5 MCG INHALER INHALATION SCH (08:58)
[2019-07-03] MEDS: LOSARTAN 50 MG TAB PO SCH (09:12)
[2019-07-03] MEDS: guaiFENesin 600 MG TABLET.ER PO SCH (09:12)
[2019-07-03] MEDS: CARVEDILOL 12.5 MG TAB PO SCH (09:12)
[2019-07-03] MEDS: INSULIN DETEMIR (LEVEMIR) 100 UNIT/ML SYR SQ SCH (09:12)
[2019-07-03] MEDS: FAMOTIDINE 20 MG TAB PO SCH (09:12)
[2019-07-03] MEDS: predniSONE 20 MG TAB PO SCH (09:12)
[2019-07-03] MEDS: HEPARIN SODIUM,PORCINE 5,000 UNIT/ML 1 ML VIAL SQ SCH (09:12)
[2019-07-03] MEDS: GABAPENTIN 300 MG CAP PO SCH (09:12)
[2019-07-03] MEDS: CLOPIDOGREL 75 MG TAB PO SCH (09:13)
[2019-07-03] MEDS: MAGNESIUM OXIDE 400 MG TAB PO SCH (09:13)
[2019-07-03] MEDS: sulfaSALAzine 500 MG TAB PO SCH ×2 (09:13→13:17)
[2019-07-03] MEDS: ASPIRIN 81 MG PO SCH (09:13)
[2019-07-03] MEDS: PYRIDOXINE 50 MG TAB PO SCH (09:13)
[2019-07-03] MEDS: INSULIN ASPART (NovoLOG) 100 UNIT/ML VIAL SQ SCH ×2 (09:32→13:17)
[2019-07-03] MEDS: FUROSEMIDE 10 MG/ML 4 ML VIAL IV SCH (09:44)
[2019-07-03 11:12] LABS: Glucose,Whole Blood 176 mg/dL (75-99)
[2019-07-03] MEDS ORDERED: hydrALAZINE HCL 25 MG TAB PO SCH (11:45)
--- NOTE | 2019-07-03 11:53 | PN ---
PROGRESS NOTE Mr. Obrien is a 59-year-old male with known history of coronary artery disease who presented with symptoms of progressive dyspnea, cough, productive of yellowish sputum. He is feeling better today. He is ambulating. No palpitation. No nausea. He has a cough of yellow sputum. He denies any chest pain. He denies any dizziness. He is in sinus mechanism. He has been evaluated by Dr. Ellis. His blood pressure is on the higher side. He continues to be on losartan 100 mg daily, Coreg 12.5 mg twice a day, Plavix 75 mg daily, aspirin once a day, Lipitor 20 mg daily, insulin, prednisone. PHYSICAL EXAMINATION: Blood pressure 143/80 with a heart rate in the 70s. LUNGS: No wheezes. HEART: Regular rate and rhythm, S1, S2. No S3 with no systolic murmur, no rub. ABDOMEN: Soft, nontender, obese. EXTREMITIES: Trace to 1+ edema. According to the patient, back to baseline. LAB DATA: Revealed BUN and creatinine 33 and 1.62, potassium 4.7, hemoglobin of 11.9. IMPRESSION: 1. Symptoms of progressive dyspnea, multifactorial, probably with combination of tracheobronchitis and congestive heart failure with preserved systolic function. 2. History of coronary artery disease, status post percutaneous revascularization, stable. 3. History of hypertension. 4. Hyperlipidemia. 5. Diabetes mellitus. RECOMMENDATION: From the cardiac standpoint, I will add to his regimen hydralazine 25 mg twice a day to optimize his blood pressure control. 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 Will see him on an as-needed basis. Please feel free to call us for any question. MMODL / IJN: [id number] /
--- NOTE | 2019-07-03 12:18 | P.PN ---
Subjective Progress Note Date: 07/03/19 Follow-up of acute kidney injury. Objective - Vital Signs Vital signs: Vital Signs Temp 98.3 F 07/03/19 07:55 Pulse 74 07/03/19 09:11 Resp 15 07/03/19 07:55 BP 143/85 07/03/19 07:55 Pulse Ox 93 L 07/03/19 10:29 Intake & Output 07/02/19 07/03/19 07/03/19 18:59 06:59 18:59 Intake Total 237 240 Output Total 400 1000 1200 Balance -163 1000 -960 Intake: Oral 237 240 Output: Urine 400 1000 1200 Other: Voiding Method Toilet Toilet Urinal Urinal # Voids 1 - Exam No acute distress S1-S2 heard Lungs clear Abdomen soft Trace edema - Labs CBC & Chem 7: 07/03/19 07:18 07/03/19 07:18 Labs: Abnormal Lab Results - Last 24 Hours (Table) 07/02/19 07/02/19 07/02/19 Range/Units 16:32 20:10 23:07 RBC (4.30-5.90) m/uL Hgb (13.0-17.5) gm/dL Hct (39.0-53.0) % Carbon Dioxide (22-30) mmol/L BUN (9-20) mg/dL Creatinine (0.66-1.25) mg/dL Glucose (74-99) mg/dL POC Glucose (mg/dL) 327 H 285 H 176 H (75-99) mg/dL 07/03/19 07/03/19 07/03/19 Range/Units 03:07 06:51 07:18 RBC (4.30-5.90) m/uL Hgb (13.0-17.5) gm/dL Hct (39.0-53.0) % Carbon Dioxide 34 H (22-30) mmol/L BUN 33 H (9-20) mg/dL Creatinine 1.62 H (0.66-1.25) mg/dL Glucose 119 H (74-99) mg/dL POC Glucose (mg/dL) 128 H 119 H (75-99) mg/dL 07/03/19 07/03/19 Range/Units 07:18 11:10 RBC 4.06 L (4.30-5.90) m/uL Hgb 11.9 L (13.0-17.5) gm/dL Hct 38.1 L (39.0-53.0) % Carbon Dioxide (22-30) mmol/L BUN (9-20) mg/dL Creatinine (0.66-1.25) mg/dL Glucose (74-99) mg/dL POC Glucose (mg/dL) 176 H (75-99) mg/dL Assessment and Plan Assessment: #1 acute kidney injury secondary to type I CRS. Creatinine stable. #2 chronic kidney disease stage III with a baseline creatinine of 1.2-1.4 MG per DL. #3 diastolic CHF #4 volume overload improving with diuresis #5 hypertension with chronic kidney disease #6 diabetes on insulin Plan: #1 renal function stable. #2 change Lasix from IV to by mouth torsemide 40 mg by mouth daily #3 stable from nephrology for discharge to be followed up outpatient in the clinic in 1-2 weeks.
[2019-07-03 12:22] VITALS: RESP 16
[2019-07-03 12:31] VITALS: PULSE 64
--- NOTE | 2019-07-03 14:09 | P.PN ---
Subjective Progress Note Date: 07/03/19 Principal diagnosis: Shortness of breath, and fluid retention This is a 59-year-old white male, remote smoking history, patient quit smoking over 20 years ago. No documented history of COPD. Patient smoked heavily for about 15 years. He is also known to have history of morbid obesity. Type 2 diabetes, hypertension, known history of coronary artery disease and previous stent done by Dr. Chappell on 04/14/2019. Patient was admitted mostly with increased shortness of breath, recurrent episodes of heaviness in the chest, tightness in the chest, patient has been compliant with his aspirin and Plavix since the stent was placed. He had normal echocardiogram no evidence of LV dysfunction. Patient has also been complaining of significant swelling in his lower extremities which is chronic, and he is normally maintained on Lasix on a regular basis 40 mg in a.m. and 20 mg in p.m. On admission the patient had an EKG that showed a right bundle branch block. Patient also received the bronchodilators. And intermittently has been complaining of shortness of breath. D-dimer was normal. Patient had an episode earlier today of shortness of breath, given Lasix and he was also given an updraft treatment, significant improvement was noted within a few hours. Considering his recurrent episodes of shortness of breath, I was asked to see him on consultation. On 07/01/2019 patient seen in follow-up on medical surgical floor. he is awake and alert, no acute distress, he is currently on room air, pulse ox 92%, afebrile, hemodynamically stable. No complaints of chest pain, he states his breathing is easier, his lower extremity edema is improving, he continues to diu rese, he is in -1630 ML over last 24 hours. Lung sounds reveal a few scattered wheezes, patient remains on oral prednisone. Vital signs have been stable overnight On 07/02/2019 patient seen in follow-up on medical surgical floor. He is awake and alert, in no acute distress, he states he is feeling better today, he sitting up in the recliner, he is breathing easier, still has quite significant lower extremity edema, although it is improving, he is maintaining negative fluid balance, and -1016 oh fluid balance over the last 24 hours, fluid volume status is improving, lung sounds revealed diminished breath sounds, and minimal scattered crackles, patient remains on oral prednisone. Remains on IV Lasix of 40 mg every 12 hours On 07/03/2019 patient seen in follow-up on medical surgical floor. Vital signs are stable, he continues to diurese, still has lower extremity edema although it is improving, he is on room air, today's chest x-ray has been reviewed and improving central vascular congestion. he is in -1163 mL fluid balance over the last 24 hours, his fluid volume status is improving Objective - Vital Signs Vital signs: Vital Signs Temp 98.3 F 07/03/19 07:55 Pulse 64 07/03/19 12:30 Resp 16 07/03/19 12:30 BP 143/85 07/03/19 07:55 Pulse Ox 93 L 07/03/19 10:29 Intake & Output 07/02/19 07/03/19 07/03/19 18:59 06:59 18:59 Intake Total 237 440 Output Total 400 1000 1200 Balance -163 -1000 -760 Intake: Oral 237 440 Output: Urine 400 1000 1200 Other: Voiding Method Toilet Toilet Urinal Urinal # Voids 1 - Exam GENERAL EXAM: Alert, pleasant, 59-year-old white male on room air comfortable in no apparent distress. HEAD: Normocephalic/atraumatic. EYES: Normal reaction of pupils, equal size. Conjunctiva pink, sclera white. NOSE: Clear with pink turbinates. THROAT: No erythema or exudates. NECK: No masses, no JVD, no thyroid enlargement, no adenopathy. CHEST: No chest wall deformity. Symmetrical expansion. LUNGS: Equal air entry with a few scattered wheeze, rhonchi or dullness. CVS: Regular rate and rhythm, normal S1 and S2, no gallops, no murmurs, no rubs ABDOMEN: Soft, nontender. No hepatosplenomegaly, normal bowel sounds, no guarding or rigidity. EXTREMITIES: No clubbing, 2+ lower extremity edema, no cyanosis, 2+ pulses and upper and lower extremities. MUSCULOSKELETAL: Muscle strength and tone normal. SPINE: No scoliosis or deformity SKIN: No rashes CENTRAL NERVOUS SYSTEM: Alert and oriented -3. No focal deficits, tone is normal in all 4 extremities. PSYCHIATRIC: Alert and oriented -3. Appropriate affect. Intact judgment and insight. - Labs CBC & Chem 7: 07/03/19 07:18 07/03/19 07:18 Labs: Abnormal Lab Results - Last 24 Hours (Table) 07/02/19 07/02/19 07/02/19 Range/Units 16:32 20:10 23:07 RBC (4.30-5.90) m/uL Hgb (13.0-17.5) gm/dL Hct (39.0-53.0) % Carbon Dioxide (22-30) mmol/L BUN (9-20) mg/dL Creatinine (0.66-1.25) mg/dL Glucose (74-99) mg/dL POC Glucose (mg/dL) 327 H 285 H 176 H (75-99) mg/dL 07/03/19 07/03/19 07/03/19 Range/Units 03:07 06:51 07:18 RBC (4.30-5.90) m/uL Hgb (13.0-17.5) gm/dL Hct (39.0-53.0) % Carbon Dioxide 34 H (22-30) mmol/L BUN 33 H (9-20) mg/dL Creatinine 1.62 H (0.66-1.25) mg/dL Glucose 119 H (74-99) mg/dL POC Glucose (mg/dL) 128 H 119 H (75-99) mg/dL 07/03/19 07/03/19 Range/Units 07:18 11:10 RBC 4.06 L (4.30-5.90) m/uL Hgb 11.9 L (13.0-17.5) gm/dL Hct 38.1 L (39.0-53.0) % Carbon Dioxide (22-30) mmol/L BUN (9-20) mg/dL Creatinine (0.66-1.25) mg/dL Glucose (74-99) mg/dL POC Glucose (mg/dL) 176 H (75-99) mg/dL Assessment and Plan Plan: Assessment: #1. Chronic shortness of breath, multifactorial, related to acute exacerbation of diastolic congestive heart failure and a component of COPD, morbid obesity/deconditioning #2. Coronary artery disease status post PCI, with no evidence of LV dysfunction #3. Benign essential hypertension #4. Dyslipidemia #5. Type 2 diabetes mellitus with diabetic neuropathy #6. History of bowel resection Plan: Doing well, vital signs are stable, maintaining negative fluid balance, fluid volume status is improving, chest x-ray shows improving central vascular congestion. Patient is on room air, breathing easier, no acute events overnight, from pulmonary perspective he can be considered for discharge home today on oral diuretics. Will need outpatient follow-up with Dr. Ellis in the office I performed a history & physical examination of the patient and discussed their management with my nurse practitioner, Ale Campbell. I reviewed the nurse practitioner's note and agree with the documented findings and plan of care. Lung sounds are positive for end expiratory wheezes. The findings and the impression was discussed with the patient. I attest to the documentation by the nurse practitioner. Time with Patient: Less than 30
[2019-07-03] MEDS ORDERED: INSULIN DETEMIR (LEVEMIR) 100 UNIT/ML SYR SQ SCH (21:00)
--- NOTE | 2019-07-04 01:20 | DS ---
DISCHARGE SUMMARY DATE OF SERVICE: 07/03/2019. FINAL DIAGNOSES: 1. Shortness of breath possibly multifactorial, possibly congestive heart failure, acute exacerbation with acute on chronic diastolic dysfunction, ejection fraction 50-55 percent, as well as asthma/chronic obstructive pulmonary disease acute exacerbation. 2. Bilateral pleural edema. 3. Obesity with body mass index of 41.7. 4. History of coronary artery disease. 5. History of chronic obstructive pulmonary disease. 6. Diabetes type 2. 7. Hypertension. 8. Hyperlipidemia. 9. History of diabetic peripheral neuropathy. 10.History of ESBL and MRSA. 11.History of coronary artery disease/stent. 12.History of bowel resection. 13.History of cardiac catheterization. 14.History of nicotine dependence. 15.Renal failure possibly chronic kidney stage 3. DISCHARGE DISPOSITION: The patient will be discharged in stable condition with guarded prognosis. HISTORY OF PRESENT ILLNESS: This 59-year-old gentleman with a past medical history of multiple medical problems including CHF and multiple other medical problems, treated in conjunction with multiple consultants. Cardiology, pulmonology and nephrology saw the patient. Creatinine is rather stable at 1.62. The patient clinically improved and the patient being discharged in stable condition with guarded prognosis. On exam, vitals are stable. Cardiovascular system: S1, S2. Respiration: Breath sounds diminished in the bases. Few scattered rhonchi. Abdomen soft. No focal deficits. DISCHARGE MEDICATIONS: As follows: 1. Actos 45 mg p.o. daily. 2. Apresoline 20 mg p.o. q.8h. 3. Aspirin 81 mg p.o. daily. 4. Azulfidine 1000 mg p.o. q.i.d. 5. Coreg 12.5 mg p.o. b.i.d. 6. Crestor 10 mg p.o. q.h.s. 7. Mirapex 1 mg p.o. q.h.s. 8.mg oxide 500 mg p.o. b.i.d. 9. Plavix 75 mg p.o. daily. 10.Tresiba 50 units subcu q.h.s. 11.Tresiba Flex Touch 40 units subcu daily. 12.Vitamin B6 50 mg p.o. daily. 13.Vitamin D2 50,000 p.o. Tuesday. 14.Lasix 40 mg p.o. daily. 15.Lasix 20 mg p.o. q.h.s. 16.Neurontin 600 mg p.o. t.i.d. 17.Prednisone 10 mg p.o. daily. 18.Symbicort 12.5 two puffs b.i.d. 19.Ventolin HFA q.6h p.r.n. Follow up with Dr. Sammy Barth in 2-3 days. Follow up with Dr. Ellis. Cardiology as recommended. CBC, BMP in the outpatient setting. Once again, the patient will be discharged in stable condition with guarded prognosis. MMODL / IJN: [id number] / MTDD
[2019-07-04] MEDS ORDERED: TORSEMIDE 20 MG TAB PO SCH (09:00)
== END 2019-07-03 14:44 | disposition home health service (06) | DRG 291 ==
LOC: EC 13:54 → 3SCARD 17:02 → 4SSUR 06-28 23:51 → OBSVTOIN 06-30 08:16
PROVIDERS: ADMIT Internal Medicine; ATTEND Internal Medicine
DX: I13.0 Hypertensive heart and chronic kidney disease with heart failure and stage 1 through stage 4 chronic kidney disease, or unspecified chronic kidney disease (principal); I50.33 Acute on chronic diastolic (congestive) heart failure; J44.1 Chronic obstructive pulmonary disease with (acute) exacerbation; K50.90 Crohn's disease, unspecified, without complications; N17.9 Acute kidney failure, unspecified; Z68.41 Body mass index [BMI] 40.0-44.9, adult; E11.22 Type 2 diabetes mellitus with diabetic chronic kidney disease; E11.42 Type 2 diabetes mellitus with diabetic polyneuropathy; E11.621 Type 2 diabetes mellitus with foot ulcer; E11.65 Type 2 diabetes mellitus with hyperglycemia; E66.01 Morbid (severe) obesity due to excess calories; E78.5 Hyperlipidemia, unspecified; G25.81 Restless legs syndrome; I25.10 Atherosclerotic heart disease of native coronary artery without angina pectoris; Z71.3 Dietary counseling and surveillance; I45.10 Unspecified right bundle-branch block; I87.2 Venous insufficiency (chronic) (peripheral); J98.4 Other disorders of lung; L97.519 Non-pressure chronic ulcer of other part of right foot with unspecified severity; N18.3 Chronic kidney disease, stage 3 (moderate); T50.2X5A Adverse effect of carbonic-anhydrase inhibitors, benzothiadiazides and other diuretics, initial encounter; Z79.02 Long term (current) use of antithrombotics/antiplatelets; Z79.4 Long term (current) use of insulin; Z79.51 Long term (current) use of inhaled steroids; Z79.82 Long term (current) use of aspirin; Z79.899 Other long term (current) drug therapy; Z82.5 Family history of asthma and other chronic lower respiratory diseases; Z83.3 Family history of diabetes mellitus; Z86.19 Personal history of other infectious and parasitic diseases; Z86.14 Personal history of Methicillin resistant Staphylococcus aureus infection; Z87.891 Personal history of nicotine dependence; Z90.49 Acquired absence of other specified parts of digestive tract; Z95.5 Presence of coronary angioplasty implant and graft
CPT/HCPCS: 36415; 71045; 71046; 76770; 80048; 80053; 81001; 82550; 83735; 83880; 84484; 85025; 85027; 85379; 85610; 85730; 93005; 93306; 94640; 94760; 96374; 99285

== ENCOUNTER 2019-09-04 20:18 | Observation (INO) | payer MEDICARE ==
--- NOTE | 2019-09-04 20:32 | ED ---
Recheck HPI - General Chief Complaint: Recheck/Abnormal Lab/Rx Stated Complaint: filling up with fluids again Time Seen by Provider: 09/04/19 20:23 Source: patient, RN notes reviewed, old records reviewed Mode of arrival: ambulatory Limitations: no limitations - History of Present Illness Initial Comments: This is a 59-year-old male to the ED for evaluation, patient presents today for evaluation regards to swelling left lower extremity edema occasional shortness of breath states swelling all over despite taking his Lasix every day and he states he is urinating as normal. No chest pain. No bowel pain. Patient is unsure of why he does have some vascular insufficiency and swollen lower extremities MD Complaint: other (Significant weight gain and swelling) -: days(s) Returns Today for: persistent/worsening pain related to initial visit (Patient is worsening laboratory pain) Symptoms Since Prior Visit: worsening pain, worsening swelling Associated Symptoms: none Treatments Prior to Arrival: other (Patient is on Lasix) - Related Data Home Medications Medication Instructions Recorded Confirmed Ergocalciferol (Vitamin D2) 50,000 unit PO HUGGINS 06/14/18 06/27/19 [Vitamin D2] Pramipexole [Mirapex] 1 mg PO HS 06/14/18 06/27/19 Pyridoxine HCl (Vitamin B6) 50 mg PO DAILY 06/14/18 06/27/19 [Vitamin B-6] Magnesium Oxide [Higgins] 500 mg PO BID 07/23/18 06/27/19 Aspirin 81 mg PO DAILY 06/27/19 06/27/19 Carvedilol [Coreg] 12.5 mg PO BID 06/27/19 06/27/19 Clopidogrel Bisulfate [Plavix] 75 mg PO DAILY 06/27/19 06/27/19 Insulin Degludec [Tresiba 40 units SQ DAILY 06/27/19 06/27/19 Flextouch U-100] Insulin Degludec [Tresiba 50 units SQ HS 06/27/19 06/27/19 Flextouch U-100] Rosuvastatin Calcium [Crestor] 10 mg PO HS 06/27/19 06/27/19 hydrALAZINE HCL [Apresoline] 20 mg PO Q8H 06/27/19 06/27/19 sulfaSALAzine [Azulfidine] 1,000 mg PO QID 06/27/19 06/27/19 Pioglitazone [Actos] 45 mg PO DAILY 06/28/19 06/28/19 Previous Rx's Medication Instructions Recorded Albuterol Inhaler [Ventolin Hfa 1 - 2 puff INHALATION Q6HR PRN #1 06/29/19 Inhaler] inhaler Budesonide-Formot 160-4.5 Mcg 2 puff INHALATION BID #1 inhaler 06/29/19 [Symbicort 160-4.5 Mcg Inhaler] Furosemide [Lasix] 20 mg PO HS #0 06/29/19 Furosemide [Lasix] 40 mg PO DAILY@0800 #0 06/29/19 Gabapentin [Neurontin] 600 mg PO TID #90 cap 06/29/19 predniSONE 10 mg PO DAILY #10 tab 06/29/19 Allergies Allergy/AdvReac Type Severity Reaction Status Date / Time codeine Allergy Anaphylaxis Verified 09/04/19 20:22 Review of Systems ROS Statement: Those systems with pertinent positive or pertinent negative responses have been documented in the HPI. ROS Other: All systems not noted in ROS Statement are negative. Past Medical History Past Medical History: Coronary Artery Disease (CAD), Chest Pain / Angina, COPD, Diabetes Mellitus, Hyperlipidemia, Hypertension Additional Past Medical History / Comment(s): Diabetic neuropathy in legs and arms, crohns, rt foot wound History of Any Multi-Drug Resistant Organisms: ESBL, ESBL, MRSA Date of last positivie culture/infection: 07/25/18 ESBL Klebsiella MDRO Source:: Right FOOT Past Surgical History: Bowel Resection, Heart Catheterization With Stent, Orthopedic Surgery, Tonsillectomy Additional Past Surgical History / Comment(s): bowel resection in 1994 &1999, heart cath with stent at [place] April 14 2019. Past Anesthesia/Blood Transfusion Reactions: No Reported Reaction Date of Last Stent Placement:: april 2019 Past Psychological History: No Psychological Hx Reported Smoking Status: Former smoker Past Alcohol Use History: None Reported Past Drug Use History: None Reported - Past Family History Father Family Medical History: Musculoskeletal Disorder Mother Family Medical History: COPD, Diabetes Mellitus General Exam Limitations: no limitations General appearance: alert, in no apparent distress Head exam: Present: atraumatic, normocephalic, normal inspection Eye exam: Present: normal appearance, PERRL, EOMI. Absent: scleral icterus, conjunctival injection, periorbital swelling ENT exam: Present: normal exam, mucous membranes moist Neck exam: Present: normal inspection. Absent: tenderness, meningismus, lymphadenopathy Respiratory exam: Present: normal lung sounds bilaterally. Absent: respiratory distress, wheezes, rales, rhonchi, stridor Cardiovascular Exam: Present: regular rate, normal rhythm, normal heart sounds. Absent: systolic murmur, diastolic murmur, rubs, gallop, clicks GI/Abdominal exam: Present: soft, normal bowel sounds. Absent: distended, tenderness, guarding, rebound, rigid Extremities exam: Present: normal inspection, full ROM, normal capillary refill, pedal edema, other (Significant bilateral lower [place]y pitting edema). Absent: tenderness, joint swelling, calf tenderness Back exam: Present: normal inspection Neurological exam: Present: alert, oriented X3, CN II-XII intact Psychiatric exam: Present: normal affect, normal mood Skin exam: Present: warm, dry, intact, normal color. Absent: rash Course Vital Signs 09/04/19 20:19 Temperature 97.3 F L Pulse Rate 70 Respiratory 16 Rate Blood Pressure 191/69 O2 Sat by Pulse 95 Oximetry - Reevaluation(s) Reevaluation #1: 09/04/19 21:22 Medical records reviewed Reevaluation #2: 09/04/19 22:43 No improvement in symptoms, patient continues to complain of exertional dyspnea when moving around Reevaluation #3: 09/04/19 22:43 Spoke patient regarding results, questions are answered - Consultations Consultation #1: Spoke with sounds is agreeable to admit Medical Decision Making - Medical Decision Making 59 male DF for evaluation of bilateral lower extremity edema vascular insufficiency and CHF, patient to be admitted for diuresis likely needing medication adjustment - Lab Data Result diagrams: 09/04/19 21:00 09/04/19 21:00 Lab Results 09/04/19 09/04/19 09/04/19 Range/Units 21:00 21:00 21:00 WBC 6.0 (3.8-10.6) k/uL RBC 3.93 L (4.30-5.90) m/uL Hgb 12.4 L (13.0-17.5) gm/dL Hct 37.8 L (39.0-53.0) % MCV 96.1 (80.0-100.0) fL MCH 31.5 (25.0-35.0) pg MCHC 32.7 (31.0-37.0) g/dL RDW 13.5 (11.5-15.5) % Plt Count 222 (150-450) k/uL Neutrophils % 68 % Lymphocytes % 22 % Monocytes % 5 % Eosinophils % 2 % Basophils % 1 % Neutrophils # 4.1 (1.3-7.7) k/uL Lymphocytes # 1.3 (1.0-4.8) k/uL Monocytes # 0.3 (0-1.0) k/uL Eosinophils # 0.1 (0-0.7) k/uL Basophils # 0.0 (0-0.2) k/uL PT 10.5 (9.0-12.0) sec INR 1.0 (<1.2) APTT 22.5 (22.0-30.0) sec Sodium 137 (137-145) mmol/L Potassium 4.8 (3.5-5.1) mmol/L Chloride 102 (98-107) mmol/L Carbon Dioxide 28 (22-30) mmol/L Anion Gap 7 mmol/L BUN 32 H (9-20) mg/dL Creatinine 1.33 H (0.66-1.25) mg/dL Est GFR (CKD-EPI)AfAm 68 (>60 ml/min/1.73 sqM) Est GFR (CKD-EPI)NonAf 58 (>60 ml/min/1.73 sqM) Glucose 223 H (74-99) mg/dL Plasma Lactic Acid Jay (0.7-2.0) mmol/L Calcium 9.1 (8.4-10.2) mg/dL Phosphorus 4.0 (2.5-4.5) mg/dL Magnesium 2.0 (1.6-2.3) mg/dL Total Bilirubin 0.5 (0.2-1.3) mg/dL AST 31 (17-59) U/L ALT 25 (4-49) U/L Alkaline Phosphatase 122 (38-126) U/L Creatine Kinase 305 H (55-170) U/L CK-MB (CK-2) (0.0-2.4) ng/mL Troponin I (0.000-0.034) ng/mL NT-Pro-B Natriuret Pep pg/mL Total Protein 6.5 (6.3-8.2) g/dL Albumin 3.7 (3.5-5.0) g/dL 09/04/19 09/04/19 09/04/19 Range/Units 21:00 21:00 21:00 WBC (3.8-10.6) k/uL RBC (4.30-5.90) m/uL Hgb (13.0-17.5) gm/dL Hct (39.0-53.0) % MCV (80.0-100.0) fL MCH (25.0-35.0) pg MCHC (31.0-37.0) g/dL RDW (11.5-15.5) % Plt Count (150-450) k/uL Neutrophils % % Lymphocytes % % Monocytes % % Eosinophils % % Basophils % % Neutrophils # (1.3-7.7) k/uL Lymphocytes # (1.0-4.8) k/uL Monocytes # (0-1.0) k/uL Eosinophils # (0-0.7) k/uL Basophils # (0-0.2) k/uL PT (9.0-12.0) sec INR (<1.2) APTT (22.0-30.0) sec Sodium (137-145) mmol/L Potassium (3.5-5.1) mmol/L Chloride (98-107) mmol/L Carbon Dioxide (22-30) mmol/L Anion Gap mmol/L BUN (9-20) mg/dL Creatinine (0.66-1.25) mg/dL Est GFR (CKD-EPI)AfAm (>60 ml/min/1.73 sqM) Est GFR (CKD-EPI)NonAf (>60 ml/min/1.73 sqM) Glucose (74-99) mg/dL Plasma Lactic Acid Jay 1.3 (0.7-2.0) mmol/L Calcium (8.4-10.2) mg/dL Phosphorus (2.5-4.5) mg/dL Magnesium (1.6-2.3) mg/dL Total Bilirubin (0.2-1.3) mg/dL AST (17-59) U/L ALT (4-49) U/L Alkaline Phosphatase (38-126) U/L Creatine Kinase (55-170) U/L CK-MB (CK-2) 2.7 H (0.0-2.4) ng/mL Troponin I <0.012 (0.000-0.034) ng/mL NT-Pro-B Natriuret Pep 353 pg/mL Total Protein (6.3-8.2) g/dL Albumin (3.5-5.0) g/dL - EKG Data -: EKG Interpreted by Me (EKG is sinus rhythm rate of 69, NH 170, QRS 158, QTC 497) - Radiology Data Radiology results: report reviewed (CXR is negative for acute disease), image reviewed Disposition Clinical Impression: Congestive heart failure, Renal insufficiency syndrome, Edema Disposition: ADMITTED IP TO THIS [facility] Condition: Good Is patient prescribed a controlled substance at d/c from ED?: No Referrals: Sammy Barth DO [Primary Care Provider] - 1-2 days
[2019-09-04 21:25] LABS: Basophils % (A) 1 %; Eosinophils # (A) 0.1 k/uL (0-0.7); Eosinophils % (A) 2 %; HCT 37.8 % (39.0-53.0); HGB 12.4 gm/dL (13.0-17.5); Lymphocytes # (A) 1.3 k/uL (1.0-4.8); Lymphocytes % (A) 22 %; MCH 31.5 pg (25.0-35.0); MCHC 32.7 g/dL (31.0-37.0); MCV 96.1 fL (80.0-100.0); Monocytes # (A) 0.3 k/uL (0-1.0); Monocytes % (A) 5 %; Neutrophils # (A) 4.1 k/uL (1.3-7.7); Neutrophils % (A) 68 %; Platelet Count 222 k/uL (150-450); RBC 3.93 m/uL (4.30-5.90); RDW 13.5 % (11.5-15.5)
--- NOTE | 2019-09-04 21:33 | XR ---
EXAMINATION TYPE: XR chest 2V DATE OF EXAM: 09/04/2019 COMPARISON: 07/03/2019 HISTORY: Heart failure. Wrist pain TECHNIQUE: FINDINGS: Heart is normal. Lungs are clear. There is no heart failure. There is no pleural effusion. There are chest leads. IMPRESSION: No active cardiopulmonary disease. No change.
[2019-09-04 21:36] LABS: Albumin 3.7 g/dL (3.5-5.0); Calcium 9.1 mg/dL (8.4-10.2); Potassium 4.8 mmol/L (3.5-5.1); Total Bilirubin 0.5 mg/dL (0.2-1.3); Total Protein 6.5 g/dL (6.3-8.2)
[2019-09-04 21:40] LABS: Partial Thromboplastin Time 22.5 sec (22.0-30.0); Prothrombin Time 10.5 sec (9.0-12.0)
[2019-09-04 21:46] LABS: Creatine Kinase MB 2.7 ng/mL (0.0-2.4); Troponin I <0.012 ng/mL (0.000-0.034)
[2019-09-05] MEDS: FUROSEMIDE 10 MG/ML 4 ML VIAL IV SCH ×4 (00:17→20:37)
[2019-09-05 01:02] LABS: Glucose,Whole Blood 230 mg/dL (75-99)
[2019-09-05 01:10] LABS: Appearance,Urine Clear (Clear); Bilirubin,Urine Negative (Negative); Blood,Urine Negative (Negative); Color,Urine Light Yellow; Glucose,Urine (UA) 3+ (Negative); Hyaline Casts,Urine 1 /lpf (0-2); Ketones,Urine Negative (Negative); Leukocyte Esterase,Urine Negative (Negative); Nitrite,Urine Negative (Negative); Protein,Urine 1+ (Negative); RBC,Urine 1 /hpf (0-5); Specific Gravity,Urine 1.012 (1.001-1.035); Urobilinogen,Urine <2.0 mg/dL (<2.0); WBC,Urine 1 /hpf (0-5)
[2019-09-05] MEDS ORDERED: hydrALAZINE HCL 25 MG TAB PO ONE (02:15)
[2019-09-05] MEDS: CARVEDILOL 12.5 MG TAB PO SCH ×3 (02:48→16:48)
--- NOTE | 2019-09-05 03:25 | P.HPIM ---
History of Present Illness H&P Date: 09/04/19 The patient is a 59-year-old male with a PMH of CAD status post PCI on 04/14/2019, CKD stage III, tobacco abuse, type 2 diabetes mellitus, diastolic CHF, and COPD who presented to the ED with complaints of worsening lower extremity edema. The patient notes that for the past week or so, he has noticed that his legs have continued to be more swollen. He notes compliance with fluid and salt restriction along with his dose of Lasix twice daily. The patient otherwise denied any additional complaints. He denied shortness of breath, chest discomfort, orthopnea, PND, nausea, vomiting, dizziness, or diaphoresis. He underwent an extensive evaluation in the emergency room with chest x-ray unremarkable, EKG showing normal sinus rhythm at 69 bpm with a right bundle nicole block. Laboratory evaluation revealed a WBC count 6.0, hemoglobin 12.4, platelets 222, troponin less than 0.012, CKMB 2.7, BUN 32, creatinine 1.15, and BNP 353. The patient is being admitted under observation for further management of fluid overload. Review of Systems Pertinent positives and negatives as discussed in HPI, a complete review of systems was performed and all other systems are negative. Past Medical History Past Medical History: Coronary Artery Disease (CAD), Chest Pain / Angina, COPD, Diabetes Mellitus, Hyperlipidemia, Hypertension Additional Past Medical History / Comment(s): Diabetic neuropathy in legs and a new, crohns, rt foot wound History of Any Multi-Drug Resistant Organisms: ESBL, ESBL, MRSA Date of last positivie culture/infection: 07/25/18 ESBL Klebsiella MDRO Source:: Right FOOT Past Surgical History: Bowel Resection, Heart Catheterization With Stent, Orthopedic Surgery, Tonsillectomy Additional Past Surgical History / Comment(s): bowel resection in 1994 &1999, heart cath with stent at [place] April 14 2019. Past Anesthesia/Blood Transfusion Reactions: No Reported Reaction Date of Last Stent Placement:: april 2019 Past Psychological History: No Psychological Hx Reported Smoking Status: Former smoker Past Alcohol Use History: None Reported Past Drug Use History: None Reported - Past Family History Father Family Medical History: Musculoskeletal Disorder Mother Family Medical History: COPD, Diabetes Mellitus Medications and Allergies Home Medications Medication Instructions Recorded Confirmed Type Ergocalciferol (Vitamin D2) 50,000 unit PO HUGGINS 06/14/18 09/05/19 History [Vitamin D2] Pramipexole [Mirapex] 1 mg PO HS 06/14/18 09/05/19 History Pyridoxine HCl (Vitamin B6) 50 mg PO DAILY 06/14/18 09/05/19 History [Vitamin B-6] Magnesium Oxide [Higgins] 500 mg PO BID 07/23/18 09/05/19 History Aspirin 81 mg PO DAILY 06/27/19 09/05/19 History Carvedilol [Coreg] 12.5 mg PO BID 06/27/19 09/05/19 History Clopidogrel Bisulfate [Plavix] 75 mg PO DAILY 06/27/19 09/05/19 History Rosuvastatin Calcium [Crestor] 10 mg PO HS 06/27/19 09/05/19 History hydrALAZINE HCL [Apresoline] 20 mg PO Q8H 06/27/19 09/05/19 History sulfaSALAzine [Azulfidine] 1,000 mg PO QID 06/27/19 09/05/19 History Pioglitazone [Actos] 45 mg PO DAILY 06/28/19 09/05/19 History Furosemide [Lasix] 40 mg PO BID 09/05/19 09/05/19 History Gabapentin [Neurontin] 300 mg PO TID 09/05/19 09/05/19 History Insulin Glargine,Hum.rec.anlog 40 units PC-BRKFST 09/05/19 09/05/19 History [Basaglar Kwikpen U-100] Insulin Glargine,Hum.rec.anlog 50 units SQ AC-SUPPER 09/05/19 09/05/19 History [Basaglar Kwikpen U-100] Allergies Allergy/AdvReac Type Severity Reaction Status Date / Time codeine Allergy Anaphylaxis Verified 09/04/19 20:22 Physical Exam Vitals: Vital Signs Temp Pulse Resp BP Pulse Ox 09/04/19 20:19 97.3 F L 70 16 191/69 95 Intake and Output 09/04/19 09/04/19 09/05/19 14:59 22:59 06:59 Other: Weight 158.394 kg General: non toxic, no distress, appears at stated age, morbidly obese Derm: no unusual rashes/lesions no unusual ecchymoses, warm, dry Head: atraumatic, normocephalic, symmetric Eyes: EOMI, no lid lag, anicteric sclera, pupils equal round reactive to light ENT: Nose and ears atraumatic, no thrush, no pharyngeal erythema Neck: No thyromegaly, no cervical lymphadenopathy, trachea midline, supple Mouth: no lip lesion, mucus membranes moist Cardiovascular: S1S2 reg, no murmur, positive posterior tibial pulse bilateral, 1+ bilateral lower extremity pitting edema to thighs, capillary refill less than 2 seconds Lungs: CTA bilateral, no rhonchi, no rales , no accessory muscle use Abdominal: soft, nontender to palpation, no guarding, no appreciable organomegaly, normal bowel sounds Ext: no gross muscle atrophy, muscle strength 5 out of 5 in all 4 extremities grossly, no contractures, Neuro: CN II-XI grossly intact, light touch intact all 4 extremities, finger to nose within normal limits, Psych: Alert, oriented, appropriate affect Results CBC & Chem 7: 09/04/19 21:00 09/04/19 21:00 Labs: Abnormal Lab Results - Last 24 Hours (Table) 09/04/19 09/04/19 09/04/19 Range/Units 21:00 21:00 21:00 RBC 3.93 L (4.30-5.90) m/uL Hgb 12.4 L (13.0-17.5) gm/dL Hct 37.8 L (39.0-53.0) % BUN 32 H (9-20) mg/dL Creatinine 1.33 H (0.66-1.25) mg/dL Glucose 223 H (74-99) mg/dL Creatine Kinase 305 H (55-170) U/L CK-MB (CK-2) 2.7 H (0.0-2.4) ng/mL Assessment and Plan Plan: Fluid overload, likely secondary to diastolic CHF exacerbation -Continue with Lasix 40 mg IV every 8 hourly -Intake and output -Daily weights -Monitor electrolytes Hypertensive urgency -C/w home meds: Coreg and Hydralazine. Give additional dose of hydralazine Type 2 DM -Levemir 35 U BID (takes 40 U qam and 50 U qpm) -MELANIE with FS Chronic conditions: CAD, CKD, COPD -C/w home meds -MELANIE with FS DVT prophylaxis -Heparin subq The patient is admitted with an anticipated less than 2 midnight stay for evaluation of fluid overload CODE STATUS: Full Code Discussed with: Patient Anticipated discharge date: 1-[address]: Home A total of 40 minutes was spent on the care of this complex patient more than 50% of the time was spent in counseling and care coordination.
[2019-09-05 06:21] LABS: Glucose,Whole Blood 204 mg/dL (75-99)
[2019-09-05] MEDS: INSULIN DETEMIR (LEVEMIR) 100 UNIT/ML SYR SQ SCH ×2 (08:29→19:13)
[2019-09-05] MEDS: HEPARIN SODIUM,PORCINE 5,000 UNIT/ML 1 ML VIAL SQ SCH ×3 (08:29→23:17)
[2019-09-05] MEDS: INSULIN ASPART (NovoLOG) 100 UNIT/ML VIAL SQ SCH ×3 (08:29→16:46)
[2019-09-05] MEDS: GABAPENTIN 300 MG CAP PO SCH ×3 (08:29→20:36)
[2019-09-05] MEDS: MAGNESIUM OXIDE 400 MG TAB PO SCH ×2 (08:29→20:38)
[2019-09-05] MEDS: sulfaSALAzine 500 MG TAB PO SCH ×4 (08:29→20:36)
[2019-09-05] MEDS: ASPIRIN 81 MG PO SCH (08:29)
[2019-09-05] MEDS: CLOPIDOGREL 75 MG TAB PO SCH (08:29)
[2019-09-05] MEDS ORDERED: SPIRONOLACTONE 25 MG TAB PO SCH (09:00)
[2019-09-05] MEDS: hydrALAZINE HCL 50 MG TAB PO SCH ×3 (09:36→20:36)
[2019-09-05] MEDS: amLODIPine 5 MG TAB PO SCH (09:37)
[2019-09-05] MEDS ORDERED: hydrALAZINE HCL 10 MG TAB PO SCH (10:00)
--- NOTE | 2019-09-05 10:51 | P.CRDCN ---
History of Present Illness History of present illness: HISTORY OF PRESENTING ILLNESS This is a pleasant 59-year-old male past medical history significant for coronary artery disease status post PCI to the RCA [address] Michele, exact details unavailable, hypertension, chronic diastolic heart failure, dyslipidemia, diabetes mellitus and morbid obesity. We have been asked to see in consultation for shortness of breath. Patient was seen and examined sitting up in bed in no acute distress. He states he has been expressing exertional shortness of breath and noticed a 10 pound weight gain over the previous one week. He does have some lower extremity edema however clinically his lungs are clear. He has been started on IV Lasix and Aldactone per the ER physician. He is diuresing and maintaining a negative fluid balance. EKG on arrival reveal sinus right bundle branch block pattern with an inferior Q-wave. No acute ST or T wave abnormalities noted. Consistent with previous EKG. Chest x-ray is negative for an acute cardiopulmonary process. Laboratory data reviewed, WBC 6.0, hemoglobin 12.4, platelets 222, sodium 137, potassium 4.8, creatinine 1.33 with a GFR of 58, magnesium 2.0, cardiac enzymes negative 1, NT proBNP 35. Recent echocardiogram obtained June 2019 reveals preserved LV systolic function with ejection fraction 50-55%. Blood pressure on arrival 191/69 and 216/95. Current daily cardiac medications include aspirin 81 mg daily, carvedilol 12.5 mg twice a day, Plavix 75 mg daily, Lasix 40 mg twice a day, rosuvastatin 10 mg at bedtime and hydralazine 20 mg 3 times a day. REVIEW OF SYSTEMS At the time of my exam: CONSTITUTIONAL: Denies fever or chills. CARDIOVASCULAR: Complains of shortness of breath. Denies chest pain, orthopnea, PND or palpitations. RESPIRATORY: Denies cough. GASTROINTESTINAL: Denies abdominal pain, diarrhea, constipation, nausea or vomiting. MUSCULOSKELETAL: Denies myalgias. NEUROLOGIC: Denies numbness, tingling or weakness. ENDOCRINE: Denies fatigue, weight change, polydipsia or polyurina. GENITOURINARY: Denies burning, hematuria or urgency with micturation. HEMATOLOGIC: Denies history of anemia or bleeding. PHYSICAL EXAMINATION Blood pressure 170/79 heart rate 64 afebrile and maintaining oxygen saturation on room air. CONSTITUTIONAL: No apparent distress. HEENT: Head is normocephalic. Pupils are equal, round. Sclerae anicteric. Mucous membranes of the mouth are moist. No JVD. No carotid bruit. CHEST EXAMINATION: Lungs are clear to auscultation. No chest wall tenderness is noted on palpation or with deep breathing. HEART EXAMINATION: Regular rate and rhythm. S1, S2 heard. No murmurs, gallops or rub. ABDOMEN: Soft, nontender. Positive bowel sounds. EXTREMITIES: 2+ peripheral pulses, trace bilateral lower extremity 1+ pitting edema and no calf tenderness. NEUROLOGIC EXAMINATION: Patient is awake, alert and oriented x3. ASSESSMENT Acute on chronic diastolic heart failure, mild Hypertension, uncontrolled Chronic renal failure Coronary artery disease status post PCI maintained on dual antiplatelet therapy Dyslipidemia Diabetes mellitus Morbid obesity, BMI 42 PLAN Continue IV diuresis. Discontinue Aldactone. Increase hydralazine to 50 mg 3 times a day and initiate amlodipine 5 mg daily. If blood pressure remains elevated will consider APOLINAR. Document accurate intake and output along with daily weight. Follow renal function in the morning. Thank you kindly for this consultation. Nurse Practitioner note has been reviewed, I agree with a documented findings and plan of care. Patient was seen and examined. Past Medical History Past Medical History: Coronary Artery Disease (CAD), Chest Pain / Angina, COPD, Diabetes Mellitus, Hyperlipidemia, Hypertension Additional Past Medical History / Comment(s): Diabetic neuropathy in legs and arms, crohns, rt foot wound History of Any Multi-Drug Resistant Organisms: ESBL, ESBL, MRSA Date of last positivie culture/infection: 07/25/18 ESBL Klebsiella MDRO Source:: Right FOOT Past Surgical History: Bowel Resection, Heart Catheterization With Stent, Orthopedic Surgery, Tonsillectomy Additional Past Surgical History / Comment(s): bowel resection in 1994 &1999, heart cath with stent at [place] April 14 2019. Past Anesthesia/Blood Transfusion Reactions: No Reported Reaction Date of Last Stent Placement:: april 2019 Past Psychological History: No Psychological Hx Reported Smoking Status: Former smoker Past Alcohol Use History: None Reported Past Drug Use History: None Reported - Past Family History Father Family Medical History: Musculoskeletal Disorder Mother Family Medical History: COPD, Diabetes Mellitus Medications and Allergies Home Medications Medication Instructions Recorded Confirmed Type Ergocalciferol (Vitamin D2) 50,000 unit PO HUGGINS 06/14/18 09/05/19 History [Vitamin D2] Pramipexole [Mirapex] 1 mg PO HS 06/14/18 09/05/19 History Pyridoxine HCl (Vitamin B6) 50 mg PO DAILY 06/14/18 09/05/19 History [Vitamin B-6] Magnesium Oxide [Higgins] 500 mg PO BID 07/23/18 09/05/19 History Aspirin 81 mg PO DAILY 06/27/19 09/05/19 History Carvedilol [Coreg] 12.5 mg PO BID 06/27/19 09/05/19 History Clopidogrel Bisulfate [Plavix] 75 mg PO DAILY 06/27/19 09/05/19 History Rosuvastatin Calcium [Crestor] 10 mg PO HS 06/27/19 09/05/19 History hydrALAZINE HCL [Apresoline] 20 mg PO Q8H 06/27/19 09/05/19 History sulfaSALAzine [Azulfidine] 1,000 mg PO QID 06/27/19 09/05/19 History Pioglitazone [Actos] 45 mg PO DAILY 06/28/19 09/05/19 History Furosemide [Lasix] 40 mg PO BID 09/05/19 09/05/19 History Gabapentin [Neurontin] 300 mg PO TID 09/05/19 09/05/19 History Insulin Glargine,Hum.rec.anlog 40 units PC-BRKFST 09/05/19 09/05/19 History [Basaglar Kwikpen U-100] Insulin Glargine,Hum.rec.anlog 50 units SQ AC-SUPPER 09/05/19 09/05/19 History [Basaglar Kwikpen U-100] Allergies Allergy/AdvReac Type Severity Reaction Status Date / Time codeine Allergy Anaphylaxis Verified 09/05/19 08:44 Physical Exam Vitals: Vital Signs Temp Pulse Pulse Resp BP BP BP 09/05/19 07:02 98.4 F 64 18 170/79 09/05/19 04:00 98.2 F 58 L 18 166/82 09/05/19 01:44 62 09/05/19 01:41 180/80 09/05/19 00:39 97.4 F L 68 18 216/95 09/05/19 00:18 57 L 18 176/79 09/04/19 23:12 98.1 F 62 20 171/77 09/04/19 20:19 97.3 F L 70 16 191/69 Pulse Ox 09/05/19 07:02 94 L 09/05/19 04:00 93 L 09/05/19 01:44 09/05/19 01:41 09/05/19 00:39 94 L 09/05/19 00:18 95 09/04/19 23:12 98 09/04/19 20:19 95 Intake and Output 09/04/19 09/05/19 09/05/19 22:59 06:59 14:59 Output Total 725 1600 Balance -725 -1600 Output: Urine 725 1600 Other: Voiding Method Toilet Weight 158.394 kg 155.1 kg Results 09/04/19 21:00 09/04/19 21:00 Cardiac Enzymes 09/04/19 09/04/19 Range/Units 21:00 21:00 AST 31 (17-59) U/L CK-MB (CK-2) 2.7 H (0.0-2.4) ng/mL Troponin I <0.012 (0.000-0.034) ng/mL Coagulation 09/04/19 Range/Units 21:00 PT 10.5 (9.0-12.0) sec APTT 22.5 (22.0-30.0) sec CBC 09/04/19 Range/Units 21:00 WBC 6.0 (3.8-10.6) k/uL RBC 3.93 L (4.30-5.90) m/uL Hgb 12.4 L (13.0-17.5) gm/dL Hct 37.8 L (39.0-53.0) % Plt Count 222 (150-450) k/uL Comprehensive Metabolic Panel 09/04/19 Range/Units 21:00 Sodium 137 (137-145) mmol/L Potassium 4.8 (3.5-5.1) mmol/L Chloride 102 (98-107) mmol/L Carbon Dioxide 28 (22-30) mmol/L BUN 32 H (9-20) mg/dL Creatinine 1.33 H (0.66-1.25) mg/dL Glucose 223 H (74-99) mg/dL Calcium 9.1 (8.4-10.2) mg/dL AST 31 (17-59) U/L ALT 25 (4-49) U/L Alkaline Phosphatase 122 (38-126) U/L Total Protein 6.5 (6.3-8.2) g/dL Albumin 3.7 (3.5-5.0) g/dL Current Medications Generic Name Dose Route Start Last Admin Trade Name Freq PRN Reason Stop Dose Admin Amlodipine Besylate 5 mg 09/05/19 09:00 09/05/19 09:37 Norvasc PO 5 mg DAILY ABDELRAHMAN Administration Aspirin 81 mg 09/05/19 09:00 09/05/19 08:29 Aspirin PO 81 mg DAILY ABDELRAHMAN Administration Atorvastatin Calcium 10 mg 09/05/19 21:00 Lipitor PO HS [facility] Carvedilol 12.5 mg 09/05/19 02:00 09/05/19 08:29 Coreg PO 12.5 mg BID-W/MEALS [facility] Administration Clopidogrel Bisulfate 75 mg 09/05/19 09:00 09/05/19 08:29 Plavix PO 75 mg DAILY [facility] Administration Furosemide 40 mg 09/04/19 22:45 09/05/19 06:09 Lasix IV 40 mg Q8H ABDELRAHMAN Administration Gabapentin 300 mg 09/05/19 09:00 09/05/19 08:29 Neurontin PO 300 mg TID [facility] Administration Heparin Sodium (Porcine) 5,000 unit 09/05/19 08:00 09/05/19 08:29 Heparin SQ 5,000 unit Q8HR [facility] Administration Hydralazine HCl 50 mg 09/05/19 09:00 09/05/19 09:36 Apresoline PO 50 mg TID [facility] Administration Insulin Aspart 0 unit 09/05/19 07:30 09/05/19 08:29 Novolog SQ 6 unit AC-TID [facility] Administration Protocol Insulin Detemir 35 unit 09/05/19 07:00 09/05/19 08:29 Levemir SQ 35 unit Q12H [facility] Administration Magnesium Oxide 400 mg 09/05/19 09:00 09/05/19 08:29 Mag-Ox PO 400 mg BID [facility] Administration Pramipexole Dihydrochloride 1 mg 09/05/19 21:00 Mirapex PO HS [facility] Sulfasalazine 1,000 mg 09/05/19 09:00 09/05/19 08:29 Azulfidine PO 12/13/19 09:01 1,000 mg QID [facility] Administration Intake and Output 09/04/19 09/05/19 09/05/19 22:59 06:59 14:59 Output Total 725 1600 Balance -725 -1600 Output: Urine 725 1600 Other: Voiding Method Toilet Weight 158.394 kg 155.1 kg 09/04/19 21:00 09/04/19 21:00
[2019-09-05 11:28] VITALS: BMI 42.7
[2019-09-05 11:40] LABS: Glucose,Whole Blood 185 mg/dL (75-99)
[2019-09-05] MEDS ORDERED: ALBUTEROL NEBULIZED 2.5 MG/3 ML INHALATION PRN (14:45)
--- NOTE | 2019-09-05 14:46 | P.PN ---
Subjective Progress Note Date: 09/05/19 Principal diagnosis: CHF, fluid overload Patient was seen and examined. No acute events overnight. Patient reports improvement in his breathing and lower extremity swelling since admission. He denies any chest pain or palpitations. No nausea or vomiting. No fever or chills. Objective - Vital Signs Vital signs: Vital Signs Temp 97.7 F 09/05/19 12:00 Pulse 56 L 09/05/19 12:00 Resp 18 09/05/19 07:02 BP 139/71 09/05/19 12:00 Pulse Ox 95 09/05/19 12:00 Intake & Output 09/04/19 09/05/19 09/05/19 18:59 06:59 18:59 Intake Total 400 Output Total 725 1600 Balance -725 -1200 Weight 155.1 kg 155.1 kg Intake: Oral 400 Output: Urine 725 1600 Other: Voiding Method Toilet - Exam General: [non toxic], [no distress], [appears at stated age] Derm: [warm], [dry] Head: [atraumatic], [normocephalic], [symmetric] Eyes: [EOMI], [no lid lag], [anicteric sclera] Mouth: [no lip lesion], [mucus membranes moist] Cardiovascular: [S1S2 reg], [no murmur], [positive DP pulse bilateral], Lungs: [CTA bilateral], [no rhonchi, no rales] , [no accessory muscle use] Abdominal: [soft], [ nontender to palpation], [no guarding], [no appreciable organomegaly] Ext: [no gross muscle atrophy], [1+ pitting lower extremity edema], [no contractures] Neuro: [no focal neuro deficits] Psych: [Alert], [oriented], [appropriate affect] - Labs CBC & Chem 7: 09/04/19 21:00 09/04/19 21:00 Labs: Abnormal Lab Results - Last 24 Hours (Table) 09/04/19 09/04/19 09/04/19 Range/Units 21:00 21:00 21:00 RBC 3.93 L (4.30-5.90) m/uL Hgb 12.4 L (13.0-17.5) gm/dL Hct 37.8 L (39.0-53.0) % BUN 32 H (9-20) mg/dL Creatinine 1.33 H (0.66-1.25) mg/dL Glucose 223 H (74-99) mg/dL POC Glucose (mg/dL) (75-99) mg/dL Creatine Kinase 305 H (55-170) U/L CK-MB (CK-2) 2.7 H (0.0-2.4) ng/mL Urine Protein (Negative) Urine Glucose (UA) (Negative) 09/05/19 09/05/19 09/05/19 Range/Units 00:55 01:00 06:20 RBC (4.30-5.90) m/uL Hgb (13.0-17.5) gm/dL Hct (39.0-53.0) % BUN (9-20) mg/dL Creatinine (0.66-1.25) mg/dL Glucose (74-99) mg/dL POC Glucose (mg/dL) 230 H 204 H (75-99) mg/dL Creatine Kinase (55-170) U/L CK-MB (CK-2) (0.0-2.4) ng/mL Urine Protein 1+ H (Negative) Urine Glucose (UA) 3+ H (Negative) 09/05/19 Range/Units 11:39 RBC (4.30-5.90) m/uL Hgb (13.0-17.5) gm/dL Hct (39.0-53.0) % BUN (9-20) mg/dL Creatinine (0.66-1.25) mg/dL Glucose (74-99) mg/dL POC Glucose (mg/dL) 185 H (75-99) mg/dL Creatine Kinase (55-170) U/L CK-MB (CK-2) (0.0-2.4) ng/mL Urine Protein (Negative) Urine Glucose (UA) (Negative) Assessment and Plan Assessment: Diastolic CHF exacerbation Hypertension Type 2 diabetes mellitus CAD Chronic kidney disease COPD Patient is echocardiogram from June 2019 that shows EF 50-55% with mild diastolic dysfunction. He has lost about 3 kg since admission. Currently saturating 95% on room air. He has been started on Lasix 40 mg IV 3 times a day. Strict intakes and output takes has been ordered along with daily weight. Patient has been placed on telemetry monitoring. Cardiology has been consulted and is following the patient. Patient's blood pressure is 139/71. We will continue Coreg. Amlodipine and hydralazine has been added by cardiology. His vital signs will be monitored and medications adjusted as necessary. His blood glucose has ranged in the high 100s and 200s. We will continue Levemir 35 units twice a day. Insulin sliding scale has been ordered along with regular Accu-Cheks and hypoglycemic precautions. Aspirin and Lipitor along with Coreg will be restarted for history of CAD. Patient's creatinine is 1.33 which appears to be at baseline. We will avoid unnecessary nephrotoxic medications. Patient will be started on albuterol as needed for shortness of breath and wheezing. His COPD is currently not in acute exacerbation. [Patient is pending clinical improvement. One more day of diuresis as per cardiology. Blood pressure medications adjusted. Likely DC tomorrow.]
[2019-09-05 16:42] LABS: Glucose,Whole Blood 114 mg/dL (75-99)
[2019-09-05] MEDS ORDERED: ATORVASTATIN 10 MG TAB PO SCH (21:00)
[2019-09-05] MEDS ORDERED: PRAMIPEXOLE 1 MG TAB PO SCH (21:00)
[2019-09-05 21:37] VITALS: RESP 18
[2019-09-05 21:45] LABS: Glucose,Whole Blood 163 mg/dL (75-99)
[2019-09-06 05:51] LABS: Calcium 9.2 mg/dL (8.4-10.2); Potassium 4.1 mmol/L (3.5-5.1)
[2019-09-06 06:48] LABS: Glucose,Whole Blood 100 mg/dL (75-99)
[2019-09-06] MEDS ORDERED: FUROSEMIDE 10 MG/ML 4 ML VIAL IV SCH (07:00)
[2019-09-06] MEDS: CLOPIDOGREL 75 MG TAB PO SCH (07:49)
[2019-09-06] MEDS: CARVEDILOL 12.5 MG TAB PO SCH (07:49)
[2019-09-06] MEDS: HEPARIN SODIUM,PORCINE 5,000 UNIT/ML 1 ML VIAL SQ SCH (07:49)
[2019-09-06] MEDS: INSULIN DETEMIR (LEVEMIR) 100 UNIT/ML SYR SQ SCH (07:49)
[2019-09-06] MEDS: MAGNESIUM OXIDE 400 MG TAB PO SCH (07:50)
[2019-09-06] MEDS: amLODIPine 5 MG TAB PO SCH (07:50)
[2019-09-06] MEDS: GABAPENTIN 300 MG CAP PO SCH (07:50)
[2019-09-06] MEDS: INSULIN ASPART (NovoLOG) 100 UNIT/ML VIAL SQ SCH ×2 (07:50→12:09)
[2019-09-06] MEDS: ASPIRIN 81 MG PO SCH (07:50)
[2019-09-06] MEDS: sulfaSALAzine 500 MG TAB PO SCH ×2 (07:50→12:09)
[2019-09-06] MEDS: hydrALAZINE HCL 50 MG TAB PO SCH (07:51)
[2019-09-06 08:17] VITALS: BP 160/76; PULSE 65; TEMP 97.8
[2019-09-06] MEDS ORDERED: hydrALAZINE HCL 50 MG TAB PO SCH (09:00)
[2019-09-06] MEDS ORDERED: hydrALAZINE HCL 50 MG TAB PO ONE (09:15)
--- NOTE | 2019-09-06 10:16 | P.PN ---
Subjective HISTORY OF PRESENTING ILLNESS This is a pleasant 59-year-old male past medical history significant for coronary artery disease status post PCI to the RCA April [address] Michele, exact details unavailable, hypertension, chronic diastolic heart failure, dyslipidemia, diabetes mellitus and morbid obesity. He is seen and examined resting comfortably sitting up in bed in no acute distress. He has put out a significant amount of urine in the previous 24 hours over 5000 rales. His weight is down from 155 kg on admission 247 kg this morning. Overall he is feeling better and her shortness of breath has improved. Laboratory data r eviewed, sodium 137, potassium 4.1, creatinine 1.49. Blood pressure continues to be mildly elevated at 160/76 with a heart rate of 65. PHYSICAL EXAMINATION CONSTITUTIONAL: No apparent distress. HEENT: Head is normocephalic. Pupils are equal, round. Sclerae anicteric. Mucous membranes of the mouth are moist. No JVD. No carotid bruit. CHEST EXAMINATION: Lungs are clear to auscultation. No chest wall tenderness is noted on palpation or with deep breathing. HEART EXAMINATION: Regular rate and rhythm. S1, S2 heard. No murmurs, gallops or rub. EXTREMITIES: 2+ peripheral pulses, trace bilateral lower extremity edema and no calf tenderness. ASSESSMENT Acute on chronic diastolic heart failure, mild Hypertension, uncontrolled Chronic renal failure Coronary artery disease status post PCI maintained on dual antiplatelet therapy Dyslipidemia Diabetes mellitus Morbid obesity, BMI 42 PLAN Increase hydralazine to 100 mg 3 times a day. Continue amlodipine, carvedilol, aspirin, atorvastatin and Plavix as previously ordered. Continue by mouth Lasix 40 mg twice a day on discharge. Follow-up with Dr. Michele upon discharge. Nurse Practitioner note has been reviewed, I agree with a documented findings and plan of care. Patient was seen and examined. Objective - Vital Signs Vital signs: Vital Signs Temp 97.8 F 09/06/19 08:00 Pulse 65 09/06/19 08:00 Resp 18 09/06/19 08:00 BP 160/76 09/06/19 08:00 Pulse Ox 93 L 09/06/19 08:00 Intake & Output 09/05/19 09/06/19 09/06/19 18:59 06:59 18:59 Intake Total 581 199 6470 Output Total 3500 1800 Balance -3100 -1560 1122 Weight 155.1 kg 147.6 kg Intake: Oral 756 070 1133 Output: Urine 3500 1800 Other: Voiding Method Toilet Toilet Toilet - Labs CBC & Chem 7: 09/04/19 21:00 09/06/19 05:21 Labs: Abnormal Lab Results - Last 24 Hours (Table) 09/05/19 09/05/19 09/05/19 Range/Units 11:39 16:40 21:43 Carbon Dioxide (22-30) mmol/L BUN (9-20) mg/dL Creatinine (0.66-1.25) mg/dL Glucose (74-99) mg/dL POC Glucose (mg/dL) 185 H 114 H 163 H (75-99) mg/dL 09/06/19 09/06/19 Range/Units 05:21 06:46 Carbon Dioxide 31 H (22-30) mmol/L BUN 39 H (9-20) mg/dL Creatinine 1.49 H (0.66-1.25) mg/dL Glucose 105 H (74-99) mg/dL POC Glucose (mg/dL) 100 H (75-99) mg/dL
[2019-09-06 11:39] LABS: Glucose,Whole Blood 142 mg/dL (75-99)
--- NOTE | 2019-09-06 12:38 | P.DS ---
Providers Date of admission: 09/06/19 08:57 Expected date of discharge: 09/06/19 Attending physician: Javi Ibarra MD Consults: 09/05/19 07:08 Consult Physician Routine Consulting Provider: Christopher Moore Consult Reason/Comments: chf Do you want consulting provider notified?: Yes Primary care physician: [facility] [place] Course: The patient is a 59-year-old male with a PMH of CAD status post PCI on 04/14/2019, CKD stage III, tobacco abuse, type 2 diabetes mellitus, diastolic CHF, and COPD who presented to the ED with complaints of worsening lower extremity edema. He underwent an extensive evaluation in the emergency room with chest x-ray unremarkable, EKG showing normal sinus rhythm at 69 bpm with a right bundle nicole block. Laboratory evaluation revealed a WBC count 6.0, hemoglobin 12.4, platelets 222, troponin less than 0.012, CKMB 2.7, BUN 32, creatinine 1.15, and BNP 353. The patient is being admitted under observation for further management of fluid overload. Patient was started on Lasix 40 mg IV 3 times a day. He had a recent echocardiogram from June 2019 which showed EF 50-55% with mild diastolic dysfunction. We'll obtain strict intake and output along with daily weights. He was also placed on telemetry monitoring. Cardiology was consulted and recommended IV diuresis. Patient was noted to have an elevated BP on admission. Amlodipine was added by cardiology and hydralazine was increased. Otherwise, his home dose of insulin was resumed along with insulin sliding-scale, regular Accu-Cheks and hypoglycemic precautions for diabetes mellitus. He was restarted on aspirin, Lipitor and Coreg for history of CAD. This was noted to have an elevated creatinine of 1.49 which was at baseline for his chronic kidney disease. Patient was seen and examined. No acute events overnight. Patient reports considerable improvement in his breathing. Also reports improvement in his lower emy swelling. He denies any chest pain, shortness of breath or palpitations. No nausea or vomiting. No fever or chills. General: [non toxic], [no distress], [appears at stated age] Derm: [warm], [dry] Head: [atraumatic], [normocephalic], [symmetric] Eyes: [EOMI], [no lid lag], [anicteric sclera] Mouth: [no lip lesion], [mucus membranes moist] Cardiovascular: [S1S2 reg], [no murmur], [positive DP pulse bilateral], Lungs: [CTA bilateral], [no rhonchi, no rales] , [no accessory muscle use] Abdominal: [soft], [ nontender to palpation], [no guarding], [no appreciable organomegaly] Ext: [no gross muscle atrophy], [1+ pitting lower extremity edema], [no contractures] Neuro: [no focal neuro deficits] Psych: [Alert], [oriented], [appropriate affect] Diastolic CHF exacerbation Hypertension Type 2 diabetes mellitus CAD Chronic kidney disease COPD Patient is echocardiogram from June 2019 that shows EF 50-55% with mild diastolic dysfunction. He has lost about 10 kg since admission. Currently saturating 95% on room air. He was on Lasix 40 mg IV 3 times a day will be transition to home dose of Lasix. Strict intakes and output takes has been ordered along with daily weight. Patient has been placed on telemetry monitoring. Cardiology has been consulted and is following the patient. Patient's blood pressure is 160/76. We will continue Coreg. Amlodipine and hydralazine has been added by cardiology. His vital signs will be monitored and medications adjusted as necessary. His blood glucose has ranged in the high 100s and 200s. We will continue Levemir 35 units twice a day. Insulin sliding scale has been ordered along with regular Accu-Cheks and hypoglycemic precautions. Aspirin and Lipitor along with Coreg will be restarted for history of CAD. Patient's creatinine is 1.49 which appears to be at baseline. We will avoid unnecessary nephrotoxic medications. Patient will be started on albuterol as needed for shortness of breath and wheezing. His COPD is currently not in acute exacerbation. [Patient has improved. He is hemodynamically stable. Cardiology following, cleared for discharge.] Pertinent Studies: Chest x-ray Patient Condition at Discharge: Good Plan - Discharge Summary Discharge Rx Participant: No New Discharge Prescriptions: New hydrALAZINE HCL [Apresoline] 100 mg PO TID #180 tab amLODIPine [Norvasc] 5 mg PO DAILY #90 tab Continue Ergocalciferol (Vitamin D2) [Vitamin D2] 50,000 unit PO HUGGINS Pramipexole [Mirapex] 1 mg PO HS Pyridoxine HCl (Vitamin B6) [Vitamin B-6] 50 mg PO DAILY Magnesium Oxide [Higgins] 500 mg PO BID Rosuvastatin Calcium [Crestor] 10 mg PO HS Clopidogrel Bisulfate [Plavix] 75 mg PO DAILY Aspirin 81 mg PO DAILY Carvedilol [Coreg] 12.5 mg PO BID sulfaSALAzine [Azulfidine] 1,000 mg PO QID Pioglitazone [Actos] 45 mg PO DAILY Insulin Glargine,Hum.rec.anlog [Basaglar Kwikpen U-100] 40 units PC-BRKFST Gabapentin [Neurontin] 300 mg PO TID Insulin Glargine,Hum.rec.anlog [Basaglar Kwikpen U-100] 50 units SQ AC-SUPPER Furosemide [Lasix] 40 mg PO BID Discontinued hydrALAZINE HCL [Apresoline] 20 mg PO Q8H Discharge Medication List Ergocalciferol (Vitamin D2) [Vitamin D2] 50,000 unit PO HUGGINS 06/14/18 [History] Pramipexole [Mirapex] 1 mg PO HS 06/14/18 [History] Pyridoxine HCl (Vitamin B6) [Vitamin B-6] 50 mg PO DAILY 06/14/18 [History] Magnesium Oxide [Higgins] 500 mg PO BID 07/23/18 [History] Aspirin 81 mg PO DAILY 06/27/19 [History] Carvedilol [Coreg] 12.5 mg PO BID 06/27/19 [History] Clopidogrel Bisulfate [Plavix] 75 mg PO DAILY 06/27/19 [History] Rosuvastatin Calcium [Crestor] 10 mg PO HS 06/27/19 [History] sulfaSALAzine [Azulfidine] 1,000 mg PO QID 06/27/19 [History] Pioglitazone [Actos] 45 mg PO DAILY 06/28/19 [History] Furosemide [Lasix] 40 mg PO BID 09/05/19 [History] Gabapentin [Neurontin] 300 mg PO TID 09/05/19 [History] Insulin Glargine,Hum.rec.anlog [Basaglar Kwikpen U-100] 40 units PC-BRKFST 09/05/19 [History] Insulin Glargine,Hum.rec.anlog [Basaglar Kwikpen U-100] 50 units SQ AC-SUPPER 09/05/19 [History] amLODIPine [Norvasc] 5 mg PO DAILY #90 tab 09/06/19 [Rx] hydrALAZINE HCL [Apresoline] 100 mg PO TID #180 tab 09/06/19 [Rx] Follow up Appointment(s)/Referral(s): Sammy Barth DO [Primary Care Provider] - 09/10/19 12:30 pm Sheela Esteban MD [STAFF PHYSICIAN] - 09/18/19 3:45 pm Patient Instructions/Handouts: Heart Failure (DC), Edema (DC) Activity/Diet/Wound Care/Special Instructions: Follow-up with PCP within 2 days of discharge. Follow-up with cardiology within 1 week of discharge. Take all medications as advised.
== END 2019-09-06 12:50 | disposition home or self-care (01) ==
LOC: EC 20:18 → 1SOBS 22:42 → OBSVTOIN 09-06 08:57 → INTOOBSV 09-06 08:57 → UNDODISIN 09-06 12:50
PROVIDERS: ADMIT Internal Medicine; ATTEND Internal Medicine
DX: I13.0 Hypertensive heart and chronic kidney disease with heart failure and stage 1 through stage 4 chronic kidney disease, or unspecified chronic kidney disease (principal); I50.33 Acute on chronic diastolic (congestive) heart failure; N18.3 Chronic kidney disease, stage 3 (moderate); E11.22 Type 2 diabetes mellitus with diabetic chronic kidney disease; I25.10 Atherosclerotic heart disease of native coronary artery without angina pectoris; J44.9 Chronic obstructive pulmonary disease, unspecified; I16.0 Hypertensive urgency; E78.5 Hyperlipidemia, unspecified; K50.90 Crohn's disease, unspecified, without complications; E66.01 Morbid (severe) obesity due to excess calories; Z68.41 Body mass index [BMI] 40.0-44.9, adult; Z79.899 Other long term (current) drug therapy; Z79.82 Long term (current) use of aspirin; Z79.02 Long term (current) use of antithrombotics/antiplatelets; Z79.4 Long term (current) use of insulin; Z79.51 Long term (current) use of inhaled steroids; Z88.5 Allergy status to narcotic agent; E11.40 Type 2 diabetes mellitus with diabetic neuropathy, unspecified; Z86.14 Personal history of Methicillin resistant Staphylococcus aureus infection; Z95.5 Presence of coronary angioplasty implant and graft; Z90.49 Acquired absence of other specified parts of digestive tract; Z87.891 Personal history of nicotine dependence; Z98.890 Other specified postprocedural states; Z90.89 Acquired absence of other organs; Z83.3 Family history of diabetes mellitus; Z82.5 Family history of asthma and other chronic lower respiratory diseases; Z82.69 Family history of other diseases of the musculoskeletal system and connective tissue
CPT/HCPCS: 96372 ×2; 96376 ×2; 96374; 99285; 36415; 94640; 93005; 83880; 80053; 80048; 82550; 82553; 83605; 83735; 84100; 84484; 85025; 85610; 85730; 81001; 71046; G0378 ×3; J1644 ×2; J1940 ×2

== ENCOUNTER 2021-01-09 16:35 | Observation (INO) | payer MEDICARE ==
--- NOTE | 2021-01-09 17:03 | ED ---
General Adult HPI - General Chief complaint: Abdominal Pain Stated complaint: abd pain Time Seen by Provider: 01/09/21 16:47 Source: patient Mode of arrival: wheelchair Limitations: no limitations - History of Present Illness Initial comments: Dictation was produced using [email or web address] dictation software. please excuse any grammatical, word or spelling errors. Chief Complaint: 60-year-old male presents with diffuse abdominal pain. History of Present Illness: It is a 6-year-old male presents with diffuse abdominal pain. Patient has history of bowel resection. He has extensive history of Crohn's disease. Hasn't needed any intervention in several years. He states that since the last 3-4 days he develop right-sided abdominal pain th at radiates to the back. He's been having nonbilious nonbloody diarrhea. He is nauseated but no vomiting. Patient states that his symptoms are similar to his usual Crohn's pain. The GI doctor in [facility] who manages his Crohn's. Patient has a constitutional symptoms. He still able to tolerate oral intake. The ROS documented in this emergency department record has been reviewed and c onfirmed by me. Those systems with pertinent positive or negative responses have been documented in the HPI. All other systems are other negative and/or noncontributory. PHYSICAL EXAM: General Impression: Alert and oriented x3, not in acute distress, obese HEENT: Normocephalic atraumatic, extra-ocular movements intact, pupils equal and reactive to light bilaterally, mucous membranes moist. Cardiovascular: Heart regular rate and rhythm Chest: Able to complete full sentences, no retractions, no tachypnea Abdomen: abdomen soft, negative Salcido sign, tenderness to palpation over the right upper quadrant, non-distended, no organomegaly Musculoskeletal: Pulses present and equal in all extremities, no peripheral edema Motor: no focal deficits noted Neurological: CN II-XII grossly intact, no focal motor or sensory deficits noted Skin: Intact with no visualized rashes Psych: Normal affect and mood ED course:- 60year-old male with history of Crohn's disease presents emergency department for right-sided abdominal pain. He states the pain radiates to his back. Vital signs upon arrival are within acceptable limits. IV analgesia provided. Laboratory evaluation obtained. CBC unremarkable. Metabolic panel shows findings within acceptable limits except for lipase of 836. Computed tomography scan of the abdomen and pelvis shows no acute processes. Patient reevaluated at bedside states that he still has persistent pain. States pain is still severe. Clinical presentation consistent with pancreatitis. He is a nondrinker. Suspect the patient's pancreatitis is likely secondary to hypertriglyceridemia. Patient admitted to [facility] for pain control, IV hydration, bowel rest. Gastroenterology consulted. EKG interpretation: Ventricular rate 82, normal sinus rhythm,. 170, QS 156, QTC 486 and right bundle branch block. No AR prolongation, no QTC prolongation, no ST or T-wave changes noted. EKG compared to 09/04/2019 showing no changes. Overall, this EKG is unremarkable - Related Data Home Medications Medication Instructions Recorded Confirmed Ergocalciferol (Vitamin D2) 50,000 unit PO HUGGINS 06/14/18 01/09/21 [Vitamin D2] Pramipexole [Mirapex] 1 mg PO HS 06/14/18 01/09/21 Magnesium Oxide [Higgins] 500 mg PO BID@1200,1800 07/23/18 01/09/21 Aspirin 81 mg PO DAILY@1200 06/27/19 01/09/21 Carvedilol [Coreg] 12.5 mg PO BID 06/27/19 01/09/21 Clopidogrel Bisulfate [Plavix] 75 mg PO DAILY@1200 06/27/19 01/09/21 Rosuvastatin Calcium [Crestor] 10 mg PO DAILY@1200 06/27/19 01/09/21 sulfaSALAzine [Azulfidine] 1,000 mg PO QID 06/27/19 01/09/21 Furosemide [Lasix] 40 mg PO TID 09/05/19 01/09/21 Allopurinol [Zyloprim] 100 mg PO DAILY 01/09/21 01/09/21 INSULIN ASPART (NovoLOG) [NovoLOG 4 - 12 unit SQ AC-TID 01/09/21 01/09/21 (formulary)] Insulin Glargine [Lantus] 40 unit SQ DAILY 01/09/21 01/09/21 Insulin Glargine [Lantus] 50 unit SQ HS 01/09/21 01/09/21 Losartan Potassium 100 mg PO DAILY 01/09/21 01/09/21 Potassium Chloride ER [K-Dur 10] 10 meq PO BID 01/09/21 01/09/21 Semaglutide [Ozempic] 0.5 mg SQ MO 01/09/21 01/09/21 Vitamin B Complex 1 cap PO W/SUPPER 01/09/21 01/09/21 Allergies Allergy/AdvReac Type Severity Reaction Status Date / Time codeine Allergy Anaphylaxis Verified 01/09/21 17:47 Review of Systems ROS Statement: Those systems with pertinent positive or pertinent negative responses have been documented in the HPI. ROS Other: All systems not noted in ROS Statement are negative. Past Medical History Past Medical History: Coronary Artery Disease (CAD), Chest Pain / Angina, COPD, Diabetes Mellitus, Hyperlipidemia, Hypertension Additional Past Medical History / Comment(s): Diabetic neuropathy in legs and arms, crohns, rt foot wound History of Any Multi-Drug Resistant Organisms: ESBL, ESBL, MRSA Date of last positivie culture/infection: 07/25/18 ESBL Klebsiella MDRO Source:: Right FOOT Past Surgical History: Bowel Resection, Heart Catheterization With Stent, Orthopedic Surgery, Tonsillectomy Additional Past Surgical History / Comment(s): bowel resection in 1994 &1999, heart cath with stent at [place] April 14 2019. Past Anesthesia/Blood Transfusion Reactions: No Reported Reaction Date of Last Stent Placement:: april 2019 Past Psychological History: No Psychological Hx Reported Smoking Status: Never smoker Past Alcohol Use History: None Reported Past Drug Use History: None Reported - Past Family History Father Family Medical History: Musculoskeletal Disorder Mother Family Medical History: COPD, Diabetes Mellitus General Exam Limitations: no limitations Course Vital Signs 01/09/21 16:44 Temperature 98.1 F Pulse Rate 77 Respiratory 20 Rate Blood Pressure 188/94 O2 Sat by Pulse 99 Oximetry Medical Decision Making - Lab Data Result diagrams: 01/09/21 16:58 01/09/21 16:58 Lab Results 01/09/21 01/09/21 Range/Units 16:58 16:58 WBC 8.6 (3.8-10.6) k/uL RBC 4.94 (4.30-5.90) m/uL Hgb 15.2 (13.0-17.5) gm/dL Hct 46.0 (39.0-53.0) % MCV 93.0 (80.0-100.0) fL MCH 30.7 (25.0-35.0) pg MCHC 33.0 (31.0-37.0) g/dL RDW 13.6 (11.5-15.5) % Plt Count 266 (150-450) k/uL MPV 7.4 Neutrophils % 76 % Lymphocytes % 17 % Monocytes % 5 % Eosinophils % 1 % Basophils % 1 % Neutrophils # 6.6 (1.3-7.7) k/uL Lymphocytes # 1.5 (1.0-4.8) k/uL Monocytes # 0.4 (0-1.0) k/uL Eosinophils # 0.0 (0-0.7) k/uL Basophils # 0.1 (0-0.2) k/uL Sodium 138 (137-145) mmol/L Potassium 4.3 (3.5-5.1) mmol/L Chloride 100 (98-107) mmol/L Carbon Dioxide 28 (22-30) mmol/L Anion Gap 10 mmol/L BUN 22 H (9-20) mg/dL Creatinine 1.30 H (0.66-1.25) mg/dL Est GFR (CKD-EPI)AfAm 69 (>60 ml/min/1.73 sqM) Est GFR (CKD-EPI)NonAf 60 (>60 ml/min/1.73 sqM) Glucose 422 H (74-99) mg/dL Calcium 9.8 (8.4-10.2) mg/dL Total Bilirubin 0.7 (0.2-1.3) mg/dL AST 29 (17-59) U/L ALT 26 (4-49) U/L Alkaline Phosphatase 184 H (38-126) U/L Total Protein 6.9 (6.3-8.2) g/dL Albumin 4.0 (3.5-5.0) g/dL Lipase 836 H (23-300) U/L Disposition Clinical Impression: Pancreatitis Disposition: ADMITTED IP TO THIS HOSP Condition: Fair Referrals: Sammy Barth DO [Primary Care Provider] - 1-2 days
[2021-01-09 17:04] LABS: Basophils # (A) 0.1 k/uL (0-0.2); Basophils % (A) 1 %; Eosinophils % (A) 1 %; HGB 15.2 gm/dL (13.0-17.5); Lymphocytes # (A) 1.5 k/uL (1.0-4.8); Lymphocytes % (A) 17 %; MCH 30.7 pg (25.0-35.0); Mean Platelet Volume 7.4; Monocytes # (A) 0.4 k/uL (0-1.0); Monocytes % (A) 5 %; Neutrophils # (A) 6.6 k/uL (1.3-7.7); Neutrophils % (A) 76 %; Platelet Count 266 k/uL (150-450); RBC 4.94 m/uL (4.30-5.90); RDW 13.6 % (11.5-15.5); WBC 8.6 k/uL (3.8-10.6)
[2021-01-09 17:29] LABS: Calcium 9.8 mg/dL (8.4-10.2); Potassium 4.3 mmol/L (3.5-5.1); Total Bilirubin 0.7 mg/dL (0.2-1.3); Total Protein 6.9 g/dL (6.3-8.2)
--- NOTE | 2021-01-09 18:07 | CT ---
EXAMINATION TYPE: CT abdomen pelvis w con DATE OF EXAM: 01/09/2021 COMPARISON: None HISTORY: Mid to right sided abdominal pain. History of crohn's and recent obstruction. CT DLP: 2259 mGycm Automated exposure control for dose reduction was used. CONTRAST: Performed with IV Contrast, patient injected with 80 mL of Isovue 300. Images obtained from the diaphragm to the floor the pelvis with IV contrast Isovue 80 mL. FINDINGS: The lung bases are clear. There is no pleural effusion. Heart size is normal. There is no pericardial effusion. Liver spleen stomach pancreas gallbladder appear intact. The bile ducts are not dilated. There is no adrenal mass. Kidneys have normal size and contour. There is no hydronephrosis. There is normal enhan cement of the kidneys. Ureters are not dilated. Delayed images show normal renal excretion. There is 1 cm cortical cyst lateral right kidney. There is no retroperitoneal adenopathy. The bladder distends smoothly. There is no inguinal hernia. There is no free fluid in the pelvis. There are surgical clip s at the distal ileum at the ileocecal valve. The appendix is not seen. There is no sign of thickened appendix. There is no mesenteric edema. There is no ascites or free air. There is no sign of a bowel obstructio n. There are no dilated loops. There are a few sigmoid diverticula. There is no diverticulitis. The lumbar vertebra have normal alignment. There is narrowing of L4-5 disc space. There is no lumbar compression fracture. Bony pelvis is intact. The hip joints are intact. There is no hip dysplasia. IMPRESSION: Previous surgery at the distal ileum and cecum. No evidence of a bowel obstruction. I do not see evid ence of recurrent Crohn's disease. There are a few sigmoid diverticula. There are some spondylotic changes in the lumbar spine.
[2021-01-09] MEDS ORDERED: MORPHINE SULFATE 4 MG/ML SYRINGE IV PRN (18:13)
[2021-01-09] MEDS ORDERED: ACETAMINOPHEN TAB 325 MG TAB PO PRN (18:13)
[2021-01-09] MEDS ORDERED: NALOXONE 0.4 MG/ML 1 ML VIAL IV PRN (18:13)
[2021-01-09] MEDS: SODIUM CHLORIDE 0.9% 1,000 ML IV SCH (18:36)
[2021-01-09] MEDS ORDERED: KETOROLAC 15 MG/ML 1 ML VIAL IVP STA (18:44)
[2021-01-09] MEDS ORDERED: INSULIN REGULAR 100 UNIT/ML VIAL (IV) IV ONE (19:26)
[2021-01-09 20:12] LABS: Glucose,Whole Blood 390 mg/dL (75-99)
--- NOTE | 2021-01-09 20:23 | P.HPIM ---
History of Present Illness H&P Date: 01/09/21 The patient is a 60-year-old male with a PMH of Crohn's disease, type II DM, peripheral neuropathy, chronic kidney disease, hypertension, hyperlipidemia, and coronary artery disease who presented to the emergency room with complaints of abdominal pain. The patient notes that he has a long-standing history of Crohn's disease for which she has undergone 2 surgeries but has not needed any intervention for the past 20 years. He was in his usual state of health until about 2-3 days ago when he developed sharp right upper quadrant abdominal pain with radiation to the back. The pain was 9 out of 10 at maximal intensity, constant, with no clear alleviating or exacerbating features. He reports that the pain had improved to a 3 out of 10 at the time of interview. He reports initially having some constipation which she attributed to his Crohn's disease and subsequently diarrhea over the past 24 hours with multiple loose nonbloody bowel movements. He reports nausea without vomiting. He follows with a GI physician out of [facility] as an outpatient. He denied experiencing chest discomfort or shortness of breath. Denied fever, chills. Denied lower extremity pain or swelling. Denied weakness, numbness, tingling, headaches, visual disturbances. Reports no history of gallstones. Denied history of alcohol use. He underwent an extensive evaluation in the emergency room with a CT abdomen and pelvis which revealed chronic changes but otherwise unremarkable. EKG revealed a normal sinus rhythm at 82 bpm with a right bundle branch block. Laboratory evaluation was remarkable for a lipase 836, BUN of 22, creatinine 1.3, glucose 422, and alk phos 184. Review of systems: Pertinent positives and negatives as discussed in HPI, a complete review of systems was performed and all other systems are negative. Physical examination: General: non toxic, no distress, appears at stated age, morbidly obese Derm: no unusual rashes/lesions no unusual ecchymoses, warm, dry Head: atraumatic, normocephalic, symmetric Eyes: EOMI, no lid lag, anicteric sclera, pupils equal round reactive to light ENT: Nose and ears atraumatic, no thrush, no pharyngeal erythema Neck: No thyromegaly, no cervical lymphadenopathy, trachea midline, supple Mouth: no lip lesion, mucus membranes moist Cardiovascular: S1S2 reg, no murmur, positive posterior tibial pulse bilateral, trace bilateral lower extremity pitting edema, capillary refill less than 2 seconds Lungs: CTA bilateral, no rhonchi, no rales , no accessory muscle use Abdominal: soft, right upper quadrant tenderness to palpation, no guarding, no appreciable organomegaly, normal bowel sounds Ext: no gross muscle atrophy, muscle strength 5 out of 5 in all 4 extremities grossly, no contractures, Neuro: CN II-XI grossly intact, light touch intact all 4 extremities, finger to nose within normal limits, Psych: Alert, oriented, appropriate affect Assessment/plan Right upper quadrant abdominal pain, mild pancreatitis -Imaging not consistent with pancreatitis -Consult GI due to suspicion for biliary colic -Continue with pain control and IV fluids -Nothing by mouth for now Chronic conditions: Have 2 DM, CAD, hypertension, hyperlipidemia, COPD, coronary artery disease -Check A1c -Lispro insulin sliding scale and blood glucose monitoring -Levemir 30 units twice a day for now (patient takes Lantus 50 units twice a day at home) -Continue with home meds DVT prophylaxis -Heparin subcu The patient is admitted with an anticipated less than 2 midnight stay for evaluation of pancreatitis. CODE STATUS: Full code Discussed with: Patient, Anticipated discharge date: In a.m. Anticipated discharge place: Home A total of 45 minutes was spent on the care of this complex patient more than 50% of the time was spent in counseling and care coordination. Past Medical History Past Medical History: Coronary Artery Disease (CAD), Chest Pain / Angina, COPD, Diabetes Mellitus, Hyperlipidemia, Hypertension Additional Past Medical History / Comment(s): Diabetic neuropathy in legs and arms, crohns, rt foot wound History of Any Multi-Drug Resistant Organisms: ESBL, ESBL, MRSA Date of last positivie culture/infection: 07/25/18 ESBL Klebsiella MDRO Source:: Right FOOT Past Surgical History: Bowel Resection, Heart Catheterization With Stent, Orthopedic Surgery, Tonsillectomy Additional Past Surgical History / Comment(s): bowel resection in 1994 &1999, heart cath with stent at [place] April 14 2019. Past Anesthesia/Blood Transfusion Reactions: No Reported Reaction Date of Last Stent Placement:: april 2019 Past Psychological History: No Psychological Hx Reported Smoking Status: Never smoker Past Alcohol Use History: None Reported Past Drug Use History: None Reported - Past Family History Father Family Medical History: Musculoskeletal Disorder Mother Family Medical History: COPD, Diabetes Mellitus Medications and Allergies Home Medications Medication Instructions Recorded Confirmed Type Ergocalciferol (Vitamin D2) 50,000 unit PO HUGGINS 06/14/18 01/09/21 History [Vitamin D2] Pramipexole [Mirapex] 1 mg PO HS 06/14/18 01/09/21 History Magnesium Oxide [Higgins] 500 mg PO BID@1200,1800 07/23/18 01/09/21 History Aspirin 81 mg PO DAILY@1200 06/27/19 01/09/21 History Carvedilol [Coreg] 12.5 mg PO BID 06/27/19 01/09/21 History Clopidogrel Bisulfate [Plavix] 75 mg PO DAILY@1200 06/27/19 01/09/21 History Rosuvastatin Calcium [Crestor] 10 mg PO DAILY@1200 06/27/19 01/09/21 History sulfaSALAzine [Azulfidine] 1,000 mg PO QID 06/27/19 01/09/21 History Furosemide [Lasix] 40 mg PO TID 09/05/19 01/09/21 History Allopurinol [Zyloprim] 100 mg PO DAILY 01/09/21 01/09/21 History INSULIN ASPART (NovoLOG) [NovoLOG 4 - 12 unit SQ AC-TID 01/09/21 01/09/21 History (formulary)] Insulin Glargine [Lantus] 40 unit SQ DAILY 01/09/21 01/09/21 History Insulin Glargine [Lantus] 50 unit SQ HS 01/09/21 01/09/21 History Losartan Potassium 100 mg PO DAILY 01/09/21 01/09/21 History Potassium Chloride ER [K-Dur 10] 10 meq PO BID 01/09/21 01/09/21 History Semaglutide [Ozempic] 0.5 mg SQ MO 01/09/21 01/09/21 History Vitamin B Complex 1 cap PO W/SUPPER 01/09/21 01/09/21 History Allergies Allergy/AdvReac Type Severity Reaction Status Date / Time codeine Allergy Anaphylaxis Verified 01/09/21 17:47 Physical Exam Vitals: Vital Signs Temp Pulse Resp BP Pulse Ox 01/09/21 19:24 86 184/97 96 01/09/21 19:00 98.8 F 88 20 189/92 97 01/09/21 16:44 98.1 F 77 20 188/94 99 Intake and Output 01/09/21 01/09/21 01/09/21 06:59 14:59 22:59 Other: Weight 136.078 kg Results CBC & Chem 7: 01/09/21 16:58 01/09/21 16:58 Labs: Abnormal Lab Results - Last 24 Hours (Table) 01/09/21 01/09/21 Range/Units 16:58 20:10 BUN 22 H (9-20) mg/dL Creatinine 1.30 H (0.66-1.25) mg/dL Glucose 422 H (74-99) mg/dL POC Glucose (mg/dL) 390 H (75-99) mg/dL Alkaline Phosphatase 184 H (38-126) U/L Lipase 836 H (23-300) U/L
[2021-01-09 21:41] LABS: Glucose,Whole Blood 334 mg/dL (75-99)
[2021-01-09] MEDS: INSULIN ASPART (NovoLOG) 100 UNIT/ML VIAL SQ SCH (21:57)
[2021-01-09] MEDS: FUROSEMIDE 40 MG TAB PO SCH (21:57)
[2021-01-09] MEDS: PRAMIPEXOLE 1 MG TAB PO SCH (21:58)
[2021-01-09] MEDS: carvediloL 12.5 MG TAB PO SCH (21:58)
[2021-01-09] MEDS: POTASSIUM CHLORIDE ER 10 MEQ TAB.ER.PRT PO SCH (21:58)
[2021-01-09] MEDS: INSULIN DETEMIR (LEVEMIR) 100 UNIT/ML SYR SQ SCH (21:58)
[2021-01-10] MEDS ORDERED: hydrALAZINE HCL 25 MG TAB PO STA ×2 (01:20→20:50)
[2021-01-10] MEDS: HEPARIN SODIUM,PORCINE/PF 5,000 UNIT/0.5 ML SYRINGE SQ SCH ×4 (01:33→23:15)
[2021-01-10] MEDS: SODIUM CHLORIDE 0.9% 1,000 ML IV SCH ×3 (02:36→21:19)
[2021-01-10 07:05] LABS: ALT 19 U/L (4-49); AST 23 U/L (17-59); African American GFR (CKD) 81 (>60 ml/min/1.73 sqM); Albumin/Globulin Ratio 1.2; Alkaline Phosphatase 119 U/L (38-126); Anion Gap 2 mmol/L; Blood Urea Nitrogen 21 mg/dL (9-20); Calcium 8.9 mg/dL (8.4-10.2); Carbon Dioxide 30 mmol/L (22-30); Chloride 108 mmol/L (98-107); Globulin 2.6 g/dL; Glucose 182 mg/dL (74-99); Non-African American GFR(CKD) 70 (>60 ml/min/1.73 sqM); Potassium 4.1 mmol/L (3.5-5.1); Sodium 140 mmol/L (137-145); Total Bilirubin 0.4 mg/dL (0.2-1.3); Total Protein 5.6 g/dL (6.3-8.2)
[2021-01-10 07:13] LABS: Glucose,Whole Blood 191 mg/dL (75-99)
[2021-01-10] MEDS: INSULIN ASPART (NovoLOG) 100 UNIT/ML VIAL SQ SCH ×4 (08:46→21:19)
[2021-01-10] MEDS: carvediloL 12.5 MG TAB PO SCH ×2 (08:47→17:34)
[2021-01-10] MEDS: allopurinoL 100 MG TAB PO SCH (08:47)
[2021-01-10] MEDS: POTASSIUM CHLORIDE ER 10 MEQ TAB.ER.PRT PO SCH ×2 (08:48→21:19)
[2021-01-10] MEDS: LOSARTAN 50 MG TAB PO SCH (08:48)
[2021-01-10] MEDS: FUROSEMIDE 40 MG TAB PO SCH ×3 (08:48→22:21)
[2021-01-10] MEDS: sulfaSALAzine 500 MG TAB PO SCH ×4 (11:03→22:20)
[2021-01-10 11:16] LABS: Glucose,Whole Blood 147 mg/dL (75-99)
[2021-01-10] MEDS: INSULIN DETEMIR (LEVEMIR) 100 UNIT/ML SYR SQ SCH ×2 (11:44→21:19)
[2021-01-10] MEDS: ASPIRIN 81 MG PO SCH (12:37)
[2021-01-10] MEDS: CLOPIDOGREL 75 MG TAB PO SCH (12:37)
[2021-01-10] MEDS: MAGNESIUM OXIDE 400 MG TAB PO SCH ×2 (12:38→17:34)
[2021-01-10] MEDS: PANTOPRAZOLE 40 MG TABLET PO SCH (12:39)
[2021-01-10] MEDS ORDERED: sulfaSALAzine 500 MG TAB PO SCH (13:00)
--- NOTE | 2021-01-10 13:46 | P.PN ---
Subjective Progress Note Date: 01/10/21 Pt doing better today, tolerating PO, passing gas, minimal pain. Objective - Vital Signs Vital signs: Vital Signs Temp 97.8 F 01/10/21 07:00 Pulse 57 L 01/10/21 07:00 Resp 18 01/10/21 07:00 BP 158/89 01/10/21 07:00 Pulse Ox 97 01/10/21 07:00 Intake & Output 01/09/21 01/10/21 01/10/21 18:59 06:59 18:59 Weight 136.078 kg 136.078 kg Other: Voiding Method Toilet # Voids 1 - Exam Gen: awake, alert HEENT: normocephalic, atraumatic, good hearing acuity, moist mucous membranes Resp: good air exchange, breathing comfortably with no accessory muscle use CVS: good distal perfusion x 4, GI: soft, mild ttp in the RUQ, ND : no SPT, no CVAT, franco catheter not present MSK: no pitting edema, no clubbing Neuro: non-focal, moving all extremities Psych: cooperative, euthymic mood - Labs CBC & Chem 7: 01/09/21 16:58 01/10/21 06:05 Labs: Abnormal Lab Results - Last 24 Hours (Table) 01/09/21 01/09/21 01/09/21 Range/Units 16:58 20:10 21:39 Chloride (98-107) mmol/L BUN 22 H (9-20) mg/dL Creatinine 1.30 H (0.66-1.25) mg/dL Glucose 422 H (74-99) mg/dL POC Glucose (mg/dL) 390 H 334 H (75-99) mg/dL Alkaline Phosphatase 184 H (38-126) U/L Total Protein (6.3-8.2) g/dL Albumin (3.5-5.0) g/dL Lipase 836 H (23-300) U/L 01/10/21 01/10/21 01/10/21 Range/Units 06:05 07:11 11:14 Chloride 108 H (98-107) mmol/L BUN 21 H (9-20) mg/dL Creatinine (0.66-1.25) mg/dL Glucose 182 H (74-99) mg/dL POC Glucose (mg/dL) 191 H 147 H (75-99) mg/dL Alkaline Phosphatase (38-126) U/L Total Protein 5.6 L (6.3-8.2) g/dL Albumin 3.0 L (3.5-5.0) g/dL Lipase (23-300) U/L Assessment and Plan Assessment: Right upper quadrant abdominal pain, mild pancreatitis -Imaging not consistent with pancreatitis -Consult GI due to suspicion for biliary colic -Continue with pain control and IV fluids -Nothing by mouth for now Chronic conditions: Have 2 DM, CAD, hypertension, hyperlipidemia, COPD, coronary artery disease -Check A1c -Lispro insulin sliding scale and blood glucose monitoring -Levemir 30 units twice a day for now (patient takes Lantus 50 units twice a day at home) -Continue with home meds DVT prophylaxis -Heparin subcu The patient is admitted with an anticipated less than 2 midnight stay for evaluation of pancreatitis. CODE STATUS: Full code Discussed with: Patient, Anticipated discharge date: In a.m. Anticipated discharge place: Home
[2021-01-10 15:14] LABS: Hemoglobin A1C 8.6 % (4.0-6.0)
[2021-01-10 17:06] LABS: Glucose,Whole Blood 192 mg/dL (75-99)
--- NOTE | 2021-01-10 18:56 | CONS ---
CONSULTATION REASON FOR CONSULTATION: Abdominal pain. HISTORY OF PRESENT ILLNESS: The patient is a 60-year-old pleasant white male with longstanding history of Crohn's disease diagnosed in the . He follows with Dr. Stoner in the [facility]. History of diabetes mellitus, hypertension and hyperlipidemia. Admitted to the hospital with upper abdominal pain radiating to the back for the last 2-3 days duration. MMODL / IJN: [id number] /
--- NOTE | 2021-01-10 19:25 | CONS ---
CONSULTATION DATE OF SERVICE: January 10, 2021. REQUESTING PHYSICIAN: Dr. Kuldeep Barth. REASON FOR CONSULTATION: Abdominal pain. HISTORY OF PRESENT ILLNESS: The patient is a 60-year-old pleasant white male with longstanding history of Crohn's disease diagnosed in the , status post surgical resection in the past, has been in clinical remission for the last several years, maintained on Azulfidine currently, history of type 2 diabetes mellitus, hypertension, hyperlipidemia, came to the emergency room complaining of abdominal pain for the last 2 days duration. He describes the pain mostly in the upper abdominal area radiating to the right upper quadrant area and to the back. The pain was very intense, associated with some nausea but no emesis. He initially thought it was related to bowel obstruction because he had no bowel movements for a day. Subsequently he started having about 3 or 4 bowel movements every day. No rectal bleeding or melena. He recalls having a colonoscopy about 4 years ago in [facility] where his GI physician is located and according to the patient it was within normal limits. He came to the emergency room and was noted to have elevated lipase [address] of the abdomen and pelvis done that was unremarkable. The patient is feeling much better this morning. He never had previous history of acute pancreatitis. He states that he was recently started on new medication about a month ago which is Ozempic. No prior history of pancreatitis. No family history of pancreatic related problems. The patient denies any alcohol use. No history of gallbladder pathology. PAST MEDICAL HISTORY: Significant for diabetes mellitus, hypertension, hyperlipidemia, peripheral neuropathy, history of coronary artery disease. PAST SURGICAL HISTORY: He had 2 bowel resections for Crohn's disease in 1993 and 1999, history of cardiac catheterization with stent placement. FAMILY HISTORY: Mother had diabetes mellitus and COPD. Father had some musculoskeletal disorder. MEDICATIONS: Medications at home include: Vitamin D2, milk of magnesia, Mirapex, Azulfidine, Coreg, aspirin and Plavix, Crestor, Lasix, Zyloprim, NovoLog, Lantus, Ozempic, vitamin B complex, losartan, and potassium chloride. ALLERGIES: CODEINE. SOCIAL HISTORY: No smoking. No alcohol use. REVIEW OF SYSTEMS: CARDIOPULMONARY: No chest pain or shortness of breath. no dysuria. No hematuria. MUSCULOSKELETAL unremarkable. SKIN unremarkable. ENDOCRINE unremarkable. PSYCHIATRIC unremarkable. NEUROLOGICAL: Unremarkable. ENT/VISION: Unremarkable. CONSTITUTIONAL: No recent weight loss. No fever, chills or night sweats. HEMATOLOGY unremarkable. PHYSICAL EXAMINATION: He appears comfortable. No apparent distress. VITAL SIGNS: Stable. Blood pressure 158/89, pulse 87, temperature 97.8. HEENT examination unremarkable. Conjunctivae pink. Sclerae anicteric. Oral cavity no lesions. NECK: No JVD or lymph node enlargement. CHEST was clear to auscultation. HEART: Regular rate and rhythm. ABDOMEN: Soft. There was very minimal tenderness in the epigastric and right upper quadrant area. Rest of the abdomen was benign. Bowel sounds are positive. No organomegaly. EXTREMITIES: No pedal edema. NEURO: He is alert and oriented x3. No focal deficits. LABS: WBC 8.6, hemoglobin 15.2, platelets normal. Basic metabolic panel is within normal limits. AST and ALT 29 and 26 respectively. Alkaline phosphatase 184. Blood sugar was 422. BUN and creatinine normal. Lipase is 836. CT of the abdomen and pelvis done in the emergency room showed normal-appearing pancreas, normal-appearing gallbladder. No biliary ductal dilation noted. No evidence of biliary obstruction. Evidence of previous surgery in the distal ileum and cecum. IMPRESSION: 1. This is a patient who presented to the hospital with upper abdominal pain mostly in the right upper quadrant area radiating to the epigastric area into the back for the last 2 days duration. The pain was intense, associated with some nausea but no emesis. He was noted to have mild elevation of lipase consistent with mild acute pancreatitis. CT of the abdomen did not show any evidence of gallstones or small bowel obstruction. At this time, pain probably related to acute pancreatitis. The patient has no history of alcohol use or any gallstones noted on CT of the abdomen. 2. Longstanding history of Crohn's ileitis, status post 2 bowel resections in 1993 and 1999, has been in clinical remission. Currently maintained on Azulfidine [address] scan does not show any evidence of small bowel wall thickening and the clinical picture is not consistent with exacerbation of Crohn's disease. 3. History of diabetes mellitus. 4. History of hypertension. 5. History of hypercholesteremia. 6. History of coronary artery disease. RECOMMENDATIONS: 1. Start him on a clear liquid diet. 2. Pain medications as needed. 3. Repeat lipase again. 4. Obtain ultrasound of the gallbladder to rule out gallstones. 5. We will start him on Protonix 40 mg daily. 6. We will follow with you closely. MMODL / IJN: [id number] /
[2021-01-10 20:01] LABS: Glucose,Whole Blood 207 mg/dL (75-99)
[2021-01-10] MEDS: PRAMIPEXOLE 1 MG TAB PO SCH (22:21)
[2021-01-11 02:29] LABS: Glucose,Whole Blood 107 mg/dL (75-99)
[2021-01-11 03:07] LABS: Glucose,Whole Blood 165 mg/dL (75-99)
[2021-01-11] MEDS: SODIUM CHLORIDE 0.9% 1,000 ML IV SCH ×3 (04:14→21:19)
[2021-01-11 07:11] LABS: Glucose,Whole Blood 155 mg/dL (75-99)
[2021-01-11] MEDS: allopurinoL 100 MG TAB PO SCH (08:46)
[2021-01-11] MEDS: HEPARIN SODIUM,PORCINE/PF 5,000 UNIT/0.5 ML SYRINGE SQ SCH ×3 (08:46→23:12)
[2021-01-11] MEDS: carvediloL 12.5 MG TAB PO SCH ×2 (08:46→18:25)
[2021-01-11] MEDS: POTASSIUM CHLORIDE ER 10 MEQ TAB.ER.PRT PO SCH ×2 (08:46→21:23)
[2021-01-11] MEDS: sulfaSALAzine 500 MG TAB PO SCH ×4 (08:46→21:22)
[2021-01-11] MEDS: FUROSEMIDE 40 MG TAB PO SCH ×3 (08:47→21:23)
[2021-01-11] MEDS: PANTOPRAZOLE 40 MG TABLET PO SCH (08:47)
[2021-01-11] MEDS: LOSARTAN 50 MG TAB PO SCH (08:47)
--- NOTE | 2021-01-11 09:16 | PN ---
PROGRESS NOTE DATE OF SERVICE: January 11, 2021 Patient is a 60-year-old pleasant white male admitted to hospital with severe right upper quadrant abdominal pain for the last 2 days duration. He was noted to have mild elevation of lipase consistent with acute pancreatitis. He did have a CT of the abdomen and pelvis done in the emergency room that was unremarkable. This morning, he was started on Protonix 40 mg daily as well as clear liquid diet yesterday. He still continues to have some pain which is not as intense as before. Pain is mostly localized to the right upper quadrant area. No nausea, no vomiting. No bowel movements for the last 3 days. No fever, chills, or night sweats. PHYSICAL EXAMINATION: Blood pressure is 188/86, pulse rate 56, temperature 97.3. HEENT examination unremarkable sclerae. Conjunctivae pink. Sclerae anicteric. Oral cavity no lesions. Neck no JVD or lymph node enlargement. Chest was clear to auscultation. Heart: Regular rate and rhythm. Abdomen: Soft. There was mild tenderness in the right upper quadrant area. Rest of the abdomen was benign. Bowel sounds are positive. No organomegaly. Extremities no pedal edema. Neuro: He is alert and oriented x3. No focal deficits. LAB: From today are not available. IMPRESSION: 1. Severe right upper quadrant abdominal pain of 2 days duration. Symptoms are gradually improving. CT of the abdomen and pelvis was unremarkable. The patient noted to have mild nonspecific elevation of lipase which could be mild pancreatitis. Rule out upper GI pathology. Rule out possible gallstones. 2. Longstanding history of Crohn's, which appears to be in clinical remission. 3. History of hypertension and hyperlipidemia. 4. History of diabetes mellitus. RECOMMENDATIONS: 1. Obtain an ultrasound of the right upper quadrant to rule out any gallstones. 2. We will schedule him for an upper endoscopy tomorrow. 3. Continue with a clear liquid diet. 4. Continue Protonix 40 mg daily. 5. We will follow with you closely. Thank you for this consultation. MMODL / IJN: [id number] /
[2021-01-11] MEDS: INSULIN DETEMIR (LEVEMIR) 100 UNIT/ML SYR SQ SCH ×2 (09:32→21:27)
[2021-01-11] MEDS: INSULIN ASPART (NovoLOG) 100 UNIT/ML VIAL SQ SCH ×4 (09:32→21:23)
[2021-01-11 11:22] LABS: Glucose,Whole Blood 162 mg/dL (75-99)
--- NOTE | 2021-01-11 12:32 | P.PN ---
Subjective Progress Note Date: 01/11/21 No new complaints. Pain is improved, nausea has resolved. GI recommending EGD tomorrow. Right upper quadrant ultrasound pending Objective - Vital Signs Vital signs: Vital Signs Temp 97.3 F L 01/11/21 07:00 Pulse 56 L 01/11/21 08:00 Resp 18 01/11/21 07:00 BP 188/86 01/11/21 07:00 Pulse Ox 96 01/11/21 07:00 Intake & Output 01/10/21 01/11/21 01/11/21 18:59 06:59 18:59 Other: Voiding Method Toilet # Voids 1 3 1 - Labs CBC & Chem 7: 01/09/21 16:58 01/10/21 06:05 Labs: Abnormal Lab Results - Last 24 Hours (Table) 01/10/21 01/10/21 01/10/21 Range/Units 06:05 17:01 19:59 POC Glucose (mg/dL) 192 H 207 H (75-99) mg/dL Hemoglobin A1c 8.6 H (4.0-6.0) % 01/11/21 01/11/21 01/11/21 Range/Units 02:27 03:05 07:10 POC Glucose (mg/dL) 107 H 165 H 155 H (75-99) mg/dL Hemoglobin A1c (4.0-6.0) % 01/11/21 Range/Units 11:19 POC Glucose (mg/dL) 162 H (75-99) mg/dL Hemoglobin A1c (4.0-6.0) % Assessment and Plan Assessment: Right upper quadrant abdominal pain, mild pancreatitis -Imaging not consistent with pancreatitis -Consult GI due to suspicion for biliary colic -Continue with pain control and IV fluids -Nothing by mouth for now -Right upper quadrant ultrasound, pending -EGD tomorrow Chronic conditions: Have 2 DM, CAD, hypertension, hyperlipidemia, COPD, coronary artery disease -Check A1c -Lispro insulin sliding scale and blood glucose monitoring -Levemir 30 units twice a day for now (patient takes Lantus 50 units twice a day at home) -Continue with home meds DVT prophylaxis -Heparin subcu The patient is admitted with an anticipated less than 2 midnight stay for evaluation of pancreatitis. CODE STATUS: Full code Discussed with: Patient, Anticipated discharge date: In a.m. Anticipated discharge place: Home
[2021-01-11] MEDS: MAGNESIUM OXIDE 400 MG TAB PO SCH ×2 (15:19→18:24)
[2021-01-11] MEDS: ASPIRIN 81 MG PO SCH (15:20)
[2021-01-11] MEDS: CLOPIDOGREL 75 MG TAB PO SCH (15:20)
[2021-01-11 17:15] LABS: Glucose,Whole Blood 174 mg/dL (75-99)
[2021-01-11 21:18] LABS: Glucose,Whole Blood 167 mg/dL (75-99)
[2021-01-11] MEDS: PRAMIPEXOLE 1 MG TAB PO SCH (21:23)
--- NOTE | 2021-01-11 21:34 | US ---
EXAMINATION TYPE: US gallbladder DATE OF EXAM: 01/11/2021 COMPARISON: NONE CLINICAL HISTORY: RUQ abd pain r/o gallstones. Pain exam limitations due to bady habitus. EXAM MEASUREMENTS: Liver Length: 19.6 cm Gallbladder Wall: .2 cm CBD: .5 cm Right Kidney: 10.1 x 5.2 x 4.1 cm Pancreas: Obscured by bowel gas Liver: Increased echogenicity. Hepatomegaly Gallbladder: No stones seen Evidence for sonographic Salcido's sign: No CBD: wnl Right Kidney: No hydronephrosis or masses seen IMPRESSION: Hepatomegaly without sonographic evidence of acute abnormality or cholelithiasis.
[2021-01-12] MEDS: SODIUM CHLORIDE 0.9% 1,000 ML IV SCH ×2 (05:24→16:05)
[2021-01-12 07:18] LABS: Glucose,Whole Blood 102 mg/dL (75-99)
[2021-01-12] MEDS: INSULIN ASPART (NovoLOG) 100 UNIT/ML VIAL SQ SCH ×2 (07:33→14:29)
[2021-01-12] MEDS: INSULIN DETEMIR (LEVEMIR) 100 UNIT/ML SYR SQ SCH (07:34)
[2021-01-12 07:37] VITALS: RESP 16
[2021-01-12] MEDS: LOSARTAN 50 MG TAB PO SCH (07:45)
[2021-01-12] MEDS: allopurinoL 100 MG TAB PO SCH (07:45)
[2021-01-12] MEDS: carvediloL 12.5 MG TAB PO SCH (07:45)
[2021-01-12] MEDS: FUROSEMIDE 40 MG TAB PO SCH ×2 (07:45→16:07)
[2021-01-12] MEDS: HEPARIN SODIUM,PORCINE/PF 5,000 UNIT/0.5 ML SYRINGE SQ SCH ×2 (07:45→16:07)
[2021-01-12] MEDS: PANTOPRAZOLE 40 MG TABLET PO SCH (07:45)
[2021-01-12] MEDS: POTASSIUM CHLORIDE ER 10 MEQ TAB.ER.PRT PO SCH (07:45)
[2021-01-12] MEDS: sulfaSALAzine 500 MG TAB PO SCH ×2 (07:45→14:49)
[2021-01-12 11:37] LABS: Glucose,Whole Blood 127 mg/dL (75-99)
--- NOTE | 2021-01-12 12:44 | P.PN ---
Subjective Progress Note Date: 01/12/21 No new complaints. Pending EGD Objective - Vital Signs Vital signs: Vital Signs Temp 98.3 F 01/12/21 07:00 Pulse 51 L 01/12/21 08:00 Resp 16 01/12/21 08:00 BP 171/75 01/12/21 07:00 Pulse Ox 96 01/12/21 07:00 Intake & Output 01/11/21 01/12/21 01/12/21 18:59 06:59 18:59 Other: Voiding Method Toilet Toilet # Voids 1 2 - Exam Gen: awake, alert HEENT: normocephalic, atraumatic, good hearing acuity, moist mucous membranes Resp: good air exchange, breathing comfortably with no accessory muscle use CVS: good distal perfusion x 4, GI: soft, mild ttp in the RUQ, ND : no SPT, no CVAT, franco catheter not present MSK: no pitting edema, no clubbing Neuro: non-focal, moving all extremities Psych: cooperative, euthymic mood - Labs CBC & Chem 7: 01/09/21 16:58 01/10/21 06:05 Labs: Abnormal Lab Results - Last 24 Hours (Table) 01/11/21 01/11/21 01/12/21 Range/Units 17:13 21:15 07:17 POC Glucose (mg/dL) 174 H 167 H 102 H (75-99) mg/dL 01/12/21 Range/Units 11:35 POC Glucose (mg/dL) 127 H (75-99) mg/dL Assessment and Plan Assessment: Right upper quadrant abdominal pain, mild pancreatitis -Imaging not consistent with pancreatitis -Consult GI due to suspicion for biliary colic -Continue with pain control and IV fluids -Nothing by mouth for now -Right upper quadrant ultrasound, pending -EGD tomorrow Chronic conditions: Have 2 DM, CAD, hypertension, hyperlipidemia, COPD, coronary artery disease -Check A1c -Lispro insulin sliding scale and blood glucose monitoring -Levemir 30 units twice a day for now (patient takes Lantus 50 units twice a day at home) -Continue with home meds DVT prophylaxis -Heparin subcu The patient is admitted with an anticipated less than 2 midnight stay for evaluation of pancreatitis. CODE STATUS: Full code Discussed with: Patient, Anticipated discharge date: In a.m. Anticipated discharge place: Home
[2021-01-12] MEDS ORDERED: PROPOFOL 10 MG/ML 20 ML VIAL IV ONE (12:53)
[2021-01-12] MEDS ORDERED: LIDOCAINE 1% INJ 10MG/ML (20 ML MDV) ONE (12:53)
[2021-01-12] MEDS ORDERED: IV FLUID CONTINUATION 1,000 ML IV ONE (12:54)
--- NOTE | 2021-01-12 13:04 | P.PCN ---
Date of Procedure: 01/12/21 Procedure(s) Performed: BRIEF HISTORY: Patient is a 60-year-old, pleasant, male admitted hospital with severe epigastric and right upper quadrant abdominal pain for the last [address] of the abdomen was unremarkable. He did have of the gallbladder did not show any evidence of gallstones. He continues to have persistent abdominal pain and hence scheduled for an upper endoscopy to evaluate further. PROCEDURE PERFORMED: Esophagogastroduodenoscopy with biopsy. PREOPERATIVE DIAGNOSIS: Severe epigastric and right upper quadrant abdominal pain of 4 days duration. IV sedation per anesthesia. PROCEDURE: After informed consent was obtained, the patient was brought into the endoscopy unit. IV sedation was administered by Anesthesia under continuous monitoring. Initially the Olympus GIF-140 video endoscope was inserted into the mouth. Esophagus intubated without any difficulty. It was gradually advanced into the stomach and duodenum and carefully examined. The bulb and the second part of the duodenum appeared normal. The scope at this time was withdrawn to the stomach, adequately insufflated with air, and upon careful examination, mucosa of the antrum had mild gastritis and biopsies were done from this area. The, body, cardia and the fundus appeared normal. The scope was then withdrawn into the esophagus. The GE junction was located at 45 cm from the incisors. The esophagus appeared normal. There were no erosions or ulcerations seen and the patient tolerated the procedure well. IMPRESSION: 1. Minimal antral gastritis. 2. No evidence of esophagitis or peptic ulcer disease. RECOMMENDATIONS: The findings of this examination were discussed with the patient. He was advised to follow with the biopsy results. Diet will be advanced as tolerated. Continue with Protonix 40 mg daily..
[2021-01-12 14:01] VITALS: TEMP 98
[2021-01-12] MEDS: ASPIRIN 81 MG PO SCH (14:46)
[2021-01-12] MEDS: MAGNESIUM OXIDE 400 MG TAB PO SCH (14:46)
[2021-01-12] MEDS: CLOPIDOGREL 75 MG TAB PO SCH (14:46)
--- NOTE | 2021-01-12 14:55 | P.DS ---
Providers Date of admission: 01/09/21 18:24 Expected date of discharge: 01/12/21 Attending physician: Catarino uD MD Consults: 01/09/21 18:14 Consult Physician Routine Consulting Provider: Gladys Shelton Consult Reason/Comments: pancreatitis Do you want consulting provider notified?: Yes Primary care physician: [facility] Course: Right upper quadrant abdominal pain, mild pancreatitis Chronic conditions: Have 2 DM, CAD, hypertension, hyperlipidemia, COPD, coronary artery disease Patient admitted for RUQ pain. He had elevated lipase and was treated for pancreatitis conservatively. However, due to imaging not consistent with pancreatitis, and story more c/w biliary colic, GI was consulted. They recommended EGD, which was completed on 01/12. EGD demonstrated evidence of gastritis. Pt was tolerating diet on day of discharge. He will f/u with PCP and GI. Patient Condition at Discharge: Good Plan - Discharge Summary Discharge Rx Participant: No New Discharge Prescriptions: New Pantoprazole [Protonix] 40 mg PO AC-BRKFST #30 tablet.dr Continue Ergocalciferol (Vitamin D2) [Vitamin D2] 50,000 unit PO HUGGINS Pramipexole [Mirapex] 1 mg PO HS Magnesium Oxide [Higgins] 500 mg PO BID@1200,1800 Rosuvastatin Calcium [Crestor] 10 mg PO DAILY@1200 Clopidogrel Bisulfate [Plavix] 75 mg PO DAILY@1200 Aspirin 81 mg PO DAILY@1200 Carvedilol [Coreg] 12.5 mg PO BID sulfaSALAzine [Azulfidine] 1,000 mg PO QID Furosemide [Lasix] 40 mg PO TID Allopurinol [Zyloprim] 100 mg PO DAILY Potassium Chloride ER [K-Dur 10] 10 meq PO BID Vitamin B Complex 1 cap PO W/SUPPER Losartan Potassium 100 mg PO DAILY Insulin Glargine [Lantus] 40 unit SQ DAILY Insulin Glargine [Lantus] 50 unit SQ HS INSULIN ASPART (NovoLOG) [NovoLOG (formulary)] 4 - 12 unit SQ AC-TID Semaglutide [Ozempic] 0.5 mg SQ MO Discharge Medication List Ergocalciferol (Vitamin D2) [Vitamin D2] 50,000 unit PO HUGGINS 06/14/18 [History] Pramipexole [Mirapex] 1 mg PO HS 06/14/18 [History] Magnesium Oxide [Higgins] 500 mg PO BID@1200,1800 07/23/18 [History] Aspirin 81 mg PO DAILY@1200 06/27/19 [History] Carvedilol [Coreg] 12.5 mg PO BID 06/27/19 [History] Clopidogrel Bisulfate [Plavix] 75 mg PO DAILY@1200 06/27/19 [History] Rosuvastatin Calcium [Crestor] 10 mg PO DAILY@1200 06/27/19 [History] sulfaSALAzine [Azulfidine] 1,000 mg PO QID 06/27/19 [History] Furosemide [Lasix] 40 mg PO TID 09/05/19 [History] Allopurinol [Zyloprim] 100 mg PO DAILY 01/09/21 [History] INSULIN ASPART (NovoLOG) [NovoLOG (formulary)] 4 - 12 unit SQ AC-TID 01/09/21 [History] Insulin Glargine [Lantus] 40 unit SQ DAILY 01/09/21 [History] Insulin Glargine [Lantus] 50 unit SQ HS 01/09/21 [History] Losartan Potassium 100 mg PO DAILY 01/09/21 [History] Potassium Chloride ER [K-Dur 10] 10 meq PO BID 01/09/21 [History] Semaglutide [Ozempic] 0.5 mg SQ MO 01/09/21 [History] Vitamin B Complex 1 cap PO W/SUPPER 01/09/21 [History] Pantoprazole [Protonix] 40 mg PO AC-BRKFST #30 tablet. 01/12/21 [Rx] Follow up Appointment(s)/Referral(s): Sammy Barth DO [Primary Care Provider] - 1-2 days Discharge Disposition: HOME SELF-CARE
[2021-01-12 15:12] VITALS: BP 178/75; PULSE 55
== END 2021-01-12 16:27 | disposition home or self-care (01) ==
LOC: EC 16:35 → 6NMEDSUR 18:24
PROVIDERS: ADMIT Internal Medicine; ATTEND Internal Medicine
DX: K85.90 Acute pancreatitis without necrosis or infection, unspecified (principal); K50.00 Crohn's disease of small intestine without complications; K59.00 Constipation, unspecified; E11.42 Type 2 diabetes mellitus with diabetic polyneuropathy; I25.10 Atherosclerotic heart disease of native coronary artery without angina pectoris; K29.70 Gastritis, unspecified, without bleeding; I12.9 Hypertensive chronic kidney disease with stage 1 through stage 4 chronic kidney disease, or unspecified chronic kidney disease; E11.22 Type 2 diabetes mellitus with diabetic chronic kidney disease; J44.9 Chronic obstructive pulmonary disease, unspecified; N18.9 Chronic kidney disease, unspecified; E78.5 Hyperlipidemia, unspecified; E78.1 Pure hyperglyceridemia; M47.816 Spondylosis without myelopathy or radiculopathy, lumbar region; E78.00 Pure hypercholesterolemia, unspecified; R74.8 Abnormal levels of other serum enzymes; I45.10 Unspecified right bundle-branch block; Z79.4 Long term (current) use of insulin; Z16.24 Resistance to multiple antibiotics; Z79.02 Long term (current) use of antithrombotics/antiplatelets; Z79.82 Long term (current) use of aspirin; Z79.899 Other long term (current) drug therapy; Z88.5 Allergy status to narcotic agent; Z90.49 Acquired absence of other specified parts of digestive tract; Z86.14 Personal history of Methicillin resistant Staphylococcus aureus infection; Z82.5 Family history of asthma and other chronic lower respiratory diseases; Z83.3 Family history of diabetes mellitus
CPT/HCPCS: 43239; 96372; 96374; 99285; 36415; 93005; 88305; 80053 ×2; 83690; 85025; 83036; 76705; 74177; G0378 ×4; J2001; J1885; J2704; Q9967; J1644 ×3

== ENCOUNTER 2021-01-30 01:33 | Inpatient (IN) | payer MEDICARE ==
[2021-01-30] MEDS ORDERED: SODIUM CHLORIDE 0.9% 1,000 ML IV STA (01:50)
[2021-01-30] MEDS ORDERED: ONDANSETRON 4 MG/2 ML VIAL IVP STA (01:50)
[2021-01-30] MEDS ORDERED: MORPHINE SULFATE 4 MG/ML SYRINGE IV STA (01:50)
--- NOTE | 2021-01-30 01:52 | ED ---
Abdominal Pain HPI - General Chief Complaint: Abdominal Pain Stated Complaint: Side Pain Time Seen by Provider: 01/30/21 01:45 Source: patient, family, RN notes reviewed, old records reviewed Mode of arrival: ambulatory Limitations: no limitations - History of Present Illness Initial Comments: This is a 6-year-old male to the ER for evaluation patient presents today for evaluation of abdominal pain. Patient has no recent travel history or sick contacts. Patient without significant complaints currently. Patient is having persistent and consistent right upper quadrant abdominal pain usually after eating. He does have history of bowel resection but no fevers no nausea no vomiting. No current diarrhea. Patient's pain is improved MD Complaint: abdominal pain -: days(s) Location: RUQ Radiation: RUQ Migration to: no migration Severity: moderate Severity scale (1-10): 5 Quality: stabbing, sharp Consistency: intermittent, colicky Improves With: nothing Worsens With: eating Associated Symptoms: nausea - Related Data Home Medications Medication Instructions Recorded Confirmed Ergocalciferol (Vitamin D2) 50,000 unit PO HUGGINS 06/14/18 01/09/21 [Vitamin D2] Pramipexole [Mirapex] 1 mg PO HS 06/14/18 01/09/21 Magnesium Oxide [Higgins] 500 mg PO BID@1200,1800 07/23/18 01/09/21 Aspirin 81 mg PO DAILY@1200 06/27/19 01/09/21 Carvedilol [Coreg] 12.5 mg PO BID 06/27/19 01/09/21 Clopidogrel Bisulfate [Plavix] 75 mg PO DAILY@1200 06/27/19 01/09/21 Rosuvastatin Calcium [Crestor] 10 mg PO DAILY@1200 06/27/19 01/09/21 sulfaSALAzine [Azulfidine] 1,000 mg PO QID 06/27/19 01/09/21 Furosemide [Lasix] 40 mg PO TID 09/05/19 01/09/21 Allopurinol [Zyloprim] 100 mg PO DAILY 01/09/21 01/09/21 INSULIN ASPART (NovoLOG) [NovoLOG 4 - 12 unit SQ AC-TID 01/09/21 01/09/21 (formulary)] Insulin Glargine [Lantus] 40 unit SQ DAILY 01/09/21 01/09/21 Insulin Glargine [Lantus] 50 unit SQ HS 01/09/21 01/09/21 Losartan Potassium 100 mg PO DAILY 01/09/21 01/09/21 Potassium Chloride ER [K-Dur 10] 10 meq PO BID 01/09/21 01/09/21 Semaglutide [Ozempic] 0.5 mg SQ MO 01/09/21 01/09/21 Vitamin B Complex 1 cap PO W/SUPPER 01/09/21 01/09/21 Previous Rx's Medication Instructions Recorded Pantoprazole [Protonix] 40 mg PO AC-BRKFST #30 tablet. 01/12/21 Allergies Allergy/AdvReac Type Severity Reaction Status Date / Time codeine Allergy Anaphylaxis Verified 01/30/21 01:42 Review of Systems ROS Statement: Those systems with pertinent positive or pertinent negative responses have been documented in the HPI. ROS Other: All systems not noted in ROS Statement are negative. Past Medical History Past Medical History: Coronary Artery Disease (CAD), Chest Pain / Angina, COPD, Diabetes Mellitus, Hyperlipidemia, Hypertension Additional Past Medical History / Comment(s): Diabetic neuropathy in legs and arms, crohns, rt foot wound History of Any Multi-Drug Resistant Organisms: ESBL, ESBL, MRSA Date of last positivie culture/infection: 2017, 2018 MDRO Source:: right foot Past Surgical History: Bowel Resection, Heart Catheterization With Stent, Orthopedic Surgery, Tonsillectomy Additional Past Surgical History / Comment(s): bowel resection in 1994 &1999, heart cath with stent at [place] April 14 2019. Past Anesthesia/Blood Transfusion Reactions: No Reported Reaction Date of Last Stent Placement:: april 2019 Past Psychological History: No Psychological Hx Reported Smoking Status: Never smoker Past Alcohol Use History: None Reported Past Drug Use History: None Reported - Past Family History Father Family Medical History: Musculoskeletal Disorder Mother Family Medical History: COPD, Diabetes Mellitus General Exam Limitations: no limitations General appearance: alert, in no apparent distress, obese Head exam: Present: atraumatic, normocephalic, normal inspection Eye exam: Present: normal appearance, PERRL, EOMI. Absent: scleral icterus, conjunctival injection, periorbital swelling ENT exam: Present: normal exam, mucous membranes moist Neck exam: Present: normal inspection. Absent: tenderness, meningismus, lymphadenopathy Respiratory exam: Present: normal lung sounds bilaterally. Absent: respiratory distress, wheezes, rales, rhonchi, stridor Cardiovascular Exam: Present: regular rate, normal rhythm, normal heart sounds. Absent: systolic murmur, diastolic murmur, rubs, gallop, clicks GI/Abdominal exam: Present: soft, normal bowel sounds. Absent: distended, ten derness, guarding, rebound, rigid Extremities exam: Present: normal inspection, full ROM, normal capillary refill. Absent: tenderness, pedal edema, joint swelling, calf tenderness Back exam: Present: normal inspection Neurological exam: Present: alert, oriented X3, CN II-XII intact Psychiatric exam: Present: normal affect, normal mood Skin exam: Present: warm, dry, intact, normal color. Absent: rash Course Vital Signs 01/30/21 01:34 Temperature 98.7 F Pulse Rate 61 Respiratory 20 Rate Blood Pressure 167/87 O2 Sat by Pulse 97 Oximetry - Reevaluation(s) Reevaluation #1: 01/30/21 01:52 Medical record is reviewed Reevaluation #2: 01/30/21 03:40 Patient having significant pain so Reevaluation #3: 01/30/21 03:41 Patient informed results and questions answered - Consultations Consultation #1: Spoke with [facility] we'll admit this patient Medical Decision Making - Medical Decision Making 60 male DF for evaluation of abdominal pain epigastric right upper quadrant with bloating. Patient does have small bowel obstruction, patient be admitted for symptom management treatment, - Lab Data Result diagrams: 01/30/21 02:03 01/30/21 02:03 Lab Results 01/30/21 01/30/21 01/30/21 Range/Units 02:03 02:03 02:03 WBC 8.9 (3.8-10.6) k/uL RBC 4.43 (4.30-5.90) m/uL Hgb 14.1 (13.0-17.5) gm/dL Hct 41.0 (39.0-53.0) % MCV 92.5 (80.0-100.0) fL MCH 31.9 (25.0-35.0) pg MCHC 34.5 (31.0-37.0) g/dL RDW 12.8 (11.5-15.5) % Plt Count 270 (150-450) k/uL MPV 7.8 Neutrophils % 63 % Lymphocytes % 26 % Monocytes % 7 % Eosinophils % 1 % Basophils % 1 % Neutrophils # 5.6 (1.3-7.7) k/uL Lymphocytes # 2.3 (1.0-4.8) k/uL Monocytes # 0.6 (0-1.0) k/uL Eosinophils # 0.1 (0-0.7) k/uL Basophils # 0.1 (0-0.2) k/uL Sodium 139 (137-145) mmol/L Potassium 3.9 (3.5-5.1) mmol/L Chloride 107 (98-107) mmol/L Carbon Dioxide 23 (22-30) mmol/L Anion Gap 9 mmol/L BUN 36 H (9-20) mg/dL Creatinine 1.47 H (0.66-1.25) mg/dL Est GFR (CKD-EPI)AfAm 59 (>60 ml/min/1.73 sqM) Est GFR (CKD-EPI)NonAf 51 (>60 ml/min/1.73 sqM) Glucose 144 H (74-99) mg/dL Plasma Lactic Acid Jay 1.4 (0.7-2.0) mmol/L Calcium 9.3 (8.4-10.2) mg/dL Total Bilirubin 0.5 (0.2-1.3) mg/dL AST 33 (17-59) U/L ALT 26 (4-49) U/L Alkaline Phosphatase 129 H (38-126) U/L Troponin I (0.000-0.034) ng/mL Total Protein 6.3 (6.3-8.2) g/dL Albumin 3.5 (3.5-5.0) g/dL Amylase 68 (30-110) U/L Lipase 91 (23-300) U/L 01/30/21 Range/Units 02:03 WBC (3.8-10.6) k/uL RBC (4.30-5.90) m/uL Hgb (13.0-17.5) gm/dL Hct (39.0-53.0) % MCV (80.0-100.0) fL MCH (25.0-35.0) pg MCHC (31.0-37.0) g/dL RDW (11.5-15.5) % Plt Count (150-450) k/uL MPV Neutrophils % % Lymphocytes % % Monocytes % % Eosinophils % % Basophils % % Neutrophils # (1.3-7.7) k/uL Lymphocytes # (1.0-4.8) k/uL Monocytes # (0-1.0) k/uL Eosinophils # (0-0.7) k/uL Basophils # (0-0.2) k/uL Sodium (137-145) mmol/L Potassium (3.5-5.1) mmol/L Chloride (98-107) mmol/L Carbon Dioxide (22-30) mmol/L Anion Gap mmol/L BUN (9-20) mg/dL Creatinine (0.66-1.25) mg/dL Est GFR (CKD-EPI)AfAm (>60 ml/min/1.73 sqM) Est GFR (CKD-EPI)NonAf (>60 ml/min/1.73 sqM) Glucose (74-99) mg/dL Plasma Lactic Acid Jay (0.7-2.0) mmol/L Calcium (8.4-10.2) mg/dL Total Bilirubin (0.2-1.3) mg/dL AST (17-59) U/L ALT (4-49) U/L Alkaline Phosphatase (38-126) U/L Troponin I <0.012 (0.000-0.034) ng/mL Total Protein (6.3-8.2) g/dL Albumin (3.5-5.0) g/dL Amylase (30-110) U/L Lipase (23-300) U/L Disposition Clinical Impression: Abdominal pain, SBO (small bowel obstruction) Disposition: ADMITTED IP TO THIS HOSP Is patient prescribed a controlled substance at d/c from ED?: No Referrals: Sammy Barth DO [Primary Care Provider] - 1-2 days
[2021-01-30 02:19] LABS: Basophils # (A) 0.1 k/uL (0-0.2); Basophils % (A) 1 %; Eosinophils # (A) 0.1 k/uL (0-0.7); Eosinophils % (A) 1 %; HGB 14.1 gm/dL (13.0-17.5); Lymphocytes # (A) 2.3 k/uL (1.0-4.8); Lymphocytes % (A) 26 %; MCH 31.9 pg (25.0-35.0); MCHC 34.5 g/dL (31.0-37.0); MCV 92.5 fL (80.0-100.0); Mean Platelet Volume 7.8; Monocytes # (A) 0.6 k/uL (0-1.0); Monocytes % (A) 7 %; Neutrophils # (A) 5.6 k/uL (1.3-7.7); Neutrophils % (A) 63 %; Platelet Count 270 k/uL (150-450); RBC 4.43 m/uL (4.30-5.90); RDW 12.8 % (11.5-15.5); WBC 8.9 k/uL (3.8-10.6)
[2021-01-30 02:24] LABS: Albumin 3.5 g/dL (3.5-5.0); Calcium 9.3 mg/dL (8.4-10.2); Potassium 3.9 mmol/L (3.5-5.1); Total Bilirubin 0.5 mg/dL (0.2-1.3); Total Protein 6.3 g/dL (6.3-8.2)
--- NOTE | 2021-01-30 03:36 | CT ---
EXAMINATION TYPE: CT abdomen pelvis w con DATE OF EXAM: 01/30/2021 COMPARISON: 01/09/2021 HISTORY: RUQ pain x [address] DLP: 2420 mGycm Automated exposure control for dose reduction was used. CONTRAST: Performed with IV Contrast, patient injected with 80 mL of Isovue 300. Images obtained from the diaphragm to the floor the pelvis with IV contrast. The lung bases are clear. There is no pleural effusion. Heart size is normal. There is no pericardial effusion. There is some coronary artery calcification. Stomach is large and filled with food and fluid. Liver spleen pancreas gallbladder appear intact. The bile ducts are not dilated. There is no adrenal mass. Kidneys show satisfactory contrast opacification. There is no hydronephrosis. Ureters are not d ilated. There is no retroperitoneal adenopathy. Bladder distends smoothly. There is no inguinal herni a. Prostate is enlarged and measures 6.3 cm. There is no free fluid in the pelvis. There are surgical clips at the right colon. There is apparent ileocolic anastomosis. There is dilated proximal jejunum . There is jejunal measuring 4 cm in diameter and there is transition point in the proximal jejunum. Nature of the transition is not clear. A constricting mass is possible. Transition point is best seen on the coronal image 53. The lumbar vertebra have normal alignment. Posterior elements are intact. There is no compression fra cture. There is degenerative spur formation. The bony pelvis is intact. The hip joints are intact. IMPRESSION: There is evidence for a proximal small bowel obstruction with dilated proximal jejunum. This is a ruel nge compared to recent exam. Atherosclerotic vascular disease. Previous right colon surgery.
[2021-01-30] MEDS ORDERED: NALOXONE 0.4 MG/ML 1 ML VIAL IV PRN (03:42)
[2021-01-30] MEDS ORDERED: ONDANSETRON 4 MG/2 ML VIAL IVP PRN (03:42)
[2021-01-30] MEDS: MORPHINE SULFATE 4 MG/ML SYRINGE IV PRN ×2 (04:09→20:08)
[2021-01-30] MEDS: SODIUM CHLORIDE 0.9% 1,000 ML IV SCH ×3 (04:10→20:30)
[2021-01-30 07:33] LABS: Glucose,Whole Blood 110 mg/dL (75-99)
[2021-01-30] MEDS ORDERED: cloNIDine 0.2 MG/24HR PATCH TRANSDERM SCH (08:00)
[2021-01-30] MEDS: PANTOPRAZOLE 40 MG/10 ML VIAL IV SCH (08:12)
[2021-01-30] MEDS: HEPARIN SODIUM,PORCINE/PF 5,000 UNIT/0.5 ML SYRINGE SQ SCH ×2 (08:12→20:09)
--- NOTE | 2021-01-30 10:39 | P.HPIM ---
History of Present Illness This is a pleasant 60 years old male with past medical history of Crohn's disease, type II DM, peripheral neuropathy, chronic kidney disease, hypertension, hyperlipidemia, and coronary artery disease Patient was recently discharged from the hospital 01/09-01/12 for upper abdominal pain of unknown origin. EGD done at that time showing no significant abnormality Presents with recurrent/persistent abdominal pain This pain is in the right upper quadrant going around to the back but not as bad. His abdominal pain is 8/10, felt sharp and dull associated with nausea but no vomiting. Bowel movement was yesterday at 3 PM. Area, no bleeding per rectum. He complains from the distal shortness of breath and coughing. No urinary complaints Vitals stable, blood pressure on the high side 173/82 Labs including CBC, INR, BMP, liver enzymes are unremarkable except for elevated creatinine at 1.4 which looks like baseline 1.2-1.6. CT of the abdomen and pelvis with contrast showing proximal small bowel obstruction with dilated proximal jejunum with evidence of previous colon surgery. A large prostate Surgery team were consulted from emergency room and patient received 1 L of normal saline at a rate of 130 mL/h. Morphine Review of Systems CONSTITUTIONAL: No fever, no malaise, no fatigue. HEENT: No recent visual problems or hearing problems. Denied any sore throat. CARDIOVASCULAR: No orthopnea, PND, no palpitations, no syncope. PULMONARY: No shortness of breath, no cough, no hemoptysis. GASTROINTESTINAL: No diarrhea, no nausea, no vomiting,. Normoactive bowel sounds. NEUROLOGICAL: No headaches, no weakness, no numbness. HEMATOLOGICAL: Denies any bleeding or petechiae. GENITOURINARY: Denies any burning micturition, frequency, or urgency. MUSCULOSKELETAL/RHEUMATOLOGICAL: Denies any joint pain, swelling, or any muscle pain. ENDOCRINE: Denies any polyuria or polydipsia. Past Medical History Past Medical History: Coronary Artery Disease (CAD), Chest Pain / Angina, COPD, Diabetes Mellitus, Hyperlipidemia, Hypertension Additional Past Medical History / Comment(s): Diabetic neuropathy in legs and arms, crohns, rt foot wound-healed after 13 months History of Any Multi-Drug Resistant Organisms: ESBL, ESBL, MRSA Date of last positivie culture/infection: 2017, 2018 MDRO Source:: right foot Past Surgical History: Bowel Resection, Heart Catheterization With Stent, Orthopedic Surgery, Tonsillectomy Additional Past Surgical History / Comment(s): bowel resection in 1994 &1999, heart cath with stent at [facility] April 14 2019. Past Anesthesia/Blood Transfusion Reactions: No Reported Reaction Date of Last Stent Placement:: april 2019 Past Psychological History: No Psychological Hx Reported Additional Psychological History / Comment(s): Patient was a smoker of 2 and half to 3 packs per day for 12-13 years and quit 25 years ago. He denies any marijuana, street drug or alcohol use. He currently lives at home with his and son. He worked in the past in [employer] and retired. He is currently on disability. There are 3 dogs and 2 cats in the home. 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 He has difficulty ambulating due to neuropathy. Smoking Status: Never smoker Past Alcohol Use History: None Reported Additional Past Alcohol Use History / Comment(s): Patient was a smoker of 2 and half to 3 packs per day for 12-13 years and quit 25 years ago. He denies any marijuana, street drug or alcohol use. He currently lives at home with his and son. He worked in the past in [employer] and retired. He is currently on disability. There are 3 dogs and 2 cats in the home. 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 He has difficulty ambulating due to neuropathy. Past Drug Use History: None Reported - Past Family History Father Family Medical History: Musculoskeletal Disorder Mother Family Medical History: COPD, Diabetes Mellitus Medications and Allergies Home Medications Medication Instructions Recorded Confirmed Type Ergocalciferol (Vitamin D2) 50,000 unit PO HUGGINS 06/14/18 01/30/21 History [Vitamin D2] Pramipexole [Mirapex] 1 mg PO HS 06/14/18 01/30/21 History Magnesium Oxide [Higgins] 500 mg PO BID@1200,1800 07/23/18 01/30/21 History Aspirin 81 mg PO DAILY@1200 06/27/19 01/30/21 History Carvedilol [Coreg] 12.5 mg PO BID 06/27/19 01/30/21 History Clopidogrel Bisulfate [Plavix] 75 mg PO DAILY@1200 06/27/19 01/30/21 History Rosuvastatin Calcium [Crestor] 10 mg PO DAILY@1200 06/27/19 01/30/21 History sulfaSALAzine [Azulfidine] 1,000 mg PO QID 06/27/19 01/30/21 History Furosemide [Lasix] 40 mg PO TID 09/05/19 01/30/21 History Allopurinol [Zyloprim] 100 mg PO DAILY 01/09/21 01/30/21 History INSULIN ASPART (NovoLOG) [NovoLOG 4 - 12 unit SQ AC-TID 01/09/21 01/30/21 History (formulary)] Insulin Glargine [Lantus] 40 unit SQ DAILY 01/09/21 01/30/21 History Insulin Glargine [Lantus] 50 unit SQ HS 01/09/21 01/30/21 History Losartan Potassium 100 mg PO DAILY 01/09/21 01/30/21 History Potassium Chloride ER [K-Dur 10] 10 meq PO BID 01/09/21 01/30/21 History Semaglutide [Ozempic] 0.5 mg SQ DIRECTED 01/09/21 01/30/21 History Vitamin B Complex 1 cap PO W/SUPPER 01/09/21 01/30/21 History Pantoprazole [Protonix] 40 mg PO AC-BRKFST #30 tablet. 01/12/21 01/30/21 Rx Allergies Allergy/AdvReac Type Severity Reaction Status Date / Time codeine Allergy Anaphylaxis Verified 01/30/21 06:51 Physical Exam Vitals: Vital Signs Temp Pulse Pulse Resp BP BP Pulse Ox 01/30/21 05:57 97.6 F 59 L 16 173/82 92 L 01/30/21 04:00 68 18 162/83 98 01/30/21 01:34 98.7 F 61 20 167/87 97 Intake and Output 01/29/21 01/30/21 01/30/21 22:59 06:59 14:59 Intake Total 260 Balance 260 Intake: Intake, IV Titration 260 Amount Sodium Chloride 0.9% 1, 260 000 ml @ 130 mls/hr IV . Q7H42M [facility] Rx#:[id number] Other: Weight 138.346 kg GENERAL: The patient is alert and oriented x3, not in any acute distress. Well developed, well nourished. HEENT: Pupils are round and equally reacting to light. EOMI. No scleral icterus. No conjunctival pallor. Normocephalic, atraumatic. No pharyngeal erythema. No thyromegaly. CARDIOVASCULAR: S1 and S2 present. No murmurs, rubs, or gallops. PULMONARY: Chest is clear to auscultation, no wheezing or crackles. ABDOMEN: Soft, nontender, nondistended, normoactive bowel sounds. No palpable organomegaly. MUSCULOSKELETAL: No joint swelling or deformity. EXTREMITIES: No cyanosis, clubbing, or pedal edema. NEUROLOGICAL: Gross neurological examination did not reveal any focal deficits. SKIN: No rashes. No petechiae Results CBC & Chem 7: 01/30/21 02:03 01/30/21 02:03 Labs: Abnormal Lab Results - Last 24 Hours (Table) 01/30/21 Range/Units 02:03 BUN 36 H (9-20) mg/dL Creatinine 1.47 H (0.66-1.25) mg/dL Glucose 144 H (74-99) mg/dL Alkaline Phosphatase 129 H (38-126) U/L Assessment and Plan Assessment: Acute proximal small bowel obstruction Hyperlipidemia Hypertension, uncontrolled on admission enlarged prostate Diabetes mellitus type 2 Diabetic neuropathy Chronic kidney disease, stage III. Likely secondary to diabetic nephropathy History of coronary artery disease Obesity with BMI of 38.1 Plan: this is a pleasant 60 years old male who presents with SBO. We'll do bowel rest, IV fluids and pain medication. Surgery team consult Clonidine patch Chest x-ray Labs and medication were reviewed.. Continue same treatment. Continue with symptomatic treatment. Resume home medication. Monitor lytes and vitals. DVT and GI prophylaxis. Further recommendations depends on the clinical course of the patient DVT prophylaxis: Subcutaneous heparin GI Prophylaxis: Ppi Prognosis is guarded
--- NOTE | 2021-01-30 11:45 | XR ---
EXAMINATION TYPE: XR chest 1V DATE OF EXAM: 01/30/2021 HISTORY: Shortness of breath. COMPARISON: 09/04/2019 TECHNIQUE: Single view of the chest is submitted. FINDINGS: Demonstrated are scattered senescent parenchymal change. There is no evidence for focal infiltrate. The heart is stable. Hilar and mediastinal structures are within normal limits. Degenerative changes are seen of the dorsal spine. IMPRESSION: 1. Chronic changes without evidence for acute pulmonary disease.
--- NOTE | 2021-01-30 12:12 | P.GSCN ---
<Cassi Davis - Last Filed: 01/30/21 11:56> History of Present Illness Consult date: 01/30/21 History of present illness: CHIEF COMPLAINT: Abdominal pain HISTORY OF PRESENT ILLNESS: This is a 6-year-old male with a known history of Crohn's disease with 2 prior bowel resections due to his Crohn's disease contributing to bowel obstructions. First surgery was in 1994 at [facility] he had 16 inches of bowel removed and then in 1999 at [facility] he reports having about 2 inches of bowel removed. Has had multiple bowel obstructions. Other than the 2 stated above the rest were treated conservatively. Patient presents to the hospital with right sided mid abdomen pain. He reports that the pain has been there for about 4 weeks. Patient had been in the hospital about 2 weeks ago with similar symptoms. He had EGD with minimal antral gastritis. Patient had a computed tomography scan abdomen and pelvis with contrast today showing evidence of proximal small bowel obstruction with dilated proximal jejunum. Previous right colon surgery. Patient denies any vomiting or fever. He has been having nausea. Last bowel movement was yesterday afternoon and he describes it as muddy consistency. Denies any blood or black stools. He is having flatus. Patient also has a known history of coronary artery disease with stents and is on Plavix. Other history of diabetes, hyperlipidemia, hypertension and pancreatitis. PAST MEDICAL HISTORY: See list. PAST SURGICAL HISTORY: See list. MEDICATIONS: See list. ALLERGIES: See list. SOCIAL HISTORY: No illicit drug use. REVIEW OF SYSTEMS: CONSTITUTIONAL: Denies fever or chills. HEENT: Denies blurred vision, vision changes, or eye pain. Denies hemoptysis CARDIOVASCULAR: Denies chest pain or pressure. RESPIRATORY: No shortness of breath. GASTROINTESTINAL: See HPI for pertinent findings HEMATOLOGIC: Denies bleeding disorders. GENITOURINARY: Denies any blood in urine or increased urinary frequency. SKIN: Denies pruitis. Denies rash. PHYSICAL EXAM: VITAL SIGNS: Reviewed GENERAL: Well-developed in no acute distress. HEENT: No sclera icterus. Extraocular movements grossly intact. Moist buccal mucosa. Head is atraumatic, normocephalic. No nasal drainage. ABDOMEN: Soft. Nondistended. Right-sided mid abdomen tenderness with palpation NEUROLOGIC: Alert and oriented. Cranial nerves II through XII grossly intact. LABORATORY DATA: WBC 8.9 hemoglobin 14.1 platelets 270 sodium 139 potassium 3.9 creatinine 1.47 glucose 144 Lactic 1.4 LFTs normal alk phos 129 troponin negative lipase normal IMAGING: computed tomography scan abdomen and pelvis with contrast today showing evidence of proximal small bowel obstruction with dilated proximal jejunum. Previous right colon surgery ASSESSMENT: 1. Proximal small bowel obstruction with dilated proximal jejunum 2. Prior history of small bowel obstructions. And on 2 occasions required bowel resection 3. History of Crohn's disease on treatment 4. History of coronary artery disease with cardiac stents on Plavix at home PLAN: -Further recommendations forthcoming per surgeon -Keep patient nothing by mouth -Continue IV fluids -Continue pain medication as needed -Continue antiemetics Thank you for this consultation Physician Power Plant Operator note has been reviewed by physician. Signing provider agrees with the documented findings, assessment, and plan of care. Past Medical History Past Medical History: Coronary Artery Disease (CAD), Chest Pain / Angina, COPD, Diabetes Mellitus, Hyperlipidemia, Hypertension Additional Past Medical History / Comment(s): Diabetic neuropathy in legs and arms, crohns, rt foot wound-healed after 13 months History of Any Multi-Drug Resistant Organisms: ESBL, ESBL, MRSA Year Discovered:: 2017, 2019 MDRO Source:: right foot Past Surgical History: Bowel Resection, Heart Catheterization With Stent, Orthopedic Surgery, Tonsillectomy Additional Past Surgical History / Comment(s): bowel resection in 1994 &1999, heart cath with stent at [place] April 14 2019. Past Anesthesia/Blood Transfusion Reactions: No Reported Reaction Date of Last Stent Placement:: april 2019 Past Psychological History: No Psychological Hx Reported Additional Psychological History / Comment(s): Patient was a smoker of 2 and half to 3 packs per day for 12-13 years and quit 25 years ago. He denies any marijuana, street drug or alcohol use. He currently lives at home with his and son. 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 There are 3 dogs and 2 cats in the home. 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 He has difficulty ambulating due to neuropathy. Smoking Status: Never smoker Past Alcohol Use History: None Reported Additional Past Alcohol Use History / Comment(s): Patient was a smoker of 2 and half to 3 packs per day for 12-13 years and quit 25 years ago. He denies any marijuana, street drug or alcohol use. He currently lives at home with his and son. 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 There are 3 dogs and 2 cats in the home. 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 He has difficulty ambulating due to neuropathy. Past Drug Use History: None Reported - Past Family History Father Family Medical History: Musculoskeletal Disorder Mother Family Medical History: COPD, Diabetes Mellitus Medications and Allergies Home Medications Medication Instructions Recorded Confirmed Type Ergocalciferol (Vitamin D2) 50,000 unit PO HUGGINS 06/14/18 01/30/21 History [Vitamin D2] Pramipexole [Mirapex] 1 mg PO HS 06/14/18 01/30/21 History Magnesium Oxide [Higgins] 500 mg PO BID@1200,1800 07/23/18 01/30/21 History Aspirin 81 mg PO DAILY@1200 06/27/19 01/30/21 History Carvedilol [Coreg] 12.5 mg PO BID 06/27/19 01/30/21 History Clopidogrel Bisulfate [Plavix] 75 mg PO DAILY@1200 06/27/19 01/30/21 History Rosuvastatin Calcium [Crestor] 10 mg PO DAILY@1200 06/27/19 01/30/21 History sulfaSALAzine [Azulfidine] 1,000 mg PO QID 06/27/19 01/30/21 History Furosemide [Lasix] 40 mg PO TID 09/05/19 01/30/21 History Allopurinol [Zyloprim] 100 mg PO DAILY 01/09/21 01/30/21 History INSULIN ASPART (NovoLOG) [NovoLOG 4 - 12 unit SQ AC-TID 01/09/21 01/30/21 History (formulary)] Insulin Glargine [Lantus] 40 unit SQ DAILY 01/09/21 01/30/21 History Insulin Glargine [Lantus] 50 unit SQ HS 01/09/21 01/30/21 History Losartan Potassium 100 mg PO DAILY 01/09/21 01/30/21 History Potassium Chloride ER [K-Dur 10] 10 meq PO BID 01/09/21 01/30/21 History Semaglutide [Ozempic] 0.5 mg SQ DIRECTED 01/09/21 01/30/21 History Vitamin B Complex 1 cap PO W/SUPPER 01/09/21 01/30/21 History Pantoprazole [Protonix] 40 mg PO AC-BRKFST #30 tablet. 01/12/21 01/30/21 Rx Allergies Allergy/AdvReac Type Severity Reaction Status Date / Time codeine Allergy Anaphylaxis Verified 01/30/21 06:51 Surgical - Exam Vital Signs Temp Pulse Resp BP Pulse Ox 98.7 F 61 20 167/87 97 01/30/21 01:34 01/30/21 01:34 01/30/21 01:34 01/30/21 01:34 01/30/21 01:34 Results - Labs 01/30/21 02:03 01/30/21 02:03 Abnormal Lab Results - Last 24 Hours (Table) 01/30/21 01/30/21 Range/Units 02:03 07:31 BUN 36 H (9-20) mg/dL Creatinine 1.47 H (0.66-1.25) mg/dL Glucose 144 H (74-99) mg/dL POC Glucose (mg/dL) 110 H (75-99) mg/dL Alkaline Phosphatase 129 H (38-126) U/L Diabetes panel 01/30/21 Range/Units 02:03 Sodium 139 (137-145) mmol/L Potassium 3.9 (3.5-5.1) mmol/L Chloride 107 (98-107) mmol/L Carbon Dioxide 23 (22-30) mmol/L BUN 36 H (9-20) mg/dL Creatinine 1.47 H (0.66-1.25) mg/dL Glucose 144 H (74-99) mg/dL Calcium 9.3 (8.4-10.2) mg/dL AST 33 (17-59) U/L ALT 26 (4-49) U/L Alkaline Phosphatase 129 H (38-126) U/L Total Protein 6.3 (6.3-8.2) g/dL Albumin 3.5 (3.5-5.0) g/dL Calcium panel 01/30/21 Range/Units 02:03 Calcium 9.3 (8.4-10.2) mg/dL Albumin 3.5 (3.5-5.0) g/dL Pituitary panel 01/30/21 Range/Units 02:03 Sodium 139 (137-145) mmol/L Potassium 3.9 (3.5-5.1) mmol/L Chloride 107 (98-107) mmol/L Carbon Dioxide 23 (22-30) mmol/L BUN 36 H (9-20) mg/dL Creatinine 1.47 H (0.66-1.25) mg/dL Glucose 144 H (74-99) mg/dL Calcium 9.3 (8.4-10.2) mg/dL Adrenal panel 01/30/21 Range/Units 02:03 Sodium 139 (137-145) mmol/L Potassium 3.9 (3.5-5.1) mmol/L Chloride 107 (98-107) mmol/L Carbon Dioxide 23 (22-30) mmol/L BUN 36 H (9-20) mg/dL Creatinine 1.47 H (0.66-1.25) mg/dL Glucose 144 H (74-99) mg/dL Calcium 9.3 (8.4-10.2) mg/dL Total Bilirubin 0.5 (0.2-1.3) mg/dL AST 33 (17-59) U/L ALT 26 (4-49) U/L Alkaline Phosphatase 129 H (38-126) U/L Total Protein 6.3 (6.3-8.2) g/dL Albumin 3.5 (3.5-5.0) g/dL <Sage Schreiber - Last Filed: 01/30/21 13:20> History of Present Illness History of present illness: As above. Patient with upper abdominal pain more right-sided. CAT scan reviewed. Patient with gastric distention and proximal small bowel distention. Slight thickening of proximal jejunal loops noted. Keep nothing by mouth for now. Will discuss further with GI. Surgical - Exam Vital Signs Temp Pulse Resp BP Pulse Ox 98.7 F 61 20 167/87 97 01/30/21 01:34 01/30/21 01:34 01/30/21 01:34 01/30/21 01:34 01/30/21 01:34 Results - Labs 01/30/21 02:03 01/30/21 02:03 Abnormal Lab Results - Last 24 Hours (Table) 01/30/21 01/30/21 01/30/21 Range/Units 02:03 07:31 12:07 BUN 36 H (9-20) mg/dL Creatinine 1.47 H (0.66-1.25) mg/dL Glucose 144 H (74-99) mg/dL POC Glucose (mg/dL) 110 H 135 H (75-99) mg/dL Alkaline Phosphatase 129 H (38-126) U/L Diabetes panel 01/30/21 Range/Units 02:03 Sodium 139 (137-145) mmol/L Potassium 3.9 (3.5-5.1) mmol/L Chloride 107 (98-107) mmol/L Carbon Dioxide 23 (22-30) mmol/L BUN 36 H (9-20) mg/dL Creatinine 1.47 H (0.66-1.25) mg/dL Glucose 144 H (74-99) mg/dL Calcium 9.3 (8.4-10.2) mg/dL AST 33 (17-59) U/L ALT 26 (4-49) U/L Alkaline Phosphatase 129 H (38-126) U/L Total Protein 6.3 (6.3-8.2) g/dL Albumin 3.5 (3.5-5.0) g/dL Calcium panel 01/30/21 Range/Units 02:03 Calcium 9.3 (8.4-10.2) mg/dL Albumin 3.5 (3.5-5.0) g/dL Pituitary panel 01/30/21 Range/Units 02:03 Sodium 139 (137-145) mmol/L Potassium 3.9 (3.5-5.1) mmol/L Chloride 107 (98-107) mmol/L Carbon Dioxide 23 (22-30) mmol/L BUN 36 H (9-20) mg/dL Creatinine 1.47 H (0.66-1.25) mg/dL Glucose 144 H (74-99) mg/dL Calcium 9.3 (8.4-10.2) mg/dL Adrenal panel 01/30/21 Range/Units 02:03 Sodium 139 (137-145) mmol/L Potassium 3.9 (3.5-5.1) mmol/L Chloride 107 (98-107) mmol/L Carbon Dioxide 23 (22-30) mmol/L BUN 36 H (9-20) mg/dL Creatinine 1.47 H (0.66-1.25) mg/dL Glucose 144 H (74-99) mg/dL Calcium 9.3 (8.4-10.2) mg/dL Total Bilirubin 0.5 (0.2-1.3) mg/dL AST 33 (17-59) U/L ALT 26 (4-49) U/L Alkaline Phosphatase 129 H (38-126) U/L Total Protein 6.3 (6.3-8.2) g/dL Albumin 3.5 (3.5-5.0) g/dL
[2021-01-30 12:16] LABS: Glucose,Whole Blood 135 mg/dL (75-99)
[2021-01-30 17:06] LABS: Glucose,Whole Blood 155 mg/dL (75-99)
[2021-01-30 20:05] LABS: Glucose,Whole Blood 139 mg/dL (75-99)
[2021-01-31] MEDS: hydrALAZINE HCL 20 MG/ML 1 ML VIAL IVP PRN ×3 (01:13→22:45)
[2021-01-31] MEDS: SODIUM CHLORIDE 0.9% 1,000 ML IV SCH ×3 (01:15→18:26)
[2021-01-31 06:43] LABS: Basophils % (A) 1 %; Eosinophils % (A) 1 %; HCT 37.1 % (39.0-53.0); HGB 12.6 gm/dL (13.0-17.5); Lymphocytes # (A) 1.4 k/uL (1.0-4.8); Lymphocytes % (A) 29 %; MCH 32.7 pg (25.0-35.0); MCHC 34.1 g/dL (31.0-37.0); Mean Platelet Volume 7.3; Monocytes # (A) 0.3 k/uL (0-1.0); Monocytes % (A) 6 %; Neutrophils % (A) 61 %; Platelet Count 254 k/uL (150-450); RBC 3.86 m/uL (4.30-5.90); RDW 13.3 % (11.5-15.5); WBC 4.9 k/uL (3.8-10.6)
[2021-01-31 07:24] LABS: Glucose,Whole Blood 109 mg/dL (75-99)
--- NOTE | 2021-01-31 08:10 | XR ---
Abdomen. History: Follow-up bowel obstruction. History of Crohn's disease. COMPARISON: None. TECHNIQUE: 2 supine views the abdomen were obtained. FINDINGS: There is moderate stool within the colon. The bowel gas pattern is nonspecific. There is no suspiciou s calcification. The lung bases are clear. The osseous structures are intact. IMPRESSION: Nonspecific abdomen.
[2021-01-31] MEDS: HEPARIN SODIUM,PORCINE/PF 5,000 UNIT/0.5 ML SYRINGE SQ SCH ×2 (08:44→20:49)
[2021-01-31] MEDS: PANTOPRAZOLE 40 MG/10 ML VIAL IV SCH (08:44)
--- NOTE | 2021-01-31 09:15 | P.PN ---
Subjective Progress Note Date: 01/31/21 Principal diagnosis: Small bowel obstruction Patient says he is having more upper abdominal pain than he was yesterday. Points to the right upper quadrant and epigastric region. Mild nausea. No vomiting. He did pass flatus. Today's abdominal x-rays are normal. White blood cell count is normal. Objective - Vital Signs Vital signs: Vital Signs Temp 97.9 F 01/31/21 05:00 Pulse 66 01/31/21 05:00 Resp 18 01/31/21 05:00 BP 179/89 01/31/21 05:00 Pulse Ox 97 01/31/21 05:00 Intake & Output 01/30/21 01/31/21 01/31/21 18:59 06:59 18:59 Intake Total 1560 1300 Balance 1560 1300 Intake: Intake, IV Titration 1560 1300 Amount Sodium Chloride 0.9% 1, 1560 1300 000 ml @ 130 mls/hr IV . Q7H42M [facility] Rx#:[id number] Other: Voiding Method Toilet Toilet # Voids 1 1 - Exam Abdomen: Soft, nondistended, epigastric tenderness - Labs CBC & Chem 7: 01/31/21 06:16 01/30/21 02:03 Labs: Abnormal Lab Results - Last 24 Hours (Table) 01/30/21 01/30/21 01/30/21 Range/Units 12:07 17:04 19:58 RBC (4.30-5.90) m/uL Hgb (13.0-17.5) gm/dL Hct (39.0-53.0) % POC Glucose (mg/dL) 135 H 155 H 139 H (75-99) mg/dL 01/31/21 01/31/21 Range/Units 06:16 07:23 RBC 3.86 L (4.30-5.90) m/uL Hgb 12.6 L (13.0-17.5) gm/dL Hct 37.1 L (39.0-53.0) % POC Glucose (mg/dL) 109 H (75-99) mg/dL Assessment and Plan (1) SBO (small bowel obstruction) Narrative/Plan: Keep nothing by mouth. May have ice chips and occasional popsicles. Ambulate. GI consult pending. Current Visit: Yes Status: Acute Code(s): K56.609 - UNSP INTESTNL OBST, UNSP TO PARTIAL VERSUS COMPLETE OBST SNOMED Code(s): 960599648
[2021-01-31 10:59] LABS: African American GFR (CKD) 84.1 (60.0-200.0); Albumin/Globulin Ratio 1.43 (1.60-3.17); Anion Gap 6.7 mmol/L (4.00-12.00); BUN/Creat Ratio 20.91 Ratio (12.00-20.00); Calcium 8.1 mg/dL (8.7-10.3); Carbon Dioxide 25.3 mmol/L (21.6-31.8); Globulin 2.1 g/dL (1.6-3.3); Non-African American GFR(CKD) 72.6 (60.0-200.0); Potassium 4.2 mmol/L (3.5-5.5); Total Bilirubin 0.3 mg/dL (0.3-1.2); Total Protein 5.1 g/dL (6.2-8.2)
[2021-01-31 11:49] LABS: Glucose,Whole Blood 124 mg/dL (75-99)
[2021-01-31] MEDS: MORPHINE SULFATE 4 MG/ML SYRINGE IV PRN (11:54)
[2021-01-31] MEDS ORDERED: methylPREDNISolone SOD SUCCI 40 MG/ML 1 ML VIAL IV SCH (12:00)
[2021-01-31] MEDS ORDERED: HYDROmorphone 0.5 MG/0.5 ML SYRINGE IVP STA (12:14)
[2021-01-31] MEDS ORDERED: MORPHINE SULFATE 2 MG/ML SYRINGE IVP STA (12:15)
--- NOTE | 2021-01-31 12:23 | CONS ---
CONSULTATION DATE OF DICTATION: January 31, 2021. REQUESTING PHYSICIAN: Dr. Sammy Barth. REASON FOR CONSULTATION: Severe abdominal pain. HISTORY OF PRESENT ILLNESS: The patient is a 60-year-old pleasant white male admitted to hospital with acute onset of severe right upper quadrant abdominal pain and epigastric pain for the last 4 days duration. The patient had a similar hospitalization on January 10, at which time he had similar symptoms but was noted to have mild elevation of lipase. He did have an upper endoscopy done by me on January 11 which revealed mild gastritis but otherwise it was unremarkable. He was treated symptomatically and he is discharged home. Now he is readmitted to the hospital because of worsening symptoms associated with some nausea but no emesis, had no bowel movements for the last 2 days. The patient has longstanding history of Crohn's ileitis diagnosed in the 1989, he is status post surgical resection x2 in the past. He recalls having a colonoscopy about 4 years ago at [facility] by his GI physician which according to him was unremarkable. During this hospitalization he did have a CT of the abdomen and pelvis done that showed proximal small bowel obstruction with proximal jejunal dilation. Surgery has been consulted and Dr. Schreiber evaluated the patient. The patient states that he continues to have abdominal pain to the same degree as yesterday. No bowel movements today. No nausea, no vomiting. PAST MEDICAL HISTORY: Significant for hypertension, diabetes mellitus, hyperlipidemia, peripheral neuropathy, coronary artery disease. PAST SURGICAL HISTORY: Two bowel resections for Crohn's disease in 1993 and 1999, cardiac catheterization with stent placement, EGD 2 weeks ago. MEDICATIONS: Medications at home include vitamin B12, milk of magnesia, Mirapex, Azulfidine, Coreg, aspirin and Plavix, Crestor, Lasix, Zyloprim, NovoLog, Lantus, Ozempic, vitamin B complex, losartan, and potassium chloride. ALLERGIES: CODEINE. SOCIAL HISTORY: No smoking no alcohol use. FAMILY HISTORY: Unremarkable. REVIEW OF SYSTEMS: CARDIOPULMONARY: No chest pain or shortness of breath. no dysuria, no hematuria. MUSCULOSKELETAL unremarkable. SKIN unremarkable. ENDOCRINE unremarkable. PSYCHIATRIC unremarkable. NEUROLOGICAL: Unremarkable. ENT/VISION: Unremarkable. CONSTITUTIONAL: No recent weight loss. No fever, chills, night sweats. HEMATOLOGY: Unremarkable. PHYSICAL EXAMINATION: He appears comfortable. No apparent distress. Vital signs are stable blood pressure is 180/86, pulse rate 66. Temperature 97.9. HEENT examination unremarkable. Conjunctivae pink. Sclerae anicteric. Oral cavity no lesions. NECK: No JVD or lymph node enlargement. CHEST was clear to auscultation. HEART: Regular rate and rhythm. ABDOMEN: Soft. Bowel sounds are positive. There was tenderness in the epigastric and right upper quadrant area. Rest of the abdomen was benign. EXTREMITIES: No pedal edema. SKIN: No rashes. NEUROLOGIC: Alert and oriented x3. No focal deficits. LABS: From yesterday: WBC 8.9, hemoglobin 14.1, platelets normal. Basic metabolic panel is within normal limits. AST/ALT, T-bilirubin and alkaline phosphatase are within normal limits. BUN 36, creatinine 1.47. IMPRESSION: This is a patient with longstanding history of Crohn disease, status post small bowel resection in the past. The last one in 1999 who presented to the hospital with severe epigastric and right upper quadrant abdominal pain for the last 4 days duration. He had a similar hospitalization 2 weeks ago. An upper endoscopy done at that time was unremarkable. He was treated for possible acute pancreatitis and was discharged home. He presents with similar symptoms, this time much worse abdominal pain and a CT scan of the abdomen showed proximal small bowel obstruction with dilated jejunum suspicious for recurrent Crohn's disease. He was already evaluated by Dr. Schreiber yesterday. RECOMMENDATIONS: 1. We will start him on IV steroids Solu-Medrol 20 mg q.8 hours. 2. Keep him n.p.o. for now except ice chips. 3. Obtain CRP and sedimentation rate. 4. Monitor labs closely. 5. We will follow with you. Thank you for this consultation. MMODL / IJN: [id number] /
[2021-01-31] MEDS ORDERED: methylPREDNISolone SOD SUCCI 125 MG/2 ML VIAL IV STA (12:58)
[2021-01-31] MEDS ORDERED: diphenhydrAMINE 50 MG/ML 1 ML VIAL IVP STA (12:59)
[2021-01-31] MEDS: FAMOTIDINE 20 MG/2 ML VIAL IV SCH (13:07)
[2021-01-31] MEDS ORDERED: predniSONE 20 MG TAB PO SCH (13:15)
[2021-01-31] MEDS: IOPAMIDOL CONTRAST (ORAL USE) VIAL PO PRN ×2 (13:44→14:27)
--- NOTE | 2021-01-31 15:51 | CT ---
EXAMINATION TYPE: CT abdomen pelvis w con DATE OF EXAM: 01/31/2021 COMPARISON: 01/30/2021 HISTORY: Abdominal pain CT DLP: 2444.10 mGycm Automated exposure control for dose reduction was used. CONTRAST: Performed with IV Contrast, patient injected with 100 mL of Isovue 300. Images obtained from the diaphragm to the floor the pelvis with oral and IV contrast. There is small right and left pleural effusion. Lung bases are clear of infiltrate. Heart size is nor mal. There is no pericardial effusion. Liver spleen stomach pancreas gallbladder appear normal. The b ile ducts are nondilated. There is no adrenal mass. Kidneys show satisfactory contrast opacification. There is no hydronephrosi s. There is irregular 1 cm cyst lateral right kidney. Unchanged. Delayed images show normal renal exc retion. Ureters are not dilated. There is no retroperitoneal adenopathy. Bladder distends smoothly. T here is no inguinal hernia. There is no free fluid in the pelvis. There is no mesenteric edema. There is no ascites or free air. There is no bowel obstruction. The lumbar vertebra have normal alignment. There is vacuum disc at L4-5. There is no compression frac ture. Bony pelvis is intact. Hip joints are intact. There is mild acetabular spurring. Appendix is not seen. There is no sign of thickened appendix. IMPRESSION: No acute abnormality of the abdomen pelvis. No adverse change compared to old exam. There are new small bilateral pleural effusions compared to old exam.
[2021-01-31 17:33] LABS: Glucose,Whole Blood 206 mg/dL (75-99)
--- NOTE | 2021-01-31 23:39 | P.PN ---
Subjective This is a pleasant 60 years old male with past medical history of Crohn's disease, type II DM, peripheral neuropathy, chronic kidney disease, hyper tension, hyperlipidemia, and coronary artery disease Patient was recently discharged from the hospital 01/09-01/12 for upper abdominal pain of unknown origin. EGD done at that time showing no significant abnormality Presents with recurrent/persistent abdominal pain This pain is in the right upper quadrant going around to the back but not as bad. His abdominal pain is 8/10, felt sharp and dull associated with nausea but no vomiting. Bowel movement was yesterday at 3 PM. Area, no bleeding per re ctum. He complains from the distal shortness of breath and coughing. No urinary complaints Vitals stable, blood pressure on the high side 173/82 Labs including CBC, INR, BMP, liver enzymes are unremarkable except for elevated creatinine at 1.4 which looks like baseline 1.2-1.6. CT of the abdomen and pelvis with contrast showing proximal small bowel obstruction with dilated proximal jejunum with evidence of previous colon surgery. A large prostate Surgery team were consulted from emergency room and patient received 1 L of normal saline at a rate of 130 mL/h. Morphine 01/31/2021 Patient is still complaining from right upper quadrant abdominal pain was severe call leaks, Blood pressure is still elevated 170s over 80s, increase his when necessary hydralazine which he got 3 doses today from 5 mg to 10 milligrams Patient is getting morphine for pain management, also GI team added Solu-Medrol for history of Crohn's, after that patient called the nurse for possible ALLERGIC reaction, went and really evaluated the patient, there is no wheezing, hemodynamically stable, good air entry and patent airway with no evidence of swelling or ALLERGIC reaction, most likely it's due to increased pain from his bowel obstruction. One-time of steroids, Pepcid and Benadryl were provided for possible ALLERGIC reaction anyway. Patient felt better after that Currently on ice chips and popsicles Objective - Vital Signs Vital signs: Vital Signs Temp 97.7 F 01/31/21 12:51 Pulse 64 01/31/21 13:18 Resp 18 01/31/21 11:45 BP 183/82 01/31/21 13:18 Pulse Ox 97 01/31/21 13:18 Intake & Output 01/30/21 01/31/21 01/31/21 18:59 06:59 18:59 Intake Total 1560 1300 Balance 1560 1300 Weight 138 kg Intake: Intake, IV Titration 1560 1300 Amount Sodium Chloride 0.9% 1, 1560 1300 000 ml @ 130 mls/hr IV . Q7H42M [facility] Rx#:[id number] Other: Voiding Method Toilet Toilet Toilet # Voids 1 1 - Exam -GENERAL: The patient is alert and oriented x3, not in any acute distress. Morbidly obese HEENT: Pupils are round and equally reacting to light. EOMI. No scleral icterus. No conjunctival pallor. Normocephalic, atraumatic. No pharyngeal erythema. No thyromegaly. CARDIOVASCULAR: S1 and S2 present. No murmurs, rubs, or gallops. PULMONARY: Chest is clear to auscultation, no wheezing or crackles. -ABDOMEN: Soft, right upper quadrant tenderness nondistended, normoactive bowel sounds. No palpable organomegaly. MUSCULOSKELETAL: No joint swelling or deformity. EXTREMITIES: No cyanosis, clubbing, or pedal edema. NEUROLOGICAL: Gross neurological examination did not reveal any focal deficits. SKIN: No rashes. no petechiae. - Labs CBC & Chem 7: 01/31/21 06:16 01/31/21 06:16 Labs: Abnormal Lab Results - Last 24 Hours (Table) 01/30/21 01/30/21 01/31/21 Range/Units 17:04 19:58 06:16 RBC 3.86 L (4.30-5.90) m/uL Hgb 12.6 L (13.0-17.5) gm/dL Hct 37.1 L (39.0-53.0) % Chloride (96-109) mmol/L BUN/Creatinine Ratio (12.00-20.00) Ratio Glucose (70-110) mg/dL POC Glucose (mg/dL) 155 H 139 H (75-99) mg/dL Calcium (8.7-10.3) mg/dL Total Protein (6.2-8.2) g/dL Albumin (3.80-4.90) g/dL Albumin/Globulin Ratio (1.60-3.17) g/dL 01/31/21 01/31/21 01/31/21 Range/Units 06:16 07:23 11:48 RBC (4.30-5.90) m/uL Hgb (13.0-17.5) gm/dL Hct (39.0-53.0) % Chloride 112 H (96-109) mmol/L BUN/Creatinine Ratio 20.91 H (12.00-20.00) Ratio Glucose 146 H (70-110) mg/dL POC Glucose (mg/dL) 109 H 124 H (75-99) mg/dL Calcium 8.1 L (8.7-10.3) mg/dL Total Protein 5.1 L (6.2-8.2) g/dL Albumin 3.00 L (3.80-4.90) g/dL Albumin/Globulin Ratio 1.43 L (1.60-3.17) g/dL Assessment and Plan Assessment: Acute proximal small bowel obstruction Crohn's with possible exacerbation Hypertension, uncontrolled on admission Hyperlipidemia enlarged prostate Diabetes mellitus type 2 Diabetic neuropathy Chronic kidney disease, stage III. Likely secondary to diabetic nephropathy History of coronary artery disease Obesity with BMI of 38.1 Plan: this is a pleasant 60 years old male who presents with SBO. We'll do bowel rest, IV fluids and pain medication. Surgery team consult Clonidine patch , hydralazine as needed Continue with bowel rest, IV fluids and pain management Surgery and GI team consult GI team recommended Solu-Medrol and check ESR and C-reactive protein Labs and medication were reviewed.. Continue same treatment. Continue with symptomatic treatment. Resume home medication. Monitor lytes and vitals. DVT and GI prophylaxis. Further recommendations depends on the clinical course of the patient DVT prophylaxis: Subcutaneous heparin GI Prophylaxis: Pepcid Prognosis is guarded
[2021-02-01 00:29] LABS: Glucose,Whole Blood 227 mg/dL (75-99)
[2021-02-01 06:14] LABS: Basophils % (A) 0 %; Eosinophils % (A) 0 %; HGB 12.4 gm/dL (13.0-17.5); Lymphocytes # (A) 1.2 k/uL (1.0-4.8); Lymphocytes % (A) 19 %; MCH 32.1 pg (25.0-35.0); MCHC 33.6 g/dL (31.0-37.0); MCV 95.6 fL (80.0-100.0); Monocytes # (A) 0.4 k/uL (0-1.0); Monocytes % (A) 7 %; Neutrophils # (A) 4.6 k/uL (1.3-7.7); Neutrophils % (A) 72 %; Platelet Count 257 k/uL (150-450); RBC 3.87 m/uL (4.30-5.90); RDW 12.8 % (11.5-15.5); WBC 6.3 k/uL (3.8-10.6)
[2021-02-01] MEDS: SODIUM CHLORIDE 0.9% 1,000 ML IV SCH ×3 (07:23→22:00)
[2021-02-01 07:37] LABS: Glucose,Whole Blood 182 mg/dL (75-99)
[2021-02-01 08:00] LABS: Erythrocyte Sedimentation Rate 17 mm/hr (0-15)
[2021-02-01] MEDS: FAMOTIDINE 20 MG/2 ML VIAL IV SCH (08:44)
[2021-02-01] MEDS: HEPARIN SODIUM,PORCINE/PF 5,000 UNIT/0.5 ML SYRINGE SQ SCH ×2 (08:44→21:35)
[2021-02-01] MEDS ORDERED: cloNIDine 0.2 MG/24HR PATCH TRANSDERM SCH (09:00)
[2021-02-01 10:21] LABS: African American GFR (CKD) 75.7 (60.0-200.0); Albumin 3.2 g/dL (3.80-4.90); Albumin/Globulin Ratio 1.45 (1.60-3.17); Anion Gap 5.5 mmol/L (4.00-12.00); BUN/Creat Ratio 17.5 Ratio (12.00-20.00); C Reactive Protein 0.9 mg/dL (0.0-0.8); Calcium 8.6 mg/dL (8.7-10.3); Carbon Dioxide 25.5 mmol/L (21.6-31.8); Globulin 2.2 g/dL (1.6-3.3); Magnesium 2.3 mg/dL (1.5-2.4); Non-African American GFR(CKD) 65.3 (60.0-200.0); Potassium 4.1 mmol/L (3.5-5.5); Total Bilirubin 0.4 mg/dL (0.3-1.2); Total Protein 5.4 g/dL (6.2-8.2)
--- NOTE | 2021-02-01 11:02 | P.PN ---
Subjective Progress Note Date: 02/01/21 Principal diagnosis: Small bowel obstruction Patient had an episode yesterday afternoon of significant pain, swelling, trouble breathing. It was thought the patient may have had an ALLERGIC reaction to something. Patient says his pain involving his abdomen and his legs as well. Nursing staff was concerned about possible perforation. Repeat CAT scan was obtained which showed no definite changes if anything looks slightly better than previous. He feels better today. Has passed flatus. No bowel movement. Objective - Vital Signs Vital signs: Vital Signs Temp 98.1 F 02/01/21 04:33 Pulse 76 02/01/21 04:33 Resp 16 02/01/21 04:33 BP 159/79 02/01/21 04:33 Pulse Ox 94 L 02/01/21 04:33 Intake & Output 01/31/21 02/01/21 02/01/21 18:59 06:59 18:59 Intake Total 1560 520 Balance 1560 520 Weight 138 kg 139.2 kg Intake: Intake, IV Titration 1560 520 Amount Sodium Chloride 0.9% 1, 1560 520 000 ml @ 100 mls/hr IV . Q10H [facility] Rx#:[id number] Oral 0 Other: Voiding Method Toilet Toilet Toilet # Voids 3 - Exam Abdomen: Soft, mild epigastric tenderness, no rebound or guarding - Labs CBC & Chem 7: 02/01/21 05:51 02/01/21 05:51 Labs: Abnormal Lab Results - Last 24 Hours (Table) 01/31/21 01/31/21 02/01/21 Range/Units 11:48 17:32 00:28 RBC (4.30-5.90) m/uL Hgb (13.0-17.5) gm/dL Hct (39.0-53.0) % ESR (0-15) mm/hr Chloride (96-109) mmol/L Glucose (70-110) mg/dL POC Glucose (mg/dL) 124 H 206 H 227 H (75-99) mg/dL Calcium (8.7-10.3) mg/dL C-Reactive Protein (0.0-0.8) mg/dL Total Protein (6.2-8.2) g/dL Albumin (3.80-4.90) g/dL Albumin/Globulin Ratio (1.60-3.17) g/dL 02/01/21 02/01/21 02/01/21 Range/Units 05:51 05:51 07:35 RBC 3.87 L (4.30-5.90) m/uL Hgb 12.4 L (13.0-17.5) gm/dL Hct 37.0 L (39.0-53.0) % ESR 17 H (0-15) mm/hr Chloride 111 H (96-109) mmol/L Glucose 185 H (70-110) mg/dL POC Glucose (mg/dL) 182 H (75-99) mg/dL Calcium 8.6 L (8.7-10.3) mg/dL C-Reactive Protein 0.9 H (0.0-0.8) mg/dL Total Protein 5.4 L (6.2-8.2) g/dL Albumin 3.20 L (3.80-4.90) g/dL Albumin/Globulin Ratio 1.45 L (1.60-3.17) g/dL Assessment and Plan (1) SBO (small bowel obstruction) Narrative/Plan: Patient seen to be doing better. Begin clear liquids. Continue IV steroids. Ambulate. Current Visit: Yes Status: Acute Code(s): K56.609 - UNSP INTESTNL OBST, UNSP TO PARTIAL VERSUS COMPLETE OBST SNOMED Code(s): 600137107
[2021-02-01] MEDS: methylPREDNISolone SOD SUCCI 40 MG/ML 1 ML VIAL IV SCH ×2 (11:35→16:59)
[2021-02-01 11:56] LABS: Glucose,Whole Blood 190 mg/dL (75-99)
--- NOTE | 2021-02-01 12:28 | PN ---
PROGRESS NOTE DATE OF SERVICE: 02/01/2021. HISTORY: The patient is a 60-year-old pleasant white male with history of Crohn disease, admitted to the hospital with a proximal small-bowel obstruction, possibly related to exacerbation of Crohn's disease. He was started on IV Solu-Medrol 20 mg q.8 hours yesterday and his symptoms are much better today. Apparently he did have a reaction after he received morphine and Solu-Medrol and received some IV Benadryl and his symptoms resolved. This morning he is feeling better. The abdominal pain has improved. No nausea, no vomiting. No bowel movements yet. PHYSICAL EXAMINATION: GENERAL: He appears comfortable. VITAL SIGNS: Stable, blood pressure is 159/79, pulse rate 76, temperature 98.1. HEENT: Examination unremarkable. Sclerae anicteric. Oral cavity no lesions. NECK: No JVD. No lymph node enlargement. CHEST: Clear to auscultation. HEART: Regular rate and rhythm. ABDOMEN: Soft bowel sounds are positive. No organomegaly. It was nontender. EXTREMITIES: No pedal edema. SKIN: No rashes. NEUROLOGIC: Alert and oriented x3. No focal deficits. LABS: WBC 6.3, hemoglobin 12.8, platelets normal. Sedimentation rate is 17, CRP is still pending. IMPRESSION: Proximal small bowel obstruction secondary to exacerbation of Crohn's disease on IV Solu-Medrol 20 mg q.8 hours. Patient did have a reaction yesterday after receiving IV Solu-Medrol and IV morphine, but symptoms have since resolved. He had a repeat CT scan of the abdomen and pelvis done yesterday that was unremarkable. RECOMMENDATIONS: 1. We will resume IV Solu-Medrol 20 mg q.8 hours. 2. Diet as per surgical team. 3. If he is improving, the steroids can be changed to oral prednisone 40 mg daily tomorrow to be tapered by 10 mg every week on an outpatient basis. 4. He was advised to follow up with his GI following discharge from the hospital. We will follow with you closely, thank you for this consultation. ELY / ISAK: [id number] /
[2021-02-01] MEDS: INSULIN ASPART (NovoLOG) 100 UNIT/ML VIAL SQ SCH ×3 (13:03→21:35)
[2021-02-01 14:16] LABS: Hemoglobin A1C 8.4 % (4.0-6.0)
[2021-02-01 17:39] LABS: Glucose,Whole Blood 261 mg/dL (75-99)
[2021-02-01 20:26] LABS: Glucose,Whole Blood 264 mg/dL (75-99)
[2021-02-01] MEDS: hydrALAZINE HCL 20 MG/ML 1 ML VIAL IVP PRN (21:36)
--- NOTE | 2021-02-01 22:42 | P.PN ---
Subjective This is a pleasant 60 years old male with past medical history of Crohn's disease, type II DM, peripheral neuropathy, chronic kidney disease, hyper tension, hyperlipidemia, and coronary artery disease Patient was recently discharged from the hospital 01/09-01/12 for upper abdominal pain of unknown origin. EGD done at that time showing no significant abnormality Presents with recurrent/persistent abdominal pain This pain is in the right upper quadrant going around to the back but not as bad. His abdominal pain is 8/10, felt sharp and dull associated with nausea but no vomiting. Bowel movement was yesterday at 3 PM. Area, no bleeding per re ctum. He complains from the distal shortness of breath and coughing. No urinary complaints Vitals stable, blood pressure on the high side 173/82 Labs including CBC, INR, BMP, liver enzymes are unremarkable except for elevated creatinine at 1.4 which looks like baseline 1.2-1.6. CT of the abdomen and pelvis with contrast showing proximal small bowel obstruction with dilated proximal jejunum with evidence of previous colon surgery. A large prostate Surgery team were consulted from emergency room and patient received 1 L of normal saline at a rate of 130 mL/h. Morphine 01/31/2021 Patient is still complaining from right upper quadrant abdominal pain was severe call leaks, Blood pressure is still elevated 170s over 80s, increase his when necessary hydralazine which he got 3 doses today from 5 mg to 10 milligrams Patient is getting morphine for pain management, also GI team added Solu-Medrol for history of Crohn's, after that patient called the nurse for possible ALLERGIC reaction, went and really evaluated the patient, there is no wheezing, hemodynamically stable, good air entry and patent airway with no evidence of swelling or ALLERGIC reaction, most likely it's due to increased pain from his bowel obstruction. One-time of steroids, Pepcid and Benadryl were provided for possible ALLERGIC reaction anyway. Patient felt better after that Currently on ice chips and popsicles 02/01/2021 She reports improvement in his abdominal pain, dizziness and test and severe, sitting in the chair today. He was happy he's out of the bed. He had very little bowel movement earlier to states his bowel movements is more regular. he was placed on a liquid diet Vital signs stable. Blood pressure is still elevated, Norvasc 5 mg added, one-time dose of IV Lasix. Continue with clonidine patch increased dose to 0.3 mg and IV hydralazine as needed His elevated blood pressure is secondary to steroids, IV fluids and essential hypertension Surgery team M advanced diet. GI team recommended to continue with Solu-Medrol 20 mg every 8 hours Objective - Vital Signs Vital signs: Vital Signs Temp 98.1 F 02/01/21 11:25 Pulse 52 L 02/01/21 11:25 Resp 16 02/01/21 11:25 BP 174/77 02/01/21 11:25 Pulse Ox 97 02/01/21 11:25 Intake & Output 01/31/21 02/01/21 02/01/21 18:59 06:59 18:59 Intake Total 1560 520 Balance 1560 520 Weight 138 kg 139.2 kg Intake: Intake, IV Titration 1560 520 Amount Sodium Chloride 0.9% 1, 1560 520 000 ml @ 100 mls/hr IV . Q10H [facility] Rx#:[id number] Oral 0 Other: Voiding Method Toilet Toilet Toilet # Voids 3 # Bowel Movements 1 - Exam -GENERAL: The patient is alert and oriented x3, not in any acute distress. Morbidly obese HEENT: Pupils are round and equally reacting to light. EOMI. No scleral icterus. No conjunctival pallor. Normocephalic, atraumatic. No pharyngeal erythema. No thyromegaly. CARDIOVASCULAR: S1 and S2 present. No murmurs, rubs, or gallops. PULMONARY: Chest is clear to auscultation, no wheezing or crackles. -ABDOMEN: Soft, right upper quadrant tenderness nondistended, normoactive bowel sounds. No palpable organomegaly. MUSCULOSKELETAL: No joint swelling or deformity. EXTREMITIES: No cyanosis, clubbing, or pedal edema. NEUROLOGICAL: Gross neurological examination did not reveal any focal deficits. SKIN: No rashes. no petechiae. - Labs CBC & Chem 7: 02/01/21 05:51 02/01/21 05:51 Labs: Abnormal Lab Results - Last 24 Hours (Table) 01/31/21 02/01/21 02/01/21 Range/Units 17:32 00:28 05:51 RBC 3.87 L (4.30-5.90) m/uL Hgb 12.4 L (13.0-17.5) gm/dL Hct 37.0 L (39.0-53.0) % ESR 17 H (0-15) mm/hr Chloride (96-109) mmol/L Glucose (70-110) mg/dL POC Glucose (mg/dL) 206 H 227 H (75-99) mg/dL Hemoglobin A1c (4.0-6.0) % Calcium (8.7-10.3) mg/dL C-Reactive Protein (0.0-0.8) mg/dL Total Protein (6.2-8.2) g/dL Albumin (3.80-4.90) g/dL Albumin/Globulin Ratio (1.60-3.17) g/dL 02/01/21 02/01/21 02/01/21 Range/Units 05:51 05:51 07:35 RBC (4.30-5.90) m/uL Hgb (13.0-17.5) gm/dL Hct (39.0-53.0) % ESR (0-15) mm/hr Chloride 111 H (96-109) mmol/L Glucose 185 H (70-110) mg/dL POC Glucose (mg/dL) 182 H (75-99) mg/dL Hemoglobin A1c 8.4 H (4.0-6.0) % Calcium 8.6 L (8.7-10.3) mg/dL C-Reactive Protein 0.9 H (0.0-0.8) mg/dL Total Protein 5.4 L (6.2-8.2) g/dL Albumin 3.20 L (3.80-4.90) g/dL Albumin/Globulin Ratio 1.45 L (1.60-3.17) g/dL 02/01/21 Range/Units 11:55 RBC (4.30-5.90) m/uL Hgb (13.0-17.5) gm/dL Hct (39.0-53.0) % ESR (0-15) mm/hr Chloride (96-109) mmol/L Glucose (70-110) mg/dL POC Glucose (mg/dL) 190 H (75-99) mg/dL Hemoglobin A1c (4.0-6.0) % Calcium (8.7-10.3) mg/dL C-Reactive Protein (0.0-0.8) mg/dL Total Protein (6.2-8.2) g/dL Albumin (3.80-4.90) g/dL Albumin/Globulin Ratio (1.60-3.17) g/dL Assessment and Plan Assessment: Acute proximal small bowel obstruction Crohn's with possible exacerbation Hypertension, uncontrolled on admission Hyperlipidemia enlarged prostate Diabetes mellitus type 2 Diabetic neuropathy Chronic kidney disease, stage III. Likely secondary to diabetic nephropathy History of coronary artery disease Obesity with BMI of 38.1 Plan: this is a pleasant 60 years old male who presents with SBO. We'll do bowel rest, IV fluids and pain medication. Surgery team consult Clonidine patch , hydralazine as needed Continue with bowel rest, IV fluids and pain management Surgery and GI team consult GI team recommended Solu-Medrol and check ESR and C-reactive protein Labs and medication were reviewed.. Continue same treatment. Continue with symptomatic treatment. Resume home medication. Monitor lytes and vitals. DVT and GI prophylaxis. Further recommendations depends on the clinical course of the patient DVT prophylaxis: Subcutaneous heparin GI Prophylaxis: Pepcid Prognosis is guarded
[2021-02-01] MEDS ORDERED: cloNIDine 0.3 MG/24HR PATCH TRANSDERM SCH (22:45)
[2021-02-02] MEDS: amLODIPine 5 MG TAB PO SCH ×2 (00:25→19:15)
[2021-02-02] MEDS: methylPREDNISolone SOD SUCCI 40 MG/ML 1 ML VIAL IV SCH ×2 (00:26→08:11)
[2021-02-02 07:26] LABS: Glucose,Whole Blood 208 mg/dL (75-99)
[2021-02-02] MEDS: FAMOTIDINE 20 MG TAB PO SCH (08:12)
[2021-02-02] MEDS: INSULIN ASPART (NovoLOG) 100 UNIT/ML VIAL SQ SCH ×4 (08:12→21:41)
[2021-02-02] MEDS: hydrALAZINE HCL 20 MG/ML 1 ML VIAL IVP PRN ×3 (08:12→21:00)
[2021-02-02] MEDS: HEPARIN SODIUM,PORCINE/PF 5,000 UNIT/0.5 ML SYRINGE SQ SCH ×2 (08:12→21:42)
[2021-02-02] MEDS: KETOROLAC 15 MG/ML 1 ML VIAL IVP PRN ×2 (08:28→17:39)
[2021-02-02] MEDS: SODIUM CHLORIDE 0.9% 1,000 ML IV SCH (09:34)
[2021-02-02 09:40] LABS: African American GFR (CKD) 84.1 (60.0-200.0); Anion Gap 7.7 mmol/L (4.00-12.00); BUN/Creat Ratio 14.55 Ratio (12.00-20.00); Carbon Dioxide 24.3 mmol/L (21.6-31.8); Non-African American GFR(CKD) 72.6 (60.0-200.0); Potassium 4.4 mmol/L (3.5-5.5)
--- NOTE | 2021-02-02 10:27 | CDI ---
Documentation Clarification Form Date: 02/02/2021 10:15:06 AM From: Merary Burnett CCS, CCDS Admit Date: 01/30/2021 03:42:00 AM Patient Name: Adithya Obrien Visit Number: [id number] Discharge Date: ATTENTION: The Clinical Documentation Specialists (CDI) and [facility] Coding Staff appreciate your assistance in clarifying documentation. Please respond to the clarification below the line at the bottom and electronically sign. The CDI & [facility] Coding staff will review the response and follow-up if needed. Please note: Queries are made part of the Legal Health Record. If you have any questions, please contact the author of this message via ITS. Dr. Roque Moreira. Sheet: Uncontrolled Hypertension is documented in the 01/30 H/P and subsequent Progress Notes without further specificity. Additional clarification regarding the type of Hypertension is requested. History/Risk Factors per the 01/30 H/P: Crohn's Disease, CAD, Chest Pain/Angina, COPD, Diabetes with Neuropathy, Hyperlipidemia, Hypertension, CKD Stage III, Obesity, BMI 38.1, Former smoker. Clinical Indicators: Presented to the ED on 01/30 with RUQ Abdominal pain with history of previous bowel obstructions & Bowel Resection. ED Clinical Impression: Abdominal Pain, SBO 01/30 VS: T 98.7, P 61, R 20, BP 167/87, PO 97 RA Subsequent BP: 01/30: 181/92. /: 191/75. 8/1: 174/77. 8/2: 180/72 Treatment 01/30: IV Morphine 4 mg x2, IV Zofran, IV fl Na Cl 1,000 mls @ 999 mls/hr q1H, Catapres Patch, Heparin sq, IV Protonix. 01/31: IV Apresoline 5 mg q6H prn, IV Apresoline 10 mg q6H prn, IV Solumedrol, IV Dilaudid 0.5 mg x1, IV Morphine 2mg x1, IV Toradol 15 mg q6H prn Can you please clarify the type of Hypertension, if known: [ ] Hypertensive Urgency [ ] Hypertensive Emergency [ ] Other, please specify [ ] Unable to determine (Template Last Revised: September 2020) Essential Hypertension, uncontrolled MTDD
[2021-02-02 11:13] LABS: Glucose,Whole Blood 240 mg/dL (75-99)
[2021-02-02] MEDS: LOSARTAN 50 MG TAB PO SCH (11:40)
--- NOTE | 2021-02-02 13:27 | P.PN ---
Subjective This is a pleasant 60 years old male with past medical history of Crohn's disease, type II DM, peripheral neuropathy, chronic kidney disease, hyper tension, hyperlipidemia, and coronary artery disease Patient was recently discharged from the hospital 01/09-01/12 for upper abdominal pain of unknown origin. EGD done at that time showing no significant abnormality Presents with recurrent/persistent abdominal pain This pain is in the right upper quadrant going around to the back but not as bad. His abdominal pain is 8/10, felt sharp and dull associated with nausea but no vomiting. Bowel movement was yesterday at 3 PM. Area, no bleeding per re ctum. He complains from the distal shortness of breath and coughing. No urinary complaints Vitals stable, blood pressure on the high side 173/82 Labs including CBC, INR, BMP, liver enzymes are unremarkable except for elevated creatinine at 1.4 which looks like baseline 1.2-1.6. CT of the abdomen and pelvis with contrast showing proximal small bowel obstruction with dilated proximal jejunum with evidence of previous colon surgery. A large prostate Surgery team were consulted from emergency room and patient received 1 L of normal saline at a rate of 130 mL/h. Morphine 01/31/2021 Patient is still complaining from right upper quadrant abdominal pain was severe call leaks, Blood pressure is still elevated 170s over 80s, increase his when necessary hydralazine which he got 3 doses today from 5 mg to 10 milligrams Patient is getting morphine for pain management, also GI team added Solu-Medrol for history of Crohn's, after that patient called the nurse for possible ALLERGIC reaction, went and really evaluated the patient, there is no wheezing, hemodynamically stable, good air entry and patent airway with no evidence of swelling or ALLERGIC reaction, most likely it's due to increased pain from his bowel obstruction. One-time of steroids, Pepcid and Benadryl were provided for possible ALLERGIC reaction anyway. Patient felt better after that Currently on ice chips and popsicles 02/01/2021 She reports improvement in his abdominal pain, dizziness and test and severe, sitting in the chair today. He was happy he's out of the bed. He had very little bowel movement earlier to states his bowel movements is more regular. he was placed on a liquid diet Vital signs stable. Blood pressure is still elevated, Norvasc 5 mg added, one-time dose of IV Lasix. Continue with clonidine patch increased dose to 0.3 mg and IV hydralazine as needed His elevated blood pressure is secondary to steroids, IV fluids and essential hypertension Surgery team M advanced diet. GI team recommended to continue with Solu-Medrol 20 mg every 8 hours 02/02/21 Patient improving today with less abdominal pain, still have right upper quadrant abdominal pain but is improving. No nausea vomiting. He is tolerating diet well. His blood pressure went up to 213/83. Patient was seen walking in the hallway with no difficulties Restarted his home medication of losartan and oral Lasix. Stop IV fluids. And change his Solu-Medrol TO PREDNISONE 40 MG DAILY. Continue with IV hydralazine as needed. Basic metabolic panel is normal today. Creatinine normal. Glucose slightly elevated. Objective - Vital Signs Vital signs: Vital Signs Temp 97.7 F 02/02/21 11:20 Pulse 59 L 02/02/21 11:20 Resp 17 02/02/21 11:20 BP 213/83 02/02/21 11:20 Pulse Ox 97 02/02/21 11:20 Intake & Output 02/01/21 02/02/21 02/02/21 18:59 06:59 18:59 Intake Total 600 300 Balance 600 300 Weight 140.2 kg Intake: Intake, IV Titration 600 Amount Sodium Chloride 0.9% 1, 600 000 ml @ 75 mls/hr IV . [id number] [facility] Rx#:[id number] Oral 300 Other: Voiding Method Toilet Toilet # Voids 1 # Bowel Movements 1 - Exam -GENERAL: The patient is alert and oriented x3, not in any acute distress. Morbidly obese HEENT: Pupils are round and equally reacting to light. EOMI. No scleral icterus. No conjunctival pallor. Normocephalic, atraumatic. No pharyngeal erythema. No thyromegaly. CARDIOVASCULAR: S1 and S2 present. No murmurs, rubs, or gallops. PULMONARY: Chest is clear to auscultation, no wheezing or crackles. -ABDOMEN: Soft, right upper quadrant tenderness nondistended, normoactive bowel sounds. No palpable organomegaly. MUSCULOSKELETAL: No joint swelling or deformity. EXTREMITIES: No cyanosis, clubbing, or pedal edema. NEUROLOGICAL: Gross neurological examination did not reveal any focal deficits. SKIN: No rashes. no petechiae. - Labs CBC & Chem 7: 02/01/21 05:51 02/02/21 04:48 Labs: Abnormal Lab Results - Last 24 Hours (Table) 02/01/21 02/01/21 02/01/21 Range/Units 05:51 17:37 20:12 Glucose (70-110) mg/dL POC Glucose (mg/dL) 261 H 264 H (75-99) mg/dL Hemoglobin A1c 8.4 H (4.0-6.0) % 02/02/21 02/02/21 02/02/21 Range/Units 04:48 07:25 11:12 Glucose 228 H (70-110) mg/dL POC Glucose (mg/dL) 208 H 240 H (75-99) mg/dL Hemoglobin A1c (4.0-6.0) % Assessment and Plan Assessment: Acute proximal small bowel obstruction Crohn's with possible exacerbation Hypertension, with urgency Hyperlipidemia enlarged prostate Diabetes mellitus type 2 Diabetic neuropathy Chronic kidney disease, stage III. Likely secondary to diabetic nephropathy History of coronary artery disease Obesity with BMI of 38.1 Plan: this is a pleasant 60 years old male who presents with SBO. We'll do bowel rest, IV fluids and pain medication. Surgery team consult Clonidine patch , Norvasc, resume oral Lasix and losartan, hydralazine as needed Patient tolerating diet. Discontinue IV fluids Surgery and GI team consult GI team recommended prednisone 40 mg Labs and medication were reviewed.. Continue same treatment. Continue with symptomatic treatment. Resume home medication. Monitor lytes and vitals. DVT and GI prophylaxis. Further recommendations depends on the clinical course of the patient DVT prophylaxis: Subcutaneous heparin GI Prophylaxis: Pepcid Prognosis is guarded
--- NOTE | 2021-02-02 13:41 | P.PN ---
Subjective Progress Note Date: 02/02/21 Principal diagnosis: Small bowel obstruction Patient says he is still having some mild upper abdominal pain more right upper quadrant with radiation to the back at times. Denies nausea. He had 2 bowel movements yesterday. Passing gas. Tolerating clear liquids. Objective - Vital Signs Vital signs: Vital Signs Temp 97.7 F 02/02/21 11:20 Pulse 59 L 02/02/21 11:20 Resp 17 02/02/21 11:20 BP 213/83 02/02/21 11:20 Pulse Ox 97 02/02/21 11:20 Intake & Output 02/01/21 02/02/21 02/02/21 18:59 06:59 18:59 Intake Total 600 300 Balance 600 300 Weight 140.2 kg Intake: Intake, IV Titration 600 Amount Sodium Chloride 0.9% 1, 600 000 ml @ 75 mls/hr IV . [id number] [facility] Rx#:[id number] Oral 300 Other: Voiding Method Toilet Toilet # Voids 1 # Bowel Movements 1 - Exam Abdomen: Soft, nondistended, mild epigastric tenderness - Labs CBC & Chem 7: 02/01/21 05:51 02/02/21 04:48 Labs: Abnormal Lab Results - Last 24 Hours (Table) 02/01/21 02/01/21 02/01/21 Range/Units 05:51 17:37 20:12 Glucose (70-110) mg/dL POC Glucose (mg/dL) 261 H 264 H (75-99) mg/dL Hemoglobin A1c 8.4 H (4.0-6.0) % 02/02/21 02/02/21 02/02/21 Range/Units 04:48 07:25 11:12 Glucose 228 H (70-110) mg/dL POC Glucose (mg/dL) 208 H 240 H (75-99) mg/dL Hemoglobin A1c (4.0-6.0) % Assessment and Plan (1) SBO (small bowel obstruction) Narrative/Plan: Will increase diet to full liquids for dinner. May advance if tolerates. Stephon roid switch to oral for now. Possible discharge tomorrow. Current Visit: Yes Status: Acute Code(s): K56.609 - UNSP INTESTNL OBST, UNSP TO PARTIAL VERSUS COMPLETE OBST SNOMED Code(s): 790836698
[2021-02-02] MEDS: FUROSEMIDE 40 MG TAB PO SCH ×2 (15:42→19:15)
[2021-02-02 17:39] LABS: Glucose,Whole Blood 252 mg/dL (75-99)
--- NOTE | 2021-02-02 20:47 | P.PN ---
Subjective Progress Note Date: 02/02/21 Principal diagnosis: Crohn's disease, partial small bowel obstruction Patient is seen sitting bedside. He reports abdominal pain is better and he is been passing flatus and had bowel movements. Objective - Vital Signs Vital signs: Vital Signs Temp 97.9 F 02/02/21 05:00 Pulse 74 02/02/21 05:00 Resp 20 02/02/21 05:00 BP 180/79 02/02/21 05:00 Pulse Ox 95 02/02/21 05:00 Intake & Output 02/01/21 02/02/21 02/02/21 18:59 06:59 18:59 Intake Total 600 300 Balance 600 300 Weight 140.2 kg Intake: Intake, IV Titration 600 Amount Sodium Chloride 0.9% 1, 600 000 ml @ 75 mls/hr IV . [id number] [facility] Rx#:[id number] Oral 300 Other: Voiding Method Toilet Toilet # Voids 1 # Bowel Movements 1 - Exam On physical examination, patient appears comfortable in no apparent distress. HEAD: Normocephalic, atraumatic. EYES: No scleral icterus. No conjunctival injection. MOUTH: No lesions, tongue midline. NECK: Trachea midline, no gross abnormalities. ABDOMEN: Soft, nontender to palpation. Bowel sounds are positive. No organomegaly. No guarding or rigidity. EXTREMITIES: No pedal edema. SKIN: No rashes, no jaundice. NEUROLOGIC: Alert and oriented x3. No focal deficits. - Labs CBC & Chem 7: 02/01/21 05:51 02/02/21 04:48 Labs: Abnormal Lab Results - Last 24 Hours (Table) 02/01/21 02/01/21 02/01/21 Range/Units 05:51 11:55 17:37 Glucose (70-110) mg/dL POC Glucose (mg/dL) 190 H 261 H (75-99) mg/dL Hemoglobin A1c 8.4 H (4.0-6.0) % 02/01/21 02/02/21 02/02/21 Range/Units 20:12 04:48 07:25 Glucose 228 H (70-110) mg/dL POC Glucose (mg/dL) 264 H 208 H (75-99) mg/dL Hemoglobin A1c (4.0-6.0) % Assessment and Plan (1) Abdominal pain Narrative/Plan: 60-year-old male currently receiving treatment for partial small bowel obstruction secondary to exacerbation of Crohn's disease. The patient has been receiving steroid therapy with improvement in his overall symptoms reporting bowel movements, flatus was abdominal pain. Computed tomography scan of the abdomen performed in evaluation was essentially unremarkable. Current Visit: Yes Status: Acute Code(s): R10.9 - UNSPECIFIED ABDOMINAL PAIN SNOMED Code(s): 02531718 (2) SBO (small bowel obstruction) Current Visit: Yes Status: Acute Code(s): K56.609 - UNSP INTESTNL OBST, UNSP TO PARTIAL VERSUS COMPLETE OBST SNOMED Code(s): 192384238 (3) Crohns disease Current Visit: No Status: Acute Code(s): K50.90 - CROHN'S DISEASE, UNSPECIFIED, WITHOUT COMPLICATIONS SNOMED Code(s): 02037445 Plan: Supportive care Okay to advance diet as per surgical recommendations Prednisone 40 mg daily, patient can be tapered by 10 mg every week and should be followed up in the outpatient setting Follow-up with gastroenterology after discharge Continue to monitor labs and clinically Thank you for allowing us to participate in the care of the patient
[2021-02-02 21:44] LABS: Glucose,Whole Blood 235 mg/dL (75-99)
[2021-02-02 22:00] VITALS: RESP 20
[2021-02-02] MEDS ORDERED: hydrALAZINE HCL 50 MG TAB PO SCH (22:15)
[2021-02-02] MEDS: hydrALAZINE HCL 25 MG TAB PO SCH (22:17)
[2021-02-03 06:58] LABS: Glucose,Whole Blood 188 mg/dL (75-99)
[2021-02-03] MEDS: hydrALAZINE HCL 25 MG TAB PO SCH (07:44)
[2021-02-03] MEDS: FAMOTIDINE 20 MG TAB PO SCH (07:44)
[2021-02-03] MEDS: LOSARTAN 50 MG TAB PO SCH (07:44)
[2021-02-03] MEDS: HEPARIN SODIUM,PORCINE/PF 5,000 UNIT/0.5 ML SYRINGE SQ SCH (07:45)
[2021-02-03] MEDS: INSULIN ASPART (NovoLOG) 100 UNIT/ML VIAL SQ SCH ×2 (07:45→12:49)
[2021-02-03] MEDS: FUROSEMIDE 40 MG TAB PO SCH (07:46)
[2021-02-03] MEDS ORDERED: predniSONE 20 MG TAB PO SCH (09:00)
[2021-02-03 11:38] VITALS: BP 166/82; PULSE 68; TEMP 98.6
[2021-02-03 11:58] LABS: Glucose,Whole Blood 327 mg/dL (75-99)
--- NOTE | 2021-02-03 12:00 | P.PN ---
<AdairCassi benton - Last Filed: 02/03/21 11:56> Subjective Progress Note Date: 02/03/21 CHIEF COMPLAINT: Abdominal pain HISTORY OF PRESENT ILLNESS: Patient follow-up for his small bowel obstruction. His small bowel obstruction has improved. She feels much better. He did have a bowel movement yesterday. He is having flatus. His abdominal pain is located in the right mid abdomen. Has improved since admission. He is tolerating full liquid diet. His diet is being advanced to carb consistent with afternoon for lunch. Afebrile. Patient is anticipating possible discharge later today. Patient is on oral prednisone PHYSICAL EXAM: VITAL SIGNS: Reviewed. GENERAL: Well-developed in no acute distress. HEENT: No sclera icterus. Extraocular movements grossly intact. Moist buccal mucosa. Head is atraumatic, normocephalic. ABDOMEN: Soft. Nondistended. Mild tenderness with palpation of the right mid abdomen NEUROLOGIC: Alert and oriented. Cranial nerves II through XII grossly intact. ASSESSMENT: 1. Small bowel obstruction 2. Crohn's exacerbation PLAN: -Patient stable for discharge from surgical standpoint if he tolerates his lunch Physician Rater Associate note has been reviewed by physician. Signing provider agrees with the documented findings, assessment, and plan of care. Objective - Vital Signs Vital signs: Vital Signs Temp 98.6 F 02/03/21 11:38 Pulse 68 02/03/21 11:38 Resp 20 02/03/21 11:38 BP 166/82 02/03/21 11:38 Pulse Ox 98 02/03/21 11:38 Intake & Output 02/02/21 02/03/21 02/03/21 18:59 06:59 18:59 Intake Total 50 100 Output Total 1400 Balance 50 -1300 Weight 137.8 kg Intake: Intake, IV Titration 50 Amount Sodium Chloride 0.9% 1, 50 000 ml @ 75 mls/hr IV . [id number] [facility] Rx#:[id number] Oral 100 Output: Urine 1400 Other: # Voids 1 - Labs CBC & Chem 7: 02/01/21 05:51 02/02/21 04:48 Labs: Abnormal Lab Results - Last 24 Hours (Table) 02/02/21 02/02/21 02/03/21 Range/Units 17:38 21:30 06:57 POC Glucose (mg/dL) 252 H 235 H 188 H (75-99) mg/dL <Ashley Schreiberony - Last Filed: 02/03/21 16:18> Subjective As above. Patient doing well today. Pain is improved. November discharge. Follow- up with GI post discharge. Objective - Vital Signs Vital signs: Vital Signs Temp 98.6 F 02/03/21 11:38 Pulse 68 02/03/21 11:38 Resp 20 02/03/21 11:38 BP 166/82 02/03/21 11:38 Pulse Ox 98 02/03/21 11:38 Intake & Output 02/02/21 02/03/21 02/03/21 18:59 06:59 18:59 Intake Total 50 100 Output Total 1400 Balance 50 -1300 Weight 137.8 kg Intake: Intake, IV Titration 50 Amount Sodium Chloride 0.9% 1, 50 000 ml @ 75 mls/hr IV . [id number] [facility] Rx#:[id number] Oral 100 Output: Urine 1400 Other: # Voids 1 - Labs CBC & Chem 7: 02/01/21 05:51 02/02/21 04:48 Labs: Abnormal Lab Results - Last 24 Hours (Table) 02/02/21 02/02/21 02/03/21 Range/Units 17:38 21:30 06:57 POC Glucose (mg/dL) 252 H 235 H 188 H (75-99) mg/dL 02/03/21 02/03/21 Range/Units 11:54 14:39 POC Glucose (mg/dL) 327 H 317 H (75-99) mg/dL Assessment and Plan (1) SBO (small bowel obstruction) Status: Acute Code(s): K56.609 - UNSP INTESTNL OBST, UNSP TO PARTIAL VERSUS COMPLETE OBST SNOMED Code(s): 737826892
[2021-02-03 14:42] LABS: Glucose,Whole Blood 317 mg/dL (75-99)
[2021-02-03] MEDS ORDERED: INSULIN ASPART (NovoLOG) 100 UNIT/ML VIAL SQ ONE (15:00)
--- NOTE | 2021-02-04 00:07 | P.DS ---
Providers Date of admission: 01/30/21 03:42 Attending physician: Alex Tapia Consults: 01/30/21 03:42 Consult Physician Routine Consulting Provider: Sage Schreiber Consult Reason/Comments: sbo Do you want consulting provider notified?: Yes 01/30/21 14:57 Consult Physician Routine Consulting Provider: Gladys Shelton Consult Reason/Comments: crohns Do you want consulting provider notified?: Yes Primary care physician: Sammy Box [place] [facility] Course: Diagnoses: Acute proximal small bowel obstruction, completely resolved without surgery and cleared by surgeon for discharge Crohn's with possible flareup, cleared by GI team for discharge Hypertension, with urgency Hyperlipidemia enlarged prostate Diabetes mellitus type 2 Diabetic neuropathy Chronic kidney disease, stage III. Likely secondary to diabetic nephropathy History of coronary artery disease Obesity with BMI of 38.1 Hospital course: This is a pleasant 60 years old male with past medical history of Crohn's disease, type II DM, peripheral neuropathy, chronic kidney disease, hypertension, hyperlipidemia, and coronary artery disease Patient was recently discharged from the hospital 01/09-01/12 for upper abdominal pain of unknown origin. EGD done at that time showing no significant abnormality Presents with recurrent/persistent abdominal pain CT of the abdomen and pelvis with contrast showing proximal small bowel obstruction with dilated proximal jejunum with evidence of previous colon surgery. Surgery team were consulted and were following the patient closely he was treated with bowel rest, IV fluids and pain management, eventually patient showed interval improvement, his abdominal pain resolved, he was tolerating diet and has regular bowel movement on the day of discharge. Patient was noticed walking in the hallway with no difficulties. Patient states his back to his normal self GI team also place the patient on IV steroids which were switched to oral steroids of prednisone with recommendation for long taper every one week, see discharge medication and instructions Because of the steroids his sugars is expected to be increased and as well as his blood pressure, patient was advised to monitor his blood pressure on sugar closely, he agreed and states he has a glucometer and blood pressure machine, monitoring per meters are provided for the patient and he verbalized understanding and acceptance His home blood pressure medication were resumed upon discharge, as well as Norvasc and hydralazine added Patient was instructed to resume his diabetes medication with diabetic diet and keep checking his sugar 4 times a day and to come to emergency room at 911 if his glucose less than 70 or more than 400 and he agrees Patient was cleared for discharge by both surgery and GI teams Problems and management plan were discussed with the patient and he verbalized understanding and acceptance Patient was found stable and can be discharged home however he needs follow-up as an outpatient. Patient was instructed to follow up with PCP Dr. box within one week and patient agrees with the appointments made for him tomorrow and Also he agrees with the appointments made for him with Dr. Schreiber on 02/[address] Shelton on 03/03 stating he will follow-up Physical exam Gen: patient is a AAOx3, no distress CVS: S1-S2, RRR, no murmur Lungs: B/L CTA, no wheezing Abdomen: soft, no distention, no tenderness, positive bowel sounds Extremity: no leg edema or induration Time spent more than 35 minutes Plan - Discharge Summary New Discharge Prescriptions: New RX: amLODIPine [Norvasc] 5 mg PO HS #30 tab RX: predniSONE 10 mg PO DIRECTED #75 tab RX: hydrALAZINE HCL [Apresoline] 50 mg PO BID #60 tab Continue RX: Ergocalciferol (Vitamin D2) [Vitamin D2] 50,000 unit PO HUGGINS RX: Pramipexole [Mirapex] 1 mg PO HS RX: Magnesium Oxide [Higgins] 500 mg PO BID@1200,1800 RX: Rosuvastatin Calcium [Crestor] 10 mg PO DAILY@1200 RX: Clopidogrel Bisulfate [Plavix] 75 mg PO DAILY@1200 RX: Aspirin 81 mg PO DAILY@1200 RX: Carvedilol [Coreg] 12.5 mg PO BID RX: Furosemide [Lasix] 40 mg PO TID RX: Allopurinol [Zyloprim] 100 mg PO DAILY RX: Potassium Chloride ER [K-Dur 10] 10 meq PO BID RX: Pantoprazole [Protonix] 40 mg PO AC-BRKFST #30 tablet.dr RX: Vitamin B Complex 1 cap PO W/SUPPER RX: Losartan Potassium 100 mg PO DAILY RX: Insulin Glargine [Lantus] 40 unit SQ DAILY RX: Insulin Glargine [Lantus] 50 unit SQ HS RX: INSULIN ASPART (NovoLOG) [NovoLOG (formulary)] 4 - 12 unit SQ AC-TID RX: Semaglutide [Ozempic] 0.5 mg SQ DIRECTED Discontinued RX: sulfaSALAzine [Azulfidine] 1,000 mg PO QID Discharge Medication List RX: Ergocalciferol (Vitamin D2) [Vitamin D2] 50,000 unit PO HUGGINS 06/14/18 [History] RX: Pramipexole [Mirapex] 1 mg PO HS 06/14/18 [History] RX: Magnesium Oxide [Higgins] 500 mg PO BID@1200,1800 07/23/18 [History] RX: Aspirin 81 mg PO DAILY@1200 06/27/19 [History] RX: Carvedilol [Coreg] 12.5 mg PO BID 06/27/19 [History] RX: Clopidogrel Bisulfate [Plavix] 75 mg PO DAILY@1200 06/27/19 [History] RX: Rosuvastatin Calcium [Crestor] 10 mg PO DAILY@1200 06/27/19 [History] RX: Furosemide [Lasix] 40 mg PO TID 09/05/19 [History] RX: Allopurinol [Zyloprim] 100 mg PO DAILY 01/09/21 [History] RX: INSULIN ASPART (NovoLOG) [NovoLOG (formulary)] 4 - 12 unit SQ AC-TID 01/09/21 [History] RX: Insulin Glargine [Lantus] 40 unit SQ DAILY 01/09/21 [History] RX: Insulin Glargine [Lantus] 50 unit SQ HS 01/09/21 [History] RX: Losartan Potassium 100 mg PO DAILY 01/09/21 [History] RX: Potassium Chloride ER [K-Dur 10] 10 meq PO BID 01/09/21 [History] RX: Semaglutide [Ozempic] 0.5 mg SQ DIRECTED 01/09/21 [History] RX: Vitamin B Complex 1 cap PO W/SUPPER 01/09/21 [History] RX: Pantoprazole [Protonix] 40 mg PO AC-BRKFSCarol #30 tablet. 01/12/21 [Rx] RX: amLODIPine [Norvasc] 5 mg PO HS #30 tab 02/03/21 [Rx] RX: hydrALAZINE HCL [Apresoline] 50 mg PO BID #60 tab 02/03/21 [Rx] RX: predniSONE 10 mg PO DIRECTED #75 tab 02/03/21 [Rx] Follow up Appointment(s)/Referral(s): Sage Schreiber MD [Medical Doctor] - 02/11/21 3:45 pm Sammy Box DO [Primary Care Provider] - 02/05/21 2:00 pm Gladys Shelton MD [STAFF PHYSICIAN] - 03/03/21 12:30 pm Patient Instructions/Handouts: Prednisone (By mouth), Hydralazine (By mouth), Amlodipine (By mouth), Heart Healthy Diet (DC), Type 2 Diabetes in Adults: New Diagnosis (DC), Bowel Obstruction (DC), Type 2 Diabetes Management for Adults (DC) Activity/Diet/Wound Care/Special Instructions: Maintain Consistent Carb / Heart Healthy Diet for diabetes activity is restricted till you see your doctor monitor your glucose 4 times per day, before each meal and at bed time, keep the results in a log book and bring it to your doctor on your appointment date if your glucose less than 70 or more than 400 then call 911 and come to emergency room Discharge Disposition: HOME SELF-CARE
== END 2021-02-03 15:55 | disposition home or self-care (01) | DRG 387 ==
LOC: EC 01:33 → 5NMEDONC 03:42
PROVIDERS: ADMIT Hospitalist; ATTEND Hospitalist
DX: K50.012 Crohn's disease of small intestine with intestinal obstruction (principal); E11.22 Type 2 diabetes mellitus with diabetic chronic kidney disease; E11.42 Type 2 diabetes mellitus with diabetic polyneuropathy; N18.30 Chronic kidney disease, stage 3 unspecified; J44.9 Chronic obstructive pulmonary disease, unspecified; E66.01 Morbid (severe) obesity due to excess calories; Z79.4 Long term (current) use of insulin; I12.9 Hypertensive chronic kidney disease with stage 1 through stage 4 chronic kidney disease, or unspecified chronic kidney disease; I16.0 Hypertensive urgency; E78.5 Hyperlipidemia, unspecified; I25.10 Atherosclerotic heart disease of native coronary artery without angina pectoris; R26.2 Difficulty in walking, not elsewhere classified; K29.70 Gastritis, unspecified, without bleeding; N40.0 Benign prostatic hyperplasia without lower urinary tract symptoms; T38.0X5A Adverse effect of glucocorticoids and synthetic analogues, initial encounter; Z68.38 Body mass index [BMI] 38.0-38.9, adult; Z79.82 Long term (current) use of aspirin; Z79.02 Long term (current) use of antithrombotics/antiplatelets; Z79.899 Other long term (current) drug therapy; Z86.14 Personal history of Methicillin resistant Staphylococcus aureus infection; Z86.19 Personal history of other infectious and parasitic diseases; Z88.5 Allergy status to narcotic agent; Z90.49 Acquired absence of other specified parts of digestive tract; Z95.5 Presence of coronary angioplasty implant and graft; Z90.89 Acquired absence of other organs; Z87.19 Personal history of other diseases of the digestive system; Z87.2 Personal history of diseases of the skin and subcutaneous tissue; Z86.31 Personal history of diabetic foot ulcer; Z87.891 Personal history of nicotine dependence; Z98.890 Other specified postprocedural states; Z82.5 Family history of asthma and other chronic lower respiratory diseases; Z83.3 Family history of diabetes mellitus
CPT/HCPCS: 36415; 71045; 74019; 74177; 80048; 80053; 82150; 83036; 83605; 83690; 83735; 84484; 85025; 85652; 86140; 96361; 96374; 96375; 99285

== ENCOUNTER 2022-03-17 22:17 | Inpatient (IN) | payer MEDICARE ==
[2022-03-18] MEDS ORDERED: SODIUM CHLORIDE 0.9% 1,000 ML IV STA (00:12)
[2022-03-18] MEDS ORDERED: VANCOMYCIN IV PER PHARMACY 1 EACH MISC MISCELLANE PRN (00:12)
--- NOTE | 2022-03-18 00:25 | ED ---
Extremity Problem HPI - General Chief complaint: Skin/Abscess/Foreign Body Stated complaint: Infection in foot Time Seen by Provider: 03/17/22 23:56 Source: patient, RN notes reviewed Mode of arrival: ambulatory Limitations: no limitations - History of Present Illness Initial comments: This is a pleasant type II diabetic 61-year-old male who presents to emergency department complaining of a poor healing wound to his right foot which is nonproductive for about 1 week. He now has developed erythema in the foot. Patient saw his sales and marketing representative by Dr. Vivas, who prescribed antibiotics outpatient basis but patient was unable to pick this up today. However the erythema is continuing. Patient previously had a significant diabetic foot infectionpatient states he was admitted and almost had had his foot amputated.no pain due to extensive diabetic neuropathy Patient denying any fever or chills. patient previously had questionable osteomyelitis. No headache, no fever or chills, no changes in vision or hearing, no sore throat or difficulty with speech, no neck pain, no chest pain or shortness of breath, no abdominal pain, no nausea or vomiting, no changes in urination or bowel movements, no numbness or tingling, no extremity pain, no skin rashes or lesions. Past medical, surgical, social, and family history reviewed. MD Complaint: extremity swelling - Related Data Home Medications Medication Instructions Recorded Confirmed Ergocalciferol (Vitamin D2) 50,000 unit PO HUGGINS 06/14/18 01/30/21 [Vitamin D2] Pramipexole [Mirapex] 1 mg PO HS 06/14/18 01/30/21 Magnesium Oxide [Higgins] 500 mg PO BID@1200,1800 07/23/18 01/30/21 Aspirin 81 mg PO DAILY@1200 06/27/19 01/30/21 Clopidogrel Bisulfate [Plavix] 75 mg PO DAILY@1200 06/27/19 01/30/21 Rosuvastatin Calcium [Crestor] 10 mg PO DAILY@1200 06/27/19 01/30/21 carvediloL [Coreg] 12.5 mg PO BID 06/27/19 01/30/21 Furosemide [Lasix] 40 mg PO TID 09/05/19 01/30/21 INSULIN ASPART (NovoLOG) [NovoLOG 4 - 12 unit SQ AC-TID 01/09/21 01/30/21 (formulary)] Insulin Glargine [Lantus Vial] 40 unit SQ DAILY 01/09/21 01/30/21 Insulin Glargine [Lantus Vial] 50 unit SQ HS 01/09/21 01/30/21 Losartan Potassium 100 mg PO DAILY 01/09/21 01/30/21 Potassium Chloride ER [K-Dur 10] 10 meq PO BID 01/09/21 01/30/21 Semaglutide [Ozempic] 0.5 mg SQ DIRECTED 01/09/21 01/30/21 Vitamin B Complex 1 cap PO W/SUPPER 01/09/21 01/30/21 allopurinoL [Zyloprim] 100 mg PO DAILY 01/09/21 01/30/21 Previous Rx's Medication Instructions Recorded Pantoprazole [Protonix] 40 mg PO AC-BRKFST #30 tablet. 01/12/21 amLODIPine [Norvasc] 5 mg PO HS #30 tab 02/03/21 hydrALAZINE HCL [Apresoline] 50 mg PO BID #60 tab 02/03/21 predniSONE 10 mg PO DIRECTED #75 tab 02/03/21 Allergies Allergy/AdvReac Type Severity Reaction Status Date / Time codeine Allergy Anaphylaxis Verified 03/17/22 23:49 morphine Allergy Anaphylaxis Verified 03/17/22 23:49 Review of Systems ROS Statement: Those systems with pertinent positive or pertinent negative responses have been documented in the HPI. ROS Other: All systems not noted in ROS Statement are negative. Past Medical History Past Medical History: Coronary Artery Disease (CAD), Chest Pain / Angina, COPD, Diabetes Mellitus, Hyperlipidemia, Hypertension Additional Past Medical History / Comment(s): Diabetic neuropathy in legs and arms, crohns, rt foot wound-healed after 13 months History of Any Multi-Drug Resistant Organisms: ESBL, ESBL, MRSA Date of last positivie culture/infection: 2017, 2018 MDRO Source:: right foot Past Surgical History: Bowel Resection, Heart Catheterization With Stent, Orthopedic Surgery, Tonsillectomy Additional Past Surgical History / Comment(s): bowel resection in 1994 &1999, heart cath with stent at [place] April 14 2019. Past Anesthesia/Blood Transfusion Reactions: No Reported Reaction Date of Last Stent Placement:: april 2019 Past Psychological History: No Psychological Hx Reported Smoking Status: Former smoker Past Alcohol Use History: None Reported Past Drug Use History: None Reported - Past Family History Father Family Medical History: Musculoskeletal Disorder Mother Family Medical History: COPD, Diabetes Mellitus General Exam - General Exam Comments Initial Comments: Patient does not appear to be systemically ill or toxic. In no distress. Limitations: no limitations General appearance: alert, obese Head exam: Present: atraumatic, normocephalic, normal inspection Eye exam: Present: normal appearance, PERRL, EOMI. Absent: scleral icterus, conjunctival injection, periorbital swelling ENT exam: Present: normal exam, mucous membranes moist Neck exam: Present: normal inspection. Absent: tenderness, meningismus, lymphadenopathy Respiratory exam: Present: normal lung sounds bilaterally. Absent: respiratory distress, wheezes, rales, rhonchi, stridor Cardiovascular Exam: Present: regular rate, normal rhythm, normal heart sounds. Absent: systolic murmur, diastolic murmur, rubs, gallop, clicks GI/Abdominal exam: Present: soft, normal bowel sounds. Absent: distended, tenderness, guarding, rebound, rigid Extremities exam: Present: full ROM, normal capillary refill, pedal edema (Edema and erythema involving the right foot with devitalized tissue to the lateral aspect adjacent to the right fifth toe.). Absent: normal inspection, tenderness, joint swelling, calf tenderness Back exam: Present: normal inspection Neurological exam: Present: alert, oriented X3, CN II-XII intact Psychiatric exam: Present: normal affect, normal mood Skin exam: Present: warm, dry, normal color, erythema. Absent: intact (Patient ulceration affecting the lateral aspect of his right foot, mainly the right fifth toe and right fifth MTP area. Also involves the right fourth interdigital space. No evidence of purulent discharge however the patient has erythema extending into the midfoot area.), rash Course Vital Signs 03/17/22 23:49 Temperature 98.8 F Pulse Rate 66 Respiratory 16 Rate Blood Pressure 179/79 O2 Sat by Pulse 98 Oximetry - Reevaluation(s) Reevaluation #1: 03/18/22 01:45 Medical record is reviewed Symptoms are improved here in the emergency department Patient is informed of results and questions answered Patient in no distress Medical Decision Making - Medical Decision Making Note the patient's last culture from his right foot cultured out Klebsiella, ESBL type with multiple resistances. Also cultured out enterococcus which was susceptible to multiple in the buttocks. We'll start the patient on meropenem for ESBL related infectious process as well as vancomycin. - Lab Data Result diagrams: 03/18/22 00:30 03/18/22 00:30 Lab Results 03/18/22 03/18/22 03/18/22 Range/Units 00:30 00:30 00:30 WBC 10.8 H (3.8-10.6) k/uL RBC 4.09 L (4.30-5.90) m/uL Hgb 12.1 L (13.0-17.5) gm/dL Hct 37.2 L (39.0-53.0) % MCV 90.9 (80.0-100.0) fL MCH 29.7 (25.0-35.0) pg MCHC 32.6 (31.0-37.0) g/dL RDW 13.7 (11.5-15.5) % Plt Count 371 (150-450) k/uL MPV 7.9 Neutrophils % 71 % Lymphocytes % 16 % Monocytes % 8 % Eosinophils % 2 % Basophils % 0 % Neutrophils # 7.7 (1.3-7.7) k/uL Lymphocytes # 1.8 (1.0-4.8) k/uL Monocytes # 0.9 (0-1.0) k/uL Eosinophils # 0.2 (0-0.7) k/uL Basophils # 0.0 (0-0.2) k/uL PT 11.0 (9.0-12.0) sec INR 1.0 (<1.2) Sodium 136 L (137-145) mmol/L Potassium 5.0 (3.5-5.1) mmol/L Chloride 99 (98-107) mmol/L Carbon Dioxide 22 (22-30) mmol/L Anion Gap 15 mmol/L BUN 41 H (9-20) mg/dL Creatinine 1.97 H (0.66-1.25) mg/dL Est GFR (CKD-EPI)AfAm 41 (>60 ml/min/1.73 sqM) Est GFR (CKD-EPI)NonAf 36 (>60 ml/min/1.73 sqM) Glucose 407 H (74-99) mg/dL Plasma Lactic Acid Jay (0.7-2.0) mmol/L Calcium 9.3 (8.4-10.2) mg/dL Total Bilirubin 1.1 (0.2-1.3) mg/dL AST 23 (17-59) U/L ALT 23 (4-49) U/L Alkaline Phosphatase 146 H (38-126) U/L C-Reactive Protein 14.5 H (<1.0) mg/dL Total Protein 7.1 (6.3-8.2) g/dL Albumin 3.7 (3.5-5.0) g/dL 03/18/22 Range/Units 00:30 WBC (3.8-10.6) k/uL RBC (4.30-5.90) m/uL Hgb (13.0-17.5) gm/dL Hct (39.0-53.0) % MCV (80.0-100.0) fL MCH (25.0-35.0) pg MCHC (31.0-37.0) g/dL RDW (11.5-15.5) % Plt Count (150-450) k/uL MPV Neutrophils % % Lymphocytes % % Monocytes % % Eosinophils % % Basophils % % Neutrophils # (1.3-7.7) k/uL Lymphocytes # (1.0-4.8) k/uL Monocytes # (0-1.0) k/uL Eosinophils # (0-0.7) k/uL Basophils # (0-0.2) k/uL PT (9.0-12.0) sec INR (<1.2) Sodium (137-145) mmol/L Potassium (3.5-5.1) mmol/L Chloride (98-107) mmol/L Carbon Dioxide (22-30) mmol/L Anion Gap mmol/L BUN (9-20) mg/dL Creatinine (0.66-1.25) mg/dL Est GFR (CKD-EPI)AfAm (>60 ml/min/1.73 sqM) Est GFR (CKD-EPI)NonAf (>60 ml/min/1.73 sqM) Glucose (74-99) mg/dL Plasma Lactic Acid Jay 1.1 (0.7-2.0) mmol/L Calcium (8.4-10.2) mg/dL Total Bilirubin (0.2-1.3) mg/dL AST (17-59) U/L ALT (4-49) U/L Alkaline Phosphatase (38-126) U/L C-Reactive Protein (<1.0) mg/dL Total Protein (6.3-8.2) g/dL Albumin (3.5-5.0) g/dL Disposition Clinical Impression: Type 2 diabetes mellitus with right diabetic foot infection, Acute kidney injury, Diabetes mellitus type 2, uncontrolled Disposition: ADMITTED IP TO THIS [facility] Condition: Fair Referrals: Sammy Barth DO [Primary Care Provider] - 1-2 days Time of Disposition: 00:24 Decision to Admit Reason: Admit from EC Decision Time: 00:25
[2022-03-18 00:46] LABS: Basophils % (A) 0 %; Eosinophils # (A) 0.2 k/uL (0-0.7); Eosinophils % (A) 2 %; HCT 37.2 % (39.0-53.0); HGB 12.1 gm/dL (13.0-17.5); Lymphocytes # (A) 1.8 k/uL (1.0-4.8); Lymphocytes % (A) 16 %; MCH 29.7 pg (25.0-35.0); MCHC 32.6 g/dL (31.0-37.0); MCV 90.9 fL (80.0-100.0); Mean Platelet Volume 7.9; Monocytes # (A) 0.9 k/uL (0-1.0); Monocytes % (A) 8 %; Neutrophils # (A) 7.7 k/uL (1.3-7.7); Neutrophils % (A) 71 %; Platelet Count 371 k/uL (150-450); RBC 4.09 m/uL (4.30-5.90); RDW 13.7 % (11.5-15.5); WBC 10.8 k/uL (3.8-10.6)
[2022-03-18 00:57] LABS: Albumin 3.7 g/dL (3.5-5.0); Calcium 9.3 mg/dL (8.4-10.2); Total Bilirubin 1.1 mg/dL (0.2-1.3); Total Protein 7.1 g/dL (6.3-8.2)
[2022-03-18] MEDS ORDERED: VANCOMYCIN 2,500 MG in SODIUM CHLORIDE 0.9% 500 ML 500 ML IVPB ONE (01:00)
[2022-03-18] MEDS ORDERED: PIPERACILLIN-TAZOBACTAM 3.375 GM in SODIUM CHLORIDE 0.9% 100 ML IVPB SCH (01:00)
[2022-03-18 01:11] LABS: C Reactive Protein 14.5 mg/dL (<1.0)
[2022-03-18] MEDS ORDERED: INSULIN ASPART (NovoLOG) 100 UNIT/ML VIAL SQ ONE (01:47)
[2022-03-18] MEDS ORDERED: ONDANSETRON 4 MG/2 ML VIAL IVP PRN (01:48)
[2022-03-18] MEDS ORDERED: ACETAMINOPHEN TAB 325 MG TAB PO PRN (01:48)
[2022-03-18] MEDS ORDERED: NALOXONE 0.4 MG/ML 1 ML VIAL IV PRN (01:48)
[2022-03-18 01:51] LABS: Erythrocyte Sedimentation Rate 101 mm/hr (0-15)
[2022-03-18] MEDS ORDERED: DEXTROSE 50% SYRINGE 50 ML IVP PRN ×2 (01:54)
[2022-03-18] MEDS ORDERED: SODIUM CHLORIDE 0.9% 1,000 ML IV SCH (02:00)
--- NOTE | 2022-03-18 02:26 | XR ---
EXAM: XR Right Foot Complete, 3 or More Views CLINICAL HISTORY: ITS.REASON XR Reason: Infectious process TECHNIQUE: Frontal, lateral and oblique views of the right foot. COMPARISON: No relevant prior studies available. FINDINGS: No fracture or dislocation. Previous internal fixation and arthrodesis of the proximal and mid phalanges of the second toe. Well-defined erosion of the proximal phalanx of the third toe. There are also fairly well-defined erosions of the middle and proximal phalanges of the fifth toe. There is swelling of the fifth toe with a small wound. No soft tissue gas. IMPRESSION: Soft tissue swelling of the fifth toe with a small wound. No soft tissue gas. There are multiple erosions in the toes though these appear fairly smoothly marginated. No diffuse bone destruction is evident.
[2022-03-18] MEDS: MEROPENEM 2 GM in SODIUM CHLORIDE 0.9% 100 ML IVPB SCH ×2 (04:16→10:10)
[2022-03-18] MEDS ORDERED: PANTOPRAZOLE 40 MG TABLET PO SCH (07:30)
[2022-03-18] MEDS ORDERED: INSULIN ASPART (NovoLOG) 100 UNIT/ML VIAL SQ SCH (07:30)
[2022-03-18 07:47] LABS: Glucose,Whole Blood 94 mg/dL (70-110)
[2022-03-18] MEDS: INSULIN ASPART (NovoLOG) 100 UNIT/ML VIAL SQ SCH ×4 (07:48→21:01)
[2022-03-18] MEDS: ATORVASTATIN 20 MG TAB PO SCH (08:04)
[2022-03-18] MEDS: cloNIDine HCL 0.2 MG TAB PO SCH ×3 (08:04→21:00)
[2022-03-18] MEDS: carvediloL 12.5 MG TAB PO SCH ×2 (08:04→17:40)
[2022-03-18] MEDS: FOLIC ACID 1 MG TAB PO SCH (08:04)
[2022-03-18] MEDS: allopurinoL 100 MG TAB PO SCH (08:04)
[2022-03-18] MEDS: HEPARIN SODIUM,PORCINE/PF 5,000 UNIT/0.5 ML SYRINGE SQ SCH ×3 (08:04→23:22)
[2022-03-18] MEDS ORDERED: hydrALAZINE HCL 50 MG TAB PO SCH (09:00)
[2022-03-18] MEDS ORDERED: POTASSIUM CHLORIDE ER 10 MEQ TAB.ER.PRT PO SCH (09:00)
[2022-03-18] MEDS ORDERED: FAMOTIDINE 20 MG TAB PO SCH (09:00)
[2022-03-18] MEDS ORDERED: FUROSEMIDE 40 MG TAB PO SCH (09:00)
[2022-03-18] MEDS ORDERED: INSULIN DETEMIR (LEVEMIR) 100 UNIT/ML SYR SQ SCH (09:00)
[2022-03-18] MEDS: SODIUM CHLORIDE 0.9% 1,000 ML IV SCH ×2 (10:09→21:01)
--- NOTE | 2022-03-18 10:12 | P.NPCON ---
History of Present Illness - Reason for Consult acute renal failure, chronic renal failure - History of Present Illness Reason for consultation: Acute kidney injury on chronic kidney disease History of present illness: Patient is a 61-year-old male seen in consultation for acute kidney injury on chronic kidney disease. Patient has chronic kidney disease stage III with baseline creatinine in the range of 1.1-1.4 in January and February 2021. Patient states he does not see a auto body customizer outpatient but was being scheduled by his primary care physician to see one in the near future. Patient states 2-360 he noticed drainage from his right foot. He denies any pain as he has neuropathy. Patient states the drainage looked like pus. He also admits to fever and chills at home. He was taking Lasix 40 mg 3 times daily which is currently held. He is currently receiving IV fluids. He does have long-standing history of diabetes. Denies use of nonsteroidals. Oral intake is good. No vomiting or diarrhea. No chest pain or shortness of breath. Blood pressure is on the higher side. No hematuria or dysuria. Vital signs are stable. Blood pressure high. General: Awake. No acute distress. HEENT: Head exam is unremarkable. LUNGS: Breath sounds decreased. HEART: Rate and Rhythm are regular. ABDOMEN: Soft, no distention. EXTREMITITES: Right foot drop. No drainage. Trace edema. Past Medical History Past Medical History: Coronary Artery Disease (CAD), Chest Pain / Angina, Heart Failure, COPD, Diabetes Mellitus, Hyperlipidemia, Hypertension, Prostate Dis order, Renal Disease Additional Past Medical History / Comment(s): IDDM type II, neuropathy bilateral arms/hands/legs/feet, past R foot wound, CKD stage III, chron's with obst ructions, BPH. History of Any Multi-Drug Resistant Organisms: ESBL, ESBL, MRSA Date of last positivie culture/infection: 2018 MDRO Source:: right foot Past Surgical History: Bowel Resection, Heart Catheterization With Stent, Orthopedic Surgery, Tonsillectomy Additional Past Surgical History / Comment(s): bowel resection in 1994 &1999 d/t chron's, heart cath with stent at [place] April 14 2019, R foot I&D, R foot surgery for hammer toes, EGD, colonoscopies. Past Anesthesia/Blood Transfusion Reactions: No Reported Reaction Date of Last Stent Placement:: april 2019 Smoking Status: Former smoker - Past Family History Father Family Medical History: COPD, Diabetes Mellitus, Musculoskeletal Disorder Additional Family Medical History / Comment(s): Father is . Mother Family Medical History: COPD, Diabetes Mellitus Additional Family Medical History / Comment(s): Mother is . Medications and Allergies Home Medications Medication Instructions Recorded Confirmed Type Ergocalciferol (Vitamin D2) 50,000 unit PO HUGGINS 06/14/18 03/18/22 History [Vitamin D2] Pramipexole [Mirapex] 1 mg PO HS 06/14/18 03/18/22 History Aspirin 81 mg PO DAILY 06/27/19 03/18/22 History Clopidogrel Bisulfate [Plavix] 75 mg PO DAILY 06/27/19 03/18/22 History Rosuvastatin Calcium [Crestor] 10 mg PO DAILY 06/27/19 03/18/22 History carvediloL [Coreg] 12.5 mg PO BID 06/27/19 03/18/22 History Furosemide [Lasix] 40 mg PO BID 09/05/19 03/18/22 History INSULIN ASPART (NovoLOG) [NovoLOG See Protocol SQ AC-TID 01/09/21 03/18/22 History (formulary)] Potassium Chloride ER [K-Dur 10] 10 meq PO BID 01/09/21 03/18/22 History Vitamin B Complex 1 cap PO BID 01/09/21 03/18/22 History allopurinoL [Zyloprim] 100 mg PO DAILY 01/09/21 03/18/22 History Pantoprazole [Protonix] 40 mg PO AC-BRKFST #30 tablet. 01/12/21 03/18/22 Rx hydrALAZINE HCL [Apresoline] 50 mg PO BID #60 tab 02/03/21 03/18/22 Rx Folic Acid 1 mg PO DAILY 03/18/22 03/18/22 History Insulin Glargine,Hum.rec.anlog 50 units SQ BID 03/18/22 03/18/22 History [Lantus Solostar Pen] Losartan [Cozaar] 50 mg PO BID 03/18/22 03/18/22 History Magnesium Oxide [Mag-Ox] 400 mg PO BID 03/18/22 03/18/22 History cloNIDine HCL 0.2 mg PO TID@0700,1400,2200 03/18/22 03/18/22 History metOLazone [Zaroxolyn] 2.5 mg PO Q2D 03/18/22 03/18/22 History Allergies Allergy/AdvReac Type Severity Reaction Status Date / Time codeine Allergy Anaphylaxis Verified 03/18/22 06:44 morphine Allergy Anaphylaxis Verified 03/18/22 06:44 Physical Exam Vitals: Vital Signs Temp Pulse Pulse Resp BP BP Pulse Ox 03/18/22 07:46 98.6 F 59 L 19 185/78 97 03/18/22 07:07 71 15 155/88 97 03/17/22 23:49 98.8 F 66 16 179/79 98 Intake and Output 03/17/22 03/18/22 03/18/22 22:59 06:59 14:59 Other: # Voids 1 Weight 142.882 kg 142.882 kg Results - Lab Results Most recent lab results Calcium 9.3 mg/dL (8.4-10.2) 03/18/22 00:30 03/18/22 00:30 03/18/22 00:30 Assessment and Plan Plan: Assessment: 1. Acute kidney injury mostly prerenal secondary to infection in diuresis. Creatinine 1.97 on admission. 2. Chronic kidney disease stage IIIa with baseline creatinine in the range of 1.1-1.4 in January and February 2021. Etiology is diabetic kidney disease. 3. Hypertension with chronic kidney disease. 4. Diabetes mellitus. 5. Right foot infection on antibiotics. Infectious disease and podiatry consulted. Plan: Maintain normal saline at 75 mL an hour. Continue to hold diuretics. Check renal ultrasound. Check urinalysis. Avoid nephrotoxins. Follow-up cultures. Continue to monitor renal function and urine output. Home blood pressure medicines resumed. Increase frequency of hydralazine to 50 mg 3 times daily. Monitor vancomycin levels. Dose to be adjusted for renal function. Thank you for the consultation. I will continue to follow the patient with you during his hospital stay.
[2022-03-18] MEDS: INSULIN DETEMIR (LEVEMIR) 100 UNIT/ML SYR SQ SCH ×2 (10:16→21:01)
--- NOTE | 2022-03-18 11:57 | P.HPIM ---
History of Present Illness H&P Date: 03/18/22 Chief Complaint: Right foot wound History of Present Illness This is a pleasant 61 years old male with past medical history of Crohn's disease, type II DM, peripheral neuropathy, chronic kidney disease, hypertension, hyperlipidemia, and coronary artery disease who presented to the ER because of right foot wound. Patient had been having right foot wound for the last 1 week, patient went to see his doctor and was prescribed oral antibiotics but patient was unable to parts picker those medications. Patient noticed that the redness and swelling of right foot has worsened. Patient denied any fever or chills. Patient was worked up in the ER, initial workup showed an elevated white count of 10.8, creatinine was elevated at 1.97. Patient was started on IV antibiotics and was admitted to hospitalist service REVIEW OF SYSTEMS: CONSTITUTIONAL: No fever, no malaise, no fatigue. HEENT: No recent visual problems or hearing problems. Denied any sore throat. CARDIOVASCULAR: No chest pain, orthopnea, PND, no palpitations, no syncope. PULMONARY: No shortness of breath, no cough, no hemoptysis. GASTROINTESTINAL: No diarrhea, no nausea, no vomiting, no abdominal pain. NEUROLOGICAL: No headaches, no weakness, no numbness. HEMATOLOGICAL: Denies any bleeding or petechiae. GENITOURINARY: Denies any burning micturition, frequency, or urgency. MUSCULOSKELETAL/RHEUMATOLOGICAL: Right foot swelling and erythema noticeable ENDOCRINE: Denies any polyuria or polydipsia. The rest of the 14-point review of systems is negative. PHYSICAL EXAMINATION: GENERAL: The patient is alert and oriented x3, not in any acute distress. Well developed, well nourished. HEENT: Pupils are round and equally reacting to light. EOMI. No scleral icterus. No conjunctival pallor. Normocephalic, atraumatic. No pharyngeal erythema. No thyromegaly. CARDIOVASCULAR: S1 and S2 present. No murmurs, rubs, or gallops. PULMONARY: Chest is clear to auscultation, no wheezing or crackles. ABDOMEN: Soft, nontender, nondistended, normoactive bowel sounds. No palpable organomegaly. MUSCULOSKELETAL: No joint swelling or deformity. EXTREMITIES: Right foot erythema, ulcer noticeable of fifth digit NEUROLOGICAL: Gross neurological examination did not reveal any focal deficits. SKIN: No rashes. Assessment Right foot diabetic ulcer Acute kidney injury mostly prerenal secondary to infection in diuresis. Creatinine 1.97 on admission. Chronic kidney disease stage IIIa with baseline creatinine in the range of 1.1- 1.4 in January and February 2021. Etiology is diabetic kidney disease. Hypertension with chronic kidney disease. Diabetes mellitus. Plan; monitor vital signs Monitor CBC Follow-up on wound cultures Follow-up on blood cultures Continue IV meropenem and vancomycin Maintain normal saline at 75 mL an hour. Continue to hold diuretics. Ordered renal ultrasound. Avoid nephrotoxins. Continue IV fluids Monitor blood sugar levels, resume home insulin regimen DVT prophylaxis: heparin Past Medical History Past Medical History: Coronary Artery Disease (CAD), Chest Pain / Angina, Heart Failure, COPD, Diabetes Mellitus, Hyperlipidemia, Hypertension, Prostate Disorder, Renal Disease Additional Past Medical History / Comment(s): IDDM type II, neuropathy bilateral arms/hands/legs/feet, past R foot wound, CKD stage III, chron's with obstructions, BPH. History of Any Multi-Drug Resistant Organisms: ESBL, ESBL, MRSA Date of last positivie culture/infection: 2018 MDRO Source:: right foot Past Surgical History: Bowel Resection, Heart Catheterization With Stent, Orthopedic Surgery, Tonsillectomy Additional Past Surgical History / Comment(s): bowel resection in 1994 &1999 d/t chron's, heart cath with stent at [place] April 14 2019, R foot I&D, R foot surgery for hammer toes, EGD, colonoscopies. Past Anesthesia/Blood Transfusion Reactions: No Reported Reaction Date of Last Stent Placement:: april 2019 Smoking Status: Former smoker - Past Family History Father Family Medical History: COPD, Diabetes Mellitus, Musculoskeletal Disorder Additional Family Medical History / Comment(s): Father is . Mother Family Medical History: COPD, Diabetes Mellitus Additional Family Medical History / Comment(s): Mother is . Medications and Allergies Home Medications Medication Instructions Recorded Confirmed Type Ergocalciferol (Vitamin D2) 50,000 unit PO HUGGINS 06/14/18 03/18/22 History [Vitamin D2] Pramipexole [Mirapex] 1 mg PO HS 06/14/18 03/18/22 History Aspirin 81 mg PO DAILY 06/27/19 03/18/22 History Clopidogrel Bisulfate [Plavix] 75 mg PO DAILY 06/27/19 03/18/22 History Rosuvastatin Calcium [Crestor] 10 mg PO DAILY 06/27/19 03/18/22 History carvediloL [Coreg] 12.5 mg PO BID 06/27/19 03/18/22 History Furosemide [Lasix] 40 mg PO BID 09/05/19 03/18/22 History INSULIN ASPART (NovoLOG) [NovoLOG See Protocol SQ AC-TID 01/09/21 03/18/22 History (formulary)] Potassium Chloride ER [K-Dur 10] 10 meq PO BID 01/09/21 03/18/22 History Vitamin B Complex 1 cap PO BID 01/09/21 03/18/22 History allopurinoL [Zyloprim] 100 mg PO DAILY 01/09/21 03/18/22 History Pantoprazole [Protonix] 40 mg PO AC-BRKFST #30 tablet. 01/12/21 03/18/22 Rx hydrALAZINE HCL [Apresoline] 50 mg PO BID #60 tab 02/03/21 03/18/22 Rx Folic Acid 1 mg PO DAILY 03/18/22 03/18/22 History Insulin Glargine,Hum.rec.anlog 50 units SQ BID 03/18/22 03/18/22 History [Lantus Solostar Pen] Losartan [Cozaar] 50 mg PO BID 03/18/22 03/18/22 History Magnesium Oxide [Mag-Ox] 400 mg PO BID 03/18/22 03/18/22 History cloNIDine HCL 0.2 mg PO TID@0700,1400,2200 03/18/22 03/18/22 History metOLazone [Zaroxolyn] 2.5 mg PO Q2D 03/18/22 03/18/22 History Allergies Allergy/AdvReac Type Severity Reaction Status Date / Time codeine Allergy Anaphylaxis Verified 03/18/22 06:44 morphine Allergy Anaphylaxis Verified 03/18/22 06:44 Physical Exam Vitals: Vital Signs Temp Pulse Pulse Resp BP BP Pulse Ox 03/18/22 07:46 98.6 F 59 L 19 185/78 97 03/18/22 07:07 71 15 155/88 97 03/17/22 23:49 98.8 F 66 16 179/79 98 Intake and Output 03/17/22 03/18/22 03/18/22 22:59 06:59 14:59 Other: Voiding Method Toilet # Voids 1 Weight 142.882 kg 142.882 kg Results CBC & Chem 7: 03/18/22 00:30 03/18/22 00:30 Labs: Abnormal Lab Results - Last 24 Hours (Table) 03/18/22 03/18/22 03/18/22 Range/Units 00:30 00:30 00:30 WBC 10.8 H (3.8-10.6) k/uL RBC 4.09 L (4.30-5.90) m/uL Hgb 12.1 L (13.0-17.5) gm/dL Hct 37.2 L (39.0-53.0) % ESR 101 H (0-15) mm/hr Sodium 136 L (137-145) mmol/L BUN 41 H (9-20) mg/dL Creatinine 1.97 H (0.66-1.25) mg/dL Glucose 407 H (74-99) mg/dL Hemoglobin A1c 10.6 H (0.0-6.0) % Alkaline Phosphatase 146 H (38-126) U/L C-Reactive Protein 14.5 H (<1.0) mg/dL Microbiology - Last 24 Hours (Table) 03/18/22 00:15 Wound Culture - Preliminary Foot - Right 03/18/22 00:15 Anaerobic Culture - Preliminary Foot - Right Thrombosis Risk Factor Assmnt - Choose All That Apply Any of the Below Risk Factors Present?: Yes Each Factor Represents 1 point: Abnormal pulmonary function (COPD), Obesity (BMI >25) Other Risk Factors: Yes Each Risk Factor Represents 2 Points: Age 61-74 years Other congenital or acquired thrombophilia - If yes, enter type in comment: No Thrombosis Risk Factor Assessment Total Risk Factor Score: 4 Thrombosis Risk Factor Assessment Level: Moderate Risk
[2022-03-18 12:09] LABS: Glucose,Whole Blood 230 mg/dL (70-110)
[2022-03-18 15:46] LABS: Appearance,Urine Clear (Clear); Bilirubin,Urine Negative (Negative); Blood,Urine Negative (Negative); Color,Urine Yellow; Glucose,Urine (UA) 4+ (Negative); Ketones,Urine Trace (Negative); Leukocyte Esterase,Urine Negative (Negative); Mucus,Urine Rare /hpf; Nitrite,Urine Negative (Negative); PH, Urine 6.5 (5.0-8.0); Protein,Urine 2+ (Negative); RBC,Urine 2 /hpf (0-5); Specific Gravity,Urine 1.014 (1.001-1.035); Urobilinogen,Urine <2.0 mg/dL (<2.0); WBC,Urine <1 /hpf (0-5)
[2022-03-18] MEDS: hydrALAZINE HCL 50 MG TAB PO SCH ×2 (16:06→21:00)
[2022-03-18 17:10] LABS: Glucose,Whole Blood 250 mg/dL (70-110)
[2022-03-18] MEDS: MEROPENEM 1 GM in SODIUM CHLORIDE 0.9% 100 ML IVPB SCH (17:40)
--- NOTE | 2022-03-18 17:49 | US ---
EXAMINATION TYPE: US kidneys/renal and bladder DATE OF EXAM: 03/18/2022 COMPARISON: None CLINICAL HISTORY: 61 year-old male acute kidney injury TECHNIQUE: Multiple sonographic images of the kidneys and bladder are obtained. FINDINGS: EXAM MEASUREMENTS: Right Kidney: 11.4 x 4.8 x 5.5 cm Left Kidney: 12.0 x 6.4 x 6.7 cm Right Kidney: Tiny mid pole cortical cyst measuring 1.1 cm. No hydronephrosis. Left Kidney: Limited detailed assessment of the upper pole due to bowel gas shadowing. No hydronephrosis. Bladder: No gross abnormality. Bilateral Jets seen: Right jet not visualized. Left jet visualized Neckties Painter note: Patient did void immediately prior to exam. Considering this history given by the inspector tool, the bladder is excessively distended. IMPRESSION: 1. The inspector tool reports that the patient voided immediately prior to the exam. There remains exces sive urine in the bladder. Correlate to exclude urinary retention. 2. No hydronephrosis.
[2022-03-18 20:14] LABS: Glucose,Whole Blood 227 mg/dL (70-110)
[2022-03-18] MEDS ORDERED: VANCOMYCIN 2,500 MG in SODIUM CHLORIDE 0.9% 500 ML 500 ML IVPB SCH (21:00)
[2022-03-18] MEDS: PRAMIPEXOLE 1 MG TAB PO SCH (21:01)
[2022-03-18] MEDS ORDERED: MEROPENEM 2 GM in SODIUM CHLORIDE 0.9% 100 ML IVPB SCH (22:00)
--- NOTE | 2022-03-18 23:19 | P.CONS ---
History of Present Illness - Reason for Consult Consult date: 03/18/22 - History of Present Illness Patient is a 61-year-old male with a past medical history frequent for type 2 diabetes mellitus diabetic neuropathy chronic kidney disease hypertension hyperlipidemia presented to the hospital with right foot swelling and redness patient mention that he did develop a blister on his right fifth toe that apparently was deroofed and the patient has been treated with oral antibiotics however the patient was not able to sweet pickle maker those that brought his patient subsequent noticed to having increasing swelling redness to the right foot especially following the right fifth toe with some extension to the right foot for the patient presented to hospital patient denies having any fever or any chills, the patient do have diabetic neuropathy hence to denies having any pain to the right foot area patient on presentation to the hospital was afebrile and no fever have been recorded subsequently patient did have 110.8 elevated sed rate also have elevated BUN/creatinine urine has been negative local cultures obtained are currently pending patient did have x-ray of the right foot soft tissue swelling of the fifth toe with a small wound no soft tissue gas patient has been started on meropenem and vancomycin with the previous history of ESBL infection infectious disease was consulted for further management of antibiotic therapy Past Medical History Past Medical History: Coronary Artery Disease (CAD), Chest Pain / Angina, Heart Failure, COPD, Diabetes Mellitus, Hyperlipidemia, Hypertension, Prostate Disorder, Renal Disease Additional Past Medical History / Comment(s): IDDM type II, neuropathy bilateral arms/hands/legs/feet, past R foot wound, CKD stage III, chron's with obstructions, BPH. History of Any Multi-Drug Resistant Organisms: ESBL, ESBL, MRSA Year Discovered:: 2018 MDRO Source:: right foot Past Surgical History: Bowel Resection, Heart Catheterization With Stent, Orthopedic Surgery, Tonsillectomy Additional Past Surgical History / Comment(s): bowel resection in 1994 &1999 d/t chron's, heart cath with stent at [facility] April 14 2019, R foot I&D, R foot surgery for hammer toes, EGD, colonoscopies. Past Anesthesia/Blood Transfusion Reactions: No Reported Reaction Date of Last Stent Placement:: april 2019 Smoking Status: Former smoker - Past Family History Father Family Medical History: COPD, Diabetes Mellitus, Musculoskeletal Disorder Additional Family Medical History / Comment(s): Father is . Mother Family Medical History: COPD, Diabetes Mellitus Additional Family Medical History / Comment(s): Mother is . Medications and Allergies Home Medications Medication Instructions Recorded Confirmed Type Ergocalciferol (Vitamin D2) 50,000 unit PO HUGGINS 06/14/18 03/18/22 History [Vitamin D2] Pramipexole [Mirapex] 1 mg PO HS 06/14/18 03/18/22 History Aspirin 81 mg PO DAILY 06/27/19 03/18/22 History Clopidogrel Bisulfate [Plavix] 75 mg PO DAILY 06/27/19 03/18/22 History Rosuvastatin Calcium [Crestor] 10 mg PO DAILY 06/27/19 03/18/22 History carvediloL [Coreg] 12.5 mg PO BID 06/27/19 03/18/22 History Furosemide [Lasix] 40 mg PO BID 09/05/19 03/18/22 History INSULIN ASPART (NovoLOG) [NovoLOG See Protocol SQ AC-TID 01/09/21 03/18/22 History (formulary)] Potassium Chloride ER [K-Dur 10] 10 meq PO BID 01/09/21 03/18/22 History Vitamin B Complex 1 cap PO BID 01/09/21 03/18/22 History allopurinoL [Zyloprim] 100 mg PO DAILY 01/09/21 03/18/22 History Pantoprazole [Protonix] 40 mg PO AC-BRKFST #30 tablet.dr 01/12/21 03/18/22 Rx hydrALAZINE HCL [Apresoline] 50 mg PO BID #60 tab 02/03/21 03/18/22 Rx Folic Acid 1 mg PO DAILY 03/18/22 03/18/22 History Insulin Glargine,Hum.rec.anlog 50 units SQ BID 03/18/22 03/18/22 History [Lantus Solostar Pen] Losartan [Cozaar] 50 mg PO BID 03/18/22 03/18/22 History Magnesium Oxide [Mag-Ox] 400 mg PO BID 03/18/22 03/18/22 History cloNIDine HCL 0.2 mg PO TID@0700,1400,2200 03/18/22 03/18/22 History metOLazone [Zaroxolyn] 2.5 mg PO Q2D 03/18/22 03/18/22 History Allergies Allergy/AdvReac Type Severity Reaction Status Date / Time codeine Allergy Anaphylaxis Verified 03/18/22 06:44 morphine Allergy Anaphylaxis Verified 03/18/22 06:44 Physical Exam Vitals: Vital Signs Temp Pulse Pulse Resp BP BP Pulse Ox 03/18/22 12:07 98.0 F 56 L 18 154/72 94 L 03/18/22 07:46 98.6 F 59 L 19 185/78 97 03/18/22 07:07 71 15 155/88 97 03/17/22 23:49 98.8 F 66 16 179/79 98 Intake and Output 03/17/22 03/18/22 03/18/22 22:59 06:59 14:59 Other: Voiding Method Toilet # Voids 1 Weight 142.882 kg 142.882 kg Results CBC & Chem 7: 03/18/22 00:30 03/18/22 00:30 Labs: Abnormal Lab Results - Last 24 Hours (Table) 03/18/22 03/18/22 03/18/22 Range/Units 00:30 00:30 00:30 WBC 10.8 H (3.8-10.6) k/uL RBC 4.09 L (4.30-5.90) m/uL Hgb 12.1 L (13.0-17.5) gm/dL Hct 37.2 L (39.0-53.0) % ESR 101 H (0-15) mm/hr Sodium 136 L (137-145) mmol/L BUN 41 H (9-20) mg/dL Creatinine 1.97 H (0.66-1.25) mg/dL Glucose 407 H (74-99) mg/dL POC Glucose (mg/dL) (70-110) mg/dL Hemoglobin A1c 10.6 H (0.0-6.0) % Alkaline Phosphatase 146 H (38-126) U/L C-Reactive Protein 14.5 H (<1.0) mg/dL 03/18/22 Range/Units 12:08 WBC (3.8-10.6) k/uL RBC (4.30-5.90) m/uL Hgb (13.0-17.5) gm/dL Hct (39.0-53.0) % ESR (0-15) mm/hr Sodium (137-145) mmol/L BUN (9-20) mg/dL Creatinine (0.66-1.25) mg/dL Glucose (74-99) mg/dL POC Glucose (mg/dL) 230 H (70-110) mg/dL Hemoglobin A1c (0.0-6.0) % Alkaline Phosphatase (38-126) U/L C-Reactive Protein (<1.0) mg/dL Microbiology - Last 24 Hours (Table) 03/18/22 00:15 Wound Culture - Preliminary Foot - Right 03/18/22 00:15 Anaerobic Culture - Preliminary Foot - Right Assessment and Plan Plan: 1patient presented to hospital with right diabetic foot infection involving the right fifth toe with goal for blood gangrene with significant swelling and redness and some gangrenous changes patient is high risk of losing his right fifth toe in view of the extensive infection and will need to cover for the polymicrobial kishan usually associated with his infection. 2deep wound culture have been obtained to guide further antibiotic therapy. 3patient with renal insufficiency high risk of nephrotoxicity from vancomycin. 4continue with the meropenem however discontinue vancomycin. 5local wound care with a dry Aquacel silver dressing. We will follow on clinical condition and cultures to further adjust medication if needed Thank you for this consultation will follow this patient along with you Time with Patient: Greater than 30
[2022-03-19] MEDS: MEROPENEM 1 GM in SODIUM CHLORIDE 0.9% 100 ML IVPB SCH ×3 (02:34→18:46)
[2022-03-19] MEDS: cloNIDine HCL 0.2 MG TAB PO SCH ×3 (04:46→21:52)
[2022-03-19 04:51] LABS: Glucose,Whole Blood 77 mg/dL (70-110)
[2022-03-19 07:44] LABS: Glucose,Whole Blood 125 mg/dL (70-110)
[2022-03-19] MEDS: INSULIN ASPART (NovoLOG) 100 UNIT/ML VIAL SQ SCH ×4 (07:58→21:46)
[2022-03-19] MEDS: hydrALAZINE HCL 50 MG TAB PO SCH ×3 (08:16→21:52)
[2022-03-19] MEDS: ATORVASTATIN 20 MG TAB PO SCH (08:16)
[2022-03-19] MEDS: carvediloL 12.5 MG TAB PO SCH ×2 (08:17→16:59)
[2022-03-19] MEDS: HEPARIN SODIUM,PORCINE/PF 5,000 UNIT/0.5 ML SYRINGE SQ SCH ×3 (08:17→21:52)
[2022-03-19] MEDS: FOLIC ACID 1 MG TAB PO SCH (08:17)
[2022-03-19] MEDS: INSULIN DETEMIR (LEVEMIR) 100 UNIT/ML SYR SQ SCH ×2 (08:17→21:52)
[2022-03-19] MEDS: FAMOTIDINE 20 MG TAB PO SCH (08:17)
[2022-03-19] MEDS: allopurinoL 100 MG TAB PO SCH (08:17)
[2022-03-19 09:08] LABS: Basophils # (A) 0.07 X 10*3/uL (0.00-0.10); Basophils % (A) 0.7 %; Eosinophils # (A) 0.13 X 10*3/uL (0.04-0.35); Eosinophils % (A) 1.3 %; HCT 32.4 % (39.6-50.0); HGB 10.5 g/dL (13.0-17.0); Immature Grans, Automated 0.5 %; Lymphocytes # (A) 1.09 X 10*3/uL (0.90-5.00); Lymphocytes % (A) 10.9 %; MCHC 32.4 g/dL (32.0-37.0); MCV 89.5 fL (80.0-97.0); Monocytes # (A) 0.79 X 10*3/uL (0.20-1.00); Monocytes % (A) 7.9 %; NRBC Per 100 WBC 0 /100 WBCS (0.0-0.0); Neutrophils # (A) 7.83 X 10*3/uL (1.80-7.70); Neutrophils % (A) 78.7 %; Platelet Count 328 X 10*3/uL (140-440); RBC 3.62 X 10*6/uL (4.40-5.60); RDW 12.8 % (11.5-14.5); WBC 9.96 X 10*3/uL (4.50-10.00)
[2022-03-19 09:34] LABS: African American GFR (CKD) 38.2 (60.0-200.0); Albumin 2.9 g/dL (3.8-4.9); Albumin/Globulin Ratio 0.91 (1.60-3.17); Anion Gap 10.5 mmol/L (10.00-18.00); BUN/Creat Ratio 17.62 Ratio (12.00-20.00); Calcium 8.7 mg/dL (8.7-10.3); Carbon Dioxide 25.5 mmol/L (20.0-27.5); Globulin 3.2 g/dL (1.6-3.3); Magnesium 2.6 mg/dL (1.5-2.4); Phosphorus 3.9 mg/dL (2.4-5.1); Potassium 4.4 mmol/L (3.5-5.5); Total Bilirubin 0.6 mg/dL (0.30-1.20); Total Protein 6.1 g/dL (6.2-8.2)
--- NOTE | 2022-03-19 11:35 | P.PN ---
Subjective Patient is seen in follow-up for acute kidney injury on chronic kidney disease. Renal function stable. Oral intake is good. No vomiting or diarrhea. Good urine output. Blood pressure high. Vital signs are stable. General: The patient appeared well nourished and normally developed. HEENT: Head exam is unremarkable. LUNGS: Breath sounds decreased. HEART: Rate and Rhythm are regular. ABDOMEN: Soft, no distention. EXTREMITITES: Trace edema left lower extremity. 1+ edema right lower cavity. Ischemic changes noted in the right foot. Objective - Vital Signs Vital signs: Vital Signs Temp 97.7 F 03/19/22 04:37 Pulse 76 03/19/22 04:37 Resp 18 03/19/22 04:37 BP 190/81 03/19/22 04:37 Pulse Ox 99 03/19/22 04:37 FiO2 Intake & Output 03/18/22 03/19/22 03/19/22 18:59 06:59 18:59 Intake Total 475 Balance 475 Weight 142.882 kg Intake: Intake, IV Titration 475 Amount Meropenem 2 gm In Sodium 100 Chloride 0.9% 100 ml @ 33 .3 mls/hr IVPB Q12H [facility] Rx#:[id number] Sodium Chloride 0.9% 1, 375 000 ml @ 75 mls/hr IV . [id number] [facility] Rx#:[id number] Other: Voiding Method Toilet Toilet # Voids 1 - Labs CBC & Chem 7: 03/19/22 05:41 03/19/22 05:41 Labs: Abnormal Lab Results - Last 24 Hours (Table) 03/18/22 03/18/22 03/18/22 Range/Units 12:08 15:30 17:08 RBC (4.40-5.60) X 10*6/uL Hgb (13.0-17.0) g/dL Hct (39.6-50.0) % Immature Gran # (0.00-0.04) X 10*3/uL Neutrophils # (1.80-7.70) X 10*3/uL BUN (9.0-27.0) mg/dL Creatinine (0.6-1.5) mg/dL Est GFR (CKD-EPI)AfAm (60.0-200.0) Est GFR (CKD-EPI)NonAf (60.0-200.0) POC Glucose (mg/dL) 230 H 250 H (70-110) mg/dL Magnesium (1.5-2.4) mg/dL Total Protein (6.2-8.2) g/dL Albumin (3.8-4.9) g/dL Albumin/Globulin Ratio (1.60-3.17) g/dL Urine Protein 2+ H (Negative) Urine Glucose (UA) 4+ H (Negative) Urine Ketones Trace H (Negative) Urine Mucus Rare H (None) /hpf 03/18/22 03/19/22 03/19/22 Range/Units 20:07 05:41 05:41 RBC 3.62 L (4.40-5.60) X 10*6/uL Hgb 10.5 L (13.0-17.0) g/dL Hct 32.4 L (39.6-50.0) % Immature Gran # 0.05 H (0.00-0.04) X 10*3/uL Neutrophils # 7.83 H (1.80-7.70) X 10*3/uL BUN 37.0 H (9.0-27.0) mg/dL Creatinine 2.1 H (0.6-1.5) mg/dL Est GFR (CKD-EPI)AfAm 38.2 L (60.0-200.0) Est GFR (CKD-EPI)NonAf 33.0 L (60.0-200.0) POC Glucose (mg/dL) 227 H (70-110) mg/dL Magnesium 2.6 H (1.5-2.4) mg/dL Total Protein 6.1 L (6.2-8.2) g/dL Albumin 2.9 L (3.8-4.9) g/dL Albumin/Globulin Ratio 0.91 L (1.60-3.17) g/dL Urine Protein (Negative) Urine Glucose (UA) (Negative) Urine Ketones (Negative) Urine Mucus (None) /hpf 03/19/22 Range/Units 07:42 RBC (4.40-5.60) X 10*6/uL Hgb (13.0-17.0) g/dL Hct (39.6-50.0) % Immature Gran # (0.00-0.04) X 10*3/uL Neutrophils # (1.80-7.70) X 10*3/uL BUN (9.0-27.0) mg/dL Creatinine (0.6-1.5) mg/dL Est GFR (CKD-EPI)AfAm (60.0-200.0) Est GFR (CKD-EPI)NonAf (60.0-200.0) POC Glucose (mg/dL) 125 H (70-110) mg/dL Magnesium (1.5-2.4) mg/dL Total Protein (6.2-8.2) g/dL Albumin (3.8-4.9) g/dL Albumin/Globulin Ratio (1.60-3.17) g/dL Urine Protein (Negative) Urine Glucose (UA) (Negative) Urine Ketones (Negative) Urine Mucus (None) /hpf Microbiology - Last 24 Hours (Table) 03/18/22 11:00 Gram Stain - Preliminary Toe - Right Fifth Wound Culture - Preliminary Strep agalactiae - (group b) 03/18/22 00:15 Gram Stain - Preliminary Foot - Right Wound Culture - Preliminary 03/18/22 00:30 Blood Culture - Preliminary Blood No Growth after 24 hours 03/18/22 00:15 Blood Culture - Preliminary Blood No Growth after 24 hours 03/18/22 11:00 Anaerobic Culture - Preliminary Toe - Right Fifth 03/18/22 00:15 Anaerobic Culture - Preliminary Foot - Right Assessment and Plan Plan: Assessment: 1. Acute kidney injury mostly prerenal secondary to infection in diuresis. Creatinine 1.97 on admission - stable at 2.1 today. No hydronephrosis noted on kidney ultrasound. Concern for urinary retention. 2. Chronic kidney disease stage IIIa with baseline creatinine in the range of 1.1-1.4 in January and February 2021. Etiology is diabetic kidney disease. 3. Hypertension with chronic kidney disease. Blood pressure high. 4. Diabetes mellitus. 5. Right foot infection on antibiotics. Infectious disease and podiatry following. Wound culture positive for strep. Plan: HepLock iv fluids. Continue to hold diuretics. Avoid nephrotoxins. Continue to monitor renal function and urine output. Increase dose of hydralazine to 100 mg 3 times daily. Hold for systolic blood pressure less than 125. Check bladder scans and insert Weaver catheter if noted to have greater than 300 mL of urine.
[2022-03-19 11:55] LABS: Glucose,Whole Blood 248 mg/dL (70-110)
--- NOTE | 2022-03-19 11:55 | P.PN ---
Subjective Progress Note Date: 03/19/22 Principal diagnosis: Infection right foot with ascending cellulitis Patient was seen for consultation and treatment of diabetic foot wound of the right foot. States this started as a blister after having a arterial evaluation. This blister then became infected he presented to his primary care doctor who prescribed oral antibiotics. Patient did not get this antibiotic filled in the infection continued progress he presented to the emergency room Tuesday for treatment and was admitted for infection. He has been seen by a medical as well as infectious disease patient is currently on IV antibiotics in stable patient has several systemic conditions which are documented in the record above. Objective - Vital Signs Vital signs: Vital Signs Temp 97.7 F 03/19/22 04:37 Pulse 76 03/19/22 04:37 Resp 18 03/19/22 04:37 BP 190/81 03/19/22 04:37 Pulse Ox 99 03/19/22 04:37 FiO2 Intake & Output 03/18/22 03/19/22 03/19/22 18:59 06:59 18:59 Intake Total 475 Balance 475 Weight 142.882 kg Intake: Intake, IV Titration 475 Amount Meropenem 2 gm In Sodium 100 Chloride 0.9% 100 ml @ 33 .3 mls/hr IVPB Q12H [facility] Rx#:[id number] Sodium Chloride 0.9% 1, 375 000 ml @ 75 mls/hr IV . [id number] [facility] Rx#:[id number] Other: Voiding Method Toilet Toilet # Voids 1 - Cardiovascular Details: Patient's pedal pulses are patent palpable and symmetrical. There is no digital hair there is edema bilateral lower extremity there is adequate digital flow to the digits of bilateral feet however the lateral and plantar distal aspect of the right fifth digit do have a wet gangrenous change secondary to the infection - Integumentary Integumentary Comment(s): Full-thickness ulcer to osseous tissue of the lateral aspect of the fifth digit located at the level of the proximal interphalangeal joint this ulcer measures approximately 1 cm diameter and penetrates in the dermis approximately 1.5 cm. There is exposed osseous tissue centrally within the wound there is an odor without purulence. There is extending erythema edema from this digit circumferentially along the lateral aspect of the fifth metatarsal to its base with increased temperature - Neurologic Neurologic Comment(s): Patient has loss of protective sensation bilateral is neuropathic to the lower leg bilateral - Musculoskeletal Musculoskeletal Comment(s): Patient has decreased range of motion ankle joint with normal range of motion subtalar joint and midtarsal joint bilateral without pain or crepitus there is crepitus with range of motion of the proximal interphalangeal joint of the right fifth digit. Radiographs reviewed show erosive changes of the proximal interphalangeal joint as well as what appears to be a avulsion type fracture of the base of the proximal phalanx of the fifth digit. There are secondary changes from previous surgical intervention of the right foot. All inverters everters plantar flexors dorsiflexors grossly intact and symmetric bilateral - Labs CBC & Chem 7: 03/19/22 05:41 03/19/22 05:41 Labs: Abnormal Lab Results - Last 24 Hours (Table) 03/18/22 03/18/22 03/18/22 Range/Units 12:08 15:30 17:08 RBC (4.40-5.60) X 10*6/uL Hgb (13.0-17.0) g/dL Hct (39.6-50.0) % Immature Gran # (0.00-0.04) X 10*3/uL Neutrophils # (1.80-7.70) X 10*3/uL BUN (9.0-27.0) mg/dL Creatinine (0.6-1.5) mg/dL Est GFR (CKD-EPI)AfAm (60.0-200.0) Est GFR (CKD-EPI)NonAf (60.0-200.0) POC Glucose (mg/dL) 230 H 250 H (70-110) mg/dL Magnesium (1.5-2.4) mg/dL Total Protein (6.2-8.2) g/dL Albumin (3.8-4.9) g/dL Albumin/Globulin Ratio (1.60-3.17) g/dL Urine Protein 2+ H (Negative) Urine Glucose (UA) 4+ H (Negative) Urine Ketones Trace H (Negative) Urine Mucus Rare H (None) /hpf 03/18/22 03/19/22 03/19/22 Range/Units 20:07 05:41 05:41 RBC 3.62 L (4.40-5.60) X 10*6/uL Hgb 10.5 L (13.0-17.0) g/dL Hct 32.4 L (39.6-50.0) % Immature Gran # 0.05 H (0.00-0.04) X 10*3/uL Neutrophils # 7.83 H (1.80-7.70) X 10*3/uL BUN 37.0 H (9.0-27.0) mg/dL Creatinine 2.1 H (0.6-1.5) mg/dL Est GFR (CKD-EPI)AfAm 38.2 L (60.0-200.0) Est GFR (CKD-EPI)NonAf 33.0 L (60.0-200.0) POC Glucose (mg/dL) 227 H (70-110) mg/dL Magnesium 2.6 H (1.5-2.4) mg/dL Total Protein 6.1 L (6.2-8.2) g/dL Albumin 2.9 L (3.8-4.9) g/dL Albumin/Globulin Ratio 0.91 L (1.60-3.17) g/dL Urine Protein (Negative) Urine Glucose (UA) (Negative) Urine Ketones (Negative) Urine Mucus (None) /hpf 03/19/22 Range/Units 07:42 RBC (4.40-5.60) X 10*6/uL Hgb (13.0-17.0) g/dL Hct (39.6-50.0) % Immature Gran # (0.00-0.04) X 10*3/uL Neutrophils # (1.80-7.70) X 10*3/uL BUN (9.0-27.0) mg/dL Creatinine (0.6-1.5) mg/dL Est GFR (CKD-EPI)AfAm (60.0-200.0) Est GFR (CKD-EPI)NonAf (60.0-200.0) POC Glucose (mg/dL) 125 H (70-110) mg/dL Magnesium (1.5-2.4) mg/dL Total Protein (6.2-8.2) g/dL Albumin (3.8-4.9) g/dL Albumin/Globulin Ratio (1.60-3.17) g/dL Urine Protein (Negative) Urine Glucose (UA) (Negative) Urine Ketones (Negative) Urine Mucus (None) /hpf Microbiology - Last 24 Hours (Table) 03/18/22 11:00 Gram Stain - Preliminary Toe - Right Fifth Wound Culture - Preliminary Strep agalactiae - (group b) 03/18/22 00:15 Gram Stain - Preliminary Foot - Right Wound Culture - Preliminary 03/18/22 00:30 Blood Culture - Preliminary Blood No Growth after 24 hours 03/18/22 00:15 Blood Culture - Preliminary Blood No Growth after 24 hours 03/18/22 11:00 Anaerobic Culture - Preliminary Toe - Right Fifth 03/18/22 00:15 Anaerobic Culture - Preliminary Foot - Right Assessment and Plan Assessment: Infected right fifth digit with wet gangrene possible osteomyelitis Plan: Exam today at bedside is using a sterile 15 blade after patient consent debrided the necrotic tissue on the lateral aspect of the fifth digit. During this debridement it became apparent that the fifth digit was not salvageable and we discussed with patient amputation of the digit. We discussed with patient convocation prognosis risk of amputation including not limited to further amputation loss of limb leg or life. Patient consented for this amputation and will proceed with scheduling this later this afternoon. He'll be placed on not marisol by mouth and will proceed with this treatment plan. Time with Patient: Greater than 30
[2022-03-19] MEDS: SODIUM CHLORIDE 0.9% 1,000 ML IV SCH (13:03)
[2022-03-19 15:57] VITALS: BMI 39.4
[2022-03-19 18:17] LABS: Glucose,Whole Blood 130 mg/dL (70-110)
[2022-03-19] MEDS ORDERED: DEXTROSE 50% SYRINGE 50 ML IVP STA (19:13)
[2022-03-19 20:10] LABS: Glucose,Whole Blood 108 mg/dL (70-110)
[2022-03-19 20:10] LABS: Glucose,Whole Blood 114 mg/dL (70-110)
[2022-03-19] MEDS ORDERED: MIDAZOLAM 2 MG/2 ML VIAL ONE (20:26)
[2022-03-19] MEDS ORDERED: LACTATED RINGERS 1,000 ML IV ONE (20:28)
[2022-03-19] MEDS ORDERED: SODIUM CHLORIDE 0.9% IRRIGATION ONE (20:46)
[2022-03-19] MEDS ORDERED: VANCOMYCIN IRRIGATION ONE (20:46)
[2022-03-19] MEDS ORDERED: BACITRACIN ZINC 500 UNIT/GM OINT 28.4 GM TUBE TOPICAL ONE (21:08)
--- NOTE | 2022-03-19 21:23 | P.OP ---
Date of Procedure: 03/19/22 Preoperative Diagnosis: Infection right fifth digit with wet gangrene Postoperative Diagnosis: Same Procedure(s) Performed: Amputation right fifth digit Anesthesia: none Surgeon: Zach Leung Estimated Blood Loss (ml): 15 Pathology: none sent Condition: stable Disposition: floor Indications for Procedure: Infected gangrenous tissue right fifth digit Operative Findings: Consistent with clinical findings Description of Procedure: Patient was brought to the OR from the floor after being nothing by mouth since 7:30 AM this morning. An ankle tourniquet was placed about the right foot prior to the procedure in case hemostasis was needed. The right foot was then prepped and draped in the usual aseptic manner. Attention was then directed to the lateral aspect of the right foot and a converging 2 semi-elliptical incisions were made about the lateral aspect of the fifth digit running from the metatarsophalangeal joint and being carried over to the fourth interdigital space. The incision was carried down through superficial deep fascia. At the level of the proximal interphalangeal joint the digit was disarticulated and retained for pathological evaluation. Using a 15 blade the proximal phalanx was then isolated and disarticulated at the metatarsophalangeal joint. The wound was then copiously lavaged with a pulse lavage manner with 1 g of vancomycin and 3000 mL of sterile saline. Once the lavage was performed the surgical area was incised infected and all necrotic tissue visible was removed in total. There was good vascular flow to the remaining tissues. Using 3-0 Vicryl interrupted sutures the superficial deep Siren planes were reapproximated and then the skin edges were reapproximated with nereida as well as 3-0 nylon simple interrupted sutures loosely to provide some drainage of the infected wound. There was adequate return to all remaining flaps created as well as to the skin edges. The wound was then dressed in a mildly compressive manner using bacitracin Adaptic 4 x 4's and Kerlix. An Carmelo wrap was loosely applied over the Curlex to provide dressing support and to prevent dressing failure. Patient was then transferred from the operating room to the recovery room and monitored unt il stable and then returned to the floor for further medical treatment. On the back table after the procedure a tissue culture was taken of the proximal phalanx head and sent for culture and sensitivities. In the amputated fifth digit was sent to pathology.
[2022-03-19 21:38] LABS: Glucose,Whole Blood 83 mg/dL (70-110)
[2022-03-19] MEDS: PRAMIPEXOLE 1 MG TAB PO SCH (21:52)
--- NOTE | 2022-03-19 22:31 | P.PN ---
Subjective Progress Note Date: 03/19/22 Principal diagnosis: Right fifth toe diabetic foot infection with wet gangrene Patient is a 61-year-old male past medical history significant for diabetes mellitus presenting to the hospital with right fifth toe swelling redness and some foul-smelling drainage diagnosed with diabetic gangrene patient has been evaluated by podiatry recommends surgical amputation toe the patient seemed to have agreed. On today's evaluation that is 03/19/2022, the patient denies having any fever or chills, the patient is breathing comfortably patient denies having any chest pain shortness breath or cough no abdominal pain or pain to the right foot Objective - Vital Signs Vital signs: Vital Signs Temp 97.7 F 03/19/22 04:37 Pulse 76 03/19/22 04:37 Resp 18 03/19/22 04:37 BP 190/81 03/19/22 04:37 Pulse Ox 99 03/19/22 04:37 FiO2 Intake & Output 03/18/22 03/19/22 03/19/22 18:59 06:59 18:59 Intake Total 475 Balance 475 Weight 142.882 kg Intake: Intake, IV Titration 475 Amount Meropenem 2 gm In Sodium 100 Chloride 0.9% 100 ml @ 33 .3 mls/hr IVPB Q12H [facility] Rx#:[id number] Sodium Chloride 0.9% 1, 375 000 ml @ 75 mls/hr IV . [id number] [facility] Rx#:[id number] Other: Voiding Method Toilet Toilet # Voids 1 - Exam GENERAL DESCRIPTION: Middle-age male lying in bed in no distress RESPIRATORY SYSTEM: Unlabored breathing , decreased breath sounds at bases HEART: S1 S2 regular rate and rhythm , ABDOMEN: Soft , no tenderness EXTREMITIES: Right fifth toe is currently dressed no drainage and the dressing - Labs CBC & Chem 7: 03/19/22 05:41 03/19/22 05:41 Labs: Abnormal Lab Results - Last 24 Hours (Table) 03/18/22 03/18/22 03/18/22 Range/Units 15:30 17:08 20:07 RBC (4.40-5.60) X 10*6/uL Hgb (13.0-17.0) g/dL Hct (39.6-50.0) % Immature Gran # (0.00-0.04) X 10*3/uL Neutrophils # (1.80-7.70) X 10*3/uL BUN (9.0-27.0) mg/dL Creatinine (0.6-1.5) mg/dL Est GFR (CKD-EPI)AfAm (60.0-200.0) Est GFR (CKD-EPI)NonAf (60.0-200.0) POC Glucose (mg/dL) 250 H 227 H (70-110) mg/dL Magnesium (1.5-2.4) mg/dL Total Protein (6.2-8.2) g/dL Albumin (3.8-4.9) g/dL Albumin/Globulin Ratio (1.60-3.17) g/dL Urine Protein 2+ H (Negative) Urine Glucose (UA) 4+ H (Negative) Urine Ketones Trace H (Negative) Urine Mucus Rare H (None) /hpf 03/19/22 03/19/22 03/19/22 Range/Units 05:41 05:41 07:42 RBC 3.62 L (4.40-5.60) X 10*6/uL Hgb 10.5 L (13.0-17.0) g/dL Hct 32.4 L (39.6-50.0) % Immature Gran # 0.05 H (0.00-0.04) X 10*3/uL Neutrophils # 7.83 H (1.80-7.70) X 10*3/uL BUN 37.0 H (9.0-27.0) mg/dL Creatinine 2.1 H (0.6-1.5) mg/dL Est GFR (CKD-EPI)AfAm 38.2 L (60.0-200.0) Est GFR (CKD-EPI)NonAf 33.0 L (60.0-200.0) POC Glucose (mg/dL) 125 H (70-110) mg/dL Magnesium 2.6 H (1.5-2.4) mg/dL Total Protein 6.1 L (6.2-8.2) g/dL Albumin 2.9 L (3.8-4.9) g/dL Albumin/Globulin Ratio 0.91 L (1.60-3.17) g/dL Urine Protein (Negative) Urine Glucose (UA) (Negative) Urine Ketones (Negative) Urine Mucus (None) /hpf 03/19/22 Range/Units 11:53 RBC (4.40-5.60) X 10*6/uL Hgb (13.0-17.0) g/dL Hct (39.6-50.0) % Immature Gran # (0.00-0.04) X 10*3/uL Neutrophils # (1.80-7.70) X 10*3/uL BUN (9.0-27.0) mg/dL Creatinine (0.6-1.5) mg/dL Est GFR (CKD-EPI)AfAm (60.0-200.0) Est GFR (CKD-EPI)NonAf (60.0-200.0) POC Glucose (mg/dL) 248 H (70-110) mg/dL Magnesium (1.5-2.4) mg/dL Total Protein (6.2-8.2) g/dL Albumin (3.8-4.9) g/dL Albumin/Globulin Ratio (1.60-3.17) g/dL Urine Protein (Negative) Urine Glucose (UA) (Negative) Urine Ketones (Negative) Urine Mucus (None) /hpf Microbiology - Last 24 Hours (Table) 03/18/22 11:00 Gram Stain - Preliminary Toe - Right Fifth Wound Culture - Preliminary Strep agalactiae - (group b) 03/18/22 00:15 Gram Stain - Preliminary Foot - Right Wound Culture - Preliminary 03/18/22 00:30 Blood Culture - Preliminary Blood No Growth after 24 hours 03/18/22 00:15 Blood Culture - Preliminary Blood No Growth after 24 hours 03/18/22 11:00 Anaerobic Culture - Preliminary Toe - Right Fifth 03/18/22 00:15 Anaerobic Culture - Preliminary Foot - Right Assessment and Plan (1) Type 2 diabetes mellitus with right diabetic foot infection Current Visit: Yes Status: Acute Code(s): E11.628 - TYPE 2 DIABETES MELLITUS WITH OTHER SKIN COMPLICATIONS; L08.9 - LOCAL INFECTION OF THE SKIN AND SUBCUTANEOUS TISSUE, UNSP SNOMED Code(s): 36079215 Plan: 1patient presented to hospital with right diabetic foot infection involving the right fifth toe with goal for blood gangrene with significant swelling and redness and some gangrenous changes patient is high risk of losing his right fifth toe in view of the extensive infection and will need to cover for the polymicrobial kishan usually associated with his infection. 2deep wound culture have been obtained to guide further antibiotic therapy. 3 patient to continue with the meropenem while waiting for the cultures to finalize Time with Patient: Less than 30
[2022-03-19] MEDS: AMPICILLIN-SULBACTAM 3 GM in SODIUM CHLORIDE 0.9% 100 ML IVPB SCH (23:41)
[2022-03-20] MEDS: AMPICILLIN-SULBACTAM 3 GM in SODIUM CHLORIDE 0.9% 100 ML IVPB SCH ×4 (05:47→23:30)
[2022-03-20 06:41] LABS: African American GFR (CKD) 51 (>60 ml/min/1.73 sqM); Anion Gap 7 mmol/L; Blood Urea Nitrogen 33 mg/dL (9-20); Calcium 8.4 mg/dL (8.4-10.2); Carbon Dioxide 27 mmol/L (22-30); Chloride 108 mmol/L (98-107); Glucose 82 mg/dL (74-99); Magnesium 2.6 mg/dL (1.6-2.3); Non-African American GFR(CKD) 45 (>60 ml/min/1.73 sqM); Potassium 4.5 mmol/L (3.5-5.1); Sodium 142 mmol/L (137-145)
[2022-03-20 07:34] LABS: Glucose,Whole Blood 92 mg/dL (70-110)
[2022-03-20] MEDS: INSULIN ASPART (NovoLOG) 100 UNIT/ML VIAL SQ SCH ×4 (07:52→20:34)
[2022-03-20] MEDS: HEPARIN SODIUM,PORCINE/PF 5,000 UNIT/0.5 ML SYRINGE SQ SCH ×3 (08:36→20:35)
[2022-03-20] MEDS: allopurinoL 100 MG TAB PO SCH (08:37)
[2022-03-20] MEDS: FOLIC ACID 1 MG TAB PO SCH (08:37)
[2022-03-20] MEDS: cloNIDine HCL 0.2 MG TAB PO SCH ×3 (08:37→20:34)
[2022-03-20] MEDS: carvediloL 12.5 MG TAB PO SCH ×2 (08:37→17:27)
[2022-03-20] MEDS: ATORVASTATIN 20 MG TAB PO SCH (08:37)
[2022-03-20] MEDS: FAMOTIDINE 20 MG TAB PO SCH (08:37)
[2022-03-20] MEDS: hydrALAZINE HCL 50 MG TAB PO SCH ×3 (08:38→20:34)
[2022-03-20] MEDS: INSULIN DETEMIR (LEVEMIR) 100 UNIT/ML SYR SQ SCH ×2 (09:26→20:34)
[2022-03-20] MEDS ORDERED: hydrALAZINE HCL 20 MG/ML 1 ML VIAL IVP PRN (09:48)
--- NOTE | 2022-03-20 09:50 | P.PN ---
Subjective Patient is seen in follow-up for acute kidney injury on chronic kidney disease. Renal function improved. Creatinine 1.64 today. Oral intake is good. No vomiting or diarrhea. Good urine output. Blood pressure remains on the higher side. Vital signs are stable. General: The patient appeared well nourished and normally developed. HEENT: Head exam is unremarkable. LUNGS: Breath sounds decreased. HEART: Rate and Rhythm are regular. ABDOMEN: Soft, no distention. EXTREMITITES: Trace edema left lower extremity. 1+ edema right lower extremity. Objective - Vital Signs Vital signs: Vital Signs Temp 98.2 F 03/20/22 05:00 Pulse 59 L 03/20/22 05:00 Resp 16 03/20/22 05:00 BP 166/79 03/20/22 05:00 Pulse Ox 95 03/19/22 21:33 FiO2 Intake & Output 03/19/22 03/20/22 03/20/22 18:59 06:59 18:59 Intake Total 301 Output Total 915 Balance -614 Weight 142.882 kg Intake: IV 101 Intake, IV Titration 200 Amount Ampicillin-Sulbactam 3 gm 200 In Sodium Chloride 0.9% 100 ml @ 200 mls/hr IVPB Q6HR [facility] Rx#:[id number] Output: Urine 900 Estimated Blood Loss 15 Other: Voiding Method Toilet Toilet # Voids 3 - Labs CBC & Chem 7: 03/19/22 05:41 03/20/22 05:42 Labs: Abnormal Lab Results - Last 24 Hours (Table) 03/19/22 03/19/22 03/19/22 Range/Units 11:53 17:50 20:08 Chloride (98-107) mmol/L BUN (9-20) mg/dL Creatinine (0.66-1.25) mg/dL POC Glucose (mg/dL) 248 H 130 H 114 H (70-110) mg/dL Magnesium (1.6-2.3) mg/dL 03/20/22 Range/Units 05:42 Chloride 108 H (98-107) mmol/L BUN 33 H (9-20) mg/dL Creatinine 1.64 H (0.66-1.25) mg/dL POC Glucose (mg/dL) (70-110) mg/dL Magnesium 2.6 H (1.6-2.3) mg/dL Microbiology - Last 24 Hours (Table) 03/19/22 21:10 Gram Stain - Preliminary Toe - Right Fifth Tissue Culture - Preliminary 03/19/22 21:10 Anaerobic Culture - Preliminary Toe - Right Fifth 03/18/22 00:30 Blood Culture - Preliminary Blood No Growth after 48 hours 03/18/22 00:15 Blood Culture - Preliminary Blood No Growth after 48 hours 03/18/22 11:00 Gram Stain - Preliminary Toe - Right Fifth Wound Culture - Preliminary Strep agalactiae - (group b) 03/18/22 00:15 Gram Stain - Preliminary Foot - Right Wound Culture - Preliminary Assessment and Plan Plan: Assessment: 1. Acute kidney injury mostly prerenal secondary to infection and diuresis. renal function better. Creatinine 1.64 today.No hydronephrosis noted on kidney ultrasound. Concern for urinary retention. 2. Chronic kidney disease stage IIIa with baseline creatinine in the range of 1.1-1.4 in January and February 2021. Etiology is diabetic kidney disease. 3. Hypertension with chronic kidney disease. Blood pressure high. 4. Diabetes mellitus. 5. Right foot infection on antibiotics. Infectious disease and podiatry following. Wound culture positive for strep. status post amputation of the right fifth digit on 03/19/2022. Plan: remains off IV fluids. Encouraged oral intake. resume oral Lasix 40 mg once daily. Avoid nephrotoxins. Continue to monitor renal function and urine output. add IV when necessary hydralazine for systolic blood pressure greater than 160.
[2022-03-20] MEDS: FUROSEMIDE 40 MG TAB PO SCH (10:19)
[2022-03-20 12:57] LABS: Glucose,Whole Blood 152 mg/dL (70-110)
--- NOTE | 2022-03-20 15:27 | P.PN ---
Subjective Progress Note Date: 03/19/22 61 years old male with past medical history of Crohn's disease, type II DM, peripheral neuropathy, chronic kidney disease, hypertension, hyperlipidemia, and coronary artery disease who presented to the ER because of right foot wound. 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 Patient noticed that the redness and swelling of right foot has worsened. Patient denied any fever or chills. Patient was worked up in the ER, initial workup showed an elevated white count of 10.8, creatinine was elevated at 1.97. Patient was started on IV antibiotics and was admitted to hospitalist service Objective - Vital Signs Vital signs: Vital Signs Temp 97.8 F 03/19/22 11:53 Pulse 52 L 03/19/22 11:53 Resp 18 03/19/22 11:53 BP 176/79 03/19/22 11:53 Pulse Ox 97 03/19/22 11:53 FiO2 Intake & Output 03/18/22 03/19/22 03/19/22 18:59 06:59 18:59 Intake Total 475 Balance 475 Weight 142.882 kg Intake: Intake, IV Titration 475 Amount Meropenem 2 gm In Sodium 100 Chloride 0.9% 100 ml @ 33 .3 mls/hr IVPB Q12H [facility] Rx#:[id number] Sodium Chloride 0.9% 1, 375 000 ml @ 75 mls/hr IV . [id number] [facility] Rx#:[id number] Other: Voiding Method Toilet Toilet # Voids 1 - Exam GENERAL: The patient is alert and oriented x3, not in any acute distress. Well developed, well nourished. HEENT: Pupils are round and equally reacting to light. EOMI. No scleral icterus. No conjunctival pallor. Normocephalic, atraumatic. No pharyngeal erythema. No thyromegaly. CARDIOVASCULAR: S1 and S2 present. No murmurs, rubs, or gallops. PULMONARY: Chest is clear to auscultation, no wheezing or crackles. ABDOMEN: Soft, nontender, nondistended, normoactive bowel sounds. No palpable organomegaly. MUSCULOSKELETAL: No joint swelling or deformity. EXTREMITIES: Right foot erythema, ulcer noticeable of fifth digit NEUROLOGICAL: Gross neurological examination did not reveal any focal deficits. SKIN: No rashes. - Labs CBC & Chem 7: 03/19/22 05:41 03/20/22 05:42 Labs: Abnormal Lab Results - Last 24 Hours (Table) 03/18/22 03/18/22 03/18/22 Range/Units 15:30 17:08 20:07 RBC (4.40-5.60) X 10*6/uL Hgb (13.0-17.0) g/dL Hct (39.6-50.0) % Immature Gran # (0.00-0.04) X 10*3/uL Neutrophils # (1.80-7.70) X 10*3/uL BUN (9.0-27.0) mg/dL Creatinine (0.6-1.5) mg/dL Est GFR (CKD-EPI)AfAm (60.0-200.0) Est GFR (CKD-EPI)NonAf (60.0-200.0) POC Glucose (mg/dL) 250 H 227 H (70-110) mg/dL Magnesium (1.5-2.4) mg/dL Total Protein (6.2-8.2) g/dL Albumin (3.8-4.9) g/dL Albumin/Globulin Ratio (1.60-3.17) g/dL Urine Protein 2+ H (Negative) Urine Glucose (UA) 4+ H (Negative) Urine Ketones Trace H (Negative) Urine Mucus Rare H (None) /hpf 03/19/22 03/19/22 03/19/22 Range/Units 05:41 05:41 07:42 RBC 3.62 L (4.40-5.60) X 10*6/uL Hgb 10.5 L (13.0-17.0) g/dL Hct 32.4 L (39.6-50.0) % Immature Gran # 0.05 H (0.00-0.04) X 10*3/uL Neutrophils # 7.83 H (1.80-7.70) X 10*3/uL BUN 37.0 H (9.0-27.0) mg/dL Creatinine 2.1 H (0.6-1.5) mg/dL Est GFR (CKD-EPI)AfAm 38.2 L (60.0-200.0) Est GFR (CKD-EPI)NonAf 33.0 L (60.0-200.0) POC Glucose (mg/dL) 125 H (70-110) mg/dL Magnesium 2.6 H (1.5-2.4) mg/dL Total Protein 6.1 L (6.2-8.2) g/dL Albumin 2.9 L (3.8-4.9) g/dL Albumin/Globulin Ratio 0.91 L (1.60-3.17) g/dL Urine Protein (Negative) Urine Glucose (UA) (Negative) Urine Ketones (Negative) Urine Mucus (None) /hpf 03/19/22 Range/Units 11:53 RBC (4.40-5.60) X 10*6/uL Hgb (13.0-17.0) g/dL Hct (39.6-50.0) % Immature Gran # (0.00-0.04) X 10*3/uL Neutrophils # (1.80-7.70) X 10*3/uL BUN (9.0-27.0) mg/dL Creatinine (0.6-1.5) mg/dL Est GFR (CKD-EPI)AfAm (60.0-200.0) Est GFR (CKD-EPI)NonAf (60.0-200.0) POC Glucose (mg/dL) 248 H (70-110) mg/dL Magnesium (1.5-2.4) mg/dL Total Protein (6.2-8.2) g/dL Albumin (3.8-4.9) g/dL Albumin/Globulin Ratio (1.60-3.17) g/dL Urine Protein (Negative) Urine Glucose (UA) (Negative) Urine Ketones (Negative) Urine Mucus (None) /hpf Microbiology - Last 24 Hours (Table) 03/18/22 11:00 Gram Stain - Preliminary Toe - Right Fifth Wound Culture - Preliminary Strep agalactiae - (group b) 03/18/22 00:15 Gram Stain - Preliminary Foot - Right Wound Culture - Preliminary 03/18/22 00:30 Blood Culture - Preliminary Blood No Growth after 24 hours 03/18/22 00:15 Blood Culture - Preliminary Blood No Growth after 24 hours 03/18/22 11:00 Anaerobic Culture - Preliminary Toe - Right Fifth 03/18/22 00:15 Anaerobic Culture - Preliminary Foot - Right Assessment and Plan Assessment: Right foot diabetic ulcer Acute kidney injury mostly prerenal secondary to infection in diuresis. Creatinine 1.97 on admission. Chronic kidney disease stage IIIa with baseline creatinine in the range of 1.1- 1.4 in January and February 2021. Etiology is diabetic kidney disease. Hypertension with chronic kidney disease. Diabetes mellitus. Plan; monitor vital signs Monitor CBC Follow-up on wound cultures Follow-up on blood cultures Continue IV meropenem and vancomycin Maintain normal saline at 75 mL an hour. Continue to hold diuretics. Ordered renal ultrasound. Avoid nephrotoxins. Continue IV fluids Monitor blood sugar levels, resume home insulin regimen DVT prophylaxis: heparin
--- NOTE | 2022-03-20 15:31 | P.PN ---
Subjective Progress Note Date: 03/20/22 Principal diagnosis: Right foot diabetic ulcer Infected right fifth digit with wet gangrene Acute on chronic kidney disease stage III 61 years old male with past medical history of Crohn's disease, type II DM, peripheral neuropathy, chronic kidney disease, hypertension, hyperlipidemia, and coronary artery disease who presented to the ER because of right foot wound. 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 Patient noticed that the redness and swelling of right foot has worsened. Patient denied any fever or chills. Patient was worked up in the ER, initial workup showed an elevated white count of 10.8, c reatinine was elevated at 1.97. 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; reports optimal pain control Vital signs are reviewed with temperature of 98.9, pulse 52, respiration 18 and blood pressure 148/70 Labs reveal sodium 142, potassium 4.5, BUN/creatinine of 32/1.64; blood glucose at 152; ultrasound is reviewed and does not reveal any hydronephrosis Patient remains on IV antibiotics per ID and podiatry recommendations; wound cultures positive for Streptococcus; await further recommendations from ID for IV antibiotics Objective - Vital Signs Vital signs: Vital Signs Temp 98.2 F 03/20/22 05:00 Pulse 59 L 03/20/22 05:00 Resp 16 03/20/22 05:00 BP 166/79 03/20/22 05:00 Pulse Ox 95 03/19/22 21:33 FiO2 Intake & Output 03/19/22 03/20/22 03/20/22 18:59 06:59 18:59 Intake Total 301 Output Total 915 Balance -614 Weight 142.882 kg Intake: IV 101 Intake, IV Titration 200 Amount Ampicillin-Sulbactam 3 gm 200 In Sodium Chloride 0.9% 100 ml @ 200 mls/hr IVPB Q6HR [facility] Rx#:[id number] Output: Urine 900 Estimated Blood Loss 15 Other: Voiding Method Toilet Toilet # Voids 3 - Exam GENERAL: The patient is alert and oriented x3, not in any acute distress. Well developed, well nourished. HEENT: Pupils are round and equally reacting to light. EOMI. No scleral icterus. No conjunctival pallor. Normocephalic, atraumatic. No pharyngeal erythema. No thyromegaly. CARDIOVASCULAR: S1 and S2 present. No murmurs, rubs, or gallops. PULMONARY: Chest is clear to auscultation, no wheezing or crackles. ABDOMEN: Soft, nontender, nondistended, normoactive bowel sounds. No palpable organomegaly. MUSCULOSKELETAL: No joint swelling or deformity. EXTREMITIES: Right foot erythema, ulcer noticeable of fifth digit NEUROLOGICAL: Gross neurological examination did not reveal any focal deficits. SKIN: No rashes. - Labs CBC & Chem 7: 03/19/22 05:41 03/20/22 05:42 Labs: Abnormal Lab Results - Last 24 Hours (Table) 03/19/22 03/19/22 03/19/22 Range/Units 11:53 17:50 20:08 Chloride (98-107) mmol/L BUN (9-20) mg/dL Creatinine (0.66-1.25) mg/dL POC Glucose (mg/dL) 248 H 130 H 114 H (70-110) mg/dL Magnesium (1.6-2.3) mg/dL 03/20/22 Range/Units 05:42 Chloride 108 H (98-107) mmol/L BUN 33 H (9-20) mg/dL Creatinine 1.64 H (0.66-1.25) mg/dL POC Glucose (mg/dL) (70-110) mg/dL Magnesium 2.6 H (1.6-2.3) mg/dL Microbiology - Last 24 Hours (Table) 03/19/22 21:10 Gram Stain - Preliminary Toe - Right Fifth Tissue Culture - Preliminary 03/19/22 21:10 Anaerobic Culture - Preliminary Toe - Right Fifth 03/18/22 00:30 Blood Culture - Preliminary Blood No Growth after 48 hours 03/18/22 00:15 Blood Culture - Preliminary Blood No Growth after 48 hours 03/18/22 11:00 Gram Stain - Preliminary Toe - Right Fifth Wound Culture - Preliminary Strep agalactiae - (group b) 03/18/22 00:15 Gram Stain - Preliminary Foot - Right Wound Culture - Preliminary Assessment and Plan Assessment: Right foot diabetic ulcer Acute kidney injury mostly prerenal secondary to infection in diuresis. Creatinine 1.97 on admission. Chronic kidney disease stage IIIa with baseline creatinine in the range of 1.1- 1.4 in January and February 2021. Etiology is diabetic kidney disease. Hypertension with chronic kidney disease. Diabetes mellitus. Plan; monitor vital signs Monitor CBC Follow-up on wound cultures Follow-up on blood cultures Continue IV meropenem and vancomycin Maintain normal saline at 75 mL an hour. Continue to hold diuretics. Ordered renal ultrasound. Avoid nephrotoxins. Continue IV fluids Monitor blood sugar levels, resume home insulin regimen DVT prophylaxis: heparin
--- NOTE | 2022-03-20 15:33 | P.PN ---
Subjective Progress Note Date: 03/20/22 Principal diagnosis: Right fifth toe diabetic foot infection with wet gangrene Patient is a 61-year-old male past medical history significant for diabetes mellitus presenting to the hospital with right fifth toe swelling redness and some foul-smelling drainage diagnosed with diabetic gangrene patient has been evaluated by podiatry recommends surgical amputation toe the patient is status post amputation of the right fifth toe completed on 03/19/2022 On today's evaluation that is 03/20/2022, the patient denies having any fever or chills, the patient is breathing comfortably on room air patient denies having any chest pain shortness breath or cough no abdominal pain and denies pain to the right foot Objective - Vital Signs Vital signs: Vital Signs Temp 98.9 F 03/20/22 13:00 Pulse 52 L 03/20/22 13:00 Resp 18 03/20/22 13:00 BP 148/70 03/20/22 13:00 Pulse Ox 98 03/20/22 13:00 FiO2 Intake & Output 03/19/22 03/20/22 03/20/22 18:59 06:59 18:59 Intake Total 301 Output Total 915 Balance -614 Weight 142.882 kg Intake: IV 101 Intake, IV Titration 200 Amount Ampicillin-Sulbactam 3 gm 200 In Sodium Chloride 0.9% 100 ml @ 200 mls/hr IVPB Q6HR [facility] Rx#:[id number] Output: Urine 900 Estimated Blood Loss 15 Other: Voiding Method Toilet Toilet # Voids 3 - Exam GENERAL DESCRIPTION: Middle-age male lying in bed in no distress RESPIRATORY SYSTEM: Unlabored breathing , decreased breath sounds at bases HEART: S1 S2 regular rate and rhythm , ABDOMEN: Soft , no tenderness EXTREMITIES: Right fifth toe amputation site is currently dressed no drainage on the dressing - Labs CBC & Chem 7: 03/19/22 05:41 03/20/22 05:42 Labs: Abnormal Lab Results - Last 24 Hours (Table) 03/19/22 03/19/22 03/20/22 Range/Units 17:50 20:08 05:42 Chloride 108 H (98-107) mmol/L BUN 33 H (9-20) mg/dL Creatinine 1.64 H (0.66-1.25) mg/dL POC Glucose (mg/dL) 130 H 114 H (70-110) mg/dL Magnesium 2.6 H (1.6-2.3) mg/dL 03/20/22 Range/Units 12:56 Chloride (98-107) mmol/L BUN (9-20) mg/dL Creatinine (0.66-1.25) mg/dL POC Glucose (mg/dL) 152 H (70-110) mg/dL Magnesium (1.6-2.3) mg/dL Microbiology - Last 24 Hours (Table) 03/18/22 00:15 Anaerobic Culture - Final Foot - Right 03/18/22 00:15 Gram Stain - Final Foot - Right Wound Culture - Final 03/19/22 21:10 Gram Stain - Preliminary Toe - Right Fifth Tissue Culture - Preliminary 03/19/22 21:10 Anaerobic Culture - Preliminary Toe - Right Fifth 03/18/22 00:30 Blood Culture - Preliminary Blood No Growth after 48 hours 03/18/22 00:15 Blood Culture - Preliminary Blood No Growth after 48 hours Assessment and Plan (1) Type 2 diabetes mellitus with right diabetic foot infection Current Visit: Yes Status: Acute Code(s): E11.628 - TYPE 2 DIABETES MELLITUS WITH OTHER SKIN COMPLICATIONS; L08.9 - LOCAL INFECTION OF THE SKIN AND SUBCUTANEOUS TISSUE, UNSP SNOMED Code(s): 41218495 Plan: 1patient presented to hospital with right diabetic foot infection involving the right fifth toe with goal for blood gangrene with significant swelling and redness and some gangrenous changes patient is high risk of losing his right fifth toe in view of the extensive infection and will need to cover for the polymicrobial kishan usually associated with his infection. Initial cultures have been finalized with Streptococcus deep cultures are currently pending 2patient antibiotics has been switched over to Unasyn with the discharge ant ibiotic on the basis of clinical response and deep culture Time with Patient: Less than 30
[2022-03-20 17:57] LABS: Glucose,Whole Blood 229 mg/dL (70-110)
[2022-03-20 20:11] LABS: Glucose,Whole Blood 301 mg/dL (70-110)
[2022-03-20] MEDS: PRAMIPEXOLE 1 MG TAB PO SCH (20:34)
[2022-03-21] MEDS: AMPICILLIN-SULBACTAM 3 GM in SODIUM CHLORIDE 0.9% 100 ML IVPB SCH ×3 (05:52→18:29)
[2022-03-21 05:59] LABS: African American GFR (CKD) 48 (>60 ml/min/1.73 sqM); Anion Gap 8 mmol/L; Blood Urea Nitrogen 31 mg/dL (9-20); Calcium 8.7 mg/dL (8.4-10.2); Carbon Dioxide 25 mmol/L (22-30); Chloride 104 mmol/L (98-107); Glucose 83 mg/dL (74-99); Magnesium 2.4 mg/dL (1.6-2.3); Non-African American GFR(CKD) 41 (>60 ml/min/1.73 sqM); Potassium 4.7 mmol/L (3.5-5.1); Sodium 137 mmol/L (137-145)
[2022-03-21] MEDS: hydrALAZINE HCL 50 MG TAB PO SCH ×3 (07:07→20:57)
[2022-03-21] MEDS: allopurinoL 100 MG TAB PO SCH (07:07)
[2022-03-21] MEDS: HEPARIN SODIUM,PORCINE/PF 5,000 UNIT/0.5 ML SYRINGE SQ SCH ×2 (07:07→16:05)
[2022-03-21] MEDS: ATORVASTATIN 20 MG TAB PO SCH (07:07)
[2022-03-21] MEDS: FOLIC ACID 1 MG TAB PO SCH (07:07)
[2022-03-21] MEDS: carvediloL 12.5 MG TAB PO SCH ×2 (07:07→18:30)
[2022-03-21] MEDS: cloNIDine HCL 0.2 MG TAB PO SCH ×3 (07:07→20:57)
[2022-03-21] MEDS: FUROSEMIDE 40 MG TAB PO SCH (07:08)
[2022-03-21] MEDS: FAMOTIDINE 20 MG TAB PO SCH (07:08)
[2022-03-21] MEDS: INSULIN ASPART (NovoLOG) 100 UNIT/ML VIAL SQ SCH ×4 (07:08→21:06)
[2022-03-21 07:16] LABS: Glucose,Whole Blood 133 mg/dL (70-110)
[2022-03-21] MEDS: INSULIN DETEMIR (LEVEMIR) 100 UNIT/ML SYR SQ SCH ×2 (08:40→21:06)
[2022-03-21 09:29] LABS: Basophils # (A) 0.06 X 10*3/uL (0.00-0.10); Basophils % (A) 0.7 %; Eosinophils # (A) 0.24 X 10*3/uL (0.04-0.35); HCT 31.1 % (39.6-50.0); Immature Grans, Automated 0.5 %; Lymphocytes # (A) 2.17 X 10*3/uL (0.90-5.00); Lymphocytes % (A) 27.1 %; MCH 29.1 pg (27.0-32.0); MCHC 32.2 g/dL (32.0-37.0); MCV 90.4 fL (80.0-97.0); Mean Platelet Volume 9.9 fL (9.5-12.2); Monocytes # (A) 0.98 X 10*3/uL (0.20-1.00); Monocytes % (A) 12.2 %; NRBC Per 100 WBC 0 /100 WBCS (0.0-0.0); Neutrophils # (A) 4.53 X 10*3/uL (1.80-7.70); Neutrophils % (A) 56.5 %; Platelet Count 327 X 10*3/uL (140-440); RBC 3.44 X 10*6/uL (4.40-5.60); RDW 13.2 % (11.5-14.5); WBC 8.02 X 10*3/uL (4.50-10.00)
--- NOTE | 2022-03-21 09:49 | P.PN ---
Subjective Progress Note Date: 03/21/22 Principal diagnosis: Infection right foot with ascending cellulitis Patient was seen for consultation and treatment of diabetic foot wound of the right foot. States this started as a blister after having a arterial evaluation. This blister then became infected he presented to his primary care doctor who prescribed oral antibiotics. Patient did not get this antibiotic filled in the infection continued progress he presented to the emergency room Tuesday for treatment and was admitted for infection. He has been seen by a medical as well as infectious disease patient is currently on IV antibiotics in stable patient has several systemic conditions which are documented in the record above. Objective - Vital Signs Vital signs: Vital Signs Temp 98.5 F 03/21/22 05:00 Pulse 62 03/21/22 05:00 Resp 16 03/21/22 05:00 BP 160/79 03/21/22 05:00 Pulse Ox 96 03/21/22 05:00 FiO2 Intake & Output 03/20/22 03/21/22 03/21/22 18:59 06:59 18:59 Intake Total 200 662 Balance 200 662 Intake: Intake, IV Titration 200 200 Amount Ampicillin-Sulbactam 3 gm 200 200 In Sodium Chloride 0.9% 100 ml @ 200 mls/hr IVPB Q6HR [facility] Rx#:[id number] Oral 462 Other: Voiding Method Toilet - Exam Patient's amputated wound site is stable without the assistance there is decreasing erythema decrease edema with no purulence. Patient has no pain secondary to diabetic neuropathy. Review of the tissue culture osseous shows streptococcus be consistent with initial culture when presenting to the hospital. Neurovascular status to the lower extremities intact vital signs stable - Labs CBC & Chem 7: 03/21/22 05:18 03/21/22 05:18 Labs: Abnormal Lab Results - Last 24 Hours (Table) 03/20/22 03/20/22 03/20/22 Range/Units 12:56 17:55 20:10 RBC (4.40-5.60) X 10*6/uL Hgb (13.0-17.0) g/dL Hct (39.6-50.0) % BUN (9-20) mg/dL Creatinine (0.66-1.25) mg/dL POC Glucose (mg/dL) 152 H 229 H 301 H (70-110) mg/dL Magnesium (1.6-2.3) mg/dL 03/21/22 03/21/22 03/21/22 Range/Units 05:18 05:18 07:04 RBC 3.44 L (4.40-5.60) X 10*6/uL Hgb 10.0 L (13.0-17.0) g/dL Hct 31.1 L (39.6-50.0) % BUN 31 H (9-20) mg/dL Creatinine 1.75 H (0.66-1.25) mg/dL POC Glucose (mg/dL) 133 H (70-110) mg/dL Magnesium 2.4 H (1.6-2.3) mg/dL Microbiology - Last 24 Hours (Table) 03/18/22 00:30 Blood Culture - Preliminary Blood No Growth after 72 hours 03/18/22 00:15 Blood Culture - Preliminary Blood No Growth after 72 hours 03/19/22 21:10 Gram Stain - Preliminary Toe - Right Fifth Tissue Culture - Preliminary Strep agalactiae - (group b) 03/18/22 11:00 Gram Stain - Final Toe - Right Fifth Wound Culture - Final Strep agalactiae - (group b) 03/18/22 00:15 Anaerobic Culture - Final Foot - Right 03/18/22 00:15 Gram Stain - Final Foot - Right Wound Culture - Final Assessment and Plan Assessment: Infected right fifth digit with wet gangrene possible osteomyelitis Plan: Exam we'll continue with local wound care for the wound on the pretibial area of the right leg will continue with the bacitracin dry sterile dressing. From surgical viewpoint patient is stable and can be discharged upon recommendation of infectious disease. Time with Patient: Less than 30
--- NOTE | 2022-03-21 10:48 | P.PN ---
Subjective Patient is seen in follow-up for acute kidney injury on chronic kidney disease. Renal function fairly stable.Oral intake is good. No vomiting or diarrhea. Good urine output. Blood pressure a little better controlled. Vital signs are stable. General: awake. No acute distress. HEENT: Head exam is unremarkable. LUNGS: Breath sounds decreased. HEART: Rate and Rhythm are regular. ABDOMEN: Soft, no distention. EXTREMITITES: Trace edema left lower extremity. 1+ edema right lower extremity. Objective - Vital Signs Vital signs: Vital Signs Temp 98.5 F 03/21/22 05:00 Pulse 62 03/21/22 05:00 Resp 16 03/21/22 05:00 BP 160/79 03/21/22 05:00 Pulse Ox 96 03/21/22 05:00 FiO2 Intake & Output 03/20/22 03/21/22 03/21/22 18:59 06:59 18:59 Intake Total 200 662 Balance 200 662 Intake: Intake, IV Titration 200 200 Amount Ampicillin-Sulbactam 3 gm 200 200 In Sodium Chloride 0.9% 100 ml @ 200 mls/hr IVPB Q6HR [facility] Rx#:[id number] Oral 462 Other: Voiding Method Toilet - Labs CBC & Chem 7: 03/21/22 05:18 03/21/22 05:18 Labs: Abnormal Lab Results - Last 24 Hours (Table) 03/20/22 03/20/22 03/20/22 Range/Units 12:56 17:55 20:10 RBC (4.40-5.60) X 10*6/uL Hgb (13.0-17.0) g/dL Hct (39.6-50.0) % BUN (9-20) mg/dL Creatinine (0.66-1.25) mg/dL POC Glucose (mg/dL) 152 H 229 H 301 H (70-110) mg/dL Magnesium (1.6-2.3) mg/dL 03/21/22 03/21/22 03/21/22 Range/Units 05:18 05:18 07:04 RBC 3.44 L (4.40-5.60) X 10*6/uL Hgb 10.0 L (13.0-17.0) g/dL Hct 31.1 L (39.6-50.0) % BUN 31 H (9-20) mg/dL Creatinine 1.75 H (0.66-1.25) mg/dL POC Glucose (mg/dL) 133 H (70-110) mg/dL Magnesium 2.4 H (1.6-2.3) mg/dL Microbiology - Last 24 Hours (Table) 03/18/22 00:30 Blood Culture - Preliminary Blood No Growth after 72 hours 03/18/22 00:15 Blood Culture - Preliminary Blood No Growth after 72 hours 03/19/22 21:10 Gram Stain - Preliminary Toe - Right Fifth Tissue Culture - Preliminary Strep agalactiae - (group b) 03/18/22 11:00 Gram Stain - Final Toe - Right Fifth Wound Culture - Final Strep agalactiae - (group b) 03/18/22 00:15 Anaerobic Culture - Final Foot - Right 03/18/22 00:15 Gram Stain - Final Foot - Right Wound Culture - Final Assessment and Plan Plan: Assessment: 1. Acute kidney injury mostly prerenal secondary to infection and diuresis. renal function better. Creatinine fairly stable at 1.75 today. No hydronephrosis noted on kidney ultrasound. Concern for urinary retention. 2. Chronic kidney disease stage IIIa with baseline creatinine in the range of 1.1-1.4 in January and February 2021. Etiology is diabetic kidney disease. 3. Hypertension with chronic kidney disease. better controlled. 4. Diabetes mellitus. 5. Right foot infection on antibiotics. Infectious disease and podiatry following. Wound culture positive for strep. status post amputation of the right fifth digit on 03/19/2022. Plan: remains off IV fluids. Encouraged oral intake. Avoid nephrotoxins. Continue to monitor renal function and urine output.
[2022-03-21 12:13] LABS: Glucose,Whole Blood 232 mg/dL (70-110)
--- NOTE | 2022-03-21 17:01 | P.PN ---
Subjective Progress Note Date: 03/21/22 Principal diagnosis: Right fifth toe diabetic foot infection with wet gangrene Patient is a 61-year-old male past medical history significant for diabetes mellitus presenting to the hospital with right fifth toe swelling redness and some foul-smelling drainage diagnosed with diabetic gangrene patient has been evaluated by podiatry recommends surgical amputation toe the patient is status post amputation of the right fifth toe completed on 03/19/2022 On today's evaluation that is 03/21/2022, the patient remains to be afebrile, the patient is breathing comfortably on room air patient denies having any chest pain shortness breath or cough, the patient denies abdominal pain, the patient denies pain to the right foot Objective - Vital Signs Vital signs: Vital Signs Temp 97.6 F 03/21/22 11:37 Pulse 56 L 03/21/22 11:37 Resp 18 03/21/22 11:37 BP 156/62 03/21/22 11:37 Pulse Ox 95 03/21/22 11:37 FiO2 Intake & Output 03/20/22 03/21/22 03/21/22 18:59 06:59 18:59 Intake Total 200 662 120 Balance 200 662 120 Intake: Intake, IV Titration 200 200 Amount Ampicillin-Sulbactam 3 gm 200 200 In Sodium Chloride 0.9% 100 ml @ 200 mls/hr IVPB Q6HR [facility] Rx#:[id number] Oral 462 120 Other: Voiding Method Toilet - Exam GENERAL DESCRIPTION: Middle-age male lying in bed in no distress RESPIRATORY SYSTEM: Unlabored breathing , decreased breath sounds at bases HEART: S1 S2 regular rate and rhythm , ABDOMEN: Soft , no tenderness EXTREMITIES: Right fifth toe amputation site is currently dressed no drainage on the dressing - Labs CBC & Chem 7: 03/21/22 05:18 03/21/22 05:18 Labs: Abnormal Lab Results - Last 24 Hours (Table) 03/20/22 03/20/22 03/21/22 Range/Units 17:55 20:10 05:18 RBC (4.40-5.60) X 10*6/uL Hgb (13.0-17.0) g/dL Hct (39.6-50.0) % BUN 31 H (9-20) mg/dL Creatinine 1.75 H (0.66-1.25) mg/dL POC Glucose (mg/dL) 229 H 301 H (70-110) mg/dL Magnesium 2.4 H (1.6-2.3) mg/dL 03/21/22 03/21/22 03/21/22 Range/Units 05:18 07:04 12:11 RBC 3.44 L (4.40-5.60) X 10*6/uL Hgb 10.0 L (13.0-17.0) g/dL Hct 31.1 L (39.6-50.0) % BUN (9-20) mg/dL Creatinine (0.66-1.25) mg/dL POC Glucose (mg/dL) 133 H 232 H (70-110) mg/dL Magnesium (1.6-2.3) mg/dL Microbiology - Last 24 Hours (Table) 03/18/22 11:00 Anaerobic Culture - Final Toe - Right Fifth Anaerobic Gm Negative Bacilli Anaerobic Gm Negative Bacilli#2 Anaerobic Gram Positive Cocci 03/18/22 00:30 Blood Culture - Preliminary Blood No Growth after 72 hours 03/18/22 00:15 Blood Culture - Preliminary Blood No Growth after 72 hours 03/19/22 21:10 Gram Stain - Preliminary Toe - Right Fifth Tissue Culture - Preliminary Strep agalactiae - (group b) 03/18/22 11:00 Gram Stain - Final Toe - Right Fifth Wound Culture - Final Strep agalactiae - (group b) 03/18/22 00:15 Anaerobic Culture - Final Foot - Right 03/18/22 00:15 Gram Stain - Final Foot - Right Wound Culture - Final Assessment and Plan (1) Type 2 diabetes mellitus with right diabetic foot infection Current Visit: Yes Status: Acute Code(s): E11.628 - TYPE 2 DIABETES MELLITUS WITH OTHER SKIN COMPLICATIONS; L08.9 - LOCAL INFECTION OF THE SKIN AND SUBCUTANEOUS TISSUE, UNSP SNOMED Code(s): 53428187 Plan: 1patient presented to hospital with right diabetic foot infection involving the right fifth toe with goal for blood gangrene with significant swelling and redness and some gangrenous changes patient is high risk of losing his right fifth toe in view of the extensive infection and will need to cover for the po lymicrobial kishan usually associated with his infection. Initial cultures have been finalized with Streptococcus deep cultures are growing Streptococcus agalactiae and anaerobes 2patient to continue with Unasyn may benefit from short course of IV antibiotic on discharge
[2022-03-21 18:05] LABS: Glucose,Whole Blood 198 mg/dL (70-110)
--- NOTE | 2022-03-21 18:16 | P.PN ---
Subjective Progress Note Date: 03/21/22 Principal diagnosis: Right foot diabetic ulcer Infected right fifth digit with wet gangrene Acute on chronic kidney disease stage III 61 years old male with past medical history of Crohn's disease, type II DM, peripheral neuropathy, chronic kidney disease, hypertension, hyperlipidemia, and coronary artery disease who presented to the ER because of right foot wound. 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 Patient noticed that the redness and swelling of right foot has worsened. Patient denied any fever or chills. Patient was worked up in the ER, initial workup showed an elevated white count of 10.8, c reatinine was elevated at 1.97. 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; reports optimal pain control Vital signs are reviewed with temperature of 98.9, pulse 52, respiration 18 and blood pressure 148/70 Labs reveal sodium 142, potassium 4.5, BUN/creatinine of 32/1.64; blood glucose at 152; ultrasound is reviewed and does not reveal any hydronephrosis Patient remains on IV antibiotics per ID and podiatry recommendations; wound cultures positive for Streptococcus; await further recommendations from ID for IV antibiotics 03/21/2022 the patient is seen and evaluated in room at bedside; remains to be afebrile, the patient is breathing comfortably on room air patient denies having any chest pain shortness breath or cough, the patient denies abdominal pain, the patient denies pain to the right foot patient presented to hospital with right diabetic foot infection involving the right fifth toe with goal for blood gangrene with significant swelling and redne ss and some gangrenous changes patient is high risk of losing his right fifth toe in view of the extensive infection and will need to cover for the polymicrobial kishan usually associated with his infection. Initial cultures have been finalized with Streptococcus deep cultures are growing Streptococcus agalactiae and anaerobes patient to continue with Unasyn may benefit from short course of IV antibiotic on discharge Objective - Vital Signs Vital signs: Vital Signs Temp 97.6 F 03/21/22 11:37 Pulse 56 L 03/21/22 11:37 Resp 18 03/21/22 11:37 BP 156/62 03/21/22 11:37 Pulse Ox 95 03/21/22 11:37 FiO2 Intake & Output 03/20/22 03/21/22 03/21/22 18:59 06:59 18:59 Intake Total 200 662 Balance 200 662 Intake: Intake, IV Titration 200 200 Amount Ampicillin-Sulbactam 3 gm 200 200 In Sodium Chloride 0.9% 100 ml @ 200 mls/hr IVPB Q6HR [facility] Rx#:[id number] Oral 462 Other: Voiding Method Toilet - Exam GENERAL: The patient is alert and oriented x3, not in any acute distress. Well developed, well nourished. HEENT: Pupils are round and equally reacting to light. EOMI. No scleral icterus. No conjunctival pallor. Normocephalic, atraumatic. No pharyngeal erythema. No thyromegaly. CARDIOVASCULAR: S1 and S2 present. No murmurs, rubs, or gallops. PULMONARY: Chest is clear to auscultation, no wheezing or crackles. ABDOMEN: Soft, nontender, nondistended, normoactive bowel sounds. No palpable organomegaly. MUSCULOSKELETAL: No joint swelling or deformity. EXTREMITIES: Right foot erythema, ulcer noticeable of fifth digit NEUROLOGICAL: Gross neurological examination did not reveal any focal deficits. SKIN: No rashes. - Labs CBC & Chem 7: 03/21/22 05:18 03/21/22 05:18 Labs: Abnormal Lab Results - Last 24 Hours (Table) 03/20/22 03/20/22 03/21/22 Range/Units 17:55 20:10 05:18 RBC (4.40-5.60) X 10*6/uL Hgb (13.0-17.0) g/dL Hct (39.6-50.0) % BUN 31 H (9-20) mg/dL Creatinine 1.75 H (0.66-1.25) mg/dL POC Glucose (mg/dL) 229 H 301 H (70-110) mg/dL Magnesium 2.4 H (1.6-2.3) mg/dL 03/21/22 03/21/22 03/21/22 Range/Units 05:18 07:04 12:11 RBC 3.44 L (4.40-5.60) X 10*6/uL Hgb 10.0 L (13.0-17.0) g/dL Hct 31.1 L (39.6-50.0) % BUN (9-20) mg/dL Creatinine (0.66-1.25) mg/dL POC Glucose (mg/dL) 133 H 232 H (70-110) mg/dL Magnesium (1.6-2.3) mg/dL Microbiology - Last 24 Hours (Table) 03/18/22 00:30 Blood Culture - Preliminary Blood No Growth after 72 hours 03/18/22 00:15 Blood Culture - Preliminary Blood No Growth after 72 hours 03/19/22 21:10 Gram Stain - Preliminary Toe - Right Fifth Tissue Culture - Preliminary Strep agalactiae - (group b) 03/18/22 11:00 Gram Stain - Final Toe - Right Fifth Wound Culture - Final Strep agalactiae - (group b) 03/18/22 00:15 Anaerobic Culture - Final Foot - Right 03/18/22 00:15 Gram Stain - Final Foot - Right Wound Culture - Final Assessment and Plan Assessment: Right foot diabetic ulcer Acute kidney injury mostly prerenal secondary to infection in diuresis. Creatinine 1.97 on admission. Chronic kidney disease stage IIIa with baseline creatinine in the range of 1.1- 1.4 in January and February 2021. Etiology is diabetic kidney disease. Hypertension with chronic kidney disease. Diabetes mellitus. Plan; monitor vital signs Monitor CBC Follow-up on wound cultures Follow-up on blood cultures Continue IV meropenem and vancomycin Maintain normal saline at 75 mL an hour. Continue to hold diuretics. Ordered renal ultrasound. Avoid nephrotoxins. Continue IV fluids Monitor blood sugar levels, resume home insulin regimen DVT prophylaxis: heparin
[2022-03-21 20:54] LABS: Glucose,Whole Blood 257 mg/dL (70-110)
[2022-03-21] MEDS: PRAMIPEXOLE 1 MG TAB PO SCH (21:53)
[2022-03-22] MEDS: HEPARIN SODIUM,PORCINE/PF 5,000 UNIT/0.5 ML SYRINGE SQ SCH ×3 (00:42→17:27)
[2022-03-22] MEDS: AMPICILLIN-SULBACTAM 3 GM in SODIUM CHLORIDE 0.9% 100 ML IVPB SCH ×4 (00:42→17:28)
[2022-03-22 06:59] LABS: Glucose,Whole Blood 91 mg/dL (70-110)
[2022-03-22] MEDS: INSULIN ASPART (NovoLOG) 100 UNIT/ML VIAL SQ SCH ×4 (08:02→20:51)
[2022-03-22] MEDS: FOLIC ACID 1 MG TAB PO SCH (08:49)
[2022-03-22] MEDS: INSULIN DETEMIR (LEVEMIR) 100 UNIT/ML SYR SQ SCH ×2 (08:49→20:51)
[2022-03-22] MEDS: FAMOTIDINE 20 MG TAB PO SCH (08:49)
[2022-03-22] MEDS: hydrALAZINE HCL 50 MG TAB PO SCH ×3 (08:49→20:52)
[2022-03-22] MEDS: allopurinoL 100 MG TAB PO SCH (08:49)
[2022-03-22] MEDS: FUROSEMIDE 40 MG TAB PO SCH (08:50)
[2022-03-22] MEDS: carvediloL 12.5 MG TAB PO SCH ×2 (08:50→17:28)
[2022-03-22] MEDS: ATORVASTATIN 20 MG TAB PO SCH (08:50)
[2022-03-22] MEDS: cloNIDine HCL 0.2 MG TAB PO SCH ×3 (08:50→20:52)
[2022-03-22 09:34] LABS: Basophils # (A) 0.04 X 10*3/uL (0.00-0.10); Basophils % (A) 0.6 %; Eosinophils # (A) 0.21 X 10*3/uL (0.04-0.35); Eosinophils % (A) 3.1 %; HGB 9.7 g/dL (13.0-17.0); Immature Grans, Automated 0.9 %; Lymphocytes # (A) 2.05 X 10*3/uL (0.90-5.00); Lymphocytes % (A) 30.1 %; MCH 29.3 pg (27.0-32.0); MCHC 32.3 g/dL (32.0-37.0); MCV 90.6 fL (80.0-97.0); Mean Platelet Volume 10.1 fL (9.5-12.2); Monocytes # (A) 0.68 X 10*3/uL (0.20-1.00); NRBC Per 100 WBC 0 /100 WBCS (0.0-0.0); Neutrophils # (A) 3.78 X 10*3/uL (1.80-7.70); Neutrophils % (A) 55.3 %; Platelet Count 321 X 10*3/uL (140-440); RBC 3.31 X 10*6/uL (4.40-5.60); RDW 13.1 % (11.5-14.5); WBC 6.82 X 10*3/uL (4.50-10.00)
[2022-03-22 09:41] LABS: African American GFR (CKD) 49.3 (60.0-200.0); Anion Gap 9.4 mmol/L (10.00-18.00); BUN/Creat Ratio 16.82 Ratio (12.00-20.00); Blood Urea Nitrogen 28.6 mg/dL (9.0-27.0); Calcium 8.4 mg/dL (8.7-10.3); Carbon Dioxide 24.6 mmol/L (20.0-27.5); Non-African American GFR(CKD) 42.6 (60.0-200.0); Potassium 4.6 mmol/L (3.5-5.5)
[2022-03-22 11:36] LABS: Glucose,Whole Blood 237 mg/dL (70-110)
--- NOTE | 2022-03-22 12:32 | P.PN ---
Subjective Patient is seen for follow-up for acute kidney injury and top of chronic kidney disease. No significant complaints today Serum creatinine stable at about 1.7 mg/dL for the last couple of days. Currently maintained on oral Lasix 40 mg daily Objective - Vital Signs Vital signs: Vital Signs Temp 98.5 F 03/22/22 03:32 Pulse 66 03/22/22 10:57 Resp 16 03/22/22 03:32 BP 173/73 03/22/22 10:57 Pulse Ox 95 03/22/22 10:57 FiO2 Intake & Output 03/21/22 03/22/22 03/22/22 18:59 06:59 18:59 Intake Total 320 296 Balance 320 296 Intake: Intake, IV Titration 200 Amount Ampicillin-Sulbactam 3 gm 200 In Sodium Chloride 0.9% 100 ml @ 200 mls/hr IVPB Q6HR [facility] Rx#:[id number] Oral 120 296 Other: Voiding Method Toilet Toilet # Voids 1 # Bowel Movements 0 - Exam Awake, comfortable, not in any acute distress Examination of the heart S1 and S2 Examination lungs bilateral breath sounds are heard Abdomen is soft nontender examination lower extremities shows bilateral edema worsen the right leg [employer] exam grossly intact - Labs CBC & Chem 7: 03/22/22 04:58 03/22/22 04:58 Labs: Abnormal Lab Results - Last 24 Hours (Table) 03/21/22 03/21/22 03/22/22 Range/Units 18:03 20:53 04:58 RBC 3.31 L (4.40-5.60) X 10*6/uL Hgb 9.7 L (13.0-17.0) g/dL Hct 30.0 L (39.6-50.0) % Immature Gran # 0.06 H (0.00-0.04) X 10*3/uL Anion Gap (10.00-18.00) mmol/L BUN (9.0-27.0) mg/dL Creatinine (0.6-1.5) mg/dL Est GFR (CKD-EPI)AfAm (60.0-200.0) Est GFR (CKD-EPI)NonAf (60.0-200.0) Glucose (70-110) mg/dL POC Glucose (mg/dL) 198 H 257 H (70-110) mg/dL Calcium (8.7-10.3) mg/dL 03/22/22 03/22/22 Range/Units 04:58 11:35 RBC (4.40-5.60) X 10*6/uL Hgb (13.0-17.0) g/dL Hct (39.6-50.0) % Immature Gran # (0.00-0.04) X 10*3/uL Anion Gap 9.40 L (10.00-18.00) mmol/L BUN 28.6 H (9.0-27.0) mg/dL Creatinine 1.7 H (0.6-1.5) mg/dL Est GFR (CKD-EPI)AfAm 49.3 L (60.0-200.0) Est GFR (CKD-EPI)NonAf 42.6 L (60.0-200.0) Glucose 128 H (70-110) mg/dL POC Glucose (mg/dL) 237 H (70-110) mg/dL Calcium 8.4 L (8.7-10.3) mg/dL Microbiology - Last 24 Hours (Table) 03/18/22 00:30 Blood Culture - Preliminary Blood No Growth after 96 hours 03/18/22 00:15 Blood Culture - Preliminary Blood No Growth after 96 hours 03/19/22 21:10 Gram Stain - Final Toe - Right Fifth Tissue Culture - Final Strep agalactiae - (group b) Coagulase Negative Staph 03/18/22 11:00 Anaerobic Culture - Final Toe - Right Fifth Anaerobic Gm Negative Bacilli Anaerobic Gm Negative Bacilli#2 Anaerobic Gram Positive Cocci Assessment and Plan Assessment: 1. Acute kidney injury mostly prerenal secondary to infection and diuresis. renal function better. Creatinine fairly stable at 1.75 today. No hydronephrosis noted on kidney ultrasound. Concern for urinary retention. 2. Chronic kidney disease stage IIIa with baseline creatinine in the range of 1.1-1.4 in January and February 2021. Etiology is diabetic kidney disease. 3. Hypertension with chronic kidney disease. better controlled. 4. Diabetes mellitus. 5. Right foot infection on antibiotics. Infectious disease and podiatry following. Wound culture positive for strep. status post amputation of the right fifth digit on 03/19/2022. Plan: Increase Coreg to 25 mg twice a day as blood pressure remains elevated Continue with current dose off Lasix Repeat labs in a.m.
--- NOTE | 2022-03-22 12:42 | P.PN ---
Subjective Progress Note Date: 03/22/22 Principal diagnosis: Right fifth toe diabetic foot infection with wet gangrene Patient is a 61-year-old male past medical history significant for diabetes mellitus presenting to the hospital with right fifth toe swelling redness and some foul-smelling drainage diagnosed with diabetic gangrene patient has been evaluated by podiatry recommends surgical amputation toe the patient is status post amputation of the right fifth toe completed on 03/19/2022 On today's evaluation that is 03/22/2022, the patient continues to be afebrile, the patient is breathing comfortably on room air patient denies having any chest pain shortness breath or cough, the patient denies abdominal pain, the patient pain to the right foot is controlled and there is no drainage Objective - Vital Signs Vital signs: Vital Signs Temp 98.5 F 03/22/22 03:32 Pulse 66 03/22/22 10:57 Resp 16 03/22/22 03:32 BP 173/73 03/22/22 10:57 Pulse Ox 95 03/22/22 10:57 FiO2 Intake & Output 03/21/22 03/22/22 03/22/22 18:59 06:59 18:59 Intake Total 320 296 Balance 320 296 Intake: Intake, IV Titration 200 Amount Ampicillin-Sulbactam 3 gm 200 In Sodium Chloride 0.9% 100 ml @ 200 mls/hr IVPB Q6HR [facility] Rx#:[id number] Oral 120 296 Other: Voiding Method Toilet Toilet # Voids 1 # Bowel Movements 0 - Exam GENERAL DESCRIPTION: Middle-age male lying in bed in no distress RESPIRATORY SYSTEM: Unlabored breathing , decreased breath sounds at bases HEART: S1 S2 regular rate and rhythm , ABDOMEN: Soft , no tenderness EXTREMITIES: Right fifth toe amputation site still have nereida on there is evidence of significant surrounding swelling and redness but no drainage - Labs CBC & Chem 7: 03/22/22 04:58 03/22/22 04:58 Labs: Abnormal Lab Results - Last 24 Hours (Table) 03/21/22 03/21/22 03/21/22 Range/Units 12:11 18:03 20:53 RBC (4.40-5.60) X 10*6/uL Hgb (13.0-17.0) g/dL Hct (39.6-50.0) % Immature Gran # (0.00-0.04) X 10*3/uL Anion Gap (10.00-18.00) mmol/L BUN (9.0-27.0) mg/dL Creatinine (0.6-1.5) mg/dL Est GFR (CKD-EPI)AfAm (60.0-200.0) Est GFR (CKD-EPI)NonAf (60.0-200.0) Glucose (70-110) mg/dL POC Glucose (mg/dL) 232 H 198 H 257 H (70-110) mg/dL Calcium (8.7-10.3) mg/dL 03/22/22 03/22/22 Range/Units 04:58 04:58 RBC 3.31 L (4.40-5.60) X 10*6/uL Hgb 9.7 L (13.0-17.0) g/dL Hct 30.0 L (39.6-50.0) % Immature Gran # 0.06 H (0.00-0.04) X 10*3/uL Anion Gap 9.40 L (10.00-18.00) mmol/L BUN 28.6 H (9.0-27.0) mg/dL Creatinine 1.7 H (0.6-1.5) mg/dL Est GFR (CKD-EPI)AfAm 49.3 L (60.0-200.0) Est GFR (CKD-EPI)NonAf 42.6 L (60.0-200.0) Glucose 128 H (70-110) mg/dL POC Glucose (mg/dL) (70-110) mg/dL Calcium 8.4 L (8.7-10.3) mg/dL Microbiology - Last 24 Hours (Table) 03/18/22 00:30 Blood Culture - Preliminary Blood No Growth after 96 hours 03/18/22 00:15 Blood Culture - Preliminary Blood No Growth after 96 hours 03/19/22 21:10 Gram Stain - Final Toe - Right Fifth Tissue Culture - Final Strep agalactiae - (group b) Coagulase Negative Staph 03/18/22 11:00 Anaerobic Culture - Final Toe - Right Fifth Anaerobic Gm Negative Bacilli Anaerobic Gm Negative Bacilli#2 Anaerobic Gram Positive Cocci Assessment and Plan (1) Type 2 diabetes mellitus with right diabetic foot infection Current Visit: Yes Status: Acute Code(s): E11.628 - TYPE 2 DIABETES MELLITUS WITH OTHER SKIN COMPLICATIONS; L08.9 - LOCAL INFECTION OF THE SKIN AND SUBCUTANEOUS TISSUE, UNSP SNOMED Code(s): 53834026 Plan: 1patient presented to hospital with right diabetic foot infection involving the right fifth toe with goal for blood gangrene with significant swelling and redness and some gangrenous changes patient is high risk of losing his right fifth toe in view of the extensive infection and will need to cover for the polymicrobial kishan usually associated with his infection. Initial cultures have been finalized with Streptococcus deep cultures are growing Streptococcus agalactiae and anaerobes 2patient did have a significant inflammatory changes around his amputation site and will benefit from continuation of Unasyn in the outpatient setting for at least 2 weeks for which a midline will be placed Time with Patient: Less than 30
[2022-03-22 16:58] LABS: Glucose,Whole Blood 222 mg/dL (70-110)
[2022-03-22 20:30] LABS: Glucose,Whole Blood 298 mg/dL (70-110)
[2022-03-22] MEDS: PRAMIPEXOLE 1 MG TAB PO SCH (20:51)
--- NOTE | 2022-03-22 21:09 | P.PN ---
Subjective 61 years old male with past medical history of Crohn's disease, type II DM, peripheral neuropathy, chronic kidney disease, hypertension, hyperlipidemia, and coronary artery disease who presented to the ER because of right foot wound. 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 Patient noticed that the redness and swelling of right foot has worsened. Patient denied any fever or chills. Patient was worked up in the ER, initial workup showed an elevated white count of 10.8, creatinine was elevated at 1.97. 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; reports optimal pain control Vital signs are reviewed with temperature of 98.9, pulse 52, respiration 18 and blood pressure 148/70 Labs reveal sodium 142, potassium 4.5, BUN/creatinine of 32/1.64; blood glucose at 152; ultrasound is reviewed and does not reveal any hydronephrosis Patient remains on IV antibiotics per ID and podiatry recommendations; wound cultures positive for Streptococcus; await further recommendations from ID for IV antibiotics 03/21/2022 the patient is seen and evaluated in room at bedside; remains to be afebrile, the patient is breathing comfortably on room air patient denies having any chest pain shortness breath or cough, the patient denies abdominal pain, the patient denies pain to the right foot patient presented to hospital with right diabetic foot infection involving the right fifth toe with goal for blood gangrene with significant swelling and redness and some gangrenous changes patient is high risk of losing his right fifth toe in view of the extensive infection and will need to cover for the polymicrobial kishan usually associated with his infection. Initial cultures have been finalized with Streptococcus deep cultures are growing Streptococcus agalactiae and anaerobes patient to continue with Unasyn may benefit from short course of IV antibiotic on discharge 03/22/2022 patient still been treated for his diabetic right foot ulcer, foot is in a dressing, pain controlled Patient currently on Unasyn with recommendation to continue 2 weeks upon discharge Patient states that he takes Lantus at home 50 units twice a day and insulin sliding scale with NovoLog, he says he usually gets 8-10 units with meals. Patient informed that his hemoglobin A1c is 10.6% Blood pressure is uncontrolled, Coreg increased today to 25 twice a day by nephrology team, his heart rate is in high 50s and low 60s, we'll keep monitoring. Also we may add Norvasc for better controlled as patient has chronic kidney disease and he is diabetic. Possible discharge in 24-48 hours if he keeps improvement Objective - Vital Signs Vital signs: Vital Signs Temp 98.5 F 03/22/22 03:32 Pulse 59 L 03/22/22 03:32 Resp 16 03/22/22 03:32 BP 137/71 03/22/22 03:32 Pulse Ox 94 L 03/22/22 03:32 FiO2 Intake & Output 03/21/22 03/22/22 03/22/22 18:59 06:59 18:59 Intake Total 320 296 Balance 320 296 Intake: Intake, IV Titration 200 Amount Ampicillin-Sulbactam 3 gm 200 In Sodium Chloride 0.9% 100 ml @ 200 mls/hr IVPB Q6HR [facility] Rx#:[id number] Oral 120 296 Other: Voiding Method Toilet # Voids 1 # Bowel Movements 0 - Exam GENERAL: The patient is alert and oriented x3, not in any acute distress. Well developed, well nourished. HEENT: Pupils are round and equally reacting to light. EOMI. No scleral icterus. No conjunctival pallor. Normocephalic, atraumatic. No pharyngeal erythema. No thyromegaly. CARDIOVASCULAR: S1 and S2 present. No murmurs, rubs, or gallops. PULMONARY: Chest is clear to auscultation, no wheezing or crackles. ABDOMEN: Soft, nontender, nondistended, normoactive bowel sounds. No palpable or ganomegaly. MUSCULOSKELETAL: No joint swelling or deformity. -EXTREMITIES: No cyanosis, clubbing, or pedal edema. 1 of diabetic foot ulcer status post debridement with dressing in place NEUROLOGICAL: Gross neurological examination did not reveal any focal deficits. SKIN: No rashes. no petechiae. - Labs CBC & Chem 7: 03/22/22 04:58 03/22/22 04:58 Labs: Abnormal Lab Results - Last 24 Hours (Table) 03/21/22 03/21/22 03/21/22 Range/Units 12:11 18:03 20:53 RBC (4.40-5.60) X 10*6/uL Hgb (13.0-17.0) g/dL Hct (39.6-50.0) % Immature Gran # (0.00-0.04) X 10*3/uL Anion Gap (10.00-18.00) mmol/L BUN (9.0-27.0) mg/dL Creatinine (0.6-1.5) mg/dL Est GFR (CKD-EPI)AfAm (60.0-200.0) Est GFR (CKD-EPI)NonAf (60.0-200.0) Glucose (70-110) mg/dL POC Glucose (mg/dL) 232 H 198 H 257 H (70-110) mg/dL Calcium (8.7-10.3) mg/dL 03/22/22 03/22/22 Range/Units 04:58 04:58 RBC 3.31 L (4.40-5.60) X 10*6/uL Hgb 9.7 L (13.0-17.0) g/dL Hct 30.0 L (39.6-50.0) % Immature Gran # 0.06 H (0.00-0.04) X 10*3/uL Anion Gap 9.40 L (10.00-18.00) mmol/L BUN 28.6 H (9.0-27.0) mg/dL Creatinine 1.7 H (0.6-1.5) mg/dL Est GFR (CKD-EPI)AfAm 49.3 L (60.0-200.0) Est GFR (CKD-EPI)NonAf 42.6 L (60.0-200.0) Glucose 128 H (70-110) mg/dL POC Glucose (mg/dL) (70-110) mg/dL Calcium 8.4 L (8.7-10.3) mg/dL Microbiology - Last 24 Hours (Table) 03/18/22 00:30 Blood Culture - Preliminary Blood No Growth after 96 hours 03/18/22 00:15 Blood Culture - Preliminary Blood No Growth after 96 hours 03/19/22 21:10 Gram Stain - Final Toe - Right Fifth Tissue Culture - Final Strep agalactiae - (group b) Coagulase Negative Staph 09/15/22 11:00 Anaerobic Culture - Final Toe - Right Fifth Anaerobic Gm Negative Bacilli Anaerobic Gm Negative Bacilli#2 Anaerobic Gram Positive Cocci Assessment and Plan Assessment: Right foot diabetic ulcer, status post amputation. Wound culture growing multiple bacteria Acute kidney injury mostly prerenal secondary to infection in diuresis. Creatinine 1.97 on admission. Chronic kidney disease stage IIIa with baseline creatinine in the range of 1.1- 1.4 in January and February 2021. Etiology is diabetic kidney disease. Hypertension with chronic kidney disease. Diabetes mellitus. Plan: monitor vital signs Monitor CBC Follow-up on wound cultures Follow-up on blood cultures Continue IV meropenem and vancomycin Maintain normal saline at 75 mL an hour. Continue to hold diuretics. Ordered renal ultrasound. Avoid nephrotoxins. Continue IV fluids Monitor blood sugar levels, resume home insulin regimen DVT prophylaxis: heparin GI prophylaxis: Pepcid
[2022-03-23] MEDS: AMPICILLIN-SULBACTAM 3 GM in SODIUM CHLORIDE 0.9% 100 ML IVPB SCH ×3 (00:36→11:53)
[2022-03-23] MEDS: HEPARIN SODIUM,PORCINE/PF 5,000 UNIT/0.5 ML SYRINGE SQ SCH ×2 (00:37→09:18)
[2022-03-23] MEDS: cloNIDine HCL 0.2 MG TAB PO SCH ×2 (05:58→13:49)
[2022-03-23 07:07] LABS: Glucose,Whole Blood 108 mg/dL (70-110)
[2022-03-23] MEDS ORDERED: amLODIPine 5 MG TAB PO SCH (09:00)
[2022-03-23] MEDS: INSULIN ASPART (NovoLOG) 100 UNIT/ML VIAL SQ SCH ×2 (09:05→12:56)
[2022-03-23] MEDS: carvediloL 12.5 MG TAB PO SCH (09:18)
[2022-03-23] MEDS: allopurinoL 100 MG TAB PO SCH (09:18)
[2022-03-23] MEDS: FUROSEMIDE 40 MG TAB PO SCH (09:18)
[2022-03-23] MEDS: ATORVASTATIN 20 MG TAB PO SCH (09:18)
[2022-03-23] MEDS: INSULIN DETEMIR (LEVEMIR) 100 UNIT/ML SYR SQ SCH (09:19)
[2022-03-23] MEDS: FOLIC ACID 1 MG TAB PO SCH (09:19)
[2022-03-23] MEDS: hydrALAZINE HCL 50 MG TAB PO SCH (09:19)
[2022-03-23] MEDS: FAMOTIDINE 20 MG TAB PO SCH (09:19)
[2022-03-23 11:21] VITALS: BP 151/72; PULSE 53; RESP 16
[2022-03-23 11:52] VITALS: TEMP 98.3
[2022-03-23 12:11] LABS: Glucose,Whole Blood 146 mg/dL (70-110)
--- NOTE | 2022-03-23 12:35 | P.PN ---
Subjective Patient is seen for follow-up for acute kidney injury and top of chronic kidney disease. No significant complaints today Serum creatinine stable at about 1.7 mg/dL for the last couple of days. Currently maintained on oral Lasix 40 mg daily Objective - Vital Signs Vital signs: Vital Signs Temp 98.3 F 03/23/22 11:27 Pulse 53 L 03/23/22 11:20 Resp 16 03/23/22 11:20 BP 151/72 03/23/22 11:20 Pulse Ox 93 L 03/23/22 05:00 FiO2 Intake & Output 03/22/22 03/23/22 03/23/22 18:59 06:59 18:59 Intake Total 888 Balance 888 Intake: Oral 888 Other: Voiding Method Toilet Toilet # Voids 1 2 - Exam Awake, comfortable, not in any acute distress Examination of the heart S1 and S2 Examination lungs bilateral breath sounds are heard Abdomen is soft nontender examination lower extremities shows bilateral edema worsen the right leg WARRANTY ADMINISTRATOR exam grossly intact - Labs CBC & Chem 7: 03/22/22 04:58 03/22/22 04:58 Labs: Abnormal Lab Results - Last 24 Hours (Table) 03/22/22 03/22/22 03/23/22 Range/Units 16:57 20:28 12:01 POC Glucose (mg/dL) 222 H 298 H 146 H (70-110) mg/dL Microbiology - Last 24 Hours (Table) 03/18/22 00:30 Blood Culture - Preliminary Blood No Growth after 120 hours 03/18/22 00:15 Blood Culture - Preliminary Blood No Growth after 120 hours 03/19/22 21:10 Anaerobic Culture - Preliminary Toe - Right Fifth Anaerobic Gram Positive Cocci Assessment and Plan Assessment: 1. Acute kidney injury mostly prerenal secondary to infection and diuresis. renal function better. Creatinine fairly stable at 1.75 today. No hydronephrosis noted on kidney ultrasound. Concern for urinary retention. 2. Chronic kidney disease stage IIIa with baseline creatinine in the range of 1.1-1.4 in January and February 2021. Etiology is diabetic kidney disease. 3. Hypertension with chronic kidney disease. better controlled. 4. Diabetes mellitus. 5. Right foot infection on antibiotics. Infectious disease and podiatry following. Wound culture positive for strep. status post amputation of the right fifth digit on 03/19/2022. Plan: Continue with current dose of Lasix Repeat labs Will need follow-up as outpatient
[2022-03-23] MEDS ORDERED: ERTAPENEM 1 GM in SODIUM CHLORIDE 0.9% 50 ML IVPB STA (13:38)
[2022-03-23] MEDS ORDERED: PNEUMOCOCCAL VACC-PNEUMOVAX 23 25 MCG/0.5 ML VIAL IM ONE (14:45)
--- NOTE | 2022-03-23 21:16 | P.DS ---
Providers Date of admission: 03/18/22 03:52 Attending physician: Oliver Leon Consults: 03/18/22 01:48 Consult Physician Urgent Consulting Provider: Edgardo Johnson Consult Reason/Comments: Nephrology, acute kidney injury Do you want consulting provider notified?: Yes, Notify in am Consult Physician Urgent Consulting Provider: Zach Leung Consult Reason/Comments: Diabetic foot infection Do you want consulting provider notified?: Yes, Notify in am 03/18/22 01:54 Consult Physician Urgent Consulting Provider: Bisi Melo Consult Reason/Comments: Diabetic foot infection Do you want consulting provider notified?: Yes, Notify in am Primary care physician: [facility] Course: Diagnoses: Right foot diabetic ulcer, status post amputation. Wound culture growing multiple bacteria Acute kidney injury mostly prerenal secondary to infection and diuresis. Creatinine 1.97 on admission. Improved to 1.7 upon discharge Chronic kidney disease stage IIIa with baseline creatinine in the range of 1.1- 1.4 in January and February 2021. Etiology is diabetic kidney disease. Hypertension with chronic kidney disease. Diabetes mellitus. Hospital course: 61 years old male with past medical history of Crohn's disease, type II DM, peripheral neuropathy, chronic kidney disease, hypertension, hyperlipidemia, and coronary artery disease who presented to the ER because of right foot wound. Patient underwent amputation of the right distal on , he was treated with IV Unasyn per ID team for cellulitis. Patient will require IV antibiotics upon discharge as per ID team. Dr. Melo discussed the case with the case management for management of antibiotic and he cleared the patient for discharge today. Creatinine is stable on patient evaluated by severity of illness coordinator. For discharge as well. Creatinine is stable. Blood pressure medication was adjusted also with Coreg increased by severity of illness coordinator, risk of bradycardia at explained for the patient extensively and he is going to monitor his blood pressure at home and also with his PCP in one week. Also continue with oral Lasix 40 mg daily and Norvasc and hydralazine 100 mg 3 times a day. Blood pressure improved prior to discharge. Patient tolerated Coreg 25 mg is yesterday well, no symptoms of dizziness or syncope. Patient was cleared for discharge by severity of illness coordinator. Patient also going to continue his insulin for discharge with close monitoring of sliding scale and hemoglobin A1c with his PCP. Problems and management plan were discussed with the patient and he verbalized understanding and acceptance Patient was found stable and can be discharged home however he needs follow-up as an outpatient. Patient was instructed to follow up with PCP Dr. bxo within one week and patient agrees Patient was instructed to follow up with infectious disease Dr. Melo in one week and severity of illness coordinator Dr. Koroma in one week and he agrees Physical exam Gen: patient is a AAOx3, no distress CVS: S1-S2, RRR, no murmur Lungs: B/L CTA, no wheezing Abdomen: soft, no distention, no tenderness, positive bowel sounds -Extremity: no leg edema or induration. Right foot surgical wound is healing with a dressing in place Time spent more than 35 minutes Patient Condition at Discharge: Fair Plan - Discharge Summary Discharge Rx Participant: No New Discharge Prescriptions: New hydrALAZINE HCL [Apresoline] 100 mg PO TID #180 tab carvediloL [Coreg*] 25 mg PO BID-W/MEALS #60 tab Furosemide [Lasix] 40 mg PO DAILY tab amLODIPine [Norvasc] 5 mg PO DAILY #30 tab Continue Ergocalciferol (Vitamin D2) [Vitamin D2] 50,000 unit PO HUGGINS Pramipexole [Mirapex] 1 mg PO HS Rosuvastatin Calcium [Crestor] 10 mg PO DAILY Clopidogrel Bisulfate [Plavix] 75 mg PO DAILY Aspirin 81 mg PO DAILY allopurinoL [Zyloprim] 100 mg PO DAILY Pantoprazole [Protonix] 40 mg PO AC-BRKFST #30 tablet. Folic Acid 1 mg PO DAILY Vitamin B Complex 1 cap PO BID INSULIN ASPART (NovoLOG) [NovoLOG (formulary)] See Protocol SQ AC-TID Magnesium Oxide [Mag-Ox] 400 mg PO BID Insulin Glargine,Hum.rec.anlog [Lantus Solostar Pen] 50 units SQ BID cloNIDine HCL 0.2 mg PO TID@0700,1400,2200 Discontinued carvediloL [Coreg] 12.5 mg PO BID Furosemide [Lasix] 40 mg PO BID Potassium Chloride ER [K-Dur 10] 10 meq PO BID metOLazone [Zaroxolyn] 2.5 mg PO Q2D Losartan [Cozaar] 50 mg PO BID hydrALAZINE HCL [Apresoline] 50 mg PO BID #60 tab Discharge Medication List Ergocalciferol (Vitamin D2) [Vitamin D2] 50,000 unit PO HUGGINS 06/14/18 [History] Pramipexole [Mirapex] 1 mg PO HS 06/14/18 [History] Aspirin 81 mg PO DAILY 06/27/19 [History] Clopidogrel Bisulfate [Plavix] 75 mg PO DAILY 06/27/19 [History] Rosuvastatin Calcium [Crestor] 10 mg PO DAILY 06/27/19 [History] INSULIN ASPART (NovoLOG) [NovoLOG (formulary)] See Protocol SQ AC-TID 01/09/21 [History] Vitamin B Complex 1 cap PO BID 01/09/21 [History] allopurinoL [Zyloprim] 100 mg PO DAILY 01/09/21 [History] Pantoprazole [Protonix] 40 mg PO AC-BRKFST #30 tablet. 01/12/21 [Rx] Folic Acid 1 mg PO DAILY 03/18/22 [History] Insulin Glargine,Hum.rec.anlog [Lantus Solostar Pen] 50 units SQ BID 03/18/22 [History] Magnesium Oxide [Mag-Ox] 400 mg PO BID 03/18/22 [History] cloNIDine HCL 0.2 mg PO TID@0700,1400,2200 03/18/22 [History] Furosemide [Lasix] 40 mg PO DAILY tab 03/23/22 [Rx] amLODIPine [Norvasc] 5 mg PO DAILY #30 tab 03/23/22 [Rx] carvediloL [Coreg*] 25 mg PO BID-W/MEALS #60 tab 03/23/22 [Rx] hydrALAZINE HCL [Apresoline] 100 mg PO TID #180 tab 03/23/22 [Rx] Follow up Appointment(s)/Referral(s): [facility], [NON-STAFF] - 1 Week Sammy Box DO [Primary Care Provider] - 04/05/22 3:30 pm [facility] [NON-STAFF] - As Needed () Edgardo Johnson DO [STAFF PHYSICIAN] - 03/31/22 1:40 pm (kidney doctor) Bisi Melo MD [STAFF PHYSICIAN] - 03/30/22 2:00 pm (You also have an appointment on oct 3rd at this office at 2:15.) Patient Instructions/Handouts: Hydralazine (By mouth), Amlodipine (By mouth), Carvedilol (By mouth), Acute Kidney Injury (DC), Diabetic Foot Ulcers (DC) Activity/Diet/Wound Care/Special Instructions: Patient wants pne vaccine before discharge. heart healthy diet , low carbohydrate diet 1800 kcal per day activity is restricted till you see your doctor we recommend to check your glucose 4 times a day before each meal and at bed time , keep the results in a log book and bring it to your doctor upon your appointment date if your glucose is less than 70 or more than 400 then call 911 and come to emergency room Discharge Disposition: HOME WITH HOME HEALTH SERVICES
--- NOTE | 2022-03-30 23:21 | P.PN ---
Subjective Progress Note Date: 03/23/22 Principal diagnosis: Right fifth toe diabetic foot infection with wet gangrene Patient is a 61-year-old male past medical history significant for diabetes mellitus presenting to the hospital with right fifth toe swelling redness and some foul-smelling drainage diagnosed with diabetic gangrene patient has been evaluated by podiatry recommends surgical amputation toe the patient is status post amputation of the right fifth toe completed on 03/19/2022 On today's evaluation that is 03/23/2022, the patient remains to be afebrile, the patient is breathing comfortably on room air patient denies having any chest pain shortness breath or cough, the patient denies abdominal pain and no diarrhea, the patient pain to the right foot is controlled Objective - Vital Signs Vital signs: Vital Signs Temp 98.4 F 03/23/22 05:00 Pulse 53 L 03/23/22 11:20 Resp 16 03/23/22 11:20 BP 151/72 03/23/22 11:20 Pulse Ox 93 L 03/23/22 05:00 FiO2 Intake & Output 03/22/22 03/23/22 03/23/22 18:59 06:59 18:59 Intake Total 888 Balance 888 Intake: Oral 888 Other: Voiding Method Toilet Toilet # Voids 1 2 - Exam GENERAL DESCRIPTION: Middle-age male lying in bed in no distress RESPIRATORY SYSTEM: Unlabored breathing , decreased breath sounds at bases HEART: S1 S2 regular rate and rhythm , ABDOMEN: Soft , no tenderness EXTREMITIES: Right fifth toe amputation site still have nereida on there is evidence of significant surrounding swelling and redness but no drainage - Labs CBC & Chem 7: 03/22/22 04:58 03/22/22 04:58 Labs: Abnormal Lab Results - Last 24 Hours (Table) 03/22/22 03/22/22 03/22/22 Range/Units 11:35 16:57 20:28 POC Glucose (mg/dL) 237 H 222 H 298 H (70-110) mg/dL Microbiology - Last 24 Hours (Table) 03/18/22 00:30 Blood Culture - Preliminary Blood No Growth after 120 hours 03/18/22 00:15 Blood Culture - Preliminary Blood No Growth after 120 hours 03/19/22 21:10 Anaerobic Culture - Preliminary Toe - Right Fifth Anaerobic Gram Positive Cocci Assessment and Plan (1) Type 2 diabetes mellitus with right diabetic foot infection Status: Acute Code(s): E11.628 - TYPE 2 DIABETES MELLITUS WITH OTHER SKIN COMPLICATIONS; L08.9 - LOCAL INFECTION OF THE SKIN AND SUBCUTANEOUS TISSUE, UNSP SNOMED Code(s): 89865450 Plan: 1patient presented to hospital with right diabetic foot infection involving the right fifth toe with goal for blood gangrene with significant swelling and redness and some gangrenous changes patient is high risk of losing his right fifth toe in view of the extensive infection and will need to cover for the polymicrobial kishan usually associated with his infection. Initial cultures have been finalized with Streptococcus deep cultures are growing Streptococcus agalactiae and anaerobes 2patient did have a significant inflammatory changes around his amputation site 4 with the patient will continue with Unasyn in the outpatient setting for at least 2 weeks close outpatient follow-up Time with Patient: Less than 30
== END 2022-03-23 16:12 | disposition home health service (06) | DRG 617 ==
LOC: EC 22:17 → 5NMEDONC 03-18 03:52
PROVIDERS: ADMIT Internal Medicine; ATTEND Internal Medicine
PROC: 0Y6X0Z0 Detachment at Right 5th Toe, Complete, Open Approach (ICD-10-PCS; principal; 2022-03-19 20:00)
PROC: 05HF33Z Insertion of Infusion Device into Left Cephalic Vein, Percutaneous Approach (ICD-10-PCS; 2022-03-23 11:30)
DX: E11.621 Type 2 diabetes mellitus with foot ulcer (principal); E11.52 Type 2 diabetes mellitus with diabetic peripheral angiopathy with gangrene; I13.0 Hypertensive heart and chronic kidney disease with heart failure and stage 1 through stage 4 chronic kidney disease, or unspecified chronic kidney disease; L03.115 Cellulitis of right lower limb; K50.90 Crohn's disease, unspecified, without complications; B95.2 Enterococcus as the cause of diseases classified elsewhere; E11.628 Type 2 diabetes mellitus with other skin complications; E11.65 Type 2 diabetes mellitus with hyperglycemia; I25.10 Atherosclerotic heart disease of native coronary artery without angina pectoris; I50.9 Heart failure, unspecified; J44.9 Chronic obstructive pulmonary disease, unspecified; N18.31 Chronic kidney disease, stage 3a; E11.42 Type 2 diabetes mellitus with diabetic polyneuropathy; E11.40 Type 2 diabetes mellitus with diabetic neuropathy, unspecified; E11.22 Type 2 diabetes mellitus with diabetic chronic kidney disease; N17.9 Acute kidney failure, unspecified; L97.519 Non-pressure chronic ulcer of other part of right foot with unspecified severity; E78.5 Hyperlipidemia, unspecified; N40.0 Benign prostatic hyperplasia without lower urinary tract symptoms; Z79.02 Long term (current) use of antithrombotics/antiplatelets; Z79.4 Long term (current) use of insulin; Z79.82 Long term (current) use of aspirin; Z79.899 Other long term (current) drug therapy; Z87.891 Personal history of nicotine dependence; Z90.49 Acquired absence of other specified parts of digestive tract; Z87.19 Personal history of other diseases of the digestive system; Z88.5 Allergy status to narcotic agent
CPT/HCPCS: 36410; 36415; 76770; 76937; 80048; 80053; 81001; 83036; 83605; 83735; 84100; 85025; 85610; 85652; 86140; 87040; 87070; 87075; 87077; 87186; 87205; 88305; 88311; 90732; 96365; 96366; 99285

== ENCOUNTER 2024-11-18 16:37 | Emergency (ER) | payer MEDICARE ==
[2024-11-18 16:47] VITALS: BP 197/95; PULSE 76; RESP 17; TEMP 98.5
--- NOTE | 2024-11-18 16:47 | ED ---
Fall HPI - General Stated Complaint: Fall Time Seen by Provider: 11/18/24 16:38 Source: patient, EMS, RN notes reviewed, old records reviewed Mode of arrival: EMS Limitations: no limitations - History of Present Illness Initial Comments: This is a 64-year-old male for a trip and fall in the kitchen. Patient is on Plavix. Did not hit his head no loss of conscious no headaches or neck pain. Landed on his right arm right shoulder complaining of mainly right shoulder pain but his whole arm does hurt. Able to move his forearm and hands but severe pain in the right shoulder did get pain medication for EMS with mild improvement in pain. MD Complaint: fall -: hour(s) Fall From: standing When Fall Occurred: 1 hour [employer] Fall Witnessed: yes, by family Place Fall Occurred: home Loss of Consciousness: none Prolonged Down Time?: no Symptoms Prior to Fall: none Location - Extremities: Right: Shoulder, Arm, Elbow, Forearm Severity: severe Severity scale (1-10): 10 Quality: sharp Context: tripped/slipped Associated Symptoms: denies - Related Data Home Medications Medication Instructions Recorded Confirmed Ergocalciferol (Vitamin D2) 50,000 unit PO HUGGINS 06/14/18 03/18/22 [Vitamin D2] Pramipexole [Mirapex] 1 mg PO HS 06/14/18 03/18/22 Aspirin 81 mg PO DAILY 06/27/19 03/18/22 Clopidogrel Bisulfate [Plavix] 75 mg PO DAILY 06/27/19 03/18/22 Rosuvastatin Calcium [Crestor] 10 mg PO DAILY 06/27/19 03/18/22 INSULIN ASPART (NovoLOG) [NovoLOG See Protocol SQ AC-TID 01/09/21 03/18/22 (formulary)] Vitamin B Complex 1 cap PO BID 01/09/21 03/18/22 allopurinoL [Zyloprim] 100 mg PO DAILY 01/09/21 03/18/22 Folic Acid 1 mg PO DAILY 03/18/22 03/18/22 Insulin Glargine,Hum.rec.anlog 50 units SQ BID 03/18/22 03/18/22 [Lantus Solostar Pen] Magnesium Oxide [Mag-Ox] 400 mg PO BID 03/18/22 03/18/22 cloNIDine HCL 0.2 mg PO TID@0700,1400,2200 09/15/22 09/15/22 Previous Rx's Medication Instructions Recorded Pantoprazole [Protonix] 40 mg PO AC-BRKFST #30 tablet. 01/12/21 Furosemide [Lasix] 40 mg PO DAILY tab 03/23/22 amLODIPine [Norvasc] 5 mg PO DAILY #30 tab 03/23/22 carvediloL [Coreg*] 25 mg PO BID-W/MEALS #60 tab 03/23/22 hydrALAZINE HCL [Apresoline] 100 mg PO TID #180 tab 03/23/22 Allergies Allergy/AdvReac Type Severity Reaction Status Date / Time codeine Allergy Anaphylaxis Verified 11/18/24 16:47 morphine Allergy Anaphylaxis Verified 11/18/24 16:47 Review of Systems ROS Statement: Those systems with pertinent positive or pertinent negative responses have been documented in the HPI. ROS Other: All systems not noted in ROS Statement are negative. Past Medical History Past Medical History: Coronary Artery Disease (CAD), Chest Pain / Angina, Heart Failure, COPD, Diabetes Mellitus, Hyperlipidemia, Hypertension, Prostate Disorder, Renal Disease Additional Past Medical History / Comment(s): IDDM type II, neuropathy bilateral arms/hands/legs/feet, past R foot wound, CKD stage III, chron's with obstructions, BPH. History of Any Multi-Drug Resistant Organisms: ESBL, ESBL, MRSA Date of last positivie culture/infection: 2018 MDRO Source:: right foot Past Surgical History: Bowel Resection, Heart Catheterization With Stent, Orthopedic Surgery, Tonsillectomy Additional Past Surgical History / Comment(s): bowel resection in 1994 &1999 d/t chron's, heart cath with stent at [facility] April 14 2019, R foot I&D, R foot surgery for hammer toes, EGD, colonoscopies. Past Anesthesia/Blood Transfusion Reactions: No Reported Reaction Date of Last Stent Placement:: april 2019 Past Psychological History: No Psychological Hx Reported Smoking Status: Former smoker - Past Family History Father Family Medical History: COPD, Diabetes Mellitus, Musculoskeletal Disorder Additional Family Medical History / Comment(s): Father is . Mother Family Medical History: COPD, Diabetes Mellitus Additional Family Medical History / Comment(s): Mother is . General Exam Limitations: no limitations General appearance: alert, in no apparent distress Head exam: Present: atraumatic, normocephalic, normal inspection Eye exam: Present: normal appearance, PERRL, EOMI. Absent: scleral icterus, conjunctival injection, periorbital swelling ENT exam: Present: normal exam, mucous membranes moist Neck exam: Present: normal inspection. Absent: tenderness, meningismus, lymphadenopathy Respiratory exam: Present: normal lung sounds bilaterally. Absent: respiratory distress, wheezes, rales, rhonchi, stridor Cardiovascular Exam: Present: regular rate, normal rhythm, normal heart sounds. Absent: systolic murmur, diastolic murmur, rubs, gallop, clicks GI/Abdominal exam: Present: soft, normal bowel sounds. Absent: distended, tenderness, guarding, rebound, rigid Extremities exam: Present: normal inspection, full ROM, normal capillary refill. Absent: tenderness, pedal edema, joint swelling, calf tenderness Back exam: Present: normal inspection Neurological exam: Present: alert, oriented X3, CN II-XII intact Psychiatric exam: Present: normal affect, normal mood Skin exam: Present: warm, dry, intact, normal color. Absent: rash Course Vital Signs 11/18/24 16:44 Temperature 98.5 F Pulse Rate 76 Respiratory 17 Rate Blood Pressure 197/95 O2 Sat by Pulse 97 Oximetry - Reevaluation(s) Reevaluation #1: 11/18/24 17:13 Medical records reviewed Reevaluation #2: 11/18/24 18:06 Patient's pain is controlled here in the emergency department sling is placed Reevaluation #3: 11/18/24 18:07 Patient informed of results questions answered Reevaluation #4: Was pt. sent in by a medical professional or institution (, PA, FIELD TAX AUDITOR, urgent care, hospital, or alf...) When possible be specific @ -no Did you speak to anyone other than the patient for history (EMS, parent, family, police, friend...)? What history was obtained from this source @ -no Did you review nursing and triage notes (agree or disagree)? Why? @ -agree Are old charts reviewed (outside hosp., previous admission, EMS record, old EKG, old radiological studies, urgent care reports/EKG's, alf records)? Report findings @ -yes Differential Diagnosis (chest pain, altered mental status, abdominal pain women, abdominal pain men, vaginal bleeding, weakness, fever, dyspnea, syncope, headache, dizziness, GI bleed, back pain, seizure, CVA, palpatations, mental health, musculoskeletal)? @ -prior EKG interpreted by me (3pts min.). @ -yes X-rays interpreted by me (1pt min.). @ -yes negative for acute disease CT interpreted by me (1pt min.). @ -no U/S interpreted by me (1pt. min.). @ -no What testing was considered but not performed or refused? (CT, X-rays, U/S, labs)? Why? @ -none What meds were considered but not given or refused? Why? @ -none Did you discuss the management of the patient with other professionals (professionals i.e. , PA, FIELD TAX AUDITOR, lab, RT, psych nurse, dialysis social worker, sweet potato disintegrator, teacher, safety patrol officer, community case manager)? Give summary @ -no Was smoking cessation discussed for >3mins.? @ -no Was critical care preformed (if so, how long)? @ -no Were there social determinants of health that impacted care today? How? (Homelessness, low income, unemployed, alcoholism, drug addiction, transportation, low edu. Level, literacy, decrease access to med. care, senior care, rehab)? @ -none Was there de-escalation of care discussed even if they declined (Discuss DNR or withdrawal of care, Hospice)? DNR status @ -no What co-morbidities impacted this encounter? (DM, HTN, Smoking, COPD, CAD, Canc er, CVA, ARF, Chemo, Hep., AIDS, mental health diagnosis, sleep apnea, morbid obesity)? @ -none Was patient admitted / discharged? Hospital course, mention meds given and route, prescriptions, significant lab abnormalities, going to OR and other pertinent info. @ - Undiagnosed new problem with uncertain prognosis? @ -no Drug Therapy requiring intensive monitoring for toxicity (Heparin, Nitro, Insulin, Cardizem)? @ -no Were any procedures done? @ -no Diagnosis/symptom? @ - Acute, or Chronic, or Acute on Chronic? @ -Acute Uncomplicated (without systemic symptoms) or Complicated (systemic symptoms)? @ -Complicated Side effects of treatment? @ -no Exacerbation, Progression, or Severe Exacerbation? @ -exacerbation Poses a threat to life or bodily function? How? (Chest pain, USA, MD, pneumonia, PE, COPD, DKA, ARF, appy, cholecystitis, CVA, Diverticulitis, Homicidal, Suicidal, threat to staff... and all critical care pts) @ -yes Procedures - Orthopedic Splinting/Casting Injury #1 Side: right Upper Extremity Injury Location: shoulder Upper Extremity Immobilizer: sling/shoulder immobilizer Disposition Clinical Impression: Fall, Right humeral fracture Disposition: HOME SELF-CARE Condition: Good Instructions (If sedation given, give patient instructions): Proximal Humerus Fracture (ED) Is patient prescribed a controlled substance at d/c from ED?: No Referrals: Shaheed Becker MD [Primary Care Provider] - 1-2 days Charlie Fernandez DO [Doctor of Osteopathic Medicine] - 1-2 days
[2024-11-18] MEDS: HYDROmorphone 1 MG/ML 1 ML SYRINGE IVP STA ×2 (17:13→18:06)
--- NOTE | 2024-11-18 17:40 | XR ---
EXAMINATION TYPE: XR shoulder complete RT DATE OF EXAM: 11/18/2024 5:35 PM COMPARISON: None. CLINICAL INDICATION: Male, 64 years old with history of fall; PHH, pain TECHNIQUE: XR shoulder complete RT; examined in AP, internally rotated and scapular Y projections. FINDINGS: Comminuted minimally displaced and impacted fracture of the right humeral head/neck. Fracture line al so extends into the right greater tuberosity. Severe degenerative surgery changes of the right acromi oclavicular joint. IMPRESSION: Comminuted minimally displaced impacted fracture of the right humeral head/neck. [facility], , 11/18/2024 5:38 PM
--- NOTE | 2024-11-18 17:41 | XR ---
EXAMINATION TYPE: XR chest 1V DATE OF EXAM: 11/18/2024 5:34 PM COMPARISON: Prior chest radiographs, most recently dated 01/30/2021. CLINICAL INDICATION: Male, 64 years old with history of fall; [facility] TECHNIQUE: XR chest 1V Frontal view of the chest. FINDINGS: Lungs/Pleura: There is no evidence of pleural effusion, focal consolidation, or pneumothorax. Pulmonary vascularity: Unremarkable. Heart/mediastinum: Cardiomediastinal silhouette is unremarkable. Musculoskeletal: No acute osseous pathology. Other findings: None IMPRESSION: No acute cardiopulmonary disease/process. [facility], , 11/18/2024 5:38 PM
--- NOTE | 2024-11-18 17:44 | XR ---
EXAMINATION TYPE: XR forearm RT DATE OF EXAM: 11/18/2024 5:34 PM COMPARISON: None. CLINICAL INDICATION: Male, 64 years old with history of fall; PHH, pain TECHNIQUE: XR forearm RT; forearm was examined in AP and lateral projections. FINDINGS: No acute fracture or dislocation. No sizable elbow joint effusion. Enthesophyte along the olecranon. Visualized carpal alignment appears maintained. IMPRESSION: No evidence of acute fracture. [facility], , 11/18/2024 5:41 PM
[2024-11-18] MEDS: KETOROLAC 15 MG/ML 1 ML VIAL IVP STA (18:07)
[2024-11-18] MEDS: traMADol 50 MG STARTER PACK 3 TAB BTL PO STA (18:14)
== END 2024-11-18 18:45 | disposition home or self-care (01) ==
LOC: EC 16:37 → SUPCPDRO 16:37 → EC 18:45
DX: S42.301A Unspecified fracture of shaft of humerus, right arm, initial encounter for closed fracture (principal); Z87.891 Personal history of nicotine dependence; Z88.5 Allergy status to narcotic agent; W01.0XXA Fall on same level from slipping, tripping and stumbling without subsequent striking against object, initial encounter
CPT/HCPCS: 73030; 73090; 71045; 99283; 96374; 96375; 29105; 96376; J1171; J1885